=== PATIENT | female | born 1945 | race Caucasian/White ===

== ENCOUNTER → 2016-06-06 | Outpatient (CLI) | payer MEDICARE, BC ==
--- NOTE | 2016-06-07 08:03 | XR ---
EXAMINATION TYPE: XR knee complete LT DATE OF EXAM: 06/06/2016 4:59 PM CLINICAL HISTORY: Left medial knee pain after fall injury today. TECHNIQUE: Three views of the left knee are obtained. COMPARISON: None. FINDINGS: There is no acute fracture/dislocation evident in left knee. There is mild joint space los s patellofemoral and medial tibiofemoral compartments. No significant spurring is seen. The overlyin g soft tissue appears unremarkable. IMPRESSION: There is no acute fracture or dislocation in the left knee.
== END | disposition home or self-care (01) ==
LOC: RADXRYALE 16:40
PROVIDERS: ATTEND Family Medicine
DX: S89.92XA Unspecified injury of left lower leg, initial encounter (principal)

== ENCOUNTER → 2016-09-22 | Outpatient (CLI) | payer MEDICARE, BC ==
--- NOTE | 2016-09-22 12:11 | EST ---
DATE OF SERVICE: 09/22/2016 AGE: 71Y SEX: F HT: 61 WT: 155 lbs. Protocol Saurabh: X Other: Stage: I Dur. of Exercise: 3 minutes *Heart Rate Blood Pressure *Rest: 74 Rest: 148/88 * *Max. Achieved: 127 Maximum BP: 180/75 85% PMHR: 126 100% PMHR: 148 *METS: 4.0 INDICATIONS: Chest pain. MEDICATIONS: Keppra, Klonopin, Lexapro. Baseline EKG revealed a sinus mechanism without significant ST-T changes. Patient walked on standard Saurabh protocol for a total duration of 3 minutes and achieved a maximum heart rate of 127 beats per minute. Developed fatigue and shortness of breath, but did not have angina or arrhythmia. EKG did not reveal any changes to suggest ischemia. FINAL IMPRESSION: Limited exercise capacity with a negative stress test by EKG criteria.
== END | disposition home or self-care (01) ==
LOC: RADNMMAIN 10:48
PROVIDERS: ATTEND Family Medicine
DX: R07.9 Chest pain, unspecified (principal)
CPT/HCPCS: 93017

== ENCOUNTER → 2016-10-18 | Outpatient (CLI) | payer MEDICARE, BC ==
--- NOTE | 2016-10-19 13:25 | XR ---
2 view abdomen HISTORY: Cerebrovascular accident, right lower quadrant pain 2 views of the abdomen correlated to prior abdomen 10/06/2015 Surgical clips are present in the right upper quadrant. Lung bases are clear. There is no evident bow el obstruction or pneumoperitoneum. Surgical clips again noted within the left paraspinal location, p chantelle. Bone mineralization is mildly reduced. Probable phleboliths in the pelvis. IMPRESSION: Nonobstructive bowel gas pattern.
== END | disposition home or self-care (01) ==
LOC: RADXRYALE 14:43
PROVIDERS: ATTEND Physician Assistant Medical
DX: R10.31 Right lower quadrant pain (principal); R10.819 Abdominal tenderness, unspecified site; Z86.73 Personal history of transient ischemic attack (TIA), and cerebral infarction without residual deficits
CPT/HCPCS: 74020

== ENCOUNTER → 2016-10-26 | Outpatient (CLI) | payer MEDICARE, BC ==
--- NOTE | 2016-10-26 18:39 | CT ---
EXAMINATION TYPE: CT abdomen w con DATE OF EXAM: 10/26/2016 COMPARISON: 03/01/2015 HISTORY: MIDDLE ABDOMINAL AND EPIGASTRIC PAIN. CT DLP: 545 mGycm Automated exposure control for dose reduction was used. TECHNIQUE: Helical acquisition of images was performed from the lung bases through the top of iliac crest to include entire abdomen. CONTRAST: Performed with Oral Contrast and with IV Contrast, patient injected with 100 mL of Omnipaque 300. FINDINGS: Lung bases are clear of consolidation. There is a 1 cm subpleural nodule in the lateral left lower lo be. There is no pleural effusion. There is small hiatal hernia. There is no pericardial effusion. Liver spleen pancreas appear normal. Bile ducts are not dilated. Gallbladder is absent. There is no a drenal mass. Kidneys show satisfactory contrast opacification. There is no hydronephrosis. There are multiple varicose veins at the tim hepatis. There is a 3 cm area of apparent calcification and ther e is no sign of a bowel obstruction. I see no retroperitoneal adenopathy. Spiculated density in the s mall bowel mesentery seen on axial image 37. IMPRESSION: THERE ARE SIGNIFICANT VARICES DEMONSTRATED AT THE TIM HEPATIS SIMILAR TO OLD EXAM. THERE IS SOME DE SMOPLASTIC-TYPE REACTION IN THE SMALL BOWEL MESENTERY THAT IS INCREASED COMPARED TO OLD EXAM. NO JENNIFER L OBSTRUCTION. HIATAL HERNIA. CHOLECYSTECTOMY. THE DESMOPLASTIC REACTION IN THE UPPER SMALL BOWEL MESENTERY ALSO INVOLVES THE PROXIMAL TRANSVERSE CO HAILE AND PROBABLY ALSO THE THIRD PART OF THE DUODENUM. UPPER GI EXAM WOULD BE HELPFUL FOR FURTHER EVAL UATION. THERE ARE ADJACENT LOOPS OF BOWEL THAT SHOW SOME ADHESION TO THE MESENTERIC DENSITY..
== END | disposition home or self-care (01) ==
LOC: RADCTMAIN 15:47
PROVIDERS: ATTEND Family Medicine
DX: K44.9 Diaphragmatic hernia without obstruction or gangrene (principal); K63.89 Other specified diseases of intestine; R19.7 Diarrhea, unspecified; R10.13 Epigastric pain; K21.9 Gastro-esophageal reflux disease without esophagitis; Z90.49 Acquired absence of other specified parts of digestive tract
CPT/HCPCS: 82565; 84520; 74160; 36415; Q9967

== ENCOUNTER → 2017-04-17 | Outpatient (CLI) | payer MEDICARE, BC ==
--- NOTE | 2017-04-17 12:43 | CT ---
EXAMINATION TYPE: CT brain wo con DATE OF EXAM: 04/17/2017 COMPARISON: NONE HISTORY: Dizziness, Headaches CT DLP: 1036 mGy Automated exposure control for dose reduction was used. FINDINGS: Ventricular system is midline. There is no evidence of displacement. No acute hemorrhage or mass effe ct noted. Periventricular low attenuation is nonspecific. Hyperostosis of the calvarium noted. IMPRESSION: NO ACUTE HEMORRHAGE, MASS EFFECT OR MIDLINE SHIFT. NONSPECIFIC WHITE MATTER CHANGES MOST TYPICAL [place] TE MICROVASCULAR ISCHEMIA. RECOMMEND FOLLOW-UP MRI. REPORT CALLED TO THE REFERRING PHYSICIAN..
== END | disposition home or self-care (01) ==
LOC: RADCTMAIN 12:13
PROVIDERS: ATTEND Physician Assistant Medical
DX: R90.82 White matter disease, unspecified (principal)
CPT/HCPCS: 70450

== ENCOUNTER 2017-05-20 16:01 | Emergency (ER) | payer MEDICARE, BC ==
[2017-05-20 16:09] VITALS: PULSE 82
[2017-05-20] MEDS ORDERED: KETOROLAC 30 MG/ML 1 ML VIAL IVP STA (17:03)
[2017-05-20 17:21] LABS: Basophils % (A) 1 %; Eosinophils # (A) 0.1 k/uL (0-0.7); Eosinophils % (A) 2 %; HCT 38.5 % (34.0-46.0); HGB 12.5 gm/dL (11.4-16.0); Lymphocytes # (A) 1.2 k/uL (1.0-4.8); Lymphocytes % (A) 25 %; MCH 30.9 pg (25.0-35.0); MCHC 32.4 g/dL (31.0-37.0); MCV 95.5 fL (80.0-100.0); Monocytes # (A) 0.4 k/uL (0-1.0); Monocytes % (A) 8 %; Neutrophils % (A) 62 %; Platelet Count 199 k/uL (150-450); RBC 4.04 m/uL (3.80-5.40); RDW 12.7 % (11.5-15.5); WBC 4.8 k/uL (3.8-10.6)
[2017-05-20 17:31] LABS: ALT 31 U/L (9-52); AST 23 U/L (14-36); Albumin 3.3 g/dL (3.5-5.0); Alkaline Phosphatase 61 U/L (38-126); Anion Gap 8 mmol/L; Blood Urea Nitrogen 13 mg/dL (7-17); Calcium 9.1 mg/dL (8.4-10.2); Carbon Dioxide 27 mmol/L (22-30); Chloride 108 mmol/L (98-107); Glucose 97 mg/dL (74-99); Lipase 37 U/L (23-300); Potassium 3.3 mmol/L (3.5-5.1); Sodium 143 mmol/L (137-145); Total Bilirubin 0.4 mg/dL (0.2-1.3)
--- NOTE | 2017-05-20 18:15 | ED ---
Abdominal Pain HPI - General Chief Complaint: Abdominal Pain Stated Complaint: Abd Pain Time Seen by Provider: 05/20/17 16:51 Source: patient Mode of arrival: ambulatory Limitations: no limitations - History of Present Illness Initial Comments: This is a 72-year-old female who presents emergency department for abdominal pain. Patient states that the pain is been there for the last month or so. It is located in her right upper quadrant. She has had multiple CAT scans and x- rays done. She was recently admitted for this and treated for possible diverticulitis. She has completed her antibiotics. She states the pain has been consistent since then. She states that it's just been unbearable for the last few hours so she decided come in. She states that she just wants some pain medications to go home. She's been taking Tylenol for this however no other medications. She states that she was told that she has an ileus however is only been on stool softeners. She does admit to some liquid stool however no good bowel movements for a number of weeks. She denies any fevers or chills. No vomiting. No other complaints. - Related Data Home Medications Medication Instructions Recorded Confirmed clonazePAM [KlonoPIN] 0.5 mg PO BID 03/01/15 05/20/17 levETIRAcetam [Keppra] 500 mg PO Q12HR 03/01/15 05/20/17 Pantoprazole Sodium [Protonix] 40 mg PO DAILY 05/02/17 05/20/17 busPIRone HCl [Buspar] 10 mg PO BID 05/02/17 05/20/17 Dicyclomine [Bentyl] 10 mg PO QID 05/08/17 05/20/17 Previous Rx's Medication Instructions Recorded Bisacodyl [Dulcolax] 10 mg RECTAL DAILY PRN #20 supp 05/20/17 Naproxen 500 mg PO BID #30 tablet 05/20/17 Polyethylene Glycol 3350 [Miralax] 17 gm PO DAILY #527 gm 05/20/17 Allergies Allergy/AdvReac Type Severity Reaction Status Date / Time codeine AdvReac Nausea & Verified 05/20/17 17:24 Vomiting Review of Systems ROS Statement: Those systems with pertinent positive or pertinent negative responses have been documented in the HPI. ROS Other: All systems not noted in ROS Statement are negative. Past Medical History Past Medical History: Cancer, GERD/Reflux, Hyperlipidemia, Seizure Disorder Additional Past Medical History / Comment(s): colon cancer, HIATAL HERNIA, LAST SEIZURE 2012, STATES "GETS TREMORS WHEN VERY ANXIOUS", known intra-abdominal varicosities and labial varicosities, esophageal stricture History of Any Multi-Drug Resistant Organisms: None Reported Past Surgical History: Appendectomy, Bowel Resection, Cholecystectomy, Tubal Ligation Additional Past Surgical History / Comment(s): laparoscopic Cholecystectomy, esophageal dilation Past Anesthesia/Blood Transfusion Reactions: Postoperative Nausea & Vomiting ( PONV) Past Psychological History: Anxiety Smoking Status: Never smoker Past Alcohol Use History: None Reported Past Drug Use History: None Reported - Past Family History Father Family Medical History: Cancer, Prostate Disorder Additional Family Medical History / Comment(s): PROSTATE/COLON CANCER Mother Family Medical History: Cancer, Dementia Additional Family Medical History / Comment(s): COLN CANCER General Exam - General Exam Comments Initial Comments: Constitutional: Awake alert Appears comfortable Head: Normocephalic atraumatic Eyes: no conjunctival injection No scleral icterus EOMI Neck: No JVD Supple Heart: Regular rate rhythm normal S1-S2 no murmurs Lungs: Clear to auscultation bilaterally No wheezing No rales Abdomen: Soft nondistended tenderness to palpation in the right upper quadrant and epigastric region without rebound or guarding Extremities: Non edematous DP pulses intact Radial pulses intact Neuro: A&Ox3 No focal neurologic deficits Psych: Appropriate mood and affect Limitations: no limitations Course Vital Signs 05/20/17 16:04 Temperature 98.2 F Pulse Rate 82 Respiratory 18 Rate Blood Pressure 140/65 O2 Sat by Pulse 99 Oximetry Medical Decision Making - Medical Decision Making This is a 72-year-old female presented for right upper quadrant abdominal pain. Chart was reviewed and she's had multiple images that showed evidence for ileus. The patient stated that she did not want any further imaging and just wanted symptom control. She was given a dose of Toradol with near complete resolution of her symptoms. Labwork was reviewed and unremarkable. X-ray did not show any signs of bowel obstruction. I'm going to send the patient home with MiraLAX and Dulcolax suppositories to assist her with having bowel movements. Needs close follow-up with her primary doctor. Return if it worsens. - Lab Data Result diagrams: 05/20/17 17:11 05/20/17 17:11 Lab Results 05/20/17 05/20/17 Range/Units 17:11 17:11 WBC 4.8 (3.8-10.6) k/uL RBC 4.04 (3.80-5.40) m/uL Hgb 12.5 (11.4-16.0) gm/dL Hct 38.5 (34.0-46.0) % MCV 95.5 (80.0-100.0) fL MCH 30.9 (25.0-35.0) pg MCHC 32.4 (31.0-37.0) g/dL RDW 12.7 (11.5-15.5) % Plt Count 199 (150-450) k/uL Neutrophils % 62 % Lymphocytes % 25 % Monocytes % 8 % Eosinophils % 2 % Basophils % 1 % Neutrophils # 3.0 (1.3-7.7) k/uL Lymphocytes # 1.2 (1.0-4.8) k/uL Monocytes # 0.4 (0-1.0) k/uL Eosinophils # 0.1 (0-0.7) k/uL Basophils # 0.0 (0-0.2) k/uL Sodium 143 (137-145) mmol/L Potassium 3.3 L (3.5-5.1) mmol/L Chloride 108 H (98-107) mmol/L Carbon Dioxide 27 (22-30) mmol/L Anion Gap 8 mmol/L BUN 13 (7-17) mg/dL Creatinine 0.90 (0.52-1.04) mg/dL Est GFR (MDRD) Af Amer >60 (>60 ml/min/1.73 sqM) Est GFR (MDRD) Non-Af >60 (>60 ml/min/1.73 sqM) Glucose 97 (74-99) mg/dL Calcium 9.1 (8.4-10.2) mg/dL Total Bilirubin 0.4 (0.2-1.3) mg/dL AST 23 (14-36) U/L ALT 31 (9-52) U/L Alkaline Phosphatase 61 (38-126) U/L Total Protein 6.0 L (6.3-8.2) g/dL Albumin 3.3 L (3.5-5.0) g/dL Lipase 37 (23-300) U/L Disposition Clinical Impression: Abdominal pain, Ileus Disposition: HOME SELF-CARE Condition: Stable Instructions: Abdominal Pain (ED), Ileus (ED) Prescriptions: Bisacodyl [Dulcolax] 10 mg RECTAL DAILY PRN #20 supp PRN Reason: Constipation Naproxen 500 mg PO BID #30 tablet Polyethylene Glycol 3350 [Miralax] 17 gm PO DAILY #527 gm Referrals: Dao Rabago DO [Primary Care Provider] - 1-2 days
--- NOTE | 2017-05-20 18:25 | XR ---
EXAMINATION TYPE: XR abdomen acute w cxr DATE OF EXAM: 05/20/2017 COMPARISON: 10/06/2015 HISTORY: Abdominal pain TECHNIQUE: 4 views FINDINGS: Bowel gas pattern is normal. There is no sign of intestinal obstruction or pneumoperitoneum. Lungs ar e clear. Heart and mediastinum are normal. There is no pleural effusion. There are clips from cholecy stectomy. There is no evidence of a mass. There are no pathologic calcifications over the kidneys. IMPRESSION: Nonacute abdomen. Normal chest.
[2017-05-20 18:32] VITALS: BP 142/84; RESP 17; TEMP 98.6
== END 2017-05-20 18:31 | disposition home or self-care (01) ==
LOC: EC 16:01
DX: K56.7 Ileus, unspecified (principal); K21.9 Gastro-esophageal reflux disease without esophagitis; G40.909 Epilepsy, unspecified, not intractable, without status epilepticus; F41.9 Anxiety disorder, unspecified; Z85.038 Personal history of other malignant neoplasm of large intestine; Z79.899 Other long term (current) drug therapy; Z88.5 Allergy status to narcotic agent; Z90.49 Acquired absence of other specified parts of digestive tract
CPT/HCPCS: 36415; 80053; 83690; 85025; 74022; 99284; 96374; J1885

== ENCOUNTER 2017-06-11 12:49 | Emergency (ER) | payer MEDICARE, BC ==
[2017-06-11] MEDS ORDERED: LORazepam 2 MG/ML INJ IV STA (13:16)
[2017-06-11] MEDS ORDERED: SODIUM CHLORIDE 0.9% 500 ML IV STA (13:19)
--- NOTE | 2017-06-11 13:30 | ED ---
General Adult HPI - General Chief complaint: Anxiety Stated complaint: Anxiety Time Seen by Provider: 06/11/17 13:10 Source: patient, RN notes reviewed Mode of arrival: EMS Limitations: no limitations - History of Present Illness Initial comments: Patient is a pleasant 72-year-old female presenting to the emergency department with anxiety. Patient states she has not slept in 2 days. Patient states symptoms worsened yesterday. Patient states she has had these episodes over the past 4 years. Patient has seen psychiatry and neurology for this. Patient feels shaky all over. Patient feels like it's hard to move. Patient does feel somewhat short of breath. Patient states she recently saw her doctor yesterday and was changed from Klonopin to Ativan. - Related Data Home Medications Medication Instructions Recorded Confirmed clonazePAM [KlonoPIN] 0.5 mg PO BID 03/01/15 06/11/17 levETIRAcetam [Keppra] 500 mg PO Q12HR 03/01/15 06/11/17 Pantoprazole Sodium [Protonix] 40 mg PO DAILY 05/02/17 06/11/17 busPIRone HCl [Buspar] 10 mg PO BID 05/02/17 06/11/17 Polyethylene Glycol 3350 [Miralax] 17 gm PO DAILY PRN 06/11/17 06/11/17 Venlafaxine HCl [Effexor XR] 75 mg PO DAILY 06/11/17 06/11/17 Allergies Allergy/AdvReac Type Severity Reaction Status Date / Time codeine AdvReac Nausea & Verified 06/11/17 13:59 Vomiting Review of Systems ROS Statement: Those systems with pertinent positive or pertinent negative responses have been documented in the HPI. ROS Other: All systems not noted in ROS Statement are negative. Constitutional: Denies: fever Eyes: Denies: eye pain ENT: Denies: ear pain Respiratory: Reports: dyspnea Cardiovascular: Denies: chest pain Endocrine: Reports: fatigue Gastrointestinal: Denies: vomiting Genitourinary: Denies: dysuria Musculoskeletal: Denies: back pain Skin: Denies: rash Neurological: Denies: headache Psychiatric: Reports: anxiety Past Medical History Past Medical History: Cancer, GERD/Reflux, Hyperlipidemia, Seizure Disorder Additional Past Medical History / Comment(s): colon cancer, HIATAL HERNIA, LAST SEIZURE 2012, STATES "GETS TREMORS WHEN VERY ANXIOUS", known intra-abdominal varicosities and labial varicosities, esophageal stricture History of Any Multi-Drug Resistant Organisms: None Reported Past Surgical History: Appendectomy, Bowel Resection, Cholecystectomy, Tubal Ligation Additional Past Surgical History / Comment(s): laparoscopic Cholecystectomy, esophageal dilation Past Anesthesia/Blood Transfusion Reactions: Postoperative Nausea & Vomiting ( PONV) Past Psychological History: Anxiety, Depression, Panic Disorder Smoking Status: Never smoker Past Alcohol Use History: None Reported Past Drug Use History: None Reported - Past Family History Father Family Medical History: Cancer, Prostate Disorder Additional Family Medical History / Comment(s): PROSTATE/COLON CANCER Mother Family Medical History: Cancer, Dementia Additional Family Medical History / Comment(s): COLN CANCER General Exam Limitations: no limitations General appearance: alert, anxious Head exam: Present: atraumatic Eye exam: Present: normal appearance, PERRL ENT exam: Present: normal oropharynx Neck exam: Present: normal inspection Respiratory exam: Present: normal lung sounds bilaterally Cardiovascular Exam: Present: tachycardia GI/Abdominal exam: Present: soft. Absent: tenderness Extremities exam: Present: normal inspection Neurological exam: Present: alert, oriented X3, CN II-XII intact. Absent: motor sensory deficit Expanded Patient oriented to: Present: person, place, time Speech: Present: fluid speech Cranial nerves: EOM's Intact: Normal Sensory exam: Upper Extremity Light Touch: Normal, Lower Extremity Light Touch: Normal Motor strength exam: RUE: 5, LUE: 5, RLE: 5, LLE: 5 Eye Response: (4) open spontaneously Motor Response: (6) obeys commands Verbal Response: (5) oriented Psychiatric exam: Present: anxious Skin exam: Present: normal color Course Vital Signs 06/11/17 06/11/17 06/11/17 12:50 13:40 14:38 Temperature 98.0 F Pulse Rate 129 H 112 H 99 Respiratory 24 20 18 Rate Blood Pressure 177/88 163/83 156/74 O2 Sat by Pulse 98 97 97 Oximetry EKG Findings - EKG Comments: EKG Findings:: Neuro complex regular rhythm with a rate of 117. NV 140. QRS 62. qt338. QTC or 71. Normal axis. Normal QRS. No acute ST change. Medical Decision Making - Medical Decision Making Patient reevaluated and resting comfortably in bed. Patient states she just wanted to have medicine and go home. No dyspnea. Patient was able to ambulate without difficulty. - Lab Data Result diagrams: 06/11/17 13:32 06/11/17 13:32 Lab Results 06/11/17 06/11/17 Range/Units 13:32 13:32 WBC 5.0 (3.8-10.6) k/uL RBC 4.14 (3.80-5.40) m/uL Hgb 12.7 (11.4-16.0) gm/dL Hct 39.2 (34.0-46.0) % MCV 94.5 (80.0-100.0) fL MCH 30.5 (25.0-35.0) pg MCHC 32.3 (31.0-37.0) g/dL RDW 13.3 (11.5-15.5) % Plt Count 164 (150-450) k/uL Neutrophils % 59 % Lymphocytes % 29 % Monocytes % 7 % Eosinophils % 1 % Basophils % 1 % Neutrophils # 2.9 (1.3-7.7) k/uL Lymphocytes # 1.5 (1.0-4.8) k/uL Monocytes # 0.4 (0-1.0) k/uL Eosinophils # 0.1 (0-0.7) k/uL Basophils # 0.0 (0-0.2) k/uL Sodium 140 (137-145) mmol/L Potassium 3.8 (3.5-5.1) mmol/L Chloride 106 (98-107) mmol/L Carbon Dioxide 24 (22-30) mmol/L Anion Gap 10 mmol/L BUN 13 (7-17) mg/dL Creatinine 1.00 (0.52-1.04) mg/dL Est GFR (MDRD) Af Amer >60 (>60 ml/min/1.73 sqM) Est GFR (MDRD) Non-Af 54 (>60 ml/min/1.73 sqM) Glucose 117 H (74-99) mg/dL Calcium 9.4 (8.4-10.2) mg/dL Total Bilirubin 0.6 (0.2-1.3) mg/dL AST 30 (14-36) U/L ALT 25 (9-52) U/L Alkaline Phosphatase 69 (38-126) U/L Total Protein 6.4 (6.3-8.2) g/dL Albumin 3.7 (3.5-5.0) g/dL - Radiology Data Radiology results: image reviewed (Chest x-ray shows no acute process.) Disposition Clinical Impression: Acute anxiety Disposition: HOME SELF-CARE Condition: Stable Instructions: Generalized Anxiety Disorder (ED) Additional Instructions: Please follow-up to in the next day or 2 for recheck. Return for difficult to breathing, weakness, worsening or changing symptoms or other concerns. Referrals: Dao Rabago DO [Primary Care Provider] - 1-2 days Time of Disposition: 15:17
[2017-06-11 13:39] LABS: Basophils % (A) 1 %; Eosinophils # (A) 0.1 k/uL (0-0.7); Eosinophils % (A) 1 %; HCT 39.2 % (34.0-46.0); HGB 12.7 gm/dL (11.4-16.0); Lymphocytes # (A) 1.5 k/uL (1.0-4.8); Lymphocytes % (A) 29 %; MCH 30.5 pg (25.0-35.0); MCHC 32.3 g/dL (31.0-37.0); MCV 94.5 fL (80.0-100.0); Mean Platelet Volume 8.6; Monocytes # (A) 0.4 k/uL (0-1.0); Monocytes % (A) 7 %; Neutrophils # (A) 2.9 k/uL (1.3-7.7); Neutrophils % (A) 59 %; Platelet Count 164 k/uL (150-450); RBC 4.14 m/uL (3.80-5.40); RDW 13.3 % (11.5-15.5)
[2017-06-11 13:51] LABS: ALT 25 U/L (9-52); AST 30 U/L (14-36); Albumin 3.7 g/dL (3.5-5.0); Alkaline Phosphatase 69 U/L (38-126); Anion Gap 10 mmol/L; Blood Urea Nitrogen 13 mg/dL (7-17); Calcium 9.4 mg/dL (8.4-10.2); Carbon Dioxide 24 mmol/L (22-30); Chloride 106 mmol/L (98-107); Glucose 117 mg/dL (74-99); Potassium 3.8 mmol/L (3.5-5.1); Sodium 140 mmol/L (137-145); Total Bilirubin 0.6 mg/dL (0.2-1.3); Total Protein 6.4 g/dL (6.3-8.2)
--- NOTE | 2017-06-11 14:06 | XR ---
EXAMINATION TYPE: XR chest 2V DATE OF EXAM: 06/11/2017 COMPARISON: 05/08/2016 HISTORY: Shortness of breath TECHNIQUE: Frontal and lateral views of the chest are obtained. FINDINGS: Scattered senescent parenchymal changes noted. Hyperinflation compatible with COPD. No evidence for infiltrate. No evidence for atelectasis. Heart size is stable. Mediastinal structures are stable and grossly unremarkable. No evidence for hilar prominence. Degenerative changes dorsal spine. IMPRESSION: 1. No evidence for acute pulmonary disease.
[2017-06-11 14:39] VITALS: RESP 18
[2017-06-11 15:49] VITALS: BP 163/69; PULSE 103; TEMP 98.1
== END 2017-06-11 15:49 | disposition home or self-care (01) ==
LOC: EC 12:49
DX: F41.9 Anxiety disorder, unspecified (principal); F32.9 Major depressive disorder, single episode, unspecified; R40.2142 Coma scale, eyes open, spontaneous, at arrival to emergency department; R40.2252 Coma scale, best verbal response, oriented, at arrival to emergency department; R40.2362 Coma scale, best motor response, obeys commands, at arrival to emergency department; K21.9 Gastro-esophageal reflux disease without esophagitis; Z86.69 Personal history of other diseases of the nervous system and sense organs; Z85.038 Personal history of other malignant neoplasm of large intestine; Z79.899 Other long term (current) drug therapy; Z88.5 Allergy status to narcotic agent
CPT/HCPCS: 36415; 93005; 80053; 85025; 71046; 99284; 96374; 96361 ×2; J2060

== ENCOUNTER 2017-07-15 14:06 | Inpatient (IN) | payer MEDICARE, BC ==
[2017-07-15] MEDS ORDERED: SODIUM CHLORIDE 0.9% 500 ML IV STA (14:13)
[2017-07-15] MEDS ORDERED: SUCCINYLCHOLINE CHLORIDE VIAL 200 MG/10 ML VIAL IV STA (14:18)
[2017-07-15] MEDS ORDERED: LORazepam 2 MG/ML INJ IV STA (14:39)
[2017-07-15] MEDS ORDERED: PROPOFOL 1,000 MG in EMPTY BAG 1 BAG IV ONE (14:39)
--- NOTE | 2017-07-15 14:39 | ED ---
Overdose HPI - General Chief Complaint: Overdose Stated Complaint: unresponsive Time Seen by Provider: 07/15/17 14:06 Source: EMS, RN notes reviewed, old records reviewed Mode of arrival: ambulatory Limitations: altered mental status - History of Present Illness Initial Comments: This is a 72-year-old female history of multiple medical problems who apparently overdosed on multiple medications sometime this afternoon. There is a report that she possibly was last seen awake and alert around 12 noon today. She was apparently found by her unresponsive. EMS was summoned. Patient was given a total of 6 mg of Narcan with very minimal results. Patient did vomit approximately 250 mL of yellowish material and route and there is a question of aspiration. It is reported the patient is despondent due to the of a grandson who overdosed on heroin recently. He has nothad any prior history of suicidal thoughts or ideation she does have multiple medical issues. Please see the attached list from nursing for the medications that were possibly ingested this did also include Dilantin and that was not the patient' s. Apparently the medication was kept in an unlocked gun safe. MD Complaint: intentional overdose - Related Data Home Medications Medication Instructions Recorded Confirmed levETIRAcetam [Keppra] 500 mg PO Q12HR 03/01/15 07/15/17 Pantoprazole Sodium [Protonix] 40 mg PO DAILY 05/02/17 07/15/17 Previous Rx's Medication Instructions Recorded Escitalopram [Lexapro] 20 mg PO DAILY #30 tab 07/05/17 QUEtiapine [SEROquel] 25 mg PO BID #60 tab 07/05/17 busPIRone HCl [Buspar] 10 mg PO BID #60 tab 07/05/17 clonazePAM [KlonoPIN] 1 mg PO TID PRN #45 tab 07/05/17 Allergies Allergy/AdvReac Type Severity Reaction Status Date / Time codeine AdvReac Nausea & Verified 07/15/17 14:40 Vomiting Review of Systems ROS Statement: Those systems with pertinent positive or pertinent negative responses have been documented in the HPI. ROS Other: All systems not noted in ROS Statement are negative. Limitations: ROS unobtainable due to patients medical condition Past Medical History Past Medical History: Cancer, GERD/Reflux, Hyperlipidemia, Seizure Disorder Additional Past Medical History / Comment(s): Colon cancer, HIATAL HERNIA, STATES "GETS TREMORS WHEN VERY ANXIOUS", known intra-abdominal varicosities and labial varicosities, esophageal stricture History of Any Multi-Drug Resistant Organisms: None Reported Past Surgical History: Appendectomy, Bowel Resection, Cholecystectomy, Tubal Ligation Additional Past Surgical History / Comment(s): laparoscopic Cholecystectomy-2013 , esophageal dilation, Bowel resection 2007 Past Anesthesia/Blood Transfusion Reactions: Postoperative Nausea & Vomiting ( PONV) Past Psychological History: Anxiety, Depression, Panic Disorder Smoking Status: Never smoker Past Alcohol Use History: None Reported Past Drug Use History: None Reported - Past Family History Father Family Medical History: Cancer, Prostate Disorder Additional Family Medical History / Comment(s): PROSTATE/COLON CANCER-Father at the age of 7272 years old. Mother Family Medical History: Cancer, Dementia Additional Family Medical History / Comment(s): COLON CANCER-Mother at the age of 7878 years old. General Exam - General Exam Comments Initial Comments: This is a well-developed asthenic appearing female who is unresponsive. Limitations: altered mental status General appearance: obtunded Head exam: Present: atraumatic, normocephalic, normal inspection Eye exam: Present: other (Pupils are equal approximately 3 mm and sluggish.) ENT exam: Present: mucous membranes moist, other (Patient does demonstrate a very poor gag reflex) Neck exam: Present: normal inspection. Absent: tenderness, meningismus, lymphadenopathy Respiratory exam: Present: decreased breath sounds Cardiovascular Exam: Present: regular rate, normal rhythm, normal heart sounds. Absent: systolic murmur, diastolic murmur, rubs, gallop, clicks GI/Abdominal exam: Present: soft, normal bowel sounds. Absent: distended, tenderness, guarding, rebound, rigid Rectal exam: Present: deferred Extremities exam: Present: normal inspection, normal capillary refill. Absent: pedal edema Back exam: Present: normal inspection Neurological exam: Present: altered Psychiatric exam: Present: other (Unable to evaluate) Skin exam: Present: pallor, mottled Course Vital Signs 07/15/17 07/15/17 07/15/17 14:09 15:23 16:15 Temperature 96.8 F L Pulse Rate 75 71 69 Respiratory 18 18 21 Rate Blood Pressure 80/41 92/53 104/52 O2 Sat by Pulse 100 100 Oximetry - Reevaluation(s) Reevaluation #1: 07/15/17 17:08 Reevaluation patient reveals no changes in her mental status immediately after intubation her vital signs remained stable. She did later require propofol and she became agitated. Reevaluation #2: 07/15/17 17:08 I did discuss findings with the patient's . He stated that the normally unlocked gun cabinet was locked someone got into it. He's not sure why she took the medication and how much. Apparently is been no reports of suicidal thought or ideation. Reevaluation #3: 07/15/17 17:09 I did discuss the case with Dr. Alvarado patient will be admitted ICU. She'll be started on Zosyn as are his suspicion of aspiration. Procedures - Intubation Time Out Performed: No (Constant bedside attention) Paralytic: Succinylcholine Mg Given: 70 Laryngoscope: Figueroa Size: 3 ET Tube Size: 7.5 ET Tube Uncuffed: No (Cuffed) Tube Secured Depth (cm): 22 Tube Secured Location: lips Tube Placement Confirmation: visualized tube passing through cords, confirmation by capnometry Patient Tolerated Procedure: well Intubation Complications: none Medical Decision Making - Medical Decision Making I did discuss the findings with the patient's . Patient will be admitted to intensive care unit for evaluation for overdose as well as later psychiatric evaluation. - Lab Data Result diagrams: 07/15/17 14:20 07/15/17 14:20 Lab Results 07/15/17 07/15/17 07/15/17 Range/Units 14:20 14:20 14:20 WBC 6.4 (3.8-10.6) k/uL RBC 4.05 (3.80-5.40) m/uL Hgb 12.4 (11.4-16.0) gm/dL Hct 41.8 (34.0-46.0) % MCV 103.3 H D (80.0-100.0) fL MCH 30.5 (25.0-35.0) pg MCHC 29.6 L (31.0-37.0) g/dL RDW 13.1 (11.5-15.5) % Plt Count 145 L (150-450) k/uL Neutrophils % 87 % Lymphocytes % 10 % Monocytes % 2 % Eosinophils % 1 % Basophils % 0 % Neutrophils # 5.5 (1.3-7.7) k/uL Lymphocytes # 0.6 L (1.0-4.8) k/uL Monocytes # 0.1 (0-1.0) k/uL Eosinophils # 0.1 (0-0.7) k/uL Basophils # 0.0 (0-0.2) k/uL Hypochromasia Marked Macrocytosis Slight Sample Site ABG pH (7.35-7.45) ABG pCO2 (35-45) mmHg ABG pO2 (83-108) mmHg ABG HCO3 (21-25) mmol/L ABG Total CO2 (19-24) mmol/L ABG O2 Saturation (94-97) % ABG Base Excess mmol/L Shon Test FiO2 % Sodium 140 (137-145) mmol/L Potassium 4.4 (3.5-5.1) mmol/L Chloride 102 (98-107) mmol/L Carbon Dioxide 24 (22-30) mmol/L Anion Gap 14 mmol/L BUN 17 (7-17) mg/dL Creatinine 1.38 H (0.52-1.04) mg/dL Est GFR (MDRD) Af Amer 45 (>60 ml/min/1.73 sqM) Est GFR (MDRD) Non-Af 37 (>60 ml/min/1.73 sqM) Glucose 166 H (74-99) mg/dL POC Glucose (mg/dL) (75-99) mg/dL POC Glu Dampener ID Osmolality 295 (280-301) mosm/kg Calcium 8.7 (8.4-10.2) mg/dL Total Bilirubin 0.6 (0.2-1.3) mg/dL AST 636 H (14-36) U/L ALT 1165 H (9-52) U/L Alkaline Phosphatase 146 H (38-126) U/L Total Creatine Kinase 33 (30-135) U/L CK-MB (CK-2) 0.7 (0.0-2.4) ng/mL CK-MB (CK-2) Rel Index 2.1 Troponin I 0.123 H* (0.000-0.034) ng/mL Total Protein 5.8 L (6.3-8.2) g/dL Albumin 3.4 L (3.5-5.0) g/dL Amylase 47 (30-110) U/L Lipase 120 (23-300) U/L Urine Color Urine Appearance (Clear) Urine pH (5.0-8.0) Ur Specific [place] (1.001-1.035) Urine Protein (Negative) Urine Glucose (UA) (Negative) Urine Ketones (Negative) Urine Blood (Negative) Urine Nitrite (Negative) Urine Bilirubin (Negative) Urine Urobilinogen (<2.0) mg/dL Ur Leukocyte Esterase (Negative) Salicylates <1.0 mg/dL Urine Opiates Screen (NotDetected) Ur Oxycodone Screen (NotDetected) Urine Methadone Screen (NotDetected) Ur Propoxyphene Screen (NotDetected) Acetaminophen <10.0 ug/mL Ur Barbiturates Screen (NotDetected) U Tricyclic Antidepress (NotDetected) Ur Phencyclidine Scrn (NotDetected) Ur Amphetamines Screen (NotDetected) U Methamphetamines Scrn (NotDetected) U Benzodiazepines Scrn (NotDetected) Urine Cocaine Screen (NotDetected) U Marijuana (THC) Screen (NotDetected) Serum Alcohol <10 mg/dL 07/15/17 07/15/17 07/15/17 Range/Units 14:28 15:00 16:09 WBC (3.8-10.6) k/uL RBC (3.80-5.40) m/uL Hgb (11.4-16.0) gm/dL Hct (34.0-46.0) % MCV (80.0-100.0) fL MCH (25.0-35.0) pg MCHC (31.0-37.0) g/dL RDW (11.5-15.5) % Plt Count (150-450) k/uL Neutrophils % % Lymphocytes % % Monocytes % % Eosinophils % % Basophils % % Neutrophils # (1.3-7.7) k/uL Lymphocytes # (1.0-4.8) k/uL Monocytes # (0-1.0) k/uL Eosinophils # (0-0.7) k/uL Basophils # (0-0.2) k/uL Hypochromasia Macrocytosis Sample Site LRA ABG pH 7.32 L (7.35-7.45) ABG pCO2 42 (35-45) mmHg ABG pO2 >400 H (83-108) mmHg ABG HCO3 22 (21-25) mmol/L ABG Total CO2 23 (19-24) mmol/L ABG O2 Saturation 100.0 H (94-97) % ABG Base Excess -4.4 mmol/L Shon Test Yes FiO2 100 % Sodium (137-145) mmol/L Potassium (3.5-5.1) mmol/L Chloride (98-107) mmol/L Carbon Dioxide (22-30) mmol/L Anion Gap mmol/L BUN (7-17) mg/dL Creatinine (0.52-1.04) mg/dL Est GFR (MDRD) Af Amer (>60 ml/min/1.73 sqM) Est GFR (MDRD) Non-Af (>60 ml/min/1.73 sqM) Glucose (74-99) mg/dL POC Glucose (mg/dL) 133 H (75-99) mg/dL POC Glu Dampener ID Lizandro Morrow Osmolality (280-301) mosm/kg Calcium (8.4-10.2) mg/dL Total Bilirubin (0.2-1.3) mg/dL AST (14-36) U/L ALT (9-52) U/L Alkaline Phosphatase (38-126) U/L Total Creatine Kinase (30-135) U/L CK-MB (CK-2) (0.0-2.4) ng/mL CK-MB (CK-2) Rel Index Troponin I (0.000-0.034) ng/mL Total Protein (6.3-8.2) g/dL Albumin (3.5-5.0) g/dL Amylase (30-110) U/L Lipase (23-300) U/L Urine Color Yellow Urine Appearance Clear (Clear) Urine pH 6.0 (5.0-8.0) Ur Specific [place] 1.011 (1.001-1.035) Urine Protein Trace H (Negative) Urine Glucose (UA) Negative (Negative) Urine Ketones Negative (Negative) Urine Blood Negative (Negative) Urine Nitrite Negative (Negative) Urine Bilirubin Negative (Negative) Urine Urobilinogen <2.0 (<2.0) mg/dL Ur Leukocyte Esterase Negative (Negative) Salicylates mg/dL Urine Opiates Screen Detected H (NotDetected) Ur Oxycodone Screen Not Detected (NotDetected) Urine Methadone Screen Not Detected (NotDetected) Ur Propoxyphene Screen Not Detected (NotDetected) Acetaminophen ug/mL Ur Barbiturates Screen Not Detected (NotDetected) U Tricyclic Antidepress Detected H (NotDetected) Ur Phencyclidine Scrn Not Detected (NotDetected) Ur Amphetamines Screen Not Detected (NotDetected) U Methamphetamines Scrn Not Detected (NotDetected) U Benzodiazepines Scrn Detected H (NotDetected) Urine Cocaine Screen Not Detected (NotDetected) U Marijuana (THC) Screen Not Detected (NotDetected) Serum Alcohol mg/dL - EKG Data -: EKG Interpreted by Me EKG shows normal: sinus rhythm (Normal sinus rhythm a 72. Interval 160 QRS duration 70 daily QT cyst QTc of 446/[address]-T wave changes.) - Radiology Data Radiology results: report reviewed (I did review the imaging and report endotracheal tube appears be a good position above the darlene evidence of subsegmental atelectasis. Aspirations not ruled out), image reviewed Critical Care Time Critical Care Time: Yes Critical Care Time: 47 minutes of critical care time which includes initial monitoring the EMS run and discussed with paramedics history physical labs x-rays multiple re- evaluations the patient discussion with the admitting physician discussion with the apparel patternmaker discussion with other staff members regarding various findings admission orders and documentation of the above. This also included reviewing old charting that was available. Disposition Clinical Impression: Drug overdose, Suicide attempt by multiple drug overdose, Coma, Abnormal gag reflex Disposition: ADMITTED IP TO THIS [facility] Condition: Serious Referrals: None,Stated [REFERRING] - 1-2 days
[2017-07-15 14:45] LABS: Basophils % (A) 0 %; Eosinophils # (A) 0.1 k/uL (0-0.7); Eosinophils % (A) 1 %; HCT 41.8 % (34.0-46.0); HGB 12.4 gm/dL (11.4-16.0); Hypochromasia Marked; Lymphocytes # (A) 0.6 k/uL (1.0-4.8); Lymphocytes % (A) 10 %; MCH 30.5 pg (25.0-35.0); MCHC 29.6 g/dL (31.0-37.0); Macrocytosis Slight; Mean Platelet Volume 8.5; Monocytes # (A) 0.1 k/uL (0-1.0); Monocytes % (A) 2 %; Neutrophils # (A) 5.5 k/uL (1.3-7.7); Neutrophils % (A) 87 %; Platelet Count 145 k/uL (150-450); RBC 4.05 m/uL (3.80-5.40); RDW 13.1 % (11.5-15.5); WBC 6.4 k/uL (3.8-10.6)
[2017-07-15 14:48] LABS: Glucose,Whole Blood 133 mg/dL (75-99)
[2017-07-15 14:50] LABS: MCV 103.3 fL (80.0-100.0)
[2017-07-15 15:01] LABS: AST 636 U/L (14-36); Acetaminophen <10.0 ug/mL; Albumin 3.4 g/dL (3.5-5.0); Alcohol <10 mg/dL; Alkaline Phosphatase 146 U/L (38-126); Amylase 47 U/L (30-110); Anion Gap 14 mmol/L; Blood Urea Nitrogen 17 mg/dL (7-17); Calcium 8.7 mg/dL (8.4-10.2); Carbon Dioxide 24 mmol/L (22-30); Chloride 102 mmol/L (98-107); Glucose 166 mg/dL (74-99); Lipase 120 U/L (23-300); Potassium 4.4 mmol/L (3.5-5.1); Salicylate <1.0 mg/dL; Sodium 140 mmol/L (137-145); Total Bilirubin 0.6 mg/dL (0.2-1.3); Total Protein 5.8 g/dL (6.3-8.2)
[2017-07-15 15:13] LABS: ALT 1165 U/L (9-52)
[2017-07-15 15:21] LABS: Appearance,Urine Clear (Clear); Bilirubin,Urine Negative (Negative); Blood,Urine Negative (Negative); Color,Urine Yellow; Glucose,Urine (UA) Negative (Negative); Ketones,Urine Negative (Negative); Leukocyte Esterase,Urine Negative (Negative); Nitrite,Urine Negative (Negative); Protein,Urine Trace (Negative); Specific Gravity,Urine 1.011 (1.001-1.035); Urobilinogen,Urine <2.0 mg/dL (<2.0)
[2017-07-15 15:24] LABS: Creatine Kinase MB 0.7 ng/mL (0.0-2.4)
[2017-07-15 15:29] LABS: Troponin I 0.123 ng/mL (0.000-0.034)
[2017-07-15 15:36] LABS: Amphetamine Screen,Urine Not Detected (NotDetected); Barbiturate Screen,Urine Not Detected (NotDetected); Benzodiazepines Screen,Urine Detected (NotDetected); Cocaine Screen,Urine Not Detected (NotDetected); Methadone Screen, Urine Not Detected (NotDetected); Opiate Screen,Urine Detected (NotDetected); Oxycodone Screen, Urine Not Detected (NotDetected); Phencyclidine Screen,Urine Not Detected (NotDetected); Tricyclic Antidepressant,Urine Detected (NotDetected); Urn Cannabinoid Scrn Not Detected (NotDetected)
--- NOTE | 2017-07-15 15:43 | XR ---
EXAMINATION TYPE: XR chest 1V portable DATE OF EXAM: 07/15/2017 COMPARISON: NONE HISTORY: Unresponsive. Possible overdose. Tube placement. TECHNIQUE: Single frontal view of the chest is obtained. FINDINGS: Endotracheal tube is located approximately 3.7 cm from the darlene at the level of the infe rior clavicle heads and aortic arch. This is satisfactorily placed. And enteric tube courses beyond t he gastroesophageal junction and is of properly placed. Scattered areas of subsegmental atelectasis a re noted. No focal consolidation. Cardiac silhouette is within normal limits. Blunting of the costoph renic angle likely relates to copious overlying soft tissues rather than pleural effusion. Cholecyste ctomy clips are noted within the right upper quadrant. IMPRESSION: Satisfactory placement of the endotracheal tube and enteric tubes with scattered areas o f subsegmental atelectasis.
[2017-07-15 16:14] LABS: ABG Base Excess -4.4 mmol/L; ABG HCO3 22 mmol/L (21-25); ABG PCO2 42 mmHg (35-45); ABG PH 7.32 (7.35-7.45); ABG PO2 >400 mmHg (83-108); ABG TCO2 23 mmol/L (19-24)
[2017-07-15] MEDS ORDERED: PIPERACILLIN-TAZOBACTAM 3.375 GM in DEXTROSE/WATER 1 50ML.BAG IVPB STA (17:07)
[2017-07-15] MEDS ORDERED: NALOXONE 0.4 MG/ML 1 ML VIAL IV PRN ×2 (17:15→20:10)
[2017-07-15 18:12] LABS: Glucose,Whole Blood 102 mg/dL (75-99)
[2017-07-15] MEDS ORDERED: SODIUM CHLORIDE 0.9% 1,000 ML IV ONE ×2 (18:44→21:42)
[2017-07-15] MEDS: SODIUM CHLORIDE 0.9% 1,000 ML IV SCH (20:18)
[2017-07-15] MEDS ORDERED: PROPOFOL 1,000 MG in EMPTY BAG 1 BAG IV SCH (20:30)
[2017-07-15] MEDS ORDERED: diphenhydrAMINE 50 MG/ML 1 ML VIAL IVP ONE (22:01)
[2017-07-15] MEDS ORDERED: NOREPINEPHRIN 4 MG-0.9% NS PMX 4 MG/250 ML ML IV SCH (22:30)
[2017-07-15] MEDS ORDERED: ACETYLCYSTEINE IV 8,400 MG in DEXTROSE 5% IN WATER 200 ML IV ONE ×2 (23:00)
[2017-07-15 23:57] LABS: INR 1.2 (<1.2); Prothrombin Time 11.4 sec (9.0-12.0)
[2017-07-16] MEDS: SODIUM CHLORIDE 0.9% 1,000 ML IV SCH ×3 (00:16→13:13)
[2017-07-16] MEDS: HEPARIN SODIUM,PORCINE 5,000 UNIT/ML 1 ML VIAL SQ SCH ×3 (00:18→16:25)
[2017-07-16] MEDS: PIPERACILLIN-TAZOBACTAM 3.375 GM in DEXTROSE/WATER 1 50ML.BAG IVPB SCH ×3 (00:18→16:28)
[2017-07-16 03:26] LABS: Appearance,Urine Cloudy (Clear); Bilirubin,Urine Negative (Negative); Blood,Urine Negative (Negative); Color,Urine Yellow; Glucose,Urine (UA) Trace (Negative); Ketones,Urine 2+ (Negative); Leukocyte Esterase,Urine Negative (Negative); Mucus,Urine Rare /hpf; Nitrite,Urine Negative (Negative); Protein,Urine Trace (Negative); Specific Gravity,Urine 1.023 (1.001-1.035); Squamous Epithelial Cell,Urine <1 /hpf (0-4); Uric Acid Crystals,Urine Rare /hpf; Urobilinogen,Urine <2.0 mg/dL (<2.0); WBC,Urine 4 /hpf (0-5)
[2017-07-16] MEDS ORDERED: ACETYLCYSTEINE IV ONE ×4 (04:00)
[2017-07-16] MEDS ORDERED: WATER IV ONE ×4 (04:00)
[2017-07-16] MEDS ORDERED: DEXTROSE 5% IV ONE ×4 (04:00)
[2017-07-16 04:30] LABS: ALT 711 U/L (9-52); AST 226 U/L (14-36); Albumin 2.3 g/dL (3.5-5.0); Alkaline Phosphatase <20 U/L (38-126); Anion Gap 10 mmol/L; Blood Urea Nitrogen 17 mg/dL (7-17); Calcium 6.8 mg/dL (8.4-10.2); Carbon Dioxide 21 mmol/L (22-30); Chloride 109 mmol/L (98-107); Glucose 167 mg/dL (74-99); Magnesium 1.7 mg/dL (1.6-2.3); Phosphorus 2.8 mg/dL (2.5-4.5); Potassium 3.9 mmol/L (3.5-5.1); Sodium 140 mmol/L (137-145); Total Bilirubin 0.2 mg/dL (0.2-1.3); Total Protein 4.5 g/dL (6.3-8.2)
[2017-07-16 04:41] LABS: Basophils % (A) 0 %; Eosinophils % (A) 0 %; HCT 34.3 % (34.0-46.0); HGB 10.1 gm/dL (11.4-16.0); Hypochromasia Marked; Lymphocytes # (A) 0.9 k/uL (1.0-4.8); Lymphocytes % (A) 19 %; MCH 30.4 pg (25.0-35.0); MCHC 29.3 g/dL (31.0-37.0); MCV 103.6 fL (80.0-100.0); Macrocytosis Slight; Mean Platelet Volume 8.5; Monocytes # (A) 0.2 k/uL (0-1.0); Monocytes % (A) 5 %; Neutrophils # (A) 3.4 k/uL (1.3-7.7); Neutrophils % (A) 74 %; Platelet Count 126 k/uL (150-450); RBC 3.31 m/uL (3.80-5.40); RDW 13.2 % (11.5-15.5); WBC 4.6 k/uL (3.8-10.6)
--- NOTE | 2017-07-16 05:42 | HP ---
HISTORY AND PHYSICAL DATE OF SERVICE: 07/15/2017 CHIEF COMPLAINT: Change in mental status, unresponsive. HISTORY OF PRESENT ILLNESS: This 72-year-old woman with a past medical history of multiple medical problems including GERD, history of hyperlipidemia, seizure disorder, history of colon cancer, bowel resection, anxiety, depression, panic disorder, being followed by Dr. Dao Rabago in the outpatient setting previously admitted to the mental health unit. Currently the patient is admitted with suspicion of overdose and change in mental status. Patient was apparently taking multiple medications including Klonopin, Keppra, Dilaudid, and other tablets and patient was awake and alert about 12 noon, but subsequently the found her unresponsive. EMS was called and patient was given 6 mg of Narcan and subsequently patient vomited 250 mL of yellowish material and there is a question of aspiration. The patient is mechanically ventilated and intubated in the ER and was sent to ICU for further evaluation and treatment. Patient is hypotensive at this time. The patient is on Levophed drip. Poison Control was notified and AST and ALT was elevated and was also initiated. Dr. Alvarado has been consulted. Patient unable to give coherent history, but however from most of the history taken my discussion with the ER physician, review of chart and in discussion with staff, apparently the patient's grandson committed suicide with an overdose of heroin recently, which has made her stressed. PAST MEDICAL HISTORY: History of GERD, hyperlipidemia, seizure disorder, colon cancer, hiatal hernia. MEDICATIONS: Medications prior to admission: 1. Keppra 500 mg b.i.d. 2. Klonopin 1 mg t.i.d. p.r.n. 3. BuSpar 10 mg b.i.d. 4. Seroquel 25 mg b.i.d. 5. Protonix 40 mg daily. 6. Lexapro 20 mg daily. ALLERGIES: CODEINE. FAMILY HISTORY: History of cancer, prostate cancer, in the family. SOCIAL HISTORY: No history of smoking per chart. REVIEW OF SYSTEMS: Could not be taken because of the patient being mechanically intubated. PHYSICAL EXAM: Pulse 71, blood pressure 97/35, respiration 15, temp 97.6, pulse ox 100% on mechanical ventilation. Vent settings are noted. tidal volume, 60% FiO2 and 5 PEEP. HEENT: Conjunctivae normal. Pupils are rather small and constricted. Neck is no jugular venous distention. No carotid bruit. No lymph node enlargement. Oral mucosa moist. CARDIOVASCULAR: S1, S2 normal. No S3 or S4. RESPIRATORY: Breath sounds diminished at the bases. A few scattered rhonchi and crackles. ABDOMEN: Soft, nontender. No mass palpable. LEGS: No edema, no swelling. NERVOUS SYSTEM: Higher function as mentioned. Patient mechanically sedated. SKIN: No ulcer, rash or bleeding. LYMPHATICS: No lymphadenopathy of the neck, axillae or groin. JOINTS: No active deforming arthropathy. LABS: WBC 6.2, MCV 103.3. ABGs noted. Otherwise glucose 166. AST 636, ALT is 1165 and troponin 0.123. Drug screen is positive for opiates and antidepressants and benzodiazepines. Alcohol less than 10 and acetaminophen less than 10, salicylates ASSESSMENT: 1. Change in mental status, acute metabolic acidosis secondary to drug overdose multiple with acute hypoxic respiratory failure on mechanical ventilation. 2. Increased AST and ALT, possibly hepatitis or secondary to overdose. 3. Possible aspiration pneumonia. 4. Troponin 0.123, indeterminate. 5. Increased creatinine with mild acute renal failure. 6. Increased MCV. 7. History of gastroesophageal reflux disease. 8. Hyperlipidemia. 9. History of seizure disorder. 10.History of colon cancer. 11.History of hiatal hernia. 12.History of tremors. 13.History of anxiety, depression, panic disorder. 14.FULL CODE. RECOMMENDATIONS AND DISCUSSION: This 72-year-old woman who presented with multiple complex medical issues, will monitor the patient closely. Continue the current medications, continue symptomatic treatment. Continue with mechanical ventilation. Consult Dr. Dr. Alvarado, Cardiology as well as Psychiatry. Repeat labs. Recommend PT, INR. Follow closely with Poison Control. Repeat LFTs. The current chest x-ray showed some scattered areas of atelectasis. I would also recommend empiric antibiotics. IV Zosyn was initiated. The prognosis extremely guarded because of multiple complex medical issues and we will continue to monitor. Further recommendations to follow. Copy of dictation forwarded to Dr. Rabago who is the primary physician. Will hold all the medications currently. I would also recommend a neurology consultation as well with Dr. Fontenot as well. I discussed with staff. Further recommendations to follow. MMODL / IJN: [id number] / [facility]
[2017-07-16] MEDS ORDERED: Magnesium Replacement Protocol 1 EACH MISC MISCELLANE PRN (05:45)
[2017-07-16] MEDS ORDERED: Potassium Replacement Protocol 1 EACH MISC MISCELLANE PRN (05:46)
[2017-07-16] MEDS ORDERED: POTASSIUM BICARBONATE/CIT AC 20 MEQ TABLET.EFF NG-TUBE SCH (06:00)
--- NOTE | 2017-07-16 07:18 | XR ---
EXAMINATION TYPE: XR chest 1V portable DATE OF EXAM: 07/16/2017 COMPARISON: 07/15/2017 HISTORY: Ventilatory dependent respiratory failure TECHNIQUE: Single frontal view of the chest is obtained. FINDINGS: New subsegmental atelectasis is seen at the right costophrenic angle. Remainder the lungs are clear. Endotracheal tube and enteric tubes are unchanged in position. Cardia mediastinal silhouet te is again nonenlarged. No pneumothorax. Moderate acromioclavicular arthropathy is noted. IMPRESSION: New right basilar subsegmental atelectasis. Unchanged satisfactory placement of the endo tracheal and enteric tubes.
[2017-07-16 07:54] LABS: ABG Base Excess -4.9 mmol/L; ABG HCO3 21 mmol/L (21-25); ABG PCO2 40 mmHg (35-45); ABG PH 7.33 (7.35-7.45); ABG PO2 270 mmHg (83-108); ABG TCO2 22 mmol/L (19-24)
[2017-07-16] MEDS: MAGNESIUM SULFATE-D5W PMX 1 GM in DEXTROSE/WATER 1 100ML.BAG IVPB SCH ×2 (08:12→13:03)
[2017-07-16] MEDS: PANTOPRAZOLE 40 MG/10 ML VIAL IV SCH (08:12)
--- NOTE | 2017-07-16 08:43 | P.CNPUL ---
History of Present Illness Consult date: 07/16/17 Chief complaint: Respiratory failure, OD History of present illness: Consult dated 07/16/2017 This is a 72-year-old female with multiple medical problems who apparently overdosed on multiple medications sometime yesterday afternoon. She apparently had a grandson who recently committed suicide. She apparently was despondent. She was found by her to be unresponsive. EMS was called. She was given more Narcan. She did vomit. Possible aspiration. The patient apparently had a drug screen that was positive for opiates try cyclic antidepressants and benzodiazepines. The patient's currently in the intensive care unit at [facility]. No additional history can be obtained from the patient. The patient's past medical history includes gastroesophageal reflux disease hyperlipidemia seizure disorder colon cancer hiatal hernia and esophageal stricture. Surgical history includes appendectomy bowel resection cholecystectomy and tubal ligation. Review of Systems ROS unobtainable: due to endotracheal tube Past Medical History Past Medical History: Cancer, GERD/Reflux, Hyperlipidemia, Seizure Disorder Additional Past Medical History / Comment(s): Colon cancer, HIATAL HERNIA, STATES "GETS TREMORS WHEN VERY ANXIOUS", known intra-abdominal varicosities and labial varicosities, esophageal stricture History of Any Multi-Drug Resistant Organisms: None Reported Past Surgical History: Appendectomy, Bowel Resection, Cholecystectomy, Tubal Ligation Additional Past Surgical History / Comment(s): laparoscopic Cholecystectomy-2013 , esophageal dilation, Bowel resection 2007 Past Anesthesia/Blood Transfusion Reactions: Postoperative Nausea & Vomiting ( PONV) Past Psychological History: Anxiety, Depression, Panic Disorder Smoking Status: Never smoker Past Alcohol Use History: None Reported Additional Past Alcohol Use History / Comment(s): Patient denies-BAT 0 Past Drug Use History: None Reported Additional Drug Use History / Comment(s): Patient denies. UDS Positive Benzos which are prescribed. - Past Family History Father Family Medical History: Cancer, Prostate Disorder Additional Family Medical History / Comment(s): PROSTATE/COLON CANCER-Father at the age of 7272 years old. Mother Family Medical History: Cancer, Dementia Additional Family Medical History / Comment(s): COLON CANCER-Mother at the age of 7878 years old. Medications and Allergies Home Medications Medication Instructions Recorded Confirmed Type levETIRAcetam [Keppra] 500 mg PO Q12HR 03/01/15 07/15/17 History Pantoprazole Sodium [Protonix] 40 mg PO DAILY 05/02/17 07/15/17 History Escitalopram [Lexapro] 20 mg PO DAILY #30 tab 07/05/17 07/15/17 Rx QUEtiapine [SEROquel] 25 mg PO BID #60 tab 07/05/17 07/15/17 Rx busPIRone HCl [Buspar] 10 mg PO BID #60 tab 07/05/17 07/15/17 Rx clonazePAM [KlonoPIN] 1 mg PO TID PRN #45 tab 07/05/17 07/15/17 Rx Allergies Allergy/AdvReac Type Severity Reaction Status Date / Time codeine AdvReac Nausea & Verified 07/15/17 14:40 Vomiting Physical Exam Osteopathic Statement: *. No significant issues noted on an osteopathic structural exam other than those noted in the History and Physical/Consult. Vitals: Vital Signs Temp Pulse Resp BP Pulse Ox 07/16/17 06:00 76 23 113/47 100 07/16/17 05:00 64 15 118/51 100 07/16/17 04:00 97.9 F 80 12 123/55 100 07/16/17 03:00 65 12 124/50 100 07/16/17 02:00 61 13 96/50 100 07/16/17 01:00 66 12 117/45 100 07/16/17 00:00 98.5 F 65 15 115/48 100 07/15/17 23:23 68 16 99/44 100 07/15/17 23:00 74 12 95/40 100 07/15/17 22:00 64 12 81/37 100 07/15/17 21:00 71 15 97/35 100 07/15/17 20:00 97.6 F 77 12 92/42 100 07/15/17 19:00 73 13 91/38 100 07/15/17 18:08 83 07/15/17 17:49 96.8 F L 07/15/17 17:43 66 21 104/52 100 07/15/17 16:15 69 21 104/52 100 07/15/17 15:23 71 18 92/53 100 07/15/17 14:09 96.8 F L 75 18 80/41 Intake and Output 07/15/17 07/16/17 07/16/17 22:59 06:59 14:59 Intake Total 2650 2984.875 Output Total 345 343 Balance 2305 2641.875 Intake: IV 2650 2950 Acetylcysteine IV 2,800 500 mg In Dextrose 5% in Water 500 ml @ 128.5 mls/ hr IV ONCE ONE Rx#: [id number] Acetylcysteine IV 5,600 1000 mg In Dextrose 5% in Water 1,000 ml @ 64.25 mls/hr IV ONCE ONE Rx#: [id number] Acetylcysteine IV 8,400 200 mg In Dextrose 5% in Water 200 ml @ 242 mls/hr IV ONCE ONE Rx#: [id number] Piperacillin-Tazobactam 3 50 50 .375 gm In Dextrose/Water 1 50ml.bag @ 12.5 mls/hr IVPB ONCE STA Rx#: [id number] Sodium Chloride 0.9% 1, 600 1200 000 ml @ 150 mls/hr IV . Q6H40M [facility] Rx#:[id number] Sodium Chloride 0.9% 1, 2000 000 ml @ 999 mls/hr IV . Q1H1M ONE Rx#:[id number] Intake, IV Titration 34.875 Amount Norepinephrin 4 mg-0.9% 34.875 Ns Pmx 4 mg In 250 ml @ Titrate IV .Q0M [facility] Rx#: [id number] Output: Urine 345 343 Other: Voiding Method Indwelling Catheter Indwelling Catheter Weight 62.8 kg No acute distress, Patient's sedated, with oral endotracheal tube and NG tube noted. HEENT examination is grossly unremarkable. Mucous membranes are moist. No oral lesions. Neck supple. Full range of motion. No adenopathy thyromegaly or neck vein distention. Cardiovascular examination reveals regular rhythm rate. S1-S2 normal. No S3 or S4. No discernible murmur noted. Lungs reveal few scattered rhonchi. Diminished. No wheezes. No crackles. Abdomen soft bowel sounds are heard. No masses or tenderness. Extremities are intact. No cyanosis clubbing or edema. Skin is without rash or lesion. Neurologic examination could not be adequately assessed because of the patient' s sedatives. Results - Laboratory Findings CBC and BMP: 07/16/17 03:52 07/16/17 03:52 ABG ABG pH 7.33 (7.35-7.45) L 07/16/17 07:50 ABG pCO2 40 mmHg (35-45) 07/16/17 07:50 ABG pO2 270 mmHg (83-108) H 07/16/17 07:50 ABG O2 Saturation 100.0 % (94-97) H 07/16/17 07:50 PT/INR, D-dimer PT 11.4 sec (9.0-12.0) 07/15/17 23:25 INR 1.2 (<1.2) H 07/15/17 23:25 Abnormal lab findings: Abnormal Labs 07/15/17 07/15/17 07/15/17 14:20 14:20 14:20 RBC Hgb MCV 103.3 H D MCHC 29.6 L Plt Count 145 L Lymphocytes # 0.6 L INR ABG pH ABG pO2 ABG O2 Saturation Chloride Carbon Dioxide Creatinine 1.38 H Glucose 166 H POC Glucose (mg/dL) Calcium AST 636 H ALT 1165 H Alkaline Phosphatase 146 H Troponin I 0.123 H* Total Protein 5.8 L Albumin 3.4 L Urine Appearance Urine Protein Urine Glucose (UA) Urine Ketones Uric Acid Crystals Urine Mucus Urine Opiates Screen U Tricyclic Antidepress U Benzodiazepines Scrn 07/15/17 07/15/17 07/15/17 14:28 15:00 16:09 RBC Hgb MCV MCHC Plt Count Lymphocytes # INR ABG pH 7.32 L ABG pO2 >400 H ABG O2 Saturation 100.0 H Chloride Carbon Dioxide Creatinine Glucose POC Glucose (mg/dL) 133 H Calcium AST ALT Alkaline Phosphatase Troponin I Total Protein Albumin Urine Appearance Urine Protein Trace H Urine Glucose (UA) Urine Ketones Uric Acid Crystals Urine Mucus Urine Opiates Screen Detected H U Tricyclic Antidepress Detected H U Benzodiazepines Scrn Detected H 07/15/17 07/15/17 07/16/17 18:10 23:25 03:05 RBC Hgb MCV MCHC Plt Count Lymphocytes # INR 1.2 H ABG pH ABG pO2 ABG O2 Saturation Chloride Carbon Dioxide Creatinine Glucose POC Glucose (mg/dL) 102 H Calcium AST ALT Alkaline Phosphatase Troponin I Total Protein Albumin Urine Appearance Cloudy H Urine Protein Trace H Urine Glucose (UA) Trace H Urine Ketones 2+ H Uric Acid Crystals Rare H Urine Mucus Rare H Urine Opiates Screen U Tricyclic Antidepress U Benzodiazepines Scrn 02/26/18 02/26/18 02/26/18 03:52 03:52 04:00 RBC 3.31 L Hgb 10.1 L MCV 103.6 H MCHC 29.3 L Plt Count 126 L Lymphocytes # 0.9 L INR ABG pH ABG pO2 ABG O2 Saturation Chloride 109 H Carbon Dioxide 21 L Creatinine Glucose 167 H POC Glucose (mg/dL) Calcium 6.8 L AST 226 H ALT 711 H Alkaline Phosphatase <20 L Troponin I 0.099 H* Total Protein 4.5 L Albumin 2.3 L Urine Appearance Urine Protein Urine Glucose (UA) Urine Ketones Uric Acid Crystals Urine Mucus Urine Opiates Screen U Tricyclic Antidepress U Benzodiazepines Scrn 07/16/17 07:50 RBC Hgb MCV MCHC Plt Count Lymphocytes # INR ABG pH 7.33 L ABG pO2 270 H ABG O2 Saturation 100.0 H Chloride Carbon Dioxide Creatinine Glucose POC Glucose (mg/dL) Calcium AST ALT Alkaline Phosphatase Troponin I Total Protein Albumin Urine Appearance Urine Protein Urine Glucose (UA) Urine Ketones Uric Acid Crystals Urine Mucus Urine Opiates Screen U Tricyclic Antidepress U Benzodiazepines Scrn - Diagnostic Findings Chest x-ray: image reviewed (Labs x-rays a medications are all reviewed.) Assessment and Plan Assessment: Assessment Hypoxemic respiratory failure secondary to drug overdose/suicide attempt with drug screen being positive for opiates and tricyclic antidepressants and benzodiazepines History of colon cancer Gastroesophageal reflux disease Hyperlipidemia Seizure disorder History of esophageal stricture Multiple previous surgeries including appendectomy bowel resection cholecystectomy and tubal ligation. Plan: Plan dated 07/16/2017 The patient's ventilator settings were reviewed. The patient's currently on the assist control mode rate of 12 tidal volume 400 FiO2 of 60% to be dropped to 30% PEEP of 5. Arterial blood gases show a PaO2 of 270 PaCO2 of 40 and a pH of 7.33. The patient currently remains on acetylcysteine IV saline IV at 150 an hour propofol at 10 mics per kilogram per minute. We will stop the sedation , awake the patient up, place the patient on PSV and CPAP, see if we can get her extubated. Medications x-rays and labs are all reviewed. Prognosis is guarded. We'll continue to follow closely. Critical care time 36 minutes Time with Patient: Greater than 30
[2017-07-16] MEDS ORDERED: CHLORHEXIDINE GLUCONATE 15 ML CUP MUCOUS MEM SCH (09:00)
--- NOTE | 2017-07-16 12:47 | ECHOF ---
Referral Reason:LV function MEASUREMENTS -------- HEIGHT: 157.5 cm WEIGHT: 62.6 kg BP: 126/57 IVSd: 1.0 cm (0.6 - 1.1) LVIDd: 3.3 cm (3.9 - 5.3) LVPWd: 1.0 cm (0.6 - 1.1) IVSs: 1.4 cm LVIDs: 1.9 cm LVPWs: 1.5 cm LAESV Index (A-L): 18.61 ml/m Ao Diam: 2.7 cm (2.0 - 3.7) AV Cusp: 1.7 cm (1.5 - 2.6) LA Diam: 2.8 cm (2.7 - 3.8) MV EXCURSION: 13.015 mm (> 18.000) MV EF SLOPE: 97 mm/s (70 - 150) EPSS: 0.2 cm MV E Omero: 0.96 m/s MV DecT: 186 ms MV A Omero: 0.98 m/s MV E/A Ratio: 0.97 RAP: 5.00 mmHg RVSP: 23.12 mmHg FINDINGS -------- Sinus rhythm. This was a technically good study. The left ventricular size is normal. Left ventricular wall thickness is normal. Overall left vent ricular systolic function is normal with, an EF between 55 - 60 %. The right ventricle is normal in size and function. The left atrium is normal in size. The right atrium is normal in size. The aortic valve is trileaflet, and appears structurally normal. No aortic stenosis or regurgitation. The mitral valve leaflets are mildly thickened. Mild mitral regurgitation is present. Mild tricuspid regurgitation present. There is no evidence of pulmonary hypertension. The right v entricular systolic pressure, as measured by Doppler, is 23.12mmHg. There is no pulmonic regurgitation present. The aortic root size is normal. Normal inferior vena cava with normal inspiratory collapse consistent with estimated right atrial pre ssure of 5 mmHg. There is no pericardial effusion. CONCLUSIONS -------- 1. Sinus rhythm. 2. This was a technically good study. 3. The left ventricular size is normal. 4. Left ventricular wall thickness is normal. 5. Overall left ventricular systolic function is normal with, an EF between 55 - 60 %. 6. The left atrium is normal in size. 7. The aortic valve is trileaflet, and appears structurally normal. No aortic stenosis or regurgitati on. 8. The mitral valve leaflets are mildly thickened. 9. Mild mitral regurgitation is present. 10. Mild tricuspid regurgitation present. 11. There is no evidence of pulmonary hypertension. 12. There is no pulmonic regurgitation present. 13. The aortic root size is normal. 14. Normal inferior vena cava with normal inspiratory collapse consistent with estimated right atrial pressure of 5 mmHg. 15. There is no pericardial effusion. TREATMENT TECHNICIAN: Saida Castle RDCS
[2017-07-16] MEDS: levETIRAcetam IV 750 MG in SODIUM CHLORIDE 0.9% 100 ML IVPB SCH ×2 (14:07→21:18)
[2017-07-16] MEDS: clonazePAM 0.5 MG TAB PO PRN ×2 (16:25→21:09)
--- NOTE | 2017-07-16 16:30 | P.CN ---
Psychiatric Consult - . Consult date: 07/16/17 Consult:: 07/16/17 16:16 Identification: Patient is a 72-year-old female who was consult that after being brought into the hospital unresponsive. Reason for Consult: Suicide attempt History of Present Illness: Patient's chart was reviewed, her and son were present or in the evaluation and the patient was seen in her room. Patient was recently on the inpatient unit and discharged on July 05, patient states that she continued on her medications of Lexapro 20 mg a day, Seroquel 25 mg twice a day and Klonopin 1 mg 3 times a day as needed however the patient reports that she has been taking it 3 times a day. She states in her follow-up visit with Dr. Blanchard in outpatient the BuSpar was discontinued. Patient states to me that she has not been sleeping at all but did not discuss this with Dr. Blanchard. She states that she goes to bed at 7:30 and then is awakened again at 11:30 and states that she would then take another pill however it is difficult for me to discern if this was another Klonopin or what the patient was taking at 7:30 and then and again at 11:30. She states on the night prior to her admission she awakened again at 11:30 PM and since her medications had not been helping her sleep for more than 3 hours at a time she decided to take her Dilaudid and took Dilaudid 5 mg tabs 3 of them and recalls nothing until she awakened in the intensive care unit. Her states that he could not awaken her and called EMS. Patient states that she was not feeling suicidal and did not take the medication in a suicide attempt. She states she took the medicine because she was tired of not sleeping for more than 3 hours at a time. Patient endorses a history of depression that began at some point in her 60s as well as anxiety, which she describes as worries. Patient also has a history of panic disorder in the past. Patient states that she's not been sleeping and this increases her anxiety and also her shaking. Patient does not endorse a history of manic symptoms and no psychotic symptoms were elicited today. Patient states that she been treated by another psychiatrist and states that the shaking that she has in her arms and legs is secondary to medication that she was on in the past. Patient states if she doesn't get her Klonopin or something to help her sleep tonight that she doesn't know what she is going to do. Patient was tearful throughout the interview, and at other times was able to respond to questions without crying and shaking. Patient states that she had been taking her other medications as prescribed and was not feeling depressed just not sleeping, and states when she doesn't sleep she becomes tearful and has shaking all over. Patient reported no side effects from her medications at home. Patient states that she has been on Risperdal in the past but is unaware of what other antidepressants she's been on. Past Psychiatric History: Patient has been admitted 3 times in the past, she has been on Ativan, Klonopin, Valium, Risperdal, Cogentin and Prozac in the past. Patient currently was prescribed Lexapro 20 mg a day, Seroquel 25 twice a day and Klonopin 1 mg 3 times a day on an as-needed basis. She states her BuSpar 10 mg twice a day was discontinued at her last outpatient appointment. Past Medical/Surgical History: GERD, history of colon cancer status post bowel resection, hyperlipidemia and is on Keppra from a neurologist for abnormal EEG findings patient denies ever having had a seizure Family History: Patient has a family history of depression, 2 sisters being treated Social History: Patient is currently and living with her . One son was present during the interview. Patient finished high school and is currently retired. Substance Use History: Patient has no history of drug or alcohol abuse Mental status:Appearance/Attitude: Patient lying in the hospital bed, at times becoming quite tearful and adamant that she needs something to help her sleep or else she will be up all night crying and shaking. Patient made eye contact and was cooperative Behavior: Patient at times with "crying and shaking her arms and legs, no evidence of psychomotor retardation Speech/Language: Patient was spontaneous, spoken in a normal volume and rhythm and was coherent Thought Process: Patient was goal-directed, no evidence of loose associations or flight of ideas. The patient was focused and ruminating about her lack of sleep and inability to sleep for more than 3 hours at a time Thought Content: Patient denied auditory or visual hallucinations and no delusions or paranoid ideation were elicited. Patient reports that she had been sleeping for only 3 hours at a time and LEEP for longer than that and so last evening when she awakened at 11:30 in the evening she took 3 of her 's Dilaudid, 5 mg tablets and does not recall anything until she awakened in the hospital. Patient states that this was not a suicide attempt she was only trying to sleep. Patient states that she had been taking her other medications as prescribed. Patient states that since she's been home she has not slept for more than 3 hours at a time, going to bed at 7:30 in the evening and awakening again at 11:30 and 3 AM. Suicidal/Homicidal Ideation: Patient denies feeling suicidal or homicidal at this time. Sensorium/Cognition: Patient is alert and oriented to person, place, and time and recent and remote memory were grossly intact Mood/Affect: Patient's mood was tearful and anxious and her affect was appropriate to her mood. Patient states that she is shaking and needs something to stop the shakes Insight/Judgment: Patient's insight and judgment are limited Assessment: Patient presents after having been discharged from the hospital on July 15, she was seen in outpatient follow-up and her BuSpar was discontinued however she continued on her Lexapro, Seroquel and Klonopin works that her sleep has been poor. She states that she did not discuss this with the psychiatrist when she was seen as an outpatient. She states that she took her 's Dilaudid so that she could sleep. She denies that this was a suicide attempt and denies that she was feeling suicidal at home. She states that she was not sleeping and when she doesn't sleep she cries more and her shaking increases. Patient reported no side effects from the medications that she had been taking. Diagnosis: Major depressive disorder, recurrent, moderate; generalized anxiety disorder, panic disorder Plan: At this time I discussed with the hospitalist team starting Klonopin at whatever dose they felt comfortable to prevent the patient from going through withdrawal as she has been taking Klonopin 1 mg 3 times a day on a regular basis. At this time I will not restart her Lexapro or Seroquel but will discuss the case with her psychiatrist Dr. Blanchard regarding what medications he wants to restart. Patient states she is not feeling suicidal but was only voicing issues with her sleep and denied that this was a suicide attempt or that she is feeling that depressed. Patient states that she will not return to the inpatient psychiatric unit.
--- NOTE | 2017-07-16 17:10 | P.CNNES ---
History of Present Illness Consult date: 07/16/17 Reason for Consult: Patient admitted with drug overdose and seizure disorder. History of Present Illness: This patient is a 72-year-old right-handed white female who was admitted to hospital with multiple complex medical problems including history of GERD syndrome, seizure disorder, history of colon cancer, severe depression, and panic disorder. She is followed in the outpatient clinic with Dr. Rabago. Apparently over the last few days she has been having severe difficulty getting sleep at night. According to the patient she had tried various medications that were not of any benefit. She decided to take 3 of the Dilaudid pills from her to try and get sleep yesterday. She became unresponsive and when her found her was unable to arouse her and she was unresponsive. He called EMS and she was treated with Narcan and then transferred to the emergency room. She required intubation due to severity of respiratory distress. She was intubated in the ER and sent up to the intensive care unit. She did have some degree of hypotension and was initially placed on Levophed drip. She was subsequently stabilized and extubated this morning. On further questioning the patient states she was feeling very jittery and anxious. This was her reason for taking 3 Dilaudid pills from her . She denied that she was trying to commit suicide. She does have a history of severe psychiatric disorder including major depression which has been recurrent and moderate. She also suffers some general anxiety disorder and panic disorder. She was recently hospitalized to the inpatient psychiatric unit on 06/21/2017 and was discharged from there on 07/05/2017. She was seen during that admission by Dr. Blanchard. She apparently was taken off of BuSpar as it was not helping and this was discontinued. This is been the only recent medication change. She was also taking Klonopin 1 mg 3 times a day. She was restarted on the Klonopin today due to possibility of withdrawal syndrome from the Klonopin. She states she has been feeling tearful and shaky and just not able to sleep at night. Apparently she has tried various sleep medications which have not been of help. The patient was seen today by psychiatry. Their diagnosis was major depressive disorder. They did suggest to restart the patient on Klonopin as she was to be watch for withdrawal syndrome. The case is to be discussed with her regular psychiatrist Dr. Blanchard regarding restarting her other medications. She did voice to the psychiatrist Dr. Ariza that she was not attempting any suicidal ideation. She also told her she would not go back to the inpatient psychiatric unit. The patient otherwise is somewhat anxious but is not tearful today on examination in the intensive care unit. We will await further recommendations from psychiatry. She was restarted on Keppra as she does have history of seizure disorder in the past. She is currently on Keppra 750 mg every 12 hours. When she is able to take her oral pills she would be converted to oral form of Keppra. We will continue to follow her progress closely. Would recommend a computed tomography scan of the brain to be done to rule out any acute intracranial process. As noted her drug screen in the emergency room was positive for opiates, try cyclic antidepressants, and benzodiazepines. Once again the patient clearly denies any suicidal attempt with this recent drug overdose. Neurology is now been consulted for further evaluation and recommendations. Review of Systems Constitutional: Denies chills, Denies fever Eyes: denies blurred vision, denies pain Ears, nose, mouth and throat: Denies headache, Denies sore throat Cardiovascular: Denies chest pain, Denies shortness of breath Respiratory: Denies cough Gastrointestinal: Denies abdominal pain, Denies diarrhea, Denies nausea, Denies vomiting Genitourinary: Denies dysuria, Denies hematuria Musculoskeletal: Denies myalgias Integumentary: Denies pruritus, Denies rash Neurological: Reports confusion, Reports tremors, Denies numbness, Denies weakness Psychiatric: Reports anxiety attacks, Reports change in sleep habits, Reports disorientation, Reports insomnia, Reports irritability, Reports mood swings, Denies anxiety, Denies depression Endocrine: Denies fatigue, Denies weight change Past Medical History Past Medical History: Cancer, GERD/Reflux, Hyperlipidemia, Seizure Disorder Additional Past Medical History / Comment(s): Colon cancer, ileus, hiatal hernia , esophageal strictures, diverticular dx, known intra-abdominal varicosities and labial varicosities, last seizure 2013 History of Any Multi-Drug Resistant Organisms: None Reported Past Surgical History: Appendectomy, Bowel Resection, Cholecystectomy, Tubal Ligation Additional Past Surgical History / Comment(s): laparoscopic cholecystectomy-2013 , EGD with esophageal dilation, bowel resection 2007 Past Anesthesia/Blood Transfusion Reactions: Postoperative Nausea & Vomiting ( PONV) Smoking Status: Never smoker - Past Family History Sister(s) Family Medical History: Cancer Additional Family Medical History / Comment(s): Sister of pancreatic cancer. Father Family Medical History: Cancer, Prostate Disorder Additional Family Medical History / Comment(s): PROSTATE/COLON CANCER-Father at the age of 7272 years old. Mother Family Medical History: Cancer, Dementia Additional Family Medical History / Comment(s): COLON CANCER-Mother at the age of 7878 years old. Medications and Allergies Home Medications Medication Instructions Recorded Confirmed Type levETIRAcetam [Keppra] 500 mg PO Q12HR 03/01/15 07/15/17 History Pantoprazole Sodium [Protonix] 40 mg PO DAILY 05/02/17 07/15/17 History Escitalopram [Lexapro] 20 mg PO DAILY #30 tab 07/05/17 07/15/17 Rx QUEtiapine [SEROquel] 25 mg PO BID #60 tab 07/05/17 07/15/17 Rx busPIRone HCl [Buspar] 10 mg PO BID #60 tab 07/05/17 07/15/17 Rx clonazePAM [KlonoPIN] 1 mg PO TID PRN #45 tab 07/05/17 07/15/17 Rx Allergies Allergy/AdvReac Type Severity Reaction Status Date / Time codeine AdvReac Nausea & Verified 07/15/17 14:40 Vomiting Physical Examination - Vital Signs Vital Signs: Vital Signs Temp Pulse Resp BP Pulse Ox 07/16/17 15:00 85 14 148/73 96 07/16/17 14:00 81 14 130/57 99 07/16/17 13:00 79 16 132/57 96 07/16/17 12:00 98.2 F 88 24 135/59 94 L 07/16/17 11:00 77 18 131/54 90 L 07/16/17 10:00 80 13 135/59 100 07/16/17 09:00 85 13 119/56 99 07/16/17 08:00 73 12 135/55 100 07/16/17 06:00 76 23 113/47 100 07/16/17 05:00 64 15 118/51 100 07/16/17 04:00 97.9 F 80 12 123/55 100 07/16/17 03:00 65 12 124/50 100 07/16/17 02:00 61 13 96/50 100 07/16/17 01:00 66 12 117/45 100 07/16/17 00:00 98.5 F 65 15 115/48 100 07/15/17 23:23 68 16 99/44 100 07/15/17 23:00 74 12 95/40 100 07/15/17 22:00 64 12 81/37 100 07/15/17 21:00 71 15 97/35 100 07/15/17 20:00 97.6 F 77 12 92/42 100 07/15/17 19:00 73 13 91/38 100 07/15/17 18:08 83 07/15/17 17:49 96.8 F L 07/15/17 17:43 66 21 104/52 100 07/15/17 16:15 69 21 104/52 100 Intake and Output 07/16/17 07/16/17 07/16/17 06:59 14:59 22:59 Intake Total 2984.875 1777.20 214.25 Output Total 343 855 50 Balance 2641.875 922.20 164.25 Intake: IV 2950 1749.75 214.25 Acetylcysteine IV 2,800 500 mg In Dextrose 5% in Water 500 ml @ 128.5 mls/ hr IV ONCE ONE Rx#: [id number] Acetylcysteine IV 5,600 1000 449.75 64.25 mg In Dextrose 5% in Water 1,000 ml @ 64.25 mls/hr IV ONCE ONE Rx#: [id number] Acetylcysteine IV 8,400 200 mg In Dextrose 5% in Water 200 ml @ 242 mls/hr IV ONCE ONE Rx#: [id number] Magnesium Sulfate-D5w Pmx 200 1 gm In Dextrose/Water 1 100ml.bag @ 100 mls/hr IVPB Q1H [facility] Rx#: [id number] Piperacillin-Tazobactam 3 50 .375 gm In Dextrose/Water 1 50ml.bag @ 12.5 mls/hr IVPB ONCE STA Rx#: [id number] Piperacillin-Tazobactam 3 50 .375 gm In Dextrose/Water 1 50ml.bag @ 12.5 mls/hr IVPB Q8HR [facility] Rx#: [id number] Sodium Chloride 0.9% 1, 1200 1050 150 000 ml @ 150 mls/hr IV . Q6H40M [facility] Rx#:[id number] Intake, IV Titration 34.875 27.45 Amount Norepinephrin 4 mg-0.9% 34.875 Ns Pmx 4 mg In 250 ml @ Titrate IV .Q0M [facility] Rx#: [id number] Propofol 1,000 mg In 27.45 Empty Bag 1 bag @ Titrate IV .Q0M ONE Rx#: [id number] Output: Urine 343 855 50 Other: Voiding Method Indwelling Catheter Indwelling Catheter Weight 62.8 kg - Constitutional General appearance: average body habitus - EENT EENT: PERRL, mucous membranes moist - Respiratory Respiratory: lungs clear, normal breath sounds - Cardiovascular Cardiovascular: regular rate, normal S1, normal S2 Extremities: no peripheral edema bilaterally - Gastrointestinal Gastrointestinal: normoactive bowel sounds - Integumentary Integumentary: normal - Neurologic Cranial nerve examination: PERRL, EOMI, VFF, V1/V2/V3 grossly intact, face symmetric, tongue midline, intact gag reflex, intact corneal reflex, normal palatal elevation Speech examination: intact Sensorimotor examination: intact Motor examination - right side: 4/5: biceps, triceps, wrist flexion, wrist extension, 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, hip flexors, knee extensors, dorsiflexion, toe extension (EHL) , plantarflexion Motor examination - left side: 4/5: biceps, triceps, wrist flexion, wrist extension, 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, hip flexors, knee extensors, dorsiflexion, toe extension (EHL) , plantarflexion Detailed sensory examination: intact Reflex and gait examination: intact Reflexes: 1+: ankle, bicep, knee, tricep - Musculoskeletal Musculoskeletal: no pain - Psychiatric Psychiatric: depressed, cooperative Results - Laboratory Findings CBC and BMP: 07/16/17 03:52 07/16/17 03:52 Abnormal Lab Findings: Abnormal Labs 07/15/17 07/15/17 07/15/17 14:20 14:20 14:20 RBC Hgb MCV 103.3 H D MCHC 29.6 L Plt Count 145 L Lymphocytes # 0.6 L INR ABG pH ABG pO2 ABG O2 Saturation Chloride Carbon Dioxide Creatinine 1.38 H Glucose 166 H POC Glucose (mg/dL) Calcium AST 636 H ALT 1165 H Alkaline Phosphatase 146 H Troponin I 0.123 H* Total Protein 5.8 L Albumin 3.4 L Urine Appearance Urine Protein Urine Glucose (UA) Urine Ketones Uric Acid Crystals Urine Mucus Urine Opiates Screen U Tricyclic Antidepress U Benzodiazepines Scrn 07/15/17 07/15/17 07/15/17 14:28 15:00 16:09 RBC Hgb MCV MCHC Plt Count Lymphocytes # INR ABG pH 7.32 L ABG pO2 >400 H ABG O2 Saturation 100.0 H Chloride Carbon Dioxide Creatinine Glucose POC Glucose (mg/dL) 133 H Calcium AST ALT Alkaline Phosphatase Troponin I Total Protein Albumin Urine Appearance Urine Protein Trace H Urine Glucose (UA) Urine Ketones Uric Acid Crystals Urine Mucus Urine Opiates Screen Detected H U Tricyclic Antidepress Detected H U Benzodiazepines Scrn Detected H 07/15/17 07/15/17 07/16/17 18:10 23:25 03:05 RBC Hgb MCV MCHC Plt Count Lymphocytes # INR 1.2 H ABG pH ABG pO2 ABG O2 Saturation Chloride Carbon Dioxide Creatinine Glucose POC Glucose (mg/dL) 102 H Calcium AST ALT Alkaline Phosphatase Troponin I Total Protein Albumin Urine Appearance Cloudy H Urine Protein Trace H Urine Glucose (UA) Trace H Urine Ketones 2+ H Uric Acid Crystals Rare H Urine Mucus Rare H Urine Opiates Screen U Tricyclic Antidepress U Benzodiazepines Scrn 07/16/17 07/16/17 07/16/17 03:52 03:52 04:00 RBC 3.31 L Hgb 10.1 L MCV 103.6 H MCHC 29.3 L Plt Count 126 L Lymphocytes # 0.9 L INR ABG pH ABG pO2 ABG O2 Saturation Chloride 109 H Carbon Dioxide 21 L Creatinine Glucose 167 H POC Glucose (mg/dL) Calcium 6.8 L AST 226 H ALT 711 H Alkaline Phosphatase <20 L Troponin I 0.099 H* Total Protein 4.5 L Albumin 2.3 L Urine Appearance Urine Protein Urine Glucose (UA) Urine Ketones Uric Acid Crystals Urine Mucus Urine Opiates Screen U Tricyclic Antidepress U Benzodiazepines Scrn 07/16/17 07:50 RBC Hgb MCV MCHC Plt Count Lymphocytes # INR ABG pH 7.33 L ABG pO2 270 H ABG O2 Saturation 100.0 H Chloride Carbon Dioxide Creatinine Glucose POC Glucose (mg/dL) Calcium AST ALT Alkaline Phosphatase Troponin I Total Protein Albumin Urine Appearance Urine Protein Urine Glucose (UA) Urine Ketones Uric Acid Crystals Urine Mucus Urine Opiates Screen U Tricyclic Antidepress U Benzodiazepines Scrn Assessment and Plan (1) Major depressive disorder Current Visit: No Status: Acute Priority: High Code(s): F32.9 - MAJOR DEPRESSIVE DISORDER, SINGLE EPISODE, UNSPECIFIED SNOMED Code(s): 755380793 (2) Drug overdose Current Visit: Yes Status: Acute Code(s): T50.901A - POISONING BY UNSP DRUG/ MEDS/BIOL SUBST, ACCIDENTAL, INIT SNOMED Code(s): 05216175 (3) Seizure disorder, complex partial Current Visit: Yes Status: Acute Code(s): G40.209 - LOCAL-REL SYMPTC EPI W CMPLX PRT SEIZ,NOT NTRCT,W/O STAT EPI SNOMED Code(s): 560785457 (4) Generalized anxiety disorder Current Visit: No Status: Acute Priority: High Code(s): F41.1 - GENERALIZED ANXIETY DISORDER SNOMED Code(s): 57729712 (5) Panic disorder Current Visit: No Status: Acute Priority: High Code(s): F41.0 - PANIC DISORDER [EPISODIC PAROXYSMAL ANXIETY] SNOMED Code(s): 518566357 Plan: This patient is a 72-year-old female who was brought into the emergency room unresponsive and obtunded. She was intubated and transferred to the intensive care unit for close monitoring. Drug screen revealed her to have drug overdose. Apparently the patient had been severely depressed and was having difficulty with multiple symptoms of major depression, generalized anxiety disorder and panic disorder. She was just recently hospitalized in the inpatient psychiatric unit from 06/21/2017 until 07/05/2017. She was just discharged 2 weeks ago from the inpatient psychiatric unit. She was taken off of BuSpar by her psychiatrist Dr. Blanchard. Apparently the BuSpar was not helping with her underlying psychiatric conditions. She has a history of seizure disorder for which she has been taking Keppra monotherapy. We have restarted her Keppra today in the ICU. We will obtain a computed tomography scan of the brain as further evaluation. She was seen by psychiatry today and we will await their further recommendations. She has been restarted on Klonopin so as to avoid withdrawal syndrome that she is been taking Klonopin on a regular basis in the outpatient setting. The patient has no focal motor deficit on neurological exam. She appears to be less anxious this afternoon after being restarted on her Klonopin. We will continue to follow her progress closely. One she is able she'll be converted to oral form of Keppra with close monitoring. We will give further recommendations depending on her progress. Overall prognosis at this time remains very guarded. Time with Patient: Greater than 30
--- NOTE | 2017-07-16 17:31 | PN ---
PROGRESS NOTE DATE OF SERVICE: 07/16/2017 This 72-year-old woman who was admitted with apparent overdosage of multiple respiratory failure. Patient has been extubated. The patient is much more alert at this time. Patient apparently was taking Klonopin around the clock. Psychiatric is concerned about the possibility of withdrawals and even seizures at this time. Dr. Arreaga and multiple consultants are following the patient closely. A 2D echo was reported by Cardiology as showing ejection fraction about 50% to 60%. Past medical history reviewed. REVIEW OF SYSTEMS: CARDIOVASCULAR SYSTEM: No angina, palpitations. RESPIRATORY SYSTEM: As mentioned earlier. GI: As mentioned earlier. : No dysuria or retention. NERVOUS SYSTEM: As mentioned earlier. MEDICATIONS: Current medications are reviewed and include: 2. Heparin 5000 units subcutaneously q.8. 3. Keppra 750 IV b.i.d. 4. Magnesium per protocol. 5. Narcan. 6. Protonix. 7. Zosyn 3.375 IV q.6. PHYSICAL EXAMINATION: Patient is alert, oriented x3. Pulse 79, blood pressure 132/57, respiration 16, temperature 98.2, pulse ox 96% on 2 L. HEENT: Conjunctivae normal. NECK: No jugular venous distention. CARDIOVASCULAR SYSTEM: S1, S2 muffled. RESPIRATORY SYSTEM: Breath sounds diminished at the bases. A few scattered rhonchi. No crackles. ABDOMEN: Soft, nontender. No mass palpable. LEGS: No edema. No swelling. NERVOUS SYSTEM: Mild diffuse weakness. LABS: WBC 4.6, hemoglobin 10.1. Other labs: AST is 226, ALT 711 and troponin 0.09. UA noted. ASSESSMENT: 1. Change in mental status, acute metabolic encephalopathy secondary to drug overdosage with acute hypoxic respiratory failure, status post mechanical ventilation. 2. Increased AST and ALT, possibly hepatitis secondary to overdosage. 3. Possible aspiration pneumonia. 4. Troponin 0.123, indeterminate. 5. Increased creatinine with mild acute renal failure. 6. Increased mean corpuscular volume. 7. History of gastroesophageal reflux disease. 8. Hyperlipidemia. 9. History of seizure disorder. 10.History of colon cancer. 11.History of hiatal hernia. 12.History of tremors. 13.Anxiety, depression, panic disorder. 14.FULL CODE. RECOMMENDATIONS AND DISCUSSION: I recommend to continue current medication, continue symptomatic treatment. Klonopin small dose per psychiatric recommendations. Otherwise, PT/OT evaluation. Continue to monitor. Continue the rest of the medications. Prognosis guarded because of multiple complex medical issues. Further recommendations to follow. MMODL / IJN: [id number] / MTDD
[2017-07-16 20:28] LABS: ALT 554 U/L (9-52); AST 146 U/L (14-36); Albumin 2.5 g/dL (3.5-5.0); Alkaline Phosphatase 84 U/L (38-126); Anion Gap 5 mmol/L; Blood Urea Nitrogen 8 mg/dL (7-17); Calcium 7.5 mg/dL (8.4-10.2); Carbon Dioxide 21 mmol/L (22-30); Chloride 111 mmol/L (98-107); Glucose 101 mg/dL (74-99); Potassium 3.5 mmol/L (3.5-5.1); Sodium 137 mmol/L (137-145); Total Bilirubin 0.5 mg/dL (0.2-1.3); Total Protein 4.5 g/dL (6.3-8.2)
[2017-07-16 20:35] LABS: INR 1.2 (<1.2); Partial Thromboplastin Time 25.2 sec (22.0-30.0); Prothrombin Time 11.1 sec (9.0-12.0)
--- NOTE | 2017-07-16 21:12 | CT ---
EXAMINATION TYPE: CT brain wo con DATE OF EXAM: 07/16/2017 COMPARISON: 04/17/2017 HISTORY: Confusion, overdose CT DLP: 822.6 mGycm Automated exposure control for dose reduction was used. FINDINGS: There is mild cerebral cortical atrophy. There is no mass effect nor midline shift. There is no sign of intracranial hemorrhage. The calvarium is intact. There is minimal mucosal thickening in the ethmo id sinus. There is mild hypodensity in the genu of the internal capsule bilaterally. IMPRESSION: CEREBRAL ATROPHY. MILD CHRONIC SMALL VESSEL ISCHEMIA. ISCHEMIC CHANGES IN THE INTERNAL CAPSULE BILAT ERALLY APPEARS NEW COMPARED TO RECENT EXAM. THESE COULD BE SUBACUTE INFARCTS.
[2017-07-17] MEDS: PIPERACILLIN-TAZOBACTAM 3.375 GM in DEXTROSE/WATER 1 50ML.BAG IVPB SCH ×3 (00:23→15:46)
[2017-07-17] MEDS: SODIUM CHLORIDE 0.9% 1,000 ML IV SCH ×3 (00:24→09:18)
[2017-07-17] MEDS: HEPARIN SODIUM,PORCINE 5,000 UNIT/ML 1 ML VIAL SQ SCH ×3 (00:28→15:45)
[2017-07-17 04:25] LABS: Basophils % (A) 0 %; Eosinophils % (A) 1 %; HCT 29.6 % (34.0-46.0); HGB 9.3 gm/dL (11.4-16.0); Lymphocytes # (A) 0.8 k/uL (1.0-4.8); Lymphocytes % (A) 29 %; MCH 30.3 pg (25.0-35.0); MCHC 31.4 g/dL (31.0-37.0); Mean Platelet Volume 8.9; Monocytes # (A) 0.1 k/uL (0-1.0); Monocytes % (A) 5 %; Neutrophils # (A) 1.7 k/uL (1.3-7.7); Neutrophils % (A) 63 %; RBC 3.08 m/uL (3.80-5.40); RDW 13.1 % (11.5-15.5); WBC 2.7 k/uL (3.8-10.6)
[2017-07-17 04:37] LABS: MCV 96.3 fL (80.0-100.0)
[2017-07-17 04:47] LABS: ALT 462 U/L (9-52); AST 108 U/L (14-36); Albumin 2.1 g/dL (3.5-5.0); Alkaline Phosphatase 75 U/L (38-126); Anion Gap 5 mmol/L; Blood Urea Nitrogen 5 mg/dL (7-17); Calcium 7.6 mg/dL (8.4-10.2); Carbon Dioxide 24 mmol/L (22-30); Chloride 110 mmol/L (98-107); Glucose 85 mg/dL (74-99); Phosphorus 1.9 mg/dL (2.5-4.5); Potassium 3.2 mmol/L (3.5-5.1); Sodium 139 mmol/L (137-145); Total Bilirubin 0.5 mg/dL (0.2-1.3); Total Protein 4.2 g/dL (6.3-8.2)
[2017-07-17 05:09] LABS: Platelet Count 95 k/uL (150-450)
[2017-07-17] MEDS ORDERED: Potassium Replacement Protocol 1 EACH MISC MISCELLANE PRN (06:12)
[2017-07-17] MEDS: clonazePAM 0.5 MG TAB PO PRN ×2 (08:22→15:44)
[2017-07-17] MEDS: levETIRAcetam IV 750 MG in SODIUM CHLORIDE 0.9% 100 ML IVPB SCH (08:25)
[2017-07-17] MEDS: PANTOPRAZOLE 40 MG/10 ML VIAL IV SCH (08:28)
[2017-07-17] MEDS: POTASSIUM CHLORIDE ER 20 MEQ TAB.ER PO SCH ×4 (08:28→21:36)
--- NOTE | 2017-07-17 08:51 | P.PN ---
Subjective Progress Note Date: 07/17/17 Principal diagnosis: Respiratory failure, overdose Progress note dated 07/17/2017 72-year-old female Y saw yesterday in consultation. She has a history of multiple medical problems but apparently overdosed on multiple medications. She apparently had a grandson who recently committed suicide. Because of that she states she was to respond. When talking or to her today, she states she was just looking for a good night sleep. She was apparently found by her be unresponsive and EMS was called. She was given Narcan but did not respond. She did vomit and possibly aspirated. The patient's drug screen was apparently positive for opiates try cyclic antidepressants and benzodiazepines. She was extubated yesterday. Today she is doing much better. Been weaned down to nasal O2 at 2 L. Her IVs a saline IV at 1 50 mL an hour. Extubated on 07/16/2017. She has a history of GERD hyperlipidemia seizure disorder colon cancer Heidel hernia and esophageal stricture. Objective - Vital Signs Vital signs: Vital Signs Temp 98.6 F 07/17/17 04:00 Pulse 89 07/17/17 07:00 Resp 17 07/17/17 07:00 BP 133/62 07/17/17 07:00 Pulse Ox 94 L 07/17/17 07:00 Intake & Output 07/16/17 07/17/17 07/17/17 18:59 06:59 18:59 Intake Total 2634.20 1964.25 150 Output Total 1280 1510 320 Balance 1354.20 454.25 -170 Weight 62 kg Intake: IV 2606.75 1964.25 150 Acetylcysteine IV 5,600 706.75 64.25 mg In Dextrose 5% in Water 1,000 ml @ 64.25 mls/hr IV ONCE ONE Rx#: [id number] Magnesium Sulfate-D5w Pmx 200 1 gm In Dextrose/Water 1 100ml.bag @ 100 mls/hr IVPB Q1H [facility] Rx#: [id number] Piperacillin-Tazobactam 3 50 100 .375 gm In Dextrose/Water 1 50ml.bag @ 12.5 mls/hr IVPB Q8HR [facility] Rx#: [id number] Sodium Chloride 0.9% 1, 1650 1800 150 000 ml @ 150 mls/hr IV . Q6H40M [facility] Rx#:[id number] Intake, IV Titration 27.45 Amount Propofol 1,000 mg In 27.45 Empty Bag 1 bag @ Titrate IV .Q0M ONE Rx#: [id number] Output: Urine 1280 1510 320 Other: Voiding Method Indwelling Catheter Indwelling Catheter - Exam No acute distress, oriented 3. Nasal O2 in place. HEENT examination is grossly unremarkable. Mucous membranes are moist. No oral lesions. Neck supple. Full range of motion. No adenopathy thyromegaly or neck vein distention. Cardiovascular examination reveals regular rhythm rate. S1-S2 normal. No S3 or S4. No discernible murmur noted. Lungs reveal clear breath sounds. Her sounds are equal bilaterally. No adventitious lung sounds including wheezes rhonchi or crackles. Abdomen soft bowel sounds are heard. No masses or tenderness. Extremities are intact. No cyanosis clubbing or edema. Skin is without rash or lesion. Neurologic examination is brief but nonfocal. - Labs CBC & Chem 7: 07/17/17 04:05 07/17/17 04:05 Labs: Abnormal Lab Results - Last 24 Hours (Table) 07/16/17 07/16/17 07/17/17 Range/Units 19:40 19:40 04:05 WBC 2.7 L (3.8-10.6) k/uL RBC 3.08 L (3.80-5.40) m/uL Hgb 9.3 L (11.4-16.0) gm/dL Hct 29.6 L (34.0-46.0) % Plt Count 95 L (150-450) k/uL Lymphocytes # 0.8 L (1.0-4.8) k/uL INR 1.2 H (<1.2) Potassium (3.5-5.1) mmol/L Chloride 111 H (98-107) mmol/L Carbon Dioxide 21 L (22-30) mmol/L BUN (7-17) mg/dL Glucose 101 H (74-99) mg/dL Calcium 7.5 L (8.4-10.2) mg/dL Phosphorus (2.5-4.5) mg/dL AST 146 H (14-36) U/L ALT 554 H (9-52) U/L Total Protein 4.5 L (6.3-8.2) g/dL Albumin 2.5 L (3.5-5.0) g/dL 07/17/17 Range/Units 04:05 WBC (3.8-10.6) k/uL RBC (3.80-5.40) m/uL Hgb (11.4-16.0) gm/dL Hct (34.0-46.0) % Plt Count (150-450) k/uL Lymphocytes # (1.0-4.8) k/uL INR (<1.2) Potassium 3.2 L (3.5-5.1) mmol/L Chloride 110 H (98-107) mmol/L Carbon Dioxide (22-30) mmol/L BUN 5 L (7-17) mg/dL Glucose (74-99) mg/dL Calcium 7.6 L (8.4-10.2) mg/dL Phosphorus 1.9 L (2.5-4.5) mg/dL AST 108 H (14-36) U/L ALT 462 H (9-52) U/L Total Protein 4.2 L (6.3-8.2) g/dL Albumin 2.1 L (3.5-5.0) g/dL Microbiology - Last 24 Hours (Table) 07/16/17 03:05 Urine Culture - Preliminary Urine,Catheterized Assessment and Plan Assessment: Assessment Hypoxemic respiratory failure secondary to drug overdose/suicide attempt with drug screen being positive for opiates and tricyclic antidepressants and benzodiazepines, recovered, with extubation on 07/16/2017 History of colon cancer Gastroesophageal reflux disease Hyperlipidemia Seizure disorder History of esophageal stricture Multiple previous surgeries including appendectomy bowel resection cholecystectomy and tubal ligation. Plan: Plan dated 07/16/2017 The patient's ventilator settings were reviewed. The patient's currently on the assist control mode rate of 12 tidal volume 400 FiO2 of 60% to be dropped to 30% PEEP of 5. Arterial blood gases show a PaO2 of 270 PaCO2 of 40 and a pH of 7.33. The patient currently remains on acetylcysteine IV saline IV at 150 an hour propofol at 10 mics per kilogram per minute. We will stop the sedation , awake the patient up, place the patient on PSV and CPAP, see if we can get her extubated. Medications x-rays and labs are all reviewed. Prognosis is guarded. We'll continue to follow closely. Critical care time 36 minutes Plan dated 07/17/2017 The patient was evaluated today. Meds labs and x-rays were all reviewed. I explained to her that her medication use was excessive. She states that she was not trying to kill himself a brother just getting a good night sleep. I told her that was inappropriate. Anyway she's been seen by psychiatry. She could be transferred out of the ICU today to the general medical floor. I'll review of the rest of her medications. She's been weaned down to O2 at 2 L by nasal cannula and a saline IV at 50 an hour. Again labs x-rays a medications are all reviewed. Prognosis is guarded. Critical care time 31 minutes Time with Patient: Greater than 30
[2017-07-17 09:19] LABS: Cholesterol 91 mg/dL (<200); HDL Cholesterol 37 mg/dL (40-60); LDL Cholesterol,Calculated 37 mg/dL (0-99); Triglycerides 85 mg/dL (<150)
--- NOTE | 2017-07-17 10:31 | US ---
EXAMINATION TYPE: US carotid duplex BILAT DATE OF EXAM: 07/17/2017 COMPARISON: CT 2017, US 2014 CLINICAL HISTORY: CT results, possible Infarct. Possible infarct seen on recent CT, exam done portabl e in ICU. EXAM MEASUREMENTS: RIGHT: Peak Systolic Velocity (PSV) cm/sec ----- Right CCA: 78.7 ----- Right ICA: 95.9 ----- Right ECA: 100.3 ICA/CCA ratio: 1.2 RIGHT: End Diastole cm/sec ----- Right CCA: 17.1 ----- Right ICA: 26.1 ----- Right ECA: 11.3 LEFT: Peak Systolic Velocity (PSV) cm/sec ----- Left CCA: 74.8 ----- Left ICA: 97.0 ----- Left ECA: 94.7 ICA/CCA ratio: 1.3 LEFT: End Diastole cm/sec ----- Left CCA: 20.4 ----- Left ICA: 30.4 ----- Left ECA: 5.5 VERTEBRALS (direction of flow): Right Vertebral: Antegrade Left Vertebral: Antegrade Rhythm: Normal Bilateral intimal thickening, minimal plaque bilateral bulb, no elevated velocities, no significant s tenosis. IMPRESSION: Small degree of grayscale atheromatous plaquing within the carotid bulbs. No sonographic evidence of hemodynamically significant stenosis within either carotid arterial system.
[2017-07-17 10:58] VITALS: BMI 25.0
--- NOTE | 2017-07-17 15:11 | P.PN ---
Progress Note - Text Progress Note Date: 07/17/17 Interval History: Patient is a 72-year-old female who is being seen in follow- up to a consultation performed yesterday. Patient and I discussed her use of her 's Dilaudid to help her sleep, patient states that she had not been sleeping well and new that this had helped her sleep and so she took the medication for sleep. Patient adamantly denies that this was a suicide attempt stating that she has grandchildren, and would never do this to her family. Patient has no prior history of suicide attempts. Patient and I discussed her sleep patterns the patient was going to bed at 7:30 at night and taking her Seroquel and Klonopin at that time and awakening 3-4 hours later and being unable to return to sleep. Patient states that she was going to sleep early and hopes that she would sleep longer. Patient states that she slept well last evening in the hospital, and was up until almost midnight. Patient reports that she is not currently suicidal, is not currently depressed but is upset because her stated that she took the pills deliberately. She states that she did not take them for any reason other than for sleep. She continues to complain about feeling anxious but is not as tearful as she was yesterday when I spoke with her. She states that she gets very shaky and anxious but cannot tell me what precipitates this. Patient states she does walk her dogs when she is at home but spends most of her time watching television. Patient reported that she was not feeling hopeless and was not feeling depressed. Mental Status: Appearance/Attitude: Patient was lying in her hospital bed, she was much calmer today than she was yesterday, she made good eye contact and was cooperative. Behavior: Patient did not display any psychomotor agitation or retardation. Speech/Language: Patient's speech was spontaneous and of normal volume and rhythm and she was coherent. Thought Process: Patient was goal-directed there is no evidence of tangential or circumstantial thought and she was not exhibiting any loose associations or flight of ideas. Thought Content: Patient denied any auditory or visual hallucinations and no paranoid or delusional ideation was elicited. Patient again stated to me that she had not been sleeping well at home would fall asleep at 7:30 for 3 hours 1 is unable to fall asleep through the night so she took her 's medication because she had seen that this made her sleep. Patient states that she had no suicidal thought at that time and denies any current suicidal thoughts. Patient states that she was taking her medication as prescribed at home. Patient states she slept well here last evening. Suicidal/Homicidal Ideation: Patient denies any current suicidal or homicidal ideation. Sensorium/Cognition: Patient is alert and oriented to person, place, and time and her recent and remote memory are grossly intact. Mood/Affect: Patient's mood was slightly anxious, she was not tearful or shaking during today's interview and her affect was appropriate to her mood Insight/Judgment: Patient's insight and judgment are fair. Assessment: Patient reports that she slept well last evening she did not fall asleep until midnight, she was much less tearful and there was no episodes of shaking as there was yesterday. She reports she is still feeling slightly anxious and was looking at the clock for when her next dose of Klonopin would be. Patient reported again to me that this was not a suicide attempt that she had had no suicidal thoughts and has made no prior suicide attempts. She states that she was only trying to improve her sleep but she had noticed that this medicine had helped her sleep. Patient reports that she is not currently feeling depressed or hopeless and states that she would never commit suicide due to her family and especially her grandchildren. Plan: We will restart the patient's Lexapro 20 mg in the morning and Seroquel 25 mg twice a day, patient was started on Klonopin 0.25 mg 3 times a day and I will not increase this dose. Patient and I had a long discussion regarding good sleep habits, need for exercise and reviewed again deep breathing techniques. I will discuss with Dr. Blanchard tomorrow the case as the patient is not currently expressing any suicidal ideation, denies this this was a suicide attempt and I see no reason for inpatient psychiatric care at this time. Patient is followed by Dr. Blanchard on an outpatient basis.
--- NOTE | 2017-07-17 16:09 | P.PN ---
Subjective Progress Note Date: 07/17/17 This patient is a 72-year-old female who was admitted to the intensive care unit with possible drug overdose. Patient has a history of multiple medical problems and apparently has been desponded and after a grandson recently committed suicide. She had been seen by inpatient psychiatry and Dr. Blanchard about 2 weeks ago and was treated in the inpatient psychiatric unit. She was reevaluated by psychiatry yesterday in the intensive care unit. They have recommended to restart the patient on Klonopin. Patient also has a history of underlying seizure disorder for which she has been restarted on Keppra monotherapy for seizure prophylaxis. She will be switched to oral dosage of Keppra 750 mg twice a day. Patient was sent for computed tomography scan of the brain yesterday which was completed. CAT scan report indicates cerebral atrophy with mild chronic small vessel ischemic changes. There was evidence of possible ischemia involving the internal capsule bilaterally suggesting subacute infarcts. Patient was recommended to undergo further evaluation for stroke including MRI of the brain and carotid Doppler study. Carotid Doppler was completed today and reveals no significant evidence of carotid artery stenosis. Patient was sent for MRI of the brain the results of which are still pending. The patient seems to be less agitated today after being restarted on Klonopin. She is being closely monitored for signs of drug withdrawal. Psychiatry is treating her for major depression as well as anxiety disorder and panic attacks. We are awaiting further recommendations from psychiatry regarding her psychiatric medications. According to the ICU nurse the patient is being considered for possible petition for inpatient psychiatric treatment. Neurologically she remains stable. We will continue close neurological follow- up of this patient in the intensive care unit. Objective - Vital Signs Vital signs: Vital Signs Temp 97.4 F L 07/17/17 12:00 Pulse 74 07/17/17 09:00 Resp 27 H 07/17/17 12:00 BP 142/63 07/17/17 14:00 Pulse Ox 99 07/17/17 12:00 Intake & Output 07/16/17 07/17/17 07/17/17 18:59 06:59 18:59 Intake Total 2634.20 1964.25 450 Output Total 1280 1510 1845 Balance 1354.20 454.25 -1395 Weight 62 kg 62 kg Intake: IV 2606.75 1964.25 350 Acetylcysteine IV 5,600 706.75 64.25 mg In Dextrose 5% in Water 1,000 ml @ 64.25 mls/hr IV ONCE ONE Rx#: [id number] Magnesium Sulfate-D5w Pmx 200 1 gm In Dextrose/Water 1 100ml.bag @ 100 mls/hr IVPB Q1H [facility] Rx#: [id number] Piperacillin-Tazobactam 3 50 100 50 .375 gm In Dextrose/Water 1 50ml.bag @ 12.5 mls/hr IVPB Q8HR [facility] Rx#: [id number] Sodium Chloride 0.9% 1, 1650 1800 300 000 ml @ 150 mls/hr IV . Q6H40M [facility] Rx#:[id number] Intake, IV Titration 27.45 100 Amount Propofol 1,000 mg In 27.45 Empty Bag 1 bag @ Titrate IV .Q0M ONE Rx#: [id number] levETIRAcetam IV 750 mg 100 In Sodium Chloride 0.9% 100 ml @ 400 mls/hr IVPB Q12HR [facility] Rx#:[id number] Output: Urine 1280 1510 1845 Other: Voiding Method Indwelling Catheter Indwelling Catheter Indwelling Catheter # Bowel Movements 1 - Exam Physical examination: PHYSICAL EXAMINATION: Patient is resting comfortably in bed. VITAL SIGNS: Blood pressure is [142/63]. Heart rate is [74]. Respiration is [27] . Temperature is [97.4]. HEENT: Head is atraumatic, neck is supple, there were no carotid bruits. CHEST: Lungs are clear to auscultation and percussion. CARDIAC: S1, S2 normal rate and rhythm. There is no murmur. ABDOMEN: Soft and nontender. Bowel sounds are present. EXTREMITIES: There is no pedal edema. Peripheral pulses are present. Neurological examination: Patient has a nonfocal neurological examination today in the intensive care unit. - Labs CBC & Chem 7: 07/17/17 04:05 07/17/17 04:05 Labs: Abnormal Lab Results - Last 24 Hours (Table) 07/16/17 07/16/17 07/17/17 Range/Units 19:40 19:40 04:05 WBC 2.7 L (3.8-10.6) k/uL RBC 3.08 L (3.80-5.40) m/uL Hgb 9.3 L (11.4-16.0) gm/dL Hct 29.6 L (34.0-46.0) % Plt Count 95 L (150-450) k/uL Lymphocytes # 0.8 L (1.0-4.8) k/uL INR 1.2 H (<1.2) Potassium (3.5-5.1) mmol/L Chloride 111 H (98-107) mmol/L Carbon Dioxide 21 L (22-30) mmol/L BUN (7-17) mg/dL Glucose 101 H (74-99) mg/dL Calcium 7.5 L (8.4-10.2) mg/dL Phosphorus (2.5-4.5) mg/dL AST 146 H (14-36) U/L ALT 554 H (9-52) U/L Total Protein 4.5 L (6.3-8.2) g/dL Albumin 2.5 L (3.5-5.0) g/dL HDL Cholesterol (40-60) mg/dL 07/17/17 07/17/17 Range/Units 04:05 04:05 WBC (3.8-10.6) k/uL RBC (3.80-5.40) m/uL Hgb (11.4-16.0) gm/dL Hct (34.0-46.0) % Plt Count (150-450) k/uL Lymphocytes # (1.0-4.8) k/uL INR (<1.2) Potassium 3.2 L (3.5-5.1) mmol/L Chloride 110 H (98-107) mmol/L Carbon Dioxide (22-30) mmol/L BUN 5 L (7-17) mg/dL Glucose (74-99) mg/dL Calcium 7.6 L (8.4-10.2) mg/dL Phosphorus 1.9 L (2.5-4.5) mg/dL AST 108 H (14-36) U/L ALT 462 H (9-52) U/L Total Protein 4.2 L (6.3-8.2) g/dL Albumin 2.1 L (3.5-5.0) g/dL HDL Cholesterol 37 L (40-60) mg/dL Microbiology - Last 24 Hours (Table) 07/16/17 03:05 Urine Culture - Final Urine,Catheterized Assessment and Plan (1) Major depressive disorder Current Visit: No Status: Acute Priority: High Code(s): F32.9 - MAJOR DEPRESSIVE DISORDER, SINGLE EPISODE, UNSPECIFIED SNOMED Code(s): 607499792 (2) Drug overdose Current Visit: Yes Status: Acute Code(s): T50.901A - POISONING BY UNSP DRUG/ MEDS/BIOL SUBST, ACCIDENTAL, INIT SNOMED Code(s): 15268672 (3) Seizure disorder, complex partial Current Visit: Yes Status: Acute Code(s): G40.209 - LOCAL-REL SYMPTC EPI W CMPLX PRT SEIZ,NOT NTRCT,W/O STAT EPI SNOMED Code(s): 719695740 (4) Generalized anxiety disorder Current Visit: No Status: Acute Priority: High Code(s): F41.1 - GENERALIZED ANXIETY DISORDER SNOMED Code(s): 32868477 (5) Panic disorder Current Visit: No Status: Acute Priority: High Code(s): F41.0 - PANIC DISORDER [EPISODIC PAROXYSMAL ANXIETY] SNOMED Code(s): 057773838 Plan: This patient is a 72-year-old female who was evaluated today in the intensive care unit. She was admitted with symptoms of unresponsiveness following drug overdose. She was extubated and now seems to be showing slow improvement. She underwent computed tomography scan of the brain yesterday which reveals questionable bilateral subacute infarct in the basal ganglia. She was sent for MRI of the brain for further evaluation today. Results are pending at this time. Patient will be placed on one baby aspirin daily for secondary stroke prevention. She underwent carotid Doppler study which is negative for any evidence of carotid artery stenosis. She is to follow up with Dr. Blanchard from psychiatry and we will await his further recommendations. Neurologically the patient remains intact today in the intensive care unit. We will continue to follow her progress closely during this admission. Would recommend tight control of her blood pressure given the finding of possible subacute stroke. She will continue on Keppra monotherapy for secondary seizure prophylaxis. Overall prognosis at this time remains guarded. We will continue close neurological follow-up with this patient in the intensive care unit. Her overall prognosis at this time remains guarded.
--- NOTE | 2017-07-17 16:17 | CONS ---
CONSULTATION This is really a brief consult. Mrs Reny Malnoey is a lady who has been admitted to the ICU. She has a history of seizure disorder, anxiety, depression and takes Keppra, Seroquel and Lexapro and Klonopin. SHE IS ALLERGIC TO CODEINE. Apparently, this lady has been admitted with what seems to be a drug overdose. She has history of multiple medical problems. There is a history of colon cancer with bowel resection. Details unavailable. She sees Dr. Dao Rabago in the outpatient setting. She apparently was found unresponsive by her . EMS was called, given Narcan. Patient vomited, had 250 mL of yellowish material. Subsequently, she was hypoxic, mechanically ventilated, intubated, brought to the ICU. There was a period of hypoxemia. However, patient has been extubated today. There is a question of suicide precautions are also in place. There was an elevation of troponin and therefore I was asked to see her. On reviewing the troponin profile, there is no evidence to suggest any myocardial injury and this elevation of troponin is quite consistent with the hypoxia, patient may have encountered. She is slightly hypokalemic and this is already being addressed. Echocardiogram revealed preserved systolic function. The patient is comfortable, resting, denies any symptoms at the time of my evaluation. On examination, blood pressure is 130/70, pulse rate is about 70 per minute and regular. HEENT: Unremarkable. Fundus was not examined by me. Neck is supple. No JVD. I do not hear a carotid bruit. Heart exam reveals S1, S2 heard normally. There is a short systolic murmur at sternal border. Lungs revealed decent air entry. Abdomen is soft. Lower extremities reveal diminished pulses. Central nervous system is normal. EKG revealed sinus mechanism, nonspecific ST changes of very minor changes. No acute findings. IMPRESSION: 1. Troponin elevation does not suggest myocardial injury and is consistent with hypoxemia patient may have had. 2. Hypertension. 3. History of anxiety and depression. 4. Suicidal ideation and these precautions are already in place. RECOMMENDATIONS: No other recommendations are advised from a cardiac standpoint. I will see the patient as needed during the hospitalization. Thank you very much for the consult. MMODL / IJN: [id number] /
[2017-07-17] MEDS ORDERED: LOPERAMIDE 2 MG CAP PO PRN (17:27)
--- NOTE | 2017-07-17 19:19 | MR ---
EXAMINATION TYPE: MR brain wo con DATE OF EXAM: 07/17/2017 COMPARISON: CT 07/16/2017 HISTORY: 72-year-old female Blacked out, R/O stroke TECHNIQUE: Multiplanar, multisequence images of the brain and brainstem were acquired without IV con trast. Diffusion weighted imaging is performed. FINDINGS: DWI sequence shows symmetrical bright signal in the bilateral globus pallidus. There is corresponding low signal in ADC map and bright signal on T2/FLAIR weighted sequence. T2/FLAIR weighted sequences show additional moderate scattered foci of bright signal change in the chamberlain bcortical, deep white matter, and periventricular regions of both cerebral hemispheres. No evidence for hemorrhage, mass, mass effect, midline shift, herniation, effacement of basal cistern s, or extra-axial fluid collection. The ventricles and sulci are age-appropriate. Major intracranial flow voids are intact. Midline structures demonstrate normal morphology. The craniocervical junction is normal. The visualized sinuses are clear and the globes are intact. Partial opacification of the mastoid air cells. IMPRESSION: 1. Symmetrical restricted diffusion compatible with bilateral acute globus pallidus infarcts greater than 6 hours in duration. Consider toxic anoxic injury such as in the setting of cyanide or carbon mo noxide poisoning. 2. Background moderate burden of T2 bright white matter change likely on the basis of chronic small v essel ischemic disease. 3. Some trapped fluid in the mastoid air cells. Correlate for any mastoid pain to exclude mastoiditis .
--- NOTE | 2017-07-17 20:05 | PN ---
PROGRESS NOTE DATE OF SERVICE: 07/17/2017 This 72-year-old woman who was admitted with overdosage and multiple medical problems had acute respiratory failure. Patient was mechanically ventilated. The patient had aspiration pneumonia. Patient is on broad-spectrum IV antibiotics. Multiple consultants are following the patient closely. Past medical history reviewed. REVIEW OF SYSTEMS: CARDIOVASCULAR SYSTEM: No angina, palpitations. RESPIRATORY SYSTEM: As mentioned earlier. GI: As mentioned earlier. : No dysuria or retention. NERVOUS SYSTEM: No numbness, weakness. CURRENT MEDICATIONS: Current medications are reviewed and include: 1. Klonopin 0.25 mg t.i.d. 2. Lexapro 20 mg daily. 3. Heparin 5000 units subcutaneously q.8. 4. Keppra. 5. Narcan. 6. Protonix. 7. Zosyn 3.375 IV q.8. PHYSICAL EXAMINATION: Patient is alert, oriented x3. Pulse 81, blood pressure 129/59, respiration 18, temperature 97.8, pulse ox 100% on 2 L. HEENT: Conjunctivae normal. Oral mucosa moist. NECK: No jugular venous distention. No carotid bruit. No lymph node enlargement. CARDIOVASCULAR SYSTEM: S1, S2 muffled. No S3. No S4. RESPIRATORY SYSTEM: Breath sounds diminished at the bases. A few rhonchi. No crackles. ABDOMEN: Soft, nontender. No mass palpable. LEGS: No edema. No swelling. NERVOUS SYSTEM: Higher functions as mentioned earlier. Moves all 4 limbs. No focal motor or sensory deficit. LYMPHATICS: No lymph node palpable in neck, axillae or groin. SKIN: No ulcer, rash, bleeding. LABS: WBC 2.7, hemoglobin 9.3. Sodium 139, potassium 3.2. AST is 108. ALT is 462. It is showing minimally diminishing transaminases. ASSESSMENT: 1. Change in mental status, acute metabolic encephalopathy secondary to drug overdosage with acute hypoxic respiratory failure, status post mechanical ventilation. 2. Increased AST, ALT, possibly hepatitis secondary to overdosage. 3. Possible aspiration pneumonia. 4. Troponin 0.123, indeterminate. 5. Increased creatinine with mild acute renal failure. 6. Increased mean corpuscular volume. 7. History of gastroesophageal reflux disease. 8. Hyperlipidemia. 9. History of seizure disorder. 10.History of colon cancer. 11.History of hiatal hernia. 12.History of tremors. 13.Anxiety, depression, panic disorder. 14.Leukopenia, mild. 15.FULL CODE. RECOMMENDATIONS AND DISCUSSION: I recommend to continue current medication, continue with the monitoring, symptomatic treatment. Otherwise at this time I would recommend repeat labs. I would also recommend followup and psychiatric evaluation. The patient will require inpatient psych evaluation for depression and the planned suicidal attempt with overdose of medications. Further recommendations to follow. Discussed with staff. Will do the cert. JOHANNA / ASHLEE: [id number] /
[2017-07-17] MEDS: QUEtiapine 25 MG TAB PO SCH (21:00)
[2017-07-17 23:35] VITALS: PULSE 82; RESP 16
[2017-07-18] MEDS: HEPARIN SODIUM,PORCINE 5,000 UNIT/ML 1 ML VIAL SQ SCH ×3 (00:24→15:53)
[2017-07-18] MEDS: PIPERACILLIN-TAZOBACTAM 3.375 GM in DEXTROSE/WATER 1 50ML.BAG IVPB SCH ×3 (00:24→16:54)
[2017-07-18 04:42] LABS: Basophils % (A) 1 %; Eosinophils # (A) 0.1 k/uL (0-0.7); Eosinophils % (A) 2 %; HCT 31.5 % (34.0-46.0); HGB 10.2 gm/dL (11.4-16.0); Lymphocytes # (A) 1.1 k/uL (1.0-4.8); Lymphocytes % (A) 33 %; MCH 30.2 pg (25.0-35.0); MCHC 32.2 g/dL (31.0-37.0); MCV 93.9 fL (80.0-100.0); Mean Platelet Volume 8.4; Monocytes # (A) 0.2 k/uL (0-1.0); Monocytes % (A) 7 %; Neutrophils # (A) 1.9 k/uL (1.3-7.7); Neutrophils % (A) 56 %; Platelet Count 126 k/uL (150-450); RBC 3.36 m/uL (3.80-5.40); WBC 3.5 k/uL (3.8-10.6)
[2017-07-18 05:05] LABS: ALT 374 U/L (9-52); AST 72 U/L (14-36); Albumin 2.5 g/dL (3.5-5.0); Alkaline Phosphatase 77 U/L (38-126); Anion Gap 4 mmol/L; Blood Urea Nitrogen 4 mg/dL (7-17); Calcium 8.1 mg/dL (8.4-10.2); Carbon Dioxide 27 mmol/L (22-30); Chloride 109 mmol/L (98-107); Glucose 97 mg/dL (74-99); Magnesium 1.8 mg/dL (1.6-2.3); Potassium 3.4 mmol/L (3.5-5.1); Sodium 140 mmol/L (137-145); Total Bilirubin 0.5 mg/dL (0.2-1.3); Total Protein 4.7 g/dL (6.3-8.2)
[2017-07-18] MEDS ORDERED: Potassium Replacement Protocol 1 EACH MISC MISCELLANE PRN (05:11)
[2017-07-18] MEDS: POTASSIUM CHLORIDE ER 20 MEQ TAB.ER PO SCH ×2 (07:37→08:53)
[2017-07-18] MEDS: QUEtiapine 25 MG TAB PO SCH (08:54)
[2017-07-18] MEDS ORDERED: ASPIRIN 81 MG PO SCH (09:00)
[2017-07-18] MEDS ORDERED: ESCITALOPRAM 20 MG TAB PO SCH (09:00)
[2017-07-18] MEDS: PANTOPRAZOLE 40 MG/10 ML VIAL IV SCH (09:07)
--- NOTE | 2017-07-18 11:45 | P.PN ---
Progress Note - Text Interval history: The patient is found sleeping in bed she is verbally arousable. She has a sitter at bedside. I did speak with who has cover the patient for the last 2 days as a psychiatric consult. The patient states she did overdose with 3 of her husbands lauded tablets her Klonopin and Seroquel. She states she was aware that this was a dangerous maneuver but did it out of desperation to assist with her insomnia and anxiety. She knew that this could cause harm but proceeded anyhow. She continues to endorse feelings of anxiety. She has been seen by internal medicine and neurology. MRI reveals bilateral globus pallidus infarcts undetermined age. Mental status exam: The patient is alert but tired appearing. She makes eye contact. She endorses an anxious mood she does have some mild tremor. She continues to express concern regarding ongoing anxiety symptoms. She is reporting no acute suicidal ideation now but does admit to overdosing prior to this admission despite the risk to her well-being. She is oriented to person place she names the current day is Sunday. She is reporting no auditory or visual hallucinations or specific delusions. Impressions 1. Major depressive disorder, panic disorder, generalized anxiety disorder 2. MRI findings indicating bilateral infarcts of globus pallidus Plan: The patient will continue on her current psychotropic medications they have been reviewed. She will continue having a safety coordinator. Once she is medically cleared she will be transferred to the mental health unit for further evaluation. Given the fact that she knew she was endangering her health with the overdose and that it was impulsive I do not feel comfortable discharging her from the hospital without further evaluation on the mental health unit.
--- NOTE | 2017-07-18 11:57 | P.PN ---
Subjective Progress Note Date: 07/18/17 Principal diagnosis: Respiratory failure, overdose Progress note dated 07/17/2017 72-year-old female Y saw yesterday in consultation. She has a history of multiple medical problems but apparently overdosed on multiple medications. She apparently had a grandson who recently committed suicide. Because of that she states she was to respond. When talking or to her today, she states she was just looking for a good night sleep. She was apparently found by her be unresponsive and EMS was called. She was given Narcan but did not respond. She did vomit and possibly aspirated. The patient's drug screen was apparently positive for opiates try cyclic antidepressants and benzodiazepines. She was extubated yesterday. Today she is doing much better. Been weaned down to nasal O2 at 2 L. Her IVs a saline IV at 1 50 mL an hour. Extubated on 07/16/2017. She has a history of GERD hyperlipidemia seizure disorder colon cancer Heidel hernia and esophageal stricture. Progress note dated 07/18/2017 72-year-old female seen initially in consultation 2 days ago. She came in with an overdose of multiple medications including benzodiazepines and opiates and tricyclic antidepressants. The patient spent about a day on the ventilator and was extubated. Doing very well now. She was transferred out of the ICU yesterday. The patient is feeling much better. She tells me that she was just taking his medications to get a good night sleep. Is not clear to me that she was actually doing that or actually trying to commit suicide. In addition, she has a history of gastroesophageal reflux disease hyperlipidemia seizure disorder colon cancer Heidel hernia and esophageal stricture. She's been weaned off of oxygen. She's not requiring any IV fluids at this time. Objective - Vital Signs Vital signs: Vital Signs Temp 98.0 F 07/18/17 08:07 Pulse 82 07/18/17 09:48 Resp 16 07/18/17 09:48 BP 160/72 07/18/17 08:07 Pulse Ox 99 07/18/17 08:07 Intake & Output 07/17/17 07/18/17 07/18/17 18:59 06:59 18:59 Intake Total 500 Output Total 2870 Balance -2370 Weight 62 kg Intake: IV 400 Piperacillin-Tazobactam 3 100 .375 gm In Dextrose/Water 1 50ml.bag @ 12.5 mls/hr IVPB Q8HR [facility] Rx#: [id number] Sodium Chloride 0.9% 1, 300 000 ml @ 150 mls/hr IV . Q6H40M [facility] Rx#:[id number] Intake, IV Titration 100 Amount levETIRAcetam IV 750 mg 100 In Sodium Chloride 0.9% 100 ml @ 400 mls/hr IVPB Q12HR [facility] Rx#:[id number] Output: Urine 2870 Other: Voiding Method Indwelling Catheter Indwelling Catheter Indwelling Catheter # Voids 1 1 # Bowel Movements 1 - Exam No acute distress, oriented 3. The patient is on room air now. HEENT examination is grossly unremarkable. Mucous membranes are moist. No oral lesions. Neck supple. Full range of motion. No adenopathy thyromegaly or neck vein distention. Cardiovascular examination reveals regular rhythm rate. S1-S2 normal. No S3 or S4. No discernible murmur noted. Lungs reveal clear breath sounds. Her sounds are equal bilaterally. No adventitious lung sounds including wheezes rhonchi or crackles. Abdomen soft bowel sounds are heard. No masses or tenderness. Extremities are intact. No cyanosis clubbing or edema. Skin is without rash or lesion. Neurologic examination is brief but nonfocal. - Labs CBC & Chem 7: 07/18/17 04:24 07/18/17 04:24 Labs: Abnormal Lab Results - Last 24 Hours (Table) 07/18/17 07/18/17 Range/Units 04:24 04:24 WBC 3.5 L (3.8-10.6) k/uL RBC 3.36 L (3.80-5.40) m/uL Hgb 10.2 L (11.4-16.0) gm/dL Hct 31.5 L (34.0-46.0) % Plt Count 126 L (150-450) k/uL Potassium 3.4 L (3.5-5.1) mmol/L Chloride 109 H (98-107) mmol/L BUN 4 L (7-17) mg/dL Calcium 8.1 L (8.4-10.2) mg/dL Phosphorus 2.0 L (2.5-4.5) mg/dL AST 72 H (14-36) U/L ALT 374 H (9-52) U/L Total Protein 4.7 L (6.3-8.2) g/dL Albumin 2.5 L (3.5-5.0) g/dL Microbiology - Last 24 Hours (Table) 07/16/17 03:05 Urine Culture - Final Urine,Catheterized Assessment and Plan Assessment: Assessment Hypoxemic respiratory failure secondary to drug overdose/suicide attempt with drug screen being positive for opiates and tricyclic antidepressants and benzodiazepines, recovered, with extubation on 07/16/2017 History of colon cancer Gastroesophageal reflux disease Hyperlipidemia Seizure disorder History of esophageal stricture Multiple previous surgeries including appendectomy bowel resection cholecystectomy and tubal ligation. Plan: Plan dated 07/16/2017 The patient's ventilator settings were reviewed. The patient's currently on the assist control mode rate of 12 tidal volume 400 FiO2 of 60% to be dropped to 30% PEEP of 5. Arterial blood gases show a PaO2 of 270 PaCO2 of 40 and a pH of 7.33. The patient currently remains on acetylcysteine IV saline IV at 150 an hour propofol at 10 mics per kilogram per minute. We will stop the sedation , awake the patient up, place the patient on PSV and CPAP, see if we can get her extubated. Medications x-rays and labs are all reviewed. Prognosis is guarded. We'll continue to follow closely. Critical care time 36 minutes Plan dated 07/17/2017 The patient was evaluated today. Meds labs and x-rays were all reviewed. I explained to her that her medication use was excessive. She states that she was not trying to kill himself a brother just getting a good night sleep. I told her that was inappropriate. Anyway she's been seen by psychiatry. She could be transferred out of the ICU today to the general medical floor. I'll review of the rest of her medications. She's been weaned down to O2 at 2 L by nasal cannula and a saline IV at 50 an hour. Again labs x-rays a medications are all reviewed. Prognosis is guarded. Critical care time 31 minutes Plan dated 07/18/2017 The patient's doing well. The patient has been seen by the primary service and by psychiatry. Her respiratory status is stable. She's been weaned down to room air. Her IV fluids have been discontinued. Her labs look good. Her exam was normal. She's feeling well. We'll see this patient only as needed. Time with Patient: Less than 30
[2017-07-18] MEDS ORDERED: POTASSIUM CHLORIDE ER 20 MEQ TAB.ER PO STA (12:13)
[2017-07-18] MEDS: clonazePAM 0.5 MG TAB PO PRN (12:58)
[2017-07-18] MEDS ORDERED: POTAS-SOD-PHOS 278-164-250 MG 1 EACH PACKET PO SCH (13:00)
[2017-07-18 14:59] VITALS: BP 117/70; TEMP 98.5
--- NOTE | 2017-07-18 17:28 | P.PN ---
Subjective Progress Note Date: 07/18/17 This patient is a 72-year-old female who was admitted to the intensive care unit with possible drug overdose. Patient has a history of multiple medical problems and apparently has been despondent and after a grandson recently committed suicide. She had been seen by inpatient psychiatry and Dr. Blanchard about 2 weeks ago and was treated in the inpatient psychiatric unit. She was reevaluated by psychiatry in the intensive care unit. They have recommended to restart the patient on Klonopin. Patient also has a history of underlying seizure disorder for which she has been restarted on Keppra monotherapy for seizure prophylaxis. She will be switched to oral dosage of Keppra 750 mg twice a day. Patient was sent for computed tomography scan of the brain yesterday which was completed. CAT scan report indicates cerebral atrophy with mild chronic small vessel ischemic changes. There was evidence of possible ischemia involving the internal capsule bilaterally suggesting subacute infarcts. Patient was recommended to undergo further evaluation for stroke including MRI of the brain and carotid Doppler study. Carotid Doppler was completed today and reveals no significant evidence of carotid artery stenosis. 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 This was unexpected finding. We did order a stat carbon monoxide level which came back normal. The patient is to continue on aspirin therapy for secondary stroke prevention. The patient seems to be less agitated today after being restarted on Klonopin. She is being closely monitored for signs of drug withdrawal. Patient does have a sitter at bedside which is to continue. Psychiatry is treating her for major depression as well as anxiety disorder and panic attacks. We are awaiting further recommendations from psychiatry regarding her psychiatric medications. The patient was seen today by her regular psychiatrist Dr. Blanchard. He is recommending the patient be transferred to the inpatient psychiatric unit today for further management and treatment. Patient was upset that she is being transferred into the inpatient psychiatric unit today. Her was at bedside and all of her results were discussed with him in detail. We will await further assessment once the patient is seen in the inpatient psychiatric unit. Neurologically she remains stable. We will continue to follow her progress closely during this admission. Objective - Vital Signs Vital signs: Vital Signs Temp 98.5 F 07/18/17 14:58 Pulse 82 07/18/17 14:58 Resp 16 07/18/17 14:58 BP 117/70 02/28/18 14:58 Pulse Ox 96 07/18/17 14:58 Intake & Output 07/17/17 07/18/17 07/18/17 18:59 06:59 18:59 Intake Total 500 990 Output Total 2870 Balance -2370 990 Weight 62 kg Intake: IV 400 Piperacillin-Tazobactam 3 100 .375 gm In Dextrose/Water 1 50ml.bag @ 12.5 mls/hr IVPB Q8HR [facility] Rx#: [id number] Sodium Chloride 0.9% 1, 300 000 ml @ 150 mls/hr IV . Q6H40M [facility] Rx#:[id number] Intake, IV Titration 100 Amount levETIRAcetam IV 750 mg 100 In Sodium Chloride 0.9% 100 ml @ 400 mls/hr IVPB Q12HR [facility] Rx#:[id number] Oral 990 Output: Urine 2870 Other: Voiding Method Indwelling Catheter Indwelling Catheter Toilet # Voids 1 1 5 # Bowel Movements 1 - Exam Physical examination: PHYSICAL EXAMINATION: Patient is resting comfortably in bed. VITAL SIGNS: Blood pressure is [142/63]. Heart rate is [74]. Respiration is [27] . Temperature is [97.4]. HEENT: Head is atraumatic, neck is supple, there were no carotid bruits. CHEST: Lungs are clear to auscultation and percussion. CARDIAC: S1, S2 normal rate and rhythm. There is no murmur. ABDOMEN: Soft and nontender. Bowel sounds are present. EXTREMITIES: There is no pedal edema. Peripheral pulses are present. Neurological examination: Patient has a nonfocal neurological examination today in the intensive care unit. - Labs CBC & Chem 7: 07/18/17 04:24 07/18/17 04:24 Labs: Abnormal Lab Results - Last 24 Hours (Table) 07/18/17 07/18/17 Range/Units 04:24 04:24 WBC 3.5 L (3.8-10.6) k/uL RBC 3.36 L (3.80-5.40) m/uL Hgb 10.2 L (11.4-16.0) gm/dL Hct 31.5 L (34.0-46.0) % Plt Count 126 L (150-450) k/uL Potassium 3.4 L (3.5-5.1) mmol/L Chloride 109 H (98-107) mmol/L BUN 4 L (7-17) mg/dL Calcium 8.1 L (8.4-10.2) mg/dL Phosphorus 2.0 L (2.5-4.5) mg/dL AST 72 H (14-36) U/L ALT 374 H (9-52) U/L Total Protein 4.7 L (6.3-8.2) g/dL Albumin 2.5 L (3.5-5.0) g/dL Microbiology - Last 24 Hours (Table) 07/16/17 03:05 Urine Culture - Final Urine,Catheterized Assessment and Plan (1) Major depressive disorder Current Visit: No Status: Acute Priority: High Code(s): F32.9 - MAJOR DEPRESSIVE DISORDER, SINGLE EPISODE, UNSPECIFIED SNOMED Code(s): 331753622 (2) Drug overdose Current Visit: Yes Status: Acute Code(s): T50.901A - POISONING BY UNSP DRUG/ MEDS/BIOL SUBST, ACCIDENTAL, INIT SNOMED Code(s): 63344741 (3) Seizure disorder, complex partial Current Visit: Yes Status: Acute Code(s): G40.209 - LOCAL-REL SYMPTC EPI W CMPLX PRT SEIZ,NOT NTRCT,W/O STAT EPI SNOMED Code(s): 341796497 (4) Generalized anxiety disorder Current Visit: No Status: Acute Priority: High Code(s): F41.1 - GENERALIZED ANXIETY DISORDER SNOMED Code(s): 26493959 (5) Panic disorder Current Visit: No Status: Acute Priority: High Code(s): F41.0 - PANIC DISORDER [EPISODIC PAROXYSMAL ANXIETY] SNOMED Code(s): 670571044 Plan: This patient is a 72-year-old female being followed for recent drug overdose and altered mental status. Patient was extubated then subsequently transferred out of the intensive care unit yesterday. She has a history of underlying psychiatric conditions including major depression, panic disorder, and generalized anxiety disorder. She was seen today by her psychiatrist Dr. Blanchard. He is recommending that she be transferred into the inpatient psychiatric unit for further management. Patient underwent MRI of the brain yesterday which revealed evidence of acute versus subacute bilateral infarcts in the globus pallidus. She underwent carotid Doppler study which came back negative for any carotid artery stenosis. She was checked for possibility of carbon monoxide poisoning however her carbon monoxide level came back normal. She is to continue on aspirin daily for secondary stroke prevention. She is currently on Keppra monotherapy for seizure prophylaxis. Her Keppra blood level is pending today from the laboratory. We will continue to follow her progress closely. She is being considered for transfer to the inpatient psychiatric unit in the next 24 hours. We will continue to follow the patient as needed. Her overall prognosis at this time remains guarded.
--- NOTE | 2017-07-18 22:17 | DS ---
DISCHARGE SUMMARY DATE OF SERVICE: 07/18/2017. FINAL DIAGNOSES: 1. Change in mental status, acute metabolic encephalopathy secondary to drug overdose with acute hypoxic respiratory failure status post mechanical ventilation. 2. Depression with possible suicidal ideations. 3. Bilateral globus pallidus infarcts. 4. Increased AST/ALT with possible hepatitis secondary to overdose. 5. Possible aspiration pneumonia. 6. Troponin 0.123 indeterminate. 7. Increased creatinine with mild acute renal failure. 8. Increased MCV. 9. History of gastroesophageal reflux disease. 10.Hyperlipidemia. 11.History of seizure disorder. 12.History of colon cancer. 13.History of hiatal hernia. 14.History of tremors. 15.Anxiety and depression. 16.Panic disorder. 17.Leukopenia, mild. 18.FULL CODE. DISCHARGE DISPOSITION: The patient is being transferred to inpatient psych. Total time taken 35 minutes. HISTORY OF PRESENT ILLNESS: This 72-year-old woman with a past medical history of multiple medical problems was admitted with multiple overdose and as well as acute hypoxic respiratory failure. The patient mechanically intubated. The patient extubated. Subsequently psychiatry saw the patient and the patient will be transferred to inpatient psych for further evaluation and treatment. Otherwise the following medications will be recommended from the psych floor. Diet is cardiac diet. Activity limited until followup. Follow up with the primary physician as advice. MEDICATIONS: 1. Ecotrin 81 mg. 2. Klonopin 8.25 mg daily. 3. Lexapro 20 mg daily. 4. Keppra 750 p.o. b.i.d. 5. Imodium 2 mg q.i.d. 6. Protonix 40 mg daily. 7. K-Dur 40 mEq p.o. daily. 8. Seroquel 25 mg p.o. b.i.d. 9. Lipitor 20 mg q.h.s. Followup labs with the primary physician. Further recommendations to follow. 2D echo has been noted and carotid Doppler also has been done which showed no evidence of any hemodynamically significant stenosis recommend followup CBC and BMP in the outpatient setting. MMODL / IJN: [id number] /
== END 2017-07-18 18:00 | DRG 917 ==
LOC: EC 14:06 → 6ICU 17:15 → 5MS5E 07-18 05:58
PROVIDERS: ADMIT Hospitalist; ATTEND Hospitalist
PROC: 5A1935Z Respiratory Ventilation, Less than 24 Consecutive Hours (ICD-10-PCS; principal; 2017-07-15)
PROC: 0BH17EZ Insertion of Endotracheal Airway into Trachea, Via Natural or Artificial Opening (ICD-10-PCS; 2017-07-15)
DX: T43.012A Poisoning by tricyclic antidepressants, intentional self-harm, initial encounter (principal); G92 Toxic encephalopathy; J69.0 Pneumonitis due to inhalation of food and vomit; I63.8 Other cerebral infarction; J96.01 Acute respiratory failure with hypoxia; R40.20 Unspecified coma; N17.9 Acute kidney failure, unspecified; E87.2 Acidosis; F33.2 Major depressive disorder, recurrent severe without psychotic features; G40.209 Localization-related (focal) (partial) symptomatic epilepsy and epileptic syndromes with complex partial seizures, not intractable, without status epilepticus; D72.819 Decreased white blood cell count, unspecified; T43.592A Poisoning by other antipsychotics and neuroleptics, intentional self-harm, initial encounter; E78.5 Hyperlipidemia, unspecified; E87.6 Hypokalemia; F41.0 Panic disorder [episodic paroxysmal anxiety]; G47.00 Insomnia, unspecified; I10 Essential (primary) hypertension; K21.9 Gastro-esophageal reflux disease without esophagitis; K44.9 Diaphragmatic hernia without obstruction or gangrene; R01.1 Cardiac murmur, unspecified; K75.89 Other specified inflammatory liver diseases; K57.90 Diverticulosis of intestine, part unspecified, without perforation or abscess without bleeding; R74.8 Abnormal levels of other serum enzymes; Z79.899 Other long term (current) drug therapy; Z90.49 Acquired absence of other specified parts of digestive tract; Z88.5 Allergy status to narcotic agent; Z85.038 Personal history of other malignant neoplasm of large intestine
CPT/HCPCS: 31500; 36415; 36600; 43753; 51702; 70450; 70551; 71045; 80053; 80061; 80177; 80306; 80320; 81001; 81003; 82150; 82375; 82550; 82553; 82805; 83520; 83690; 83735; 83930; 84100; 84132; 84484; 85025; 85610; 85730; 87086; 87324; 93005; 93306; 93880; 94002; 94003; 96361; 96374; 99291

== ENCOUNTER 2017-07-18 16:28 | Inpatient (IN) | payer MEDICARE, BC ==
[2017-07-18] MEDS ORDERED: LOPERAMIDE 2 MG CAP PO PRN (18:37)
[2017-07-18] MEDS ORDERED: MAGNESIUM HYDROXIDE 2,400 MG/10 ML CUP PO PRN (18:38)
[2017-07-18] MEDS ORDERED: MAG HYDROX/AL HYDROX/SIMETH 30 ML CUP PO PRN (18:38)
[2017-07-18] MEDS ORDERED: ACETAMINOPHEN TAB 325 MG TAB PO PRN (18:38)
[2017-07-18] MEDS: clonazePAM 0.5 MG TAB PO PRN (19:12)
[2017-07-18] MEDS: QUEtiapine 25 MG TAB PO SCH (20:04)
[2017-07-18] MEDS: POTAS-SOD-PHOS 278-164-250 MG 1 EACH PACKET PO SCH (20:04)
[2017-07-19] MEDS: clonazePAM 0.5 MG TAB PO PRN ×3 (06:50→18:31)
[2017-07-19 08:15] LABS: Basophils % (A) 1 %; Eosinophils # (A) 0.2 k/uL (0-0.7); Eosinophils % (A) 6 %; HCT 33.2 % (34.0-46.0); HGB 10.8 gm/dL (11.4-16.0); Lymphocytes # (A) 0.9 k/uL (1.0-4.8); Lymphocytes % (A) 28 %; MCH 30.3 pg (25.0-35.0); MCHC 32.6 g/dL (31.0-37.0); Monocytes # (A) 0.2 k/uL (0-1.0); Monocytes % (A) 7 %; Neutrophils # (A) 1.9 k/uL (1.3-7.7); Neutrophils % (A) 57 %; Platelet Count 136 k/uL (150-450); RBC 3.56 m/uL (3.80-5.40); RDW 13.1 % (11.5-15.5); WBC 3.2 k/uL (3.8-10.6)
[2017-07-19] MEDS: QUEtiapine 25 MG TAB PO SCH ×2 (08:18→20:14)
[2017-07-19] MEDS: ESCITALOPRAM 20 MG TAB PO SCH (08:18)
[2017-07-19] MEDS: ASPIRIN 81 MG PO SCH (08:18)
[2017-07-19] MEDS: POTAS-SOD-PHOS 278-164-250 MG 1 EACH PACKET PO SCH ×3 (08:18→20:14)
[2017-07-19 08:37] LABS: ALT 305 U/L (9-52); AST 53 U/L (14-36); Albumin 2.9 g/dL (3.5-5.0); Alkaline Phosphatase 76 U/L (38-126); Anion Gap 6 mmol/L; Blood Urea Nitrogen 7 mg/dL (7-17); Calcium 8.9 mg/dL (8.4-10.2); Carbon Dioxide 30 mmol/L (22-30); Chloride 107 mmol/L (98-107); Glucose 85 mg/dL (74-99); Potassium 4.4 mmol/L (3.5-5.1); Sodium 143 mmol/L (137-145); Total Bilirubin 0.6 mg/dL (0.2-1.3); Total Protein 5.4 g/dL (6.3-8.2)
--- NOTE | 2017-07-19 11:07 | P.HP ---
Psychiatric H&P - . H&P Date: 07/19/17 History & Physical: Allergies Allergy/AdvReac Type Severity Reaction Status Date / Time codeine AdvReac Nausea & Verified 07/18/17 18:47 Vomiting Vital Signs Temp 98.8 F 07/19/17 06:51 Pulse 74 07/19/17 06:51 Resp 16 07/19/17 06:51 BP 130/68 07/19/17 06:51 Pulse Ox Intake & Output 07/18/17 07/19/17 07/19/17 18:59 06:59 18:59 Weight 55.565 kg Laboratory Last Values WBC 3.2 k/uL (3.8-10.6) L 07/19/17 07:47 RBC 3.56 m/uL (3.80-5.40) L 07/19/17 07:47 Hgb 10.8 gm/dL (11.4-16.0) L 07/19/17 07:47 Hct 33.2 % (34.0-46.0) L 07/19/17 07:47 MCV 93.0 fL (80.0-100.0) 07/19/17 07:47 MCH 30.3 pg (25.0-35.0) 07/19/17 07:47 MCHC 32.6 g/dL (31.0-37.0) 07/19/17 07:47 RDW 13.1 % (11.5-15.5) 07/19/17 07:47 Plt Count 136 k/uL (150-450) L 07/19/17 07:47 Neutrophils % 57 % 07/19/17 07:47 Lymphocytes % 28 % 07/19/17 07:47 Monocytes % 7 % 07/19/17 07:47 Eosinophils % 6 % 07/19/17 07:47 Basophils % 1 % 07/19/17 07:47 Neutrophils # 1.9 k/uL (1.3-7.7) 07/19/17 07:47 Lymphocytes # 0.9 k/uL (1.0-4.8) L 07/19/17 07:47 Monocytes # 0.2 k/uL (0-1.0) 07/19/17 07:47 Eosinophils # 0.2 k/uL (0-0.7) 07/19/17 07:47 Basophils # 0.0 k/uL (0-0.2) 07/19/17 07:47 Sodium 143 mmol/L (137-145) 07/19/17 07:47 Potassium 4.4 mmol/L (3.5-5.1) 07/19/17 07:47 Chloride 107 mmol/L (98-107) 07/19/17 07:47 Carbon Dioxide 30 mmol/L (22-30) 07/19/17 07:47 Anion Gap 6 mmol/L 07/19/17 07:47 BUN 7 mg/dL (7-17) 07/19/17 07:47 Creatinine 0.77 mg/dL (0.52-1.04) 07/19/17 07:47 Est GFR (MDRD) Af Amer >60 (>60 ml/min/1.73 sqM) 07/19/17 07:47 Est GFR (MDRD) Non-Af >60 (>60 ml/min/1.73 sqM) 07/19/17 07:47 Glucose 85 mg/dL (74-99) 07/19/17 07:47 Calcium 8.9 mg/dL (8.4-10.2) 07/19/17 07:47 Total Bilirubin 0.6 mg/dL (0.2-1.3) 07/19/17 07:47 AST 53 U/L (14-36) H 07/19/17 07:47 ALT 305 U/L (9-52) H 07/19/17 07:47 Alkaline Phosphatase 76 U/L (38-126) 07/19/17 07:47 Total Protein 5.4 g/dL (6.3-8.2) L 07/19/17 07:47 Albumin 2.9 g/dL (3.5-5.0) L 07/19/17 07:47 07/19/17 10:57 IDENTIFYING DATA: This patient is a 72-year-old female who was admitted to the mental health unit from the fifth floor after overdosing with dilaudid and Klonopin. HPI: The patient presented to the hospital in respiratory distress after overdosing with her 's opiate analgesic in combination with her Klonopin. She required intubation and mechanical ventilation in the intensive care unit. She was extubated and then transferred to the fifth floor for further medical clearance. The patient was seen in consultation by our service and specifically I met with her yesterday. She reported to me that she was aware that it was dangerous to take 3 of her husbands Dilaudid pills with her Klonopin she states she did it anyway out of despair. She reports that she slept approximately 11 hours but wanted to sleep longer. She was recently on this mental health unit for acute symptoms of anxiety and depression. She continues to report a depressed mood she feels anxious and shaky. She reports full compliance with her psychiatric medications. While on the medical floor she was seen by her outpatient neurologist. MRI findings included bilateral infarcts of the globus pallidus which were not thought to be recent. The patient has no history of hypomanic or manic episodes. PAST PSYCHIATRIC HISTORY: This would be the patient's fourth inpatient psychiatric admission. She was just recently on this mental health unit within the last month. Prior to that she was here in 2012. She had also been admitted at another facility in [place] prior to 2013. She is treated for depression and panic disorder and generalized anxiety disorder. Most recently she has been on Lexapro 20 mg daily Seroquel 25 mg twice daily Klonopin 1 mg 3 times daily. The Klonopin has been reduced to 0.25 mg up to 3 times daily. She has previously been treated with Effexor Pristiq Risperdal Prozac Zoloft. She has no other history of suicide attempts. PMH: History of colon cancer treated several years ago in remission she is on Keppra due to history of abnormal EEG findings ALLERGIES: Codeine MEDICATIONS: As above CHEMICAL DEPENDENCY HISTORY: She reports no use of alcohol marijuana or any other illicit drug. She has never been placed in residential treatment for chemical dependency reasons. FAMILY PSYCHIATRIC HISTORY: She has a strong family history of depression with 2 sisters being treated for depression, no suicides in the family FAMILY CHEMICAL DEPENDENCY HISTORY: Father was known to have alcohol use disorder SOCIAL HISTORY: The patient is 72 years old she is she resides with her . She had 2 sons one is . She has 3 sisters and one brother. 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 She has a high school education. No abuse history, no legal history. MENTAL STATUS EXAM: The patient is an alert female appearing her stated age. She has a disheveled appearance she is dressed in her own clothing and is wearing her eyeglasses. She reports her mood is anxious and sad and frustrated. Affect is bland. She reports feeling shaky. She continues to have the same movement of her hips and lower extremities. She reports having some hopeless thoughts she feels safe in the hospital in terms of suicidal ideation. She endorses no homicidal ideation. She is reporting no visual or auditory hallucinations. No report of any specific delusions and there is no observed evidence of psychosis. She is oriented to person place and date. She is able spell world backwards. She demonstrates no tangential thinking loose associations or flight of ideas. STRENGTHS/WEAKNESSES: Strengths: Housing, financial security support from family weaknesses: Ongoing mood and anxiety symptoms causing psychosocial dysfunction INTELLECTUAL FUNCTIONING: Average IMPRESSIONS: [] 1. Major depressive disorder recurrent severe without psychosis, generalized anxiety disorder, panic disorder 2. History of colon cancer in remission, history of abnormal EEG, recent elevation of liver enzymes PLAN: The patient has been admitted to the mental health unit she is here voluntarily. We reviewed her presenting symptoms and medication options. Her symptoms have been somewhat refractory with this most recent episode of decompensation. We will continue the Lexapro 20 mg daily the Klonopin 0.25 mg up to 3 times a day as needed. We will illuminate daytime dosing of Seroquel but keep the 25 mg at bedtime as she finds it effective for sleep. We will initiate Lamictal 25 mg twice daily as a mood stabilizer and possible augmentation strategy for her depression. She will be seen by internal medicine for routine history and physical exam we will monitor her for safety social work will meet with the patient to complete a psychosocial assessment. We will involve family in treatment and discharge planning as she will allow.
--- NOTE | 2017-07-19 19:49 | CONS ---
CONSULTATION REASON FOR CONSULTATION: Advice regarding hyperlipidemia and multiple other medical issues, requested by Psychiatry. HISTORY OF PRESENT ILLNESS: This 72-year-old woman with a past medical history of GERD, hyperlipidemia, seizure disorder, history of colon cancer, anxiety, depression, history of panic disorder, being followed by no primary physician in the outpatient setting, was admitted with overdose to medical floor. The patient was mechanically intubated and subsequently the patient was extubated and transferred to inpatient Psychiatry per Dr. Blanchard's suggestion. The patient is complaining of tiredness and weakness. The patient is spending most of her time in bed, currently on the psych floor. No chest pain. No palpitations. No fever. No headache, loss of consciousness or seizures. LFTs are elevated. Her recent MRI showed bilateral globus pallidus infarcts. Lipitor is on hold. PAST MEDICAL HISTORY: 1. History of GERD. 2. Hyperlipidemia. 3. Seizure disorder. 4. Hiatal hernia. 5. Esophageal strictures. 7. Anxiety. 8. Depression. MEDICATIONS PRIOR TO ADMISSION: 1. Keppra 750 p.o. b.i.d. 2. Klonopin 0.25 mg t.i.d. p.r.n. 3. Seroquel 25 mg p.o. b.i.d. 4. Neutra-Phos 1 p.o. t.i.d. 5. Imodium 2 mg p.o. q.i.d. p.r.n. 6. Lexapro 20 mg p.o. daily. 7. Aspirin 81 mg p.o. daily. ALLERGIES: CODEINE. FAMILY HISTORY: History of prostate disorder in the family. SOCIAL HISTORY: No history of smoking. No history of alcohol. REVIEW OF SYSTEMS: ENT: Diminished hearing. Diminished vision. CARDIOVASCULAR SYSTEM: No angina, palpitations. RESPIRATORY SYSTEM: As mentioned earlier. GI: No nausea, vomiting. : No dysuria or retention. NERVOUS SYSTEM: As mentioned earlier. ALLERGY/IMMUNOLOGY: No asthma, hayfever. MUSCULOSKELETAL: As mentioned earlier. HEMATOLOGY/ONCOLOGY: No history of anemia. ENDOCRINE: No history of diabetes, hypothyroidism. CONSTITUTIONAL: As mentioned earlier. DERMATOLOGY: Negative. RHEUMATOLOGY: Negative. PSYCHIATRY: As mentioned earlier. PHYSICAL EXAMINATION: Patient is alert, oriented x3. The pulse is 89, blood pressure 140/70, respiration 20, temperature 97.7, pulse ox 97% on room air. HEENT: Conjunctivae normal. NECK: No jugular venous distention. CARDIOVASCULAR SYSTEM: S1, S2 muffled. RESPIRATORY SYSTEM: Breath sounds diminished at the bases. A few rhonchi. No crackles. ABDOMEN: Soft, non-tender. No mass palpable. LEGS: No edema. No swelling. NERVOUS SYSTEM: Higher functions as mentioned earlier. Moves all 4 limbs. No focal motor or sensory deficit. LYMPHATICS: No lymph node palpable in neck, axillae or groin. SKIN: No ulcer, rash, bleeding. LABS: WBC 3.5, hemoglobin 10.8. AST is 53, ALT 305. ASSESSMENT: 1. History of recent overdose and suicidal attempts. 2. History of recent respiratory failure with metabolic encephalopathy secondary to overdose. 3. History of depression with suicidal ideations. 4. Bilateral globus pallidus infarcts. 5. Increased AST, ALT; possibly hepatitis. 6. History of recent aspiration pneumonia. 7. Gastroesophageal reflux disease. 8. Hyperlipidemia. 9. Seizure disorder. 10.History of colon cancer. 11.History of hiatal hernia. 12.History of tremors. 13.Anxiety, depression. 14.Panic disorder. 15.Mild leukopenia. RECOMMENDATIONS AND DISCUSSION: In this 72-year-old woman who presented with multiple complex medical issues, we will monitor the patient closely, continue the current medications, continue with symptomatic management. I would recommend repeat labs, resume the rest of the medications. Hold Lipitor. Closely follow up with a primary physician after discharge. We will the patient closely with you. Thank you, Dr. Blanchard, for letting us participate in the care of this patient. MMODL / IJN: [id number] / [facility]ITALShraddha
[2017-07-19 20:00] LABS: ALT 320 U/L (9-52); AST 57 U/L (14-36); Albumin 3.5 g/dL (3.5-5.0); Alkaline Phosphatase 83 U/L (38-126); Anion Gap 10 mmol/L; Blood Urea Nitrogen 11 mg/dL (7-17); Calcium 9.2 mg/dL (8.4-10.2); Carbon Dioxide 28 mmol/L (22-30); Chloride 104 mmol/L (98-107); Glucose 99 mg/dL (74-99); Potassium 3.5 mmol/L (3.5-5.1); Sodium 142 mmol/L (137-145); Total Bilirubin 0.5 mg/dL (0.2-1.3); Total Protein 6.2 g/dL (6.3-8.2)
[2017-07-19] MEDS: lamoTRIgine 25 MG TAB PO SCH (20:14)
[2017-07-20] MEDS: lamoTRIgine 25 MG TAB PO SCH ×2 (07:55→20:00)
[2017-07-20] MEDS: ESCITALOPRAM 20 MG TAB PO SCH (07:55)
[2017-07-20] MEDS: POTAS-SOD-PHOS 278-164-250 MG 1 EACH PACKET PO SCH ×3 (07:57→20:01)
[2017-07-20] MEDS: ASPIRIN 81 MG PO SCH (08:00)
[2017-07-20] MEDS: clonazePAM 0.5 MG TAB PO PRN ×2 (09:23→15:22)
[2017-07-20 09:37] LABS: Basophils % (A) 1 %; Eosinophils # (A) 0.2 k/uL (0-0.7); Eosinophils % (A) 5 %; HCT 33.9 % (34.0-46.0); HGB 11.2 gm/dL (11.4-16.0); Lymphocytes # (A) 0.8 k/uL (1.0-4.8); Lymphocytes % (A) 21 %; MCH 30.9 pg (25.0-35.0); MCHC 32.9 g/dL (31.0-37.0); MCV 93.9 fL (80.0-100.0); Mean Platelet Volume 8.3; Monocytes # (A) 0.2 k/uL (0-1.0); Monocytes % (A) 6 %; Neutrophils # (A) 2.4 k/uL (1.3-7.7); Neutrophils % (A) 65 %; Platelet Count 188 k/uL (150-450); RBC 3.61 m/uL (3.80-5.40); RDW 13.1 % (11.5-15.5); WBC 3.7 k/uL (3.8-10.6)
[2017-07-20 09:58] LABS: ALT 256 U/L (9-52); AST 45 U/L (14-36); Albumin 3.3 g/dL (3.5-5.0); Alkaline Phosphatase 72 U/L (38-126); Anion Gap 10 mmol/L; Blood Urea Nitrogen 14 mg/dL (7-17); Calcium 9.3 mg/dL (8.4-10.2); Carbon Dioxide 25 mmol/L (22-30); Chloride 106 mmol/L (98-107); Glucose 111 mg/dL (74-99); Potassium 4.2 mmol/L (3.5-5.1); Sodium 141 mmol/L (137-145); Total Bilirubin 0.4 mg/dL (0.2-1.3); Total Protein 5.8 g/dL (6.3-8.2)
--- NOTE | 2017-07-20 10:13 | P.PN ---
Progress Note - Text Interval history: The patient is found in her room. She states she slept all night staff recorded she slept 6 hours. However she reports feeling miserable as she continues to have "this shaking". She states it makes her very uncomfortable. Again this shaking behavior has occurred numerous times prior to starting Seroquel. We discussed the initiation of Lamictal her questions were answered. She continues to have hopeless thoughts because of her mood and anxiety symptoms. She did not eat breakfast this morning. Labs were reviewed her liver enzymes are elevated Dr. Jiang is following. Mental status exam: The patient is alert, more so than yesterday. She is dressed in her own clothing she has a disheveled appearance. Eye contact is appropriate. She maintains a distraught affect and demonstrates shaking of her upper extremities. She continues to demonstrate the ongoing motion of her hips. She is reporting no acute suicidal ideation but feels overwhelmed. She is endorsing no auditory or visual hallucinations or specific delusions. Insight and judgment remains limited. She is oriented to person place and date. Plan: We have just initiated the Lamictal. She will continue on her other psychotropic medications. She is encouraged to participate in the milieu and to be sure that she is hydrating and eating appropriately. We will monitor her for safety. She continues to demonstrate dysfunction and she is not appropriate for discharge home at this time. Vital signs reviewed.
[2017-07-20] MEDS ORDERED: diphenhydrAMINE 25 MG CAP PO STA (11:52)
--- NOTE | 2017-07-20 12:26 | XR ---
EXAMINATION TYPE: XR chest 1V portable DATE OF EXAM: 07/20/2017 COMPARISON: 07/16/2017 INDICATION: Throat constricting difficulty breathing TECHNIQUE: Single frontal view of the chest is obtained. FINDINGS: The heart size is normal. The pulmonary vasculature is normal. The lungs are clear. Trachea appears normal. Subglottic airway appears normal. Previous endotracheal tube and nasogastric tube is been removed. IMPRESSION: 1. No acute pulmonary process.
[2017-07-20] MEDS: QUEtiapine 25 MG TAB PO SCH (20:00)
[2017-07-20] MEDS ORDERED: INSULIN ASPART 100 UNIT/ML 1 ML 10 ML VIAL SQ SCH (21:00)
--- NOTE | 2017-07-20 21:34 | PN ---
PROGRESS NOTE DATE OF SERVICE: 07/20/2017 This 72-year-old woman who was admitted after overdose and suicidal attempt had acute respiratory failure. Patient was mechanically ventilated and intubated in ICU and has been subsequently transferred to the inpatient psych floor at this time. Currently the patient is complaining of throat closing and having some respiratory difficulties. The lungs are clear. A chest x-ray was ordered and did not show any acute abnormality. Pulse ox is also normal. LFTs are elevated. Hepatitis serology was negative previously. Possibly the elevated LFTs could be due to the effect of overdose of medications. Recommend avoiding Tylenol and close monitoring of LFTs while the patient is hospitalized to ensure stability in the outpatient setting as well. On exam, vitals are stable. Pulse 77, blood pressure 150/69, respiration 16, temperature 98.4, pulse ox 98% on room air. CARDIOVASCULAR SYSTEM: S1, S2 normal. RESPIRATIONS: Clear to auscultation. ABDOMEN: Soft. NERVOUS SYSTEM: No focal deficit. LABS: WBC 3.7, hemoglobin 11.2. AST is 45 and ALT is 256. ASSESSMENT: 1. History of recent overdose and suicidal attempt. 2. History of recent respiratory failure with metabolic encephalopathy secondary to overdose. 3. Complaints of shortness of breath, possibly panic episodes. 4. History of depression with suicidal ideations. 5. History of bilateral globus pallidus infarcts. 6. Increased AST, ALT; possibly hepatitis, possibly medication-induced. 7. History of recent aspiration pneumonia. 8. Gastroesophageal reflux disease. 9. Hyperlipidemia. 10.Seizure disorder. 11.History of colon cancer. 12.History of hiatal hernia. 13.History of tremors. 14.Anxiety, depression. 15.Panic disorder. 16.Mild leukopenia. RECOMMENDATIONS AND DISCUSSION: I recommend to continue current medication, continue with symptomatic treatment. I would recommend a course of Medrol Dosepak as well as Benadryl because of the history of recent intubation. Otherwise, monitor blood sugars closely. Evaluation of the hepatitis panel as mentioned earlier. We will follow the patient closely with you. Thank you, Dr. Blanchard. JOHANNA / ASHLEE: [id number] /
[2017-07-20] MEDS: PANTOPRAZOLE 40 MG TABLET PO SCH (21:43)
[2017-07-20] MEDS: IBUPROFEN 200 MG TAB PO SCH (21:44)
[2017-07-21] MEDS: clonazePAM 0.5 MG TAB PO PRN ×3 (05:01→20:05)
[2017-07-21] MEDS: lamoTRIgine 25 MG TAB PO SCH ×2 (08:12→20:06)
[2017-07-21] MEDS: IBUPROFEN 200 MG TAB PO SCH ×3 (08:12→22:28)
[2017-07-21] MEDS: ASPIRIN 81 MG PO SCH (08:12)
[2017-07-21] MEDS: ESCITALOPRAM 20 MG TAB PO SCH (08:12)
[2017-07-21] MEDS: PANTOPRAZOLE 40 MG TABLET PO SCH (08:12)
[2017-07-21] MEDS: POTAS-SOD-PHOS 278-164-250 MG 1 EACH PACKET PO SCH ×3 (08:13→22:28)
[2017-07-21 08:24] LABS: Albumin 3.3 g/dL (3.5-5.0); Bilirubin, Delta 0.3 mg/dL (0.0-0.2); Bilirubin,Unconjugated 0.1 mg/dL (0.0-1.1); Total Bilirubin 0.4 mg/dL (0.2-1.3); Total Protein 5.9 g/dL (6.3-8.2)
[2017-07-21] MEDS ORDERED: methylPREDNISolone 4 MG TAB TAPER PO SCH (09:00)
--- NOTE | 2017-07-21 13:01 | P.PN ---
Progress Note - Text Progress Note Date: 07/21/17 Interval History: Patient is a 72-year-old female who was transferred to the psychiatric unit after she took an overdose of pain medication and required intubation and stay in the ICU. Patient reports today that she slept for 6 hours last night and states that she feels anxious sometimes and still needs to pace. Patient reports that she is not having any side effects from the Lamictal which was just recently added to her medications. Patient denied any suicidal ideation and states that she attempts to attend some groups and activities but at times is unable to sit through them. Patient requested that I stopped the steroids which were begun today for her complaints yesterday of some tightness in her throat, she states that it made her feel too jittery and she would like to stop them as well as she thinks she was feeling that way yesterday secondary to anxiety Mental Status: Appearance/Attitude: Patient is appropriately dressed, appears anxious, makes good eye contact and is cooperative Behavior: Patient does not display any psychomotor retardation but is seen frequently pacing in the halls at times appearing tearful Speech/Language: Patient's speech is spontaneous and of normal volume and rhythm and she is coherent Thought Process: Patient is goal-directed, no evidence of loose associations or flight of ideas. Thought Content: Patient denies auditory or visual hallucinations and no delusions or paranoid ideation were elicited. Patient states that she slept well last night for 6 hours. Patient states that she continues to feel anxious at times and needs to pace. Patient reports that she continues to feel depressed. Patient states that she has been eating 2 meals a day. Suicidal/Homicidal Ideation: Patient denied any current suicidal or homicidal ideation. Sensorium/Cognition: Patient is alert and oriented to person, place, time and her recent and remote memory are grossly intact. Mood/Affect: Patient's mood is anxious and depressed and her affect is appropriate to her mood Insight/Judgment: Patient's insight and judgment are fair. Assessment: Patient continues to express symptoms of depression but denies any current suicidal ideation, she reports that she slept well last evening and states that she continues to feel anxious and shaky at times and feels the need to pace. She reported no side effects from the Lamictal being started. Patient did report wishing that the steroids were discontinued as they made her feel a little more agitated this morning. Patient attempts to attend groups and activities but states at times she is not able to sit through them. Patient 's chest x-ray revealed no acute process. Plan: Patient will continue on Lexapro 20 mg a day, Lamictal 25 mg a day will be continued as well as her Seroquel 25 mg at bedtime patient continues on Klonopin 0.25 mg 3 times a day. Her Medrol dose pack was discontinued as the patient is not reporting any difficulty with her breathing and states that she felt that was secondary to her anxiety yesterday and feels that is making her more agitated, which I agree that it may do. Patient continues to require hospitalization for further stabilization of her mood and anxiety.
[2017-07-21] MEDS: QUEtiapine 25 MG TAB PO SCH (20:06)
[2017-07-22] MEDS: IBUPROFEN 200 MG TAB PO SCH ×3 (07:40→21:30)
[2017-07-22] MEDS: ESCITALOPRAM 20 MG TAB PO SCH (07:44)
[2017-07-22] MEDS: PANTOPRAZOLE 40 MG TABLET PO SCH (07:44)
[2017-07-22] MEDS: clonazePAM 0.5 MG TAB PO PRN ×2 (07:45→15:28)
[2017-07-22] MEDS: lamoTRIgine 25 MG TAB PO SCH ×2 (07:45→20:07)
[2017-07-22] MEDS: POTAS-SOD-PHOS 278-164-250 MG 1 EACH PACKET PO SCH ×3 (07:46→21:29)
[2017-07-22] MEDS: ASPIRIN 81 MG PO SCH (08:57)
[2017-07-22 09:17] LABS: Albumin 3.6 g/dL (3.5-5.0); Bilirubin, Delta 0.2 mg/dL (0.0-0.2); Bilirubin,Unconjugated 0.1 mg/dL (0.0-1.1); Total Bilirubin 0.3 mg/dL (0.2-1.3); Total Protein 6.2 g/dL (6.3-8.2)
[2017-07-22] MEDS: diphenhydrAMINE 25 MG CAP PO PRN ×2 (12:26→21:29)
--- NOTE | 2017-07-22 12:29 | P.PN ---
Progress Note - Text Progress Note Date: 07/22/17 Interval History: Patient is a 72-year-old female is being seen in [facility], patient states that she slept 12 hours last night. She reports that she is feeling better today than yesterday and stated she was feeling less anxious. She reports she's been attending groups. She states her appetite is still not what it was and she is eating about 50% of her lunch and dinner she states that she's not been eating well for some time and states her weight is down to 113 pounds from her usual 130 pounds. Patient was able to verbalize to me that she began feeling anxious in April about the time that her granddaughter was arrested and charged with theft and then spent been 3 months in longterm and is now currently living in a fpc house. She states that her one son despises his niece, her granddaughter lost her father, the patient's son, when she was 3 years of age. Patient states that she thinks about her granddaughter often, stating that she stole from them as well. Mental Status: Appearance/Attitude: Patient is appropriately dressed, made good eye contact and was cooperative Behavior: Patient does not display any psychomotor agitation or retardation, when seated that is noted that there is rhythmic movement of her hips Speech/Language: Patient's speech is spontaneous and of normal volume and rhythm and she is coherent Thought Process: Patient is goal-directed there is no evidence of loose associations or flight of ideas Thought Content: Patient denies any auditory or visual hallucinations no delusions or paranoid ideation were elicited. Patient does state that she worries about her granddaughter for the reasons stated above, she states that she slept well last night for 12 hours. She reports that she is feeling better today than she was yesterday and is less anxious. She has been trying to attend groups and activities. She reports that her appetite has not been good lately, her weight is down to 113 pounds and she states that she is eating about 50% of her lunch and dinner. Suicidal/Homicidal Ideation: Patient denies any current suicidal or homicidal ideation. Sensorium/Cognition: Patient is alert and oriented to person, place, and time and her recent and remote memory are grossly intact. Mood/Affect: Patient?s mood remains anxious and her affect is appropriate Insight/Judgment: Patient's insight and judgment are intact Assessment: Patient was seen today and reports that she slept well last evening , 12 hours at as well as feeling better than she did yesterday. Patient states that her appetite is still not good and she eats about 50% of lunch and dinner. Patient states that she has been worried about her granddaughter who was charged with theft and spent 3 months in longterm and is currently in a fpc house secondary to her drug use. Patient reports that she has been trying to attend groups and activities. Plan: Patient will continue on Lexapro 20 mg daily, Lamictal 25 mg daily and Seroquel 25 mg at bedtime. Patient is also on Klonopin 0.25 mg 3 times a day as needed. Patient continues to require hospitalization to further stabilize her mood and control her anxiety.
[2017-07-22] MEDS: QUEtiapine 25 MG TAB PO SCH (20:07)
[2017-07-23] MEDS: IBUPROFEN 200 MG TAB PO SCH ×3 (08:17→20:22)
[2017-07-23] MEDS: ASPIRIN 81 MG PO SCH (08:17)
[2017-07-23] MEDS: ESCITALOPRAM 20 MG TAB PO SCH (08:17)
[2017-07-23] MEDS: PANTOPRAZOLE 40 MG TABLET PO SCH (08:17)
[2017-07-23] MEDS: lamoTRIgine 25 MG TAB PO SCH ×2 (08:17→20:01)
[2017-07-23] MEDS: POTAS-SOD-PHOS 278-164-250 MG 1 EACH PACKET PO SCH ×3 (08:17→20:22)
[2017-07-23] MEDS: clonazePAM 0.5 MG TAB PO PRN ×2 (08:20→14:23)
--- NOTE | 2017-07-23 09:09 | P.PN ---
Progress Note - Text Interval history: The patient is found in the hallway walking she follows me to an interview room. She reports that her mood is a little better but she is still concerned about the shaking. She indicates she did not sleep well last night however staff reported 7 hours. She states she typically does not eat breakfast but has been eating lunch and dinner. She reports her visited over the weekend. We again reviewed her psychotropic medications. No medication changes were made over the weekend. Vital signs reviewed. Mental status exam: The patient is alert she is pleasant and cooperative. She continues to demonstrate an anxious affect she demonstrates some shaking of her upper extremities and she continues to have the same rhythmic motion of her pelvis while seated. She reports no suicidal or homicidal ideation. She remains uncertain as to whether or not she is going to feel stable again. She demonstrates no verbal or physical aggressiveness. She has a distraught- appearing affect at times. She remains oriented to person place and date. Plan: The patient's will continue on her current psychotropic medication we will consider titrating the Lamictal further. We will monitor her for safety. Vital signs reviewed. She is encouraged to continue participating in the milieu. She is encouraged to consider going to bed later in the evening such as 9 or 10 PM versus 8 PM
[2017-07-23] MEDS: QUEtiapine 25 MG TAB PO SCH (20:01)
[2017-07-24] MEDS: ESCITALOPRAM 20 MG TAB PO SCH (07:54)
[2017-07-24] MEDS: ASPIRIN 81 MG PO SCH (07:54)
[2017-07-24] MEDS: IBUPROFEN 200 MG TAB PO SCH ×3 (07:55→22:21)
[2017-07-24] MEDS: POTAS-SOD-PHOS 278-164-250 MG 1 EACH PACKET PO SCH ×3 (07:56→22:23)
[2017-07-24] MEDS: PANTOPRAZOLE 40 MG TABLET PO SCH (07:56)
[2017-07-24] MEDS: lamoTRIgine 25 MG TAB PO SCH ×2 (07:56→20:06)
[2017-07-24] MEDS: clonazePAM 0.5 MG TAB PO PRN ×2 (08:08→16:00)
[2017-07-24] MEDS: PROPRANOLOL 10 MG TAB PO SCH ×2 (09:54→12:51)
--- NOTE | 2017-07-24 11:10 | P.PN ---
Progress Note - Text Interval history: The patient is found in the library she follows me to an interview room. She reports still feeling anxious. She did wait until 9 PM to go to bed she septal 7:30 but continues to feel she did not sleep well. She feels the Seroquel is helpful for falling asleep. She continues to feel distraught that she continues to shake due to her anxiety. She is looking forward to a visit from her today. We reviewed her psychotropic medications her questions were answered. Mental status exam: The patient is alert she has a disheveled appearance hygiene is adequate. She is dressed in her own clothing. She describes an anxious mood she feels distraught because of those symptoms. She demonstrates shaking of her upper extremities. She continues to demonstrate the same rhythmic motion of her pelvis while seated. She is reporting no suicidal ideation but does have some hopelessness thinking. No homicidal ideation. No specific delusions but she will have nihilistic thinking at times. She demonstrates no verbal or physical aggressiveness. She is fully oriented to person place and date. Plan: The patient will continue on her current psychotropic medications. We will add propranolol 10 mg twice daily to see if we can help block some of the physiologic response of her anxiety symptoms. Vital signs reviewed. We discussed the risks of sedation dizziness hypotension. She will alert staff if he has any of those symptoms. We will hold the medication accordingly. She requires continued psychiatric hospitalization as she continues to demonstrate dysfunction.
[2017-07-24] MEDS: QUEtiapine 25 MG TAB PO SCH (20:06)
[2017-07-25] MEDS: PANTOPRAZOLE 40 MG TABLET PO SCH (08:00)
[2017-07-25] MEDS: lamoTRIgine 25 MG TAB PO SCH ×2 (08:01→19:59)
[2017-07-25] MEDS: PROPRANOLOL 10 MG TAB PO SCH ×2 (08:01→12:55)
[2017-07-25] MEDS: ASPIRIN 81 MG PO SCH (08:01)
[2017-07-25] MEDS: ESCITALOPRAM 20 MG TAB PO SCH (08:01)
[2017-07-25] MEDS: IBUPROFEN 200 MG TAB PO SCH ×3 (08:02→21:01)
[2017-07-25] MEDS: POTAS-SOD-PHOS 278-164-250 MG 1 EACH PACKET PO SCH ×3 (08:03→21:01)
--- NOTE | 2017-07-25 08:45 | P.PN ---
Progress Note - Text Interval history: The patient is found in her room she follows me to an interview room. She reports feeling better than yesterday. She feels the propranolol has reduced her shaking in her overall anxiety response by about 30% . She indicates she slept well last night staff reported 6 hours. She states she ate lunch and dinner better. She reported in the afternoon having a mild feeling of dizziness but states it is not severe and is tolerable. Vital signs reviewed. She reports having a pleasant visit with her yesterday. We reviewed all of her psychotropic medication again and her questions were answered. Mental status exam: The patient is alert she has a disheveled appearance she is dressed in her own clothing. Eye contact is appropriate. Affect is brighter. She indicates her mood is better and she is feeling less anxious. She demonstrates no tremor with outstretched arms. She denies having any acute suicidal or homicidal ideation intent or plan. She is trying to nurture optimistic thinking. She is endorsing no auditory or visual hallucinations or specific delusions. She remains oriented to person place and date. She demonstrates no verbal or physical aggressiveness. She continues to have the same rhythmic motion of her pelvis while seated in the chair. Plan: The patient will continue on her current psychotropic medications we will continue to monitor her vitals for any hypotension. He is expressing improvement of her anxiety symptoms and subsequently her mood. We will need her to demonstrate this for 2-3 more days before considering discharge due to the level dysfunction the symptoms have caused previously. We will continue to monitor for safety and encourage participation in the milieu.
[2017-07-25] MEDS: clonazePAM 0.5 MG TAB PO PRN ×2 (10:09→16:26)
[2017-07-25] MEDS: QUEtiapine 25 MG TAB PO SCH (19:59)
[2017-07-26] MEDS: clonazePAM 0.5 MG TAB PO PRN ×2 (07:12→12:20)
[2017-07-26] MEDS: lamoTRIgine 25 MG TAB PO SCH ×2 (08:13→20:09)
[2017-07-26] MEDS: PANTOPRAZOLE 40 MG TABLET PO SCH (08:13)
[2017-07-26] MEDS: IBUPROFEN 200 MG TAB PO SCH ×3 (08:13→20:32)
[2017-07-26] MEDS: ASPIRIN 81 MG PO SCH (08:13)
[2017-07-26] MEDS: POTAS-SOD-PHOS 278-164-250 MG 1 EACH PACKET PO SCH ×3 (08:13→20:33)
[2017-07-26] MEDS: ESCITALOPRAM 20 MG TAB PO SCH (08:13)
[2017-07-26] MEDS: PROPRANOLOL 10 MG TAB PO SCH ×3 (08:13→21:49)
--- NOTE | 2017-07-26 09:10 | P.PN ---
Progress Note - Text Interval history: The patient reports yesterday she had a rough day due to acute symptoms of anxiety. She reportedly started in the morning and persisted throughout the day. She does feel that the propranolol may reduce some of the severity of those symptoms. She continues to feel overwhelmed she continues to feel that this will never get better. She feels supported by her who visits frequently. She apparently slept approximate 5 hours last evening. Appetite decrease. Mental status exam: The patient is alert she has a disheveled appearance. Eye contact is appropriate speech is fluent she mainly response to questions asked. She indicates an anxious mood. She feels conflicted as she really wants to go home but recognizes how dysfunctional she can be with her symptoms exacerbated. She is reporting no acute suicidal or homicidal ideation. She expresses concern about her anxiety symptoms not getting better. Insight and judgment limited. She demonstrates no verbal or physical aggressiveness. She continues to demonstrate the same rhythmic motion of her pelvis while seated however it is not as significant today compared to other days. With outstretched arms she demonstrates no shaking of her hands. She remains oriented to person place and date. Plan: We will continue her psychotropic medications as written I will increase the propranolol to 10 mg 3 times a day we will reduce her Klonopin to 0.25 mg up to twice a day illuminating the evening dose. We again discussed watching for hypotension dizziness and feelings of sedation. We will monitor her for safety and encourage her participation in the milieu. She requires continued psychiatric hospitalization.
[2017-07-26] MEDS: QUEtiapine 25 MG TAB PO SCH ×2 (20:08→20:09)
[2017-07-27] MEDS: PANTOPRAZOLE 40 MG TABLET PO SCH (07:46)
[2017-07-27] MEDS: POTAS-SOD-PHOS 278-164-250 MG 1 EACH PACKET PO SCH ×3 (08:00→22:05)
[2017-07-27] MEDS: ASPIRIN 81 MG PO SCH (08:00)
[2017-07-27] MEDS: ESCITALOPRAM 20 MG TAB PO SCH (08:00)
[2017-07-27] MEDS: lamoTRIgine 25 MG TAB PO SCH ×2 (08:00→20:06)
[2017-07-27] MEDS: PROPRANOLOL 10 MG TAB PO SCH ×3 (08:01→20:45)
[2017-07-27] MEDS: clonazePAM 0.5 MG TAB PO PRN ×2 (08:01→12:48)
[2017-07-27] MEDS: IBUPROFEN 200 MG TAB PO SCH ×3 (08:02→20:06)
--- NOTE | 2017-07-27 10:56 | P.PN ---
Progress Note - Text Interval history: The patient is found in the hallway she follows me to an interview room. Staff report the patient continues to demonstrate fluctuating anxiety and shaking throughout the day. They report no significant clinical improvement lately. The patient states she would like to go home but does continue to feel the same anxiety she will have shaking throughout the day. She is tolerating the propranolol vital signs are stable. Her continues to visit and she finds that supportive. Mental status exam: The patient is alert she has a disheveled appearance she is dressed in her own clothing. She is briefly tearful. She endorses an anxious mood. She demonstrates no shaking behavior today although she continues to have the ongoing movement of her hips. She is reporting no suicidal or homicidal ideation. She is endorsing no auditory or visual hallucinations. She is oriented to person place and date. She demonstrates no verbal or physical aggressiveness. She has little spontaneous speech. Plan: The patient will continue on her current psychotropic medications. We will consider titrating the propranolol further. She continues to have anxiety and mood symptoms that are causing dysfunction. She is not appropriate for discharge today as I would anticipate she would decompensate at home. She requires continued psychiatric hospitalization. We will monitor her for safety and encourage continued participation in the milieu.
[2017-07-28] MEDS: diphenhydrAMINE 25 MG CAP PO PRN ×2 (03:25→17:02)
[2017-07-28] MEDS: IBUPROFEN 200 MG TAB PO SCH ×3 (08:00→20:07)
[2017-07-28] MEDS: ESCITALOPRAM 20 MG TAB PO SCH (08:01)
[2017-07-28] MEDS: lamoTRIgine 25 MG TAB PO SCH ×2 (08:01→20:08)
[2017-07-28] MEDS: PANTOPRAZOLE 40 MG TABLET PO SCH (08:01)
[2017-07-28] MEDS: PROPRANOLOL 10 MG TAB PO SCH (08:01)
[2017-07-28] MEDS: ASPIRIN 81 MG PO SCH (08:01)
[2017-07-28] MEDS: clonazePAM 0.5 MG TAB PO PRN ×2 (08:02→20:10)
[2017-07-28] MEDS: POTAS-SOD-PHOS 278-164-250 MG 1 EACH PACKET PO SCH ×3 (08:08→20:07)
--- NOTE | 2017-07-28 15:27 | P.PN ---
Progress Note - Text Interval history: The patient is found in the hallway she follows me to an interview room. She continues to have acute exacerbations of anxiety throughout the day. She reports having decreased appetite. She becomes upset stating she wants to go home. She does respond to redirection. She is quite focused on her medication. We reviewed her psychotropic medications and her questions were answered. Mental status exam: The patient is alert she has a disheveled appearance she has a distraught affect. She describes ongoing depressed symptoms as well as anxiety. She demonstrates no shaking behavior but states it occurs several times during the day. She continues to demonstrate the same motion of her pelvis while seated. Insight and judgment limited. She is reporting no suicidal or homicidal ideation. She is endorsing no auditory or visual hallucinations or specific delusions. He demonstrates no verbal or physical aggressiveness. She is briefly tearful during the session and then reconstitutes. Plan: The patient will continue on her current psychotropic medications however we will increase the propranolol to 20 mg twice daily. We will continue to monitor her for safety and encourage participation in the milieu. Vital signs reviewed.
[2017-07-28] MEDS: PROPRANOLOL 20 MG TAB PO SCH (17:46)
[2017-07-28] MEDS: QUEtiapine 25 MG TAB PO SCH (20:08)
[2017-07-29] MEDS: PANTOPRAZOLE 40 MG TABLET PO SCH (08:03)
[2017-07-29] MEDS: IBUPROFEN 200 MG TAB PO SCH ×3 (08:04→20:07)
[2017-07-29] MEDS: ASPIRIN 81 MG PO SCH (08:04)
[2017-07-29] MEDS: ESCITALOPRAM 20 MG TAB PO SCH (08:04)
[2017-07-29] MEDS: PROPRANOLOL 20 MG TAB PO SCH ×2 (08:04→17:22)
[2017-07-29] MEDS: lamoTRIgine 25 MG TAB PO SCH ×2 (08:05→20:07)
[2017-07-29] MEDS: POTAS-SOD-PHOS 278-164-250 MG 1 EACH PACKET PO SCH ×3 (08:05→20:06)
[2017-07-29] MEDS: clonazePAM 0.5 MG TAB PO PRN ×2 (08:06→20:08)
--- NOTE | 2017-07-29 10:31 | P.PN ---
Progress Note - Text Interval history: The patient is found in the hallway she follows me to an interview room. She reports noticing a significant improvement with the titration of propranolol. She states that she is experiencing no shaking. She had a very difficult day yesterday up until we increase the dose of the propranolol. She indicates he slept well at night appetite has improved. She believes that she is starting to slowly regain some weight. She has no questions or concerns other than when she may go home if she is clinically stable. Mental status exam: The patient is alert she is pleasant and cooperative hygiene grooming are improved. She reports her mood is better affect is brighter. She is reporting no suicidal or homicidal ideation intent or plan. She is endorsing no auditory or visual hallucinations or any specific delusions. There is no observed evidence of psychosis. She demonstrates no tangential thinking loose associations or flight of ideas. She demonstrates no verbal or physical aggressiveness. There is no shaking behavior of her upper extremities. She does still have motion of her pelvis while seated but it is at a lower amplitude than usual. Plan: The patient will continue on her current psychotropic medications. Vital signs reviewed. Lab results not yet available. She is encouraged to continue participating in groups we will monitor her for safety. She was informed that if she demonstrates sufficient period of clinical stability we will consider discharging her back home. She anticipates her will visit this evening.
[2017-07-29 10:44] LABS: Albumin 3.7 g/dL (3.5-5.0); Calcium 9.4 mg/dL (8.4-10.2); Potassium 4.6 mmol/L (3.5-5.1); Total Bilirubin 0.5 mg/dL (0.2-1.3); Total Protein 6.4 g/dL (6.3-8.2)
[2017-07-29] MEDS: QUEtiapine 25 MG TAB PO SCH (20:07)
[2017-07-29] MEDS: diphenhydrAMINE 25 MG CAP PO PRN (20:09)
[2017-07-30] MEDS: IBUPROFEN 200 MG TAB PO SCH ×4 (01:13→21:09)
[2017-07-30] MEDS: ESCITALOPRAM 20 MG TAB PO SCH (08:06)
[2017-07-30] MEDS: lamoTRIgine 25 MG TAB PO SCH ×2 (08:06→20:05)
[2017-07-30] MEDS: PROPRANOLOL 20 MG TAB PO SCH ×2 (08:06→17:29)
[2017-07-30] MEDS: POTAS-SOD-PHOS 278-164-250 MG 1 EACH PACKET PO SCH ×3 (08:06→21:09)
[2017-07-30] MEDS: ASPIRIN 81 MG PO SCH (08:06)
[2017-07-30] MEDS: clonazePAM 0.5 MG TAB PO PRN ×2 (08:17→20:06)
[2017-07-30] MEDS: PANTOPRAZOLE 40 MG TABLET PO SCH (08:17)
--- NOTE | 2017-07-30 11:06 | P.PN ---
Progress Note - Text Interval history: The patient is found in her room she follows me to an interview room. She reports that her mood has been better during the day. Staff report that she did experience some anxiety in the evening. She has been attending groups. She feels that she's been trying to eat. Lab work reviewed BUN/creatinine were mildly elevated sodium was mildly low at 135. She continues to be motivated for discharge. Mental status exam: The patient is alert she presents with adequate hygiene grooming. Eye contact is appropriate. She is able to demonstrate some appropriate smiling and laughter during the session with use of humor. She is reporting no suicidal or homicidal ideation intent or plan. She is reporting no auditory or visual hallucinations or any specific delusions. She demonstrates no tangential thinking associations or flight of ideas. She reports still having some intermittent anxiety but feels it's more controlled. She demonstrates no shaking behavior. There is a lower amplitude of movement while seated in the chair. She is fully oriented she demonstrates no verbal or physical aggressiveness. Plan: The patient will continue on her current medications. It does seem the increase in propranolol has helped reduce some of her anxiety reaction. We will monitor her for safety and encourage participation in the milieu. We will consider discharge if she is able to demonstrate stability over the next 24 hours. We will look for input from her . We will continue to monitor for safety.
[2017-07-30 11:56] VITALS: BMI 22.4
[2017-07-30] MEDS: QUEtiapine 25 MG TAB PO SCH (20:05)
[2017-07-31 06:54] VITALS: TEMP 98.5
[2017-07-31] MEDS: PANTOPRAZOLE 40 MG TABLET PO SCH (08:25)
[2017-07-31] MEDS: ESCITALOPRAM 20 MG TAB PO SCH (08:25)
[2017-07-31] MEDS: ASPIRIN 81 MG PO SCH (08:25)
[2017-07-31] MEDS: lamoTRIgine 25 MG TAB PO SCH (08:25)
[2017-07-31] MEDS: POTAS-SOD-PHOS 278-164-250 MG 1 EACH PACKET PO SCH (08:25)
[2017-07-31] MEDS: PROPRANOLOL 20 MG TAB PO SCH (08:25)
[2017-07-31] MEDS: IBUPROFEN 200 MG TAB PO SCH (08:28)
--- NOTE | 2017-07-31 09:10 | P.DS ---
Providers Date of admission: 07/18/17 17:58 Expected date of discharge: 07/31/17 Attending physician: Robert Blanchard Consults: 07/18/17 18:38 Consult Physician Routine Consulting Provider: Uvaldo Jiang Consult Reason/Comments: H and P Do you want consulting provider notified?: Already Contacted Primary care physician: Stated None - Discharge Diagnosis(es) (1) Major depressive disorder, recurrent severe without psychotic features Current Visit: Yes Status: Acute Priority: High (2) Panic disorder Current Visit: Yes Status: Acute Priority: High (3) Generalized anxiety disorder Current Visit: Yes Status: Acute Priority: High Hospital Course: Brief summary of admission note: This patient is a 72-year-old female who is familiar to my outpatient practice. She was admitted again to the mental health unit after an overdose with Klonopin and her Mena. She had reported that she was acutely anxious and could not sleep and took the pills so that she could sleep. Because of the overdose the patient experienced acute respiratory distress she required intubation with mechanical ventilation in the intensive care unit. She was aware that it was dangerous for her to take this combination of medications but did so out of despair. For full details please refer to my psychiatric evaluation dated 07/19. Summary of hospital course: The patient was readmitted to the mental health unit she did sign in voluntarily. We reviewed her presenting symptoms again and medication options. We decided to continue the Seroquel Lexapro and Klonopin however the Klonopin dose was reduced significantly. Lamictal was added in the hopes of stabilizing her mood further and propranolol was added and titrated in the hopes of blocking some of the physiologic response of her anxiety symptoms. She continued to describe feelings of shakiness and other manifestations of anxiety throughout the stay. It seems that the titration off propranolol did help reduce those symptoms and subsequently she felt more comfortable. Her sleep has improved. She has been struggling with a diminished appetite but that has slowly improved. Her has been supportive and has visited numerous times during this admission. She was seen by internal medicine for routine history and physical exam. Social work has met with the patient for treatment and discharge planning purposes. Over this past week she feels that her symptoms have improved. She is having more times or she feels more comfortable. She feels that she is able to manage her activities of daily living at home. She is reporting no thoughts of self-harm. Her was contacted via phone yesterday he expressed no concerns with the patient returning home as she seemed to be doing better in his opinion. Mental status exam: The patient is alert she presents with adequate hygiene grooming eye contact is appropriate. Speech is fluent spontaneous nonpressured. She reports her mood is better affect is brighter she demonstrates appropriate smiling and laughter. She is reporting no suicidal or homicidal ideation intent or plan. She is reporting no auditory or visual hallucinations or any specific delusions. She demonstrates no observed evidence of psychosis. She demonstrates no tangential thinking loose associations or flight of ideas. She does not appear hypomanic or manic. She remains oriented to person place and date. She demonstrates no verbal or physical aggressiveness she demonstrates no abnormal involuntary movements other than the rhythmic motion of her pelvis while seated. The amplitude of that movement has been decreasing over this past week. Impressions 1. Major depressive disorder recurrent severe without psychosis, panic disorder , generalized anxiety disorder 2. History of colon cancer in remission, history of abnormal EEG, overdose with medication prior to this admission. Plan: The patient will be discharged mental health unit today. She will follow with me for outpatient psychiatric medication management and it is recommended that she continue working with an individual therapist. She will continue on Lexapro 20 mg daily Lamictal 25 mg twice daily Klonopin 0.25 mg up to twice daily propranolol 40 mg in the morning and in the afternoon Seroquel 25 mg at bedtime. There is no imminent safety risks she is appropriate for transition to outpatient care. She is instructed to return to the hospital with any acute safety concerns. Patient Condition at Discharge: Stable Plan - Discharge Summary Discharge Rx Participant: No New Discharge Prescriptions: New clonazePAM [KlonoPIN] 0.25 mg PO BID PRN #30 tab PRN Reason: Anxiety lamoTRIgine [LaMICtal] 25 mg PO BID #60 tab QUEtiapine [SEROquel] 25 mg PO HS #30 tab Continue Aspirin 81 mg PO DAILY chew levETIRAcetam [Keppra] 750 mg PO Q12HR tab Escitalopram [Lexapro] 20 mg PO DAILY #30 tab Rhqjo-Mqt-Mkyg 278-164-250 mg [Neutra-Phos Packet] 1 each PO TID #45 packet Discontinued QUEtiapine [SEROquel] 25 mg PO BID #60 tab clonazePAM [KlonoPIN] 0.25 mg PO TID PRN tab PRN Reason: Mild Spasms Loperamide [Imodium] 2 mg PO QID PRN cap PRN Reason: Diarrhea Discharge Medication List Aspirin 81 mg PO DAILY chew 07/18/17 [Rx] levETIRAcetam [Keppra] 750 mg PO Q12HR tab 07/18/17 [Rx] Escitalopram [Lexapro] 20 mg PO DAILY #30 tab 07/31/17 [Rx] Rjkgq-Rif-Lwpl [id number] mg [Neutra-Phos Packet] 1 each PO TID #45 packet [Rx] QUEtiapine [SEROquel] 25 mg PO HS #30 tab 07/31/17 [Rx] clonazePAM [KlonoPIN] 0.25 mg PO BID PRN #30 tab 07/31/17 [Rx] lamoTRIgine [LaMICtal] 25 mg PO BID #60 tab 07/31/17 [Rx] Follow up Appointment(s)/Referral(s): Robert Blanchard DO [Medical Doctor] - 08/02/17 4:00 pm (Dr [facility] )
[2017-07-31 09:55] LABS: Albumin 3.9 g/dL (3.5-5.0); Calcium 9.6 mg/dL (8.4-10.2); Potassium 4.7 mmol/L (3.5-5.1); Total Bilirubin 0.5 mg/dL (0.2-1.3); Total Protein 6.7 g/dL (6.3-8.2)
[2017-07-31 11:15] VITALS: BP 127/58; PULSE 88; RESP 20
[2017-07-31] MEDS: clonazePAM 0.5 MG TAB PO PRN (11:41)
== END 2017-07-31 14:23 | disposition home or self-care (01) | DRG 885 ==
LOC: 3MHU 17:58
PROVIDERS: ADMIT Psychiatry & Neurology Psychiatry; ATTEND Psychiatry & Neurology Psychiatry
DX: F33.2 Major depressive disorder, recurrent severe without psychotic features (principal); G40.909 Epilepsy, unspecified, not intractable, without status epilepticus; D72.819 Decreased white blood cell count, unspecified; E78.5 Hyperlipidemia, unspecified; F41.0 Panic disorder [episodic paroxysmal anxiety]; F41.1 Generalized anxiety disorder; K21.9 Gastro-esophageal reflux disease without esophagitis; Z91.5 Personal history of self-harm; Z79.82 Long term (current) use of aspirin; Z79.899 Other long term (current) drug therapy; Z81.8 Family history of other mental and behavioral disorders; Z85.038 Personal history of other malignant neoplasm of large intestine
CPT/HCPCS: 71045; 80053; 80076; 82140; 83036; 85025

== ENCOUNTER → 2017-11-26 | Outpatient (CLI) | payer MEDICARE, BC ==
--- NOTE | 2017-11-27 10:33 | MM ---
Reason for exam: screening (asymptomatic). Last mammogram was performed 1 year and 8 months ago. History: Patient is postmenopausal and has history of colon cancer at age 60. Physical Findings: A clinical breast exam by your physician is recommended on an annual basis and results should be correlated with mammographic findings. MG 3D Screening Mammo W/Cad Bilateral CC and MLO view(s) were taken. Prior study comparison: April 06, 2016, bilateral MG 3d screening mammo w/cad. March 30, 2015, bilateral MG 3d screening mammo w/cad. There are scattered fibroglandular densities. There is no discrete abnormality. No significant changes when compared with prior studies. ASSESSMENT: Negative, BI-RAD 1 RECOMMENDATION: Routine screening mammogram of both breasts in 1 year.
== END | disposition home or self-care (01) ==
LOC: RADMAMWWP 11:37
PROVIDERS: ATTEND Family Medicine
DX: Z12.31 Encounter for screening mammogram for malignant neoplasm of breast (principal)
CPT/HCPCS: 77063; 77067

== ENCOUNTER 2018-03-22 08:00 | Emergency (ER) | payer MEDICARE, BC ==
[2018-03-22 08:13] VITALS: RESP 18
[2018-03-22] MEDS ORDERED: SODIUM CHLORIDE 0.9% 1,000 ML IV STA (08:20)
--- NOTE | 2018-03-22 08:37 | ED ---
Abdominal Pain HPI - General Chief Complaint: Abdominal Pain Stated Complaint: Abd Pain Time Seen by Provider: 03/22/18 08:19 Source: patient, RN notes reviewed Mode of arrival: ambulatory Limitations: no limitations - History of Present Illness Initial Comments: This is a 73-year-old female presents emergency Department chief complaint of lower abdominal discomfort. Patient states she's had dysuria for the last week or so. Patient went saw her primary care physician yesterday and was diagnosed with a urinary tract infection. Patient was started on antibiotics and Pyridium. Patient states that symptoms seemed to worsen yesterday and became concerned today. She states most pain is in her superpubic region. She does have mild flank pain which is not localized. Patient denies chest pain, shortness breath, nausea vomiting diarrhea constipation. - Related Data Home Medications Medication Instructions Recorded Confirmed Dicyclomine [Bentyl] 10 mg PO AC-TID 03/22/18 03/22/18 Pantoprazole [Protonix] 40 mg PO DAILY 03/22/18 03/22/18 Propranolol [Inderal] 40 mg PO BID@0800,1800 03/22/18 03/22/18 Valbenazine Tosylate [Ingrezza] 40 mg PO DAILY 03/22/18 03/22/18 Previous Rx's Medication Instructions Recorded Escitalopram [Lexapro] 20 mg PO DAILY #30 tab 07/31/17 QUEtiapine [SEROquel] 25 mg PO HS #30 tab 07/31/17 clonazePAM [KlonoPIN] 0.25 mg PO BID PRN #30 tab 07/31/17 lamoTRIgine [LaMICtal] 25 mg PO BID #60 tab 07/31/17 Allergies Allergy/AdvReac Type Severity Reaction Status Date / Time codeine AdvReac Nausea & Verified 03/22/18 08:54 Vomiting Review of Systems ROS Statement: Those systems with pertinent positive or pertinent negative responses have been documented in the HPI. ROS Other: All systems not noted in ROS Statement are negative. Past Medical History Past Medical History: Cancer, GERD/Reflux, Hyperlipidemia, Seizure Disorder Additional Past Medical History / Comment(s): Colon cancer, ileus, hiatal hernia , esophageal strictures, diverticular dx, known intra-abdominal varicosities and labial varicosities, last seizure 2012 History of Any Multi-Drug Resistant Organisms: None Reported Past Surgical History: Appendectomy, Bowel Resection, Cholecystectomy, Tubal Ligation Additional Past Surgical History / Comment(s): laparoscopic cholecystectomy-2013 , EGD with esophageal dilation, bowel resection 2007 Past Anesthesia/Blood Transfusion Reactions: Postoperative Nausea & Vomiting ( PONV) Past Psychological History: Anxiety, Depression, Panic Disorder Smoking Status: Never smoker Past Alcohol Use History: None Reported Past Drug Use History: None Reported - Past Family History Sister(s) Family Medical History: Cancer Additional Family Medical History / Comment(s): Sister of pancreatic cancer. Father Family Medical History: Cancer, Prostate Disorder Additional Family Medical History / Comment(s): PROSTATE/COLON CANCER-Father at the age of 7272 years old. Mother Family Medical History: Cancer, Dementia Additional Family Medical History / Comment(s): COLON CANCER-Mother at the age of 7878 years old. General Exam Limitations: no limitations General appearance: alert, in no apparent distress Head exam: Present: atraumatic, normocephalic, normal inspection Respiratory exam: Present: normal lung sounds bilaterally. Absent: respiratory distress, wheezes, rales, rhonchi, stridor Cardiovascular Exam: Present: regular rate, normal rhythm, normal heart sounds. Absent: systolic murmur, diastolic murmur, rubs, gallop, clicks GI/Abdominal exam: Present: soft, normal bowel sounds. Absent: distended, tenderness, guarding, rebound, rigid Back exam: Absent: CVA tenderness (R), CVA tenderness (L) Neurological exam: Present: alert, oriented X3, CN II-XII intact Skin exam: Present: warm, dry, intact, normal color. Absent: rash Course Vital Signs 03/22/18 03/22/18 08:09 08:52 Temperature 97.8 F Pulse Rate 75 67 Respiratory 18 18 Rate Blood Pressure 137/77 158/74 O2 Sat by Pulse 95 96 Oximetry Medical Decision Making - Medical Decision Making 73-year-old female presented emergency from for abdominal discomfort. She was diagnosed a urinary tract infection outpatient. Patient was started on antibiotics and given Pyridium. Patient had increased discomfort today CT was obtained does not show any evidence of abscess or free air. Patient does have ongoing dysuria will be given a dose of Rocephin here she may have some underlying cystitis. She did have some abnormal findings on her bowel and which she'll follow-up for she does have a history of colon resection. Return parameters were discussed. - Lab Data Result diagrams: 03/22/18 08:26 03/22/18 08:26 Lab Results 03/22/18 03/22/18 03/22/18 Range/Units 08:26 08:26 08:26 WBC 5.6 (3.8-10.6) k/uL RBC 4.69 (3.80-5.40) m/uL Hgb 14.5 (11.4-16.0) gm/dL Hct 45.3 (34.0-46.0) % MCV 96.4 (80.0-100.0) fL MCH 30.9 (25.0-35.0) pg MCHC 32.0 (31.0-37.0) g/dL RDW 12.3 (11.5-15.5) % Plt Count 211 (150-450) k/uL Neutrophils % 65 % Lymphocytes % 22 % Monocytes % 9 % Eosinophils % 2 % Basophils % 1 % Neutrophils # 3.6 (1.3-7.7) k/uL Lymphocytes # 1.2 (1.0-4.8) k/uL Monocytes # 0.5 (0-1.0) k/uL Eosinophils # 0.1 (0-0.7) k/uL Basophils # 0.1 (0-0.2) k/uL Sodium 139 (137-145) mmol/L Potassium 4.3 (3.5-5.1) mmol/L Chloride 103 (98-107) mmol/L Carbon Dioxide 25 (22-30) mmol/L Anion Gap 11 mmol/L BUN 18 H (7-17) mg/dL Creatinine 1.59 H (0.52-1.04) mg/dL Est GFR (CKD-EPI)AfAm 37 (>60 ml/min/1.73 sqM) Est GFR (CKD-EPI)NonAf 32 (>60 ml/min/1.73 sqM) Glucose 116 H (74-99) mg/dL Plasma Lactic Acid Kingsley 1.4 (0.7-2.0) mmol/L Calcium 10.1 (8.4-10.2) mg/dL Total Bilirubin 1.0 (0.2-1.3) mg/dL AST 28 (14-36) U/L ALT 14 (9-52) U/L Alkaline Phosphatase 67 (38-126) U/L Total Protein 7.4 (6.3-8.2) g/dL Albumin 4.3 (3.5-5.0) g/dL Amylase 48 (30-110) U/L Lipase 77 (23-300) U/L Urine Color Urine Appearance (Clear) Urine WBC (0-5) /hpf Ur Squamous Epith Cells (0-4) /hpf Urine Bacteria (None) /hpf Urine Mucus (None) /hpf 03/22/18 Range/Units 08:26 WBC (3.8-10.6) k/uL RBC (3.80-5.40) m/uL Hgb (11.4-16.0) gm/dL Hct (34.0-46.0) % MCV (80.0-100.0) fL MCH (25.0-35.0) pg MCHC (31.0-37.0) g/dL RDW (11.5-15.5) % Plt Count (150-450) k/uL Neutrophils % % Lymphocytes % % Monocytes % % Eosinophils % % Basophils % % Neutrophils # (1.3-7.7) k/uL Lymphocytes # (1.0-4.8) k/uL Monocytes # (0-1.0) k/uL Eosinophils # (0-0.7) k/uL Basophils # (0-0.2) k/uL Sodium (137-145) mmol/L Potassium (3.5-5.1) mmol/L Chloride (98-107) mmol/L Carbon Dioxide (22-30) mmol/L Anion Gap mmol/L BUN (7-17) mg/dL Creatinine (0.52-1.04) mg/dL Est GFR (CKD-EPI)AfAm (>60 ml/min/1.73 sqM) Est GFR (CKD-EPI)NonAf (>60 ml/min/1.73 sqM) Glucose (74-99) mg/dL Plasma Lactic Acid Kingsley (0.7-2.0) mmol/L Calcium (8.4-10.2) mg/dL Total Bilirubin (0.2-1.3) mg/dL AST (14-36) U/L ALT (9-52) U/L Alkaline Phosphatase (38-126) U/L Total Protein (6.3-8.2) g/dL Albumin (3.5-5.0) g/dL Amylase (30-110) U/L Lipase (23-300) U/L Urine Color Dark [place] Urine Appearance Clear (Clear) Urine WBC 1 (0-5) /hpf Ur Squamous Epith Cells <1 (0-4) /hpf Urine Bacteria Rare H (None) /hpf Urine Mucus Rare H (None) /hpf Disposition Clinical Impression: Cystitis, Dysuria Disposition: HOME SELF-CARE Condition: Stable Instructions: Interstitial Cystitis (ED) Additional Instructions: Please return to the Emergency Department if symptoms worsen or any other concerns. Is patient prescribed a controlled substance at d/c from ED?: No Referrals: Dao Rabago DO [Primary Care Provider] - 1-2 days Time of Disposition: 10:12
[2018-03-22] MEDS ORDERED: ONDANSETRON 4 MG/2 ML VIAL IVP STA (08:38)
[2018-03-22] MEDS ORDERED: MORPHINE SULFATE 2 MG/ML SYRINGE IVP ONE (08:38)
[2018-03-22 09:11] LABS: Basophils # (A) 0.1 k/uL (0-0.2); Basophils % (A) 1 %; Eosinophils # (A) 0.1 k/uL (0-0.7); Eosinophils % (A) 2 %; HCT 45.3 % (34.0-46.0); HGB 14.5 gm/dL (11.4-16.0); Lymphocytes # (A) 1.2 k/uL (1.0-4.8); Lymphocytes % (A) 22 %; MCH 30.9 pg (25.0-35.0); MCV 96.4 fL (80.0-100.0); Mean Platelet Volume 7.9; Monocytes # (A) 0.5 k/uL (0-1.0); Monocytes % (A) 9 %; Neutrophils # (A) 3.6 k/uL (1.3-7.7); Neutrophils % (A) 65 %; Platelet Count 211 k/uL (150-450); RBC 4.69 m/uL (3.80-5.40); RDW 12.3 % (11.5-15.5); WBC 5.6 k/uL (3.8-10.6)
[2018-03-22 09:20] LABS: Albumin 4.3 g/dL (3.5-5.0); Calcium 10.1 mg/dL (8.4-10.2); Potassium 4.3 mmol/L (3.5-5.1); Total Protein 7.4 g/dL (6.3-8.2)
--- NOTE | 2018-03-22 09:29 | CT ---
EXAMINATION TYPE: CT abdomen pelvis wo con DATE OF EXAM: 03/22/2018 COMPARISON: 05/02/2017 HISTORY: Burning pelvic pain. Recurrent urinary tract infection.. History of cholecystectomy, bowel r esection, tubal ligation and appendectomy. CT DLP: 272.5 mGycm Automated exposure control for dose reduction was used. TECHNIQUE: Helical acquisition of images was performed from the lung bases through the pelvis. FINDINGS: Lack of intravenous and oral contrast limit evaluation of both the solid and hollow viscera . LUNG BASES: Stable triangular-shaped intrafissural lymph node on lung algorithm image 2 is favored to represent a. Fissural lymph node. LIVER/GB: There are scattered punctate to small to accurately characterize hepatic lesions. Overall t hese appear similar to the prior. These are also suboptimally evaluated without contrast. Gallbladder is surgically absent. PANCREAS: Pancreatic head region is ill-defined and suboptimally evaluated without contrast appearing similar to exam of 2017. SPLEEN: No significant abnormality is seen. ADRENALS: No significant abnormality is seen. KIDNEYS: No hydronephrosis, nephrolithiasis or significant perinephric fat stranding. FREE AIR: No free air is visualized URINARY BLADDER: No focal wall thickening is seen although urinary bladder is incompletely distended and does not contains contrast. No focal air or extensive surrounding inflammatory changes seen in t his patient with recurrent cystitis. PELVIC ADENOPATHY: Evaluation is limited without contrast. Scattered sub-1 cm mesenteric lymph nodes are noted throughout. OSSEOUS STRUCTURES: Mild multilevel degenerative change. BOWEL: There is a small hiatal hernia present. In the central abdomen at the site of bowel resection there is a desmoplastic reaction with central calcifications. Although this could be postsurgical as mentioned on the prior exam, possibility of carcinoid tumor remains given the tethering and central calcifications as well as appearance on the prior exam on image 35. Numerous colonic diverticula with out pericolonic fat stranding are seen. Small bowel remains fluid-filled throughout and prominent wit hout focal dilatation suggesting mild ileus. Partial colectomy has been performed. Surgical clip lies low within the pelvis centrally and within the left hemipelvis. IMPRESSION: 1. NO URINARY BLADDER AIR, FINDINGS CONCERNING FOR SURROUNDING ABSCESS OR EXTENSIVE INFLAMMATORY LEE GE SURROUNDING THE KIDNEYS OR BLADDER IN THIS PATIENT WITH URINARY TRACT INFECTION. 2. SIGMOID AND COLONIC DIVERTICULA WITHOUT EVIDENCE OF DIVERTICULITIS. FLUID-FILLED LOOPS OF SMALL MARTHA WEL SUGGEST MILD ILEUS WITH POSTOPERATIVE CHANGE. 3. DESMOPLASTIC REACTION AND TETHERING OF THE BOWEL WITH CENTRAL CALCIFIED MASS WITH MINIMAL SOFT TIS REBECCA DENSITY. AGAIN FINDINGS COULD BE POSTSURGICAL GIVEN THE ADJACENT POSTSURGICAL CHANGE, HOWEVER CAR CINOID TUMOR SHOULD BE EXCLUDED WITH SERUM LABORATORY VALUES AND NUCLEAR MEDICINE UPTAKE SCAN IF THER E IS FURTHER CONCERN.
[2018-03-22 09:38] LABS: Bacteria,Urine Rare /hpf; Mucus,Urine Rare /hpf; Squamous Epithelial Cell,Urine <1 /hpf (0-4); WBC,Urine 1 /hpf (0-5)
[2018-03-22 09:39] LABS: Appearance,Urine Clear (Clear)
[2018-03-22 09:40] LABS: Color,Urine Dark Orange
[2018-03-22] MEDS ORDERED: traMADol 50 MG STARTER PACK 3 TAB BTL PO STA (10:09)
[2018-03-22 11:34] VITALS: BP 156/78; PULSE 57; TEMP 98.2
== END 2018-03-22 11:29 | disposition home or self-care (01) ==
LOC: EC 08:00
DX: N30.90 Cystitis, unspecified without hematuria (principal); Z85.038 Personal history of other malignant neoplasm of large intestine; K21.9 Gastro-esophageal reflux disease without esophagitis; Z87.19 Personal history of other diseases of the digestive system; Z90.49 Acquired absence of other specified parts of digestive tract; Z98.51 Tubal ligation status; Z98.890 Other specified postprocedural states; Z80.0 Family history of malignant neoplasm of digestive organs; Z79.899 Other long term (current) drug therapy; Z88.5 Allergy status to narcotic agent
CPT/HCPCS: 36415; 80053; 82150; 83605; 83690; 85025; 81001; 87040; 87086; 74176; 99284; 96365; 96375 ×2; 96361; J2405; J0696; J2270

== ENCOUNTER 2018-07-30 13:39 | Emergency (ER) | payer MEDICARE, BC ==
[2018-07-30 13:43] VITALS: TEMP 98.1
[2018-07-30] MEDS ORDERED: SODIUM CHLORIDE 0.9% 500 ML 500 ML IV STA (15:12)
[2018-07-30] MEDS ORDERED: MAG HYDROX/AL HYDROX/SIMETH 30 ML, HYOSCYAMINE ELIXIR 10 ML, CIMETIDINE HCL 300 MG, LID... PO STA ×4 (15:13)
[2018-07-30] MEDS ORDERED: LORazepam 2 MG/ML INJ IV STA (15:13)
[2018-07-30] MEDS ORDERED: FAMOTIDINE 20 MG/2 ML VIAL IV STA (15:13)
--- NOTE | 2018-07-30 15:13 | ED ---
General Adult HPI - General Chief complaint: Abdominal Pain Stated complaint: Abd pain Time Seen by Provider: 07/30/18 14:30 Source: patient, RN notes reviewed Mode of arrival: ambulatory Limitations: no limitations - History of Present Illness Initial comments: 73-year-old female with a past medical history of GERD, tremors, hyperlipidemia, hiatal hernia, colon cancer with colon resection 8 years ago presents to the emergency department for a chief complete of upper abdominal pain. Patient states she has had similar pain for 10 years. She states that for the past several weeks however it has worsened. She states it is radiating across her upper abdomen. Patient has had an appendectomy and cholecystectomy. Patient denies nausea or vomiting. Patient states she thinks her tremors are making this worse. She states she has had multiple evaluation for her tremors and is told her is nothing else that can be done.Patient has no other complaints at this time including shortness of breath, chest pain, nausea or vomiting, headache, or visual changes. - Related Data Home Medications Medication Instructions Recorded Confirmed Propranolol [Inderal] 40 mg PO BID@0800,1800 03/22/18 07/30/18 Omeprazole 20 mg PO BID 07/30/18 07/30/18 Previous Rx's Medication Instructions Recorded Escitalopram [Lexapro] 20 mg PO DAILY #30 tab 07/31/17 clonazePAM [KlonoPIN] 0.25 mg PO BID PRN #30 tab 07/31/17 lamoTRIgine [LaMICtal] 25 mg PO BID #60 tab 07/31/17 Allergies Allergy/AdvReac Type Severity Reaction Status Date / Time codeine AdvReac Nausea & Verified 07/30/18 15:30 Vomiting Review of Systems ROS Statement: Those systems with pertinent positive or pertinent negative responses have been documented in the HPI. ROS Other: All systems not noted in ROS Statement are negative. Past Medical History Past Medical History: Cancer, GERD/Reflux, Hyperlipidemia, Seizure Disorder Additional Past Medical History / Comment(s): Colon cancer, ileus, hiatal hernia, esophageal strictures, diverticular dx, known intra-abdominal varicosities and labial varicosities, last seizure 2012 History of Any Multi-Drug Resistant Organisms: None Reported Past Surgical History: Appendectomy, Bowel Resection, Cholecystectomy, Tubal Ligation Additional Past Surgical History / Comment(s): laparoscopic cholecystectomy- 2013, EGD with esophageal dilation, bowel resection 2007 Past Anesthesia/Blood Transfusion Reactions: Postoperative Nausea & Vomiting (PONV) Past Psychological History: Anxiety, Depression, Panic Disorder Smoking Status: Never smoker Past Alcohol Use History: None Reported Past Drug Use History: None Reported - Past Family History Sister(s) Family Medical History: Cancer Additional Family Medical History / Comment(s): Sister of pancreatic cancer. Father Family Medical History: Cancer, Prostate Disorder Additional Family Medical History / Comment(s): PROSTATE/COLON CANCER-Father at the age of 7272 years old. Mother Family Medical History: Cancer, Dementia Additional Family Medical History / Comment(s): COLON CANCER-Mother at the age of 7878 years old. General Exam Limitations: no limitations General appearance: alert, in no apparent distress, other (Tremors noted) Head exam: Present: atraumatic, normocephalic, normal inspection Eye exam: Present: normal appearance, PERRL, EOMI. Absent: scleral icterus, conjunctival injection, periorbital swelling ENT exam: Present: normal exam, mucous membranes moist Neck exam: Present: normal inspection, full ROM. Absent: tenderness, meningismus, lymphadenopathy Respiratory exam: Present: normal lung sounds bilaterally. Absent: respiratory distress, wheezes, rales, rhonchi, stridor Cardiovascular Exam: Present: regular rate, normal rhythm, normal heart sounds. Absent: systolic murmur, diastolic murmur, rubs, gallop, clicks GI/Abdominal exam: Present: soft, tenderness (Tenderness noted to the epigastric and right upper quadrant area, no tenderness noted in the lower abdomen), norm al bowel sounds. Absent: distended, guarding, rebound, rigid Neurological exam: Present: alert, oriented X3, CN II-XII intact Psychiatric exam: Present: normal affect, normal mood Course Vital Signs 07/30/18 07/30/18 07/30/18 13:40 15:04 15:10 Temperature 98.1 F Pulse Rate 64 75 Respiratory 18 25 H Rate Blood Pressure 145/78 O2 Sat by Pulse 98 99 97 Oximetry 07/30/18 07/30/18 07/30/18 15:20 15:30 15:40 Temperature Pulse Rate 75 71 66 Respiratory 54 H 15 106 H Rate Blood Pressure 142/77 142/77 150/83 O2 Sat by Pulse 98 98 Oximetry 07/30/18 07/30/18 07/30/18 15:50 16:00 16:10 Temperature Pulse Rate 62 63 Respiratory 8 L 12 Rate Blood Pressure 154/80 154/80 157/74 O2 Sat by Pulse 97 94 L Oximetry 07/30/18 07/30/18 07/30/18 16:20 16:30 16:40 Temperature Pulse Rate 58 L 58 L Respiratory 10 L 14 Rate Blood Pressure 157/74 157/74 148/70 O2 Sat by Pulse 94 L 93 L Oximetry 07/30/18 07/30/18 07/30/18 16:50 17:00 17:10 Temperature Pulse Rate 58 L 61 61 Respiratory 13 10 L 9 L Rate Blood Pressure 146/68 146/68 153/72 O2 Sat by Pulse 95 94 L 95 Oximetry 07/30/18 07/30/18 07/30/18 17:20 17:30 17:40 Temperature Pulse Rate 60 60 61 Respiratory 8 L 10 L 10 L Rate Blood Pressure 135/66 135/66 154/81 O2 Sat by Pulse 96 96 96 Oximetry 07/30/18 07/30/18 17:50 18:00 Temperature Pulse Rate 68 Respiratory 16 Rate Blood Pressure 157/81 157/81 O2 Sat by Pulse 96 Oximetry Medical Decision Making - Medical Decision Making 73-year-old female with a past medical history of GERD, hiatal hernia, colon cancer with colon resection 8 years ago presents to the emergency department for a chief complaint of upper abdominal pain. She states pain is similar pain for 10 years but has worsened in the past several weeks. States it is across her upper abdomen. On exam patient has mild tenderness without guarding on the upper abdomen. Vitals are within acceptable limits. Patient also has tremors which she states is chronic. She states a lot of the time this is due to anxiety. Patient was given 1 mg of Ativan which actually resolved her tremors. CBC and CMP are unremarkable. Urine is negative. CT abdomen and pelvis with contrast shows right midabdominal cicatrizing desmoplastic change with bowel tethering which is more impressive than the previous study. Dr. Lopez spoke with radiologist Dr Longoria about this finding. Patient is feeling much better, tremors have resolved, pain is improved. At this time it is felt guille fernandez can follow up outpatient with her primary care doctor about CT findings. Patient is in agreement with this.. Patient has an appointment this week. Discussed possibility of needing general surgery referral as her surgeon has retired. Patient states she will also follow up with her GI doctor tomorrow about this. - Lab Data Result diagrams: 07/30/18 14:27 07/30/18 14:27 Lab Results 07/30/18 07/30/18 07/30/18 Range/Units 14:27 14:27 14:27 WBC 3.9 (3.8-10.6) k/uL RBC 4.30 (3.80-5.40) m/uL Hgb 13.3 (11.4-16.0) gm/dL Hct 41.0 (34.0-46.0) % MCV 95.3 (80.0-100.0) fL MCH 31.0 (25.0-35.0) pg MCHC 32.5 (31.0-37.0) g/dL RDW 12.2 (11.5-15.5) % Plt Count 169 (150-450) k/uL Neutrophils % 58 % Lymphocytes % 30 % Monocytes % 8 % Eosinophils % 3 % Basophils % 1 % Neutrophils # 2.3 (1.3-7.7) k/uL Lymphocytes # 1.2 (1.0-4.8) k/uL Monocytes # 0.3 (0-1.0) k/uL Eosinophils # 0.1 (0-0.7) k/uL Basophils # 0.0 (0-0.2) k/uL Sodium 139 (137-145) mmol/L Potassium 4.2 (3.5-5.1) mmol/L Chloride 106 (98-107) mmol/L Carbon Dioxide 27 (22-30) mmol/L Anion Gap 6 mmol/L BUN 18 H (7-17) mg/dL Creatinine 0.98 (0.52-1.04) mg/dL Est GFR (CKD-EPI)AfAm 66 (>60 ml/min/1.73 sqM) Est GFR (CKD-EPI)NonAf 57 (>60 ml/min/1.73 sqM) Glucose 83 (74-99) mg/dL Calcium 9.1 (8.4-10.2) mg/dL Total Bilirubin 1.1 (0.2-1.3) mg/dL AST 26 (14-36) U/L ALT 32 (9-52) U/L Alkaline Phosphatase 66 (38-126) U/L Total Protein 6.5 (6.3-8.2) g/dL Albumin 3.8 (3.5-5.0) g/dL Amylase 41 (30-110) U/L Lipase 51 (23-300) U/L Urine Color Yellow Urine Appearance Clear (Clear) Urine pH 5.5 (5.0-8.0) Ur Specific [place] 1.019 (1.001-1.035) Urine Protein Negative (Negative) Urine Glucose (UA) Negative (Negative) Urine Ketones Negative (Negative) Urine Blood Negative (Negative) Urine Nitrite Negative (Negative) Urine Bilirubin Negative (Negative) Urine Urobilinogen <2.0 (<2.0) mg/dL Ur Leukocyte Esterase Negative (Negative) Disposition Clinical Impression: Abdominal pain Disposition: HOME SELF-CARE Condition: Good Instructions (If sedation given, give patient instructions): Abdominal Pain (ED) Additional Instructions: Please follow up with primary care in 1-2 days regarding results of CT. Please return here to the emergency department if you have any worsening symptoms. Is patient prescribed a controlled substance at d/c from ED?: No Referrals: Dao Rabago DO [Primary Care Provider] - 1-2 days Time of Disposition: 17:38
[2018-07-30 15:47] LABS: Basophils % (A) 1 %; Eosinophils # (A) 0.1 k/uL (0-0.7); Eosinophils % (A) 3 %; HGB 13.3 gm/dL (11.4-16.0); Lymphocytes # (A) 1.2 k/uL (1.0-4.8); Lymphocytes % (A) 30 %; MCHC 32.5 g/dL (31.0-37.0); MCV 95.3 fL (80.0-100.0); Mean Platelet Volume 7.3; Monocytes # (A) 0.3 k/uL (0-1.0); Monocytes % (A) 8 %; Neutrophils # (A) 2.3 k/uL (1.3-7.7); Neutrophils % (A) 58 %; Platelet Count 169 k/uL (150-450); RDW 12.2 % (11.5-15.5); WBC 3.9 k/uL (3.8-10.6)
[2018-07-30 15:54] LABS: Appearance,Urine Clear (Clear); Bilirubin,Urine Negative (Negative); Blood,Urine Negative (Negative); Color,Urine Yellow; Glucose,Urine (UA) Negative (Negative); Ketones,Urine Negative (Negative); Leukocyte Esterase,Urine Negative (Negative); Nitrite,Urine Negative (Negative); PH, Urine 5.5 (5.0-8.0); Protein,Urine Negative (Negative); Specific Gravity,Urine 1.019 (1.001-1.035); Urobilinogen,Urine <2.0 mg/dL (<2.0)
[2018-07-30 15:55] LABS: Albumin 3.8 g/dL (3.5-5.0); Calcium 9.1 mg/dL (8.4-10.2); Potassium 4.2 mmol/L (3.5-5.1); Total Bilirubin 1.1 mg/dL (0.2-1.3); Total Protein 6.5 g/dL (6.3-8.2)
--- NOTE | 2018-07-30 16:45 | CT ---
EXAMINATION TYPE: CT abdomen pelvis w con DATE OF EXAM: 07/30/2018 HISTORY: Generalized abdominal pain with diarrhea. TECHNIQUE: Helical acquisition of images was performed from the lung bases through the pelvis. CT DL P: 499.9 mGycm. Automated exposure control for dose reduction was used. CONTRAST: Performed without Oral Contrast and with IV Contrast, patient injected with 80 mL of Isovue 300. COMPARISON: Noncontrast CT 03/22/2018 FINDINGS: VISUALIZED SUPRADIAPHRAGMATIC STRUCTURES: No acute findings. 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 No focal liver lesions. Surgical absence of t he gallbladder noted. Biliary tree is otherwise unremarkable. PANCREAS: No significant abnormality is seen. SPLEEN: No significant abnormality is seen. ADRENALS: No significant abnormality is seen. KIDNEYS: No significant abnormality is seen. PERITONEAL CAVITY: No pneumoperitoneum. No peritoneal fluid. RETROPERITONEAL ADENOPATHY: None visualized REPRODUCTIVE ORGANS: No significant abnormality is seen URINARY BLADDER: No significant abnormality is seen. PELVIC ADENOPATHY: None visualized. OSSEOUS STRUCTURES: No significant abnormality is seen. BOWEL: Previously seen right mid abdomen cicatrizing desmoplastic change with tethering of the bowel is redemonstrated, resembling carcinoid, but the associated bowel changes are more impressive than t he prior study - with the associated bowel loops currently being borderline enlarged in caliber. Esparza lucas, there is no bowel wall thickening or pneumatosis. No mesenteric edematous change. Innumerable colonic diverticula redemonstrated without diverticulitis. OTHER: No acute vascular findings. IMPRESSION: 1. RIGHT MID-ABDOMINAL CICATRIZING DESMOPLASTIC CHANGE WITH BOWEL TETHERING, MORE IMPRESSIVE THAN TH E PRIOR STUDY. 2. CAVERNOUS TRANSFORMATION OF THE PORTAL VEIN REDEMONSTRATED, MUCH MORE CONSPICUOUS WITH IV CONTRAS T CT TECHNIQUE.
[2018-07-30 18:03] VITALS: BP 157/81; PULSE 68; RESP 16
== END 2018-07-30 18:06 | disposition home or self-care (01) ==
LOC: EC 13:39
DX: R10.13 Epigastric pain (principal); R10.11 Right upper quadrant pain; R25.1 Tremor, unspecified; K21.9 Gastro-esophageal reflux disease without esophagitis; Z85.038 Personal history of other malignant neoplasm of large intestine; Z79.899 Other long term (current) drug therapy; Z88.5 Allergy status to narcotic agent; Z90.49 Acquired absence of other specified parts of digestive tract; Z98.51 Tubal ligation status
CPT/HCPCS: 36415; 80053; 82150; 83690; 85025; 81003; 74177; 99284; 96374; 96375; 96361; J2060; Q9967

== ENCOUNTER → 2019-03-14 | Outpatient (CLI) | payer MEDICARE, BC ==
--- NOTE | 2019-03-17 08:17 | MM ---
Reason for exam: screening (asymptomatic). Last mammogram was performed 1 year and 4 months ago. History: Patient is postmenopausal and has history of colon cancer at age 60. Physical Findings: A clinical breast exam by your physician is recommended on an annual basis and results should be correlated with mammographic findings. MG 3D Screening Mammo W/Cad Bilateral CC and MLO view(s) were taken. Prior study comparison: November 26, 2017, bilateral MG 3d screening mammo w/cad. April 06, 2016, bilateral MG 3d screening mammo w/cad. The breast tissue is heterogeneously dense. This may lower the sensitivity of mammography. Benign appearing calcifications in the right breast. No significant changes when compared with prior studies. ASSESSMENT: Benign, BI-RAD 2 RECOMMENDATION: Routine screening mammogram of both breasts in 1 year.
== END | disposition home or self-care (01) ==
LOC: RADMAMWWP 08:46
PROVIDERS: ATTEND Family Medicine
DX: Z12.31 Encounter for screening mammogram for malignant neoplasm of breast (principal)
CPT/HCPCS: 77063; 77067

== ENCOUNTER → 2019-04-10 | Outpatient (CLI) | payer MEDICARE, BC ==
--- NOTE | 2019-04-10 15:54 | CT ---
EXAMINATION TYPE: CT soft tissue neck w con DATE OF EXAM: 04/10/2019 COMPARISON: None HISTORY: 74-year-old female Left sided lump on neck. BB placed on region of interest. TECHNIQUE: Contiguous axial scanning of the soft tissues of the neck performed with IV Contrast, porfirio ent injected with 80ml mL of Isovue 300. Coronal/sagittal reconstructions performed. CT DLP: 298 mGycm Automated exposure control for dose reduction was used. FINDINGS: Visualized intracranial structures, orbits and globes, paranasal sinuses, and mastoid air cells appea r clear. There is some groundglass osseous thickening involving the morales of the right sphenoid sinus mostly s een with fibrous dysplasia. The nasopharynx is clear. There is asymmetric of the tongue with soft tissue prominence towards the right lateral aspect and so me medial septal deviation towards the left and some slight asymmetric thickening of the right floor of the mouth musculature, refer to coronal image 15 and axial images 33 through 38. Palpable marker overlies the left mandibular region. The submandibular gland directly underlies this area it appears symmetric to the contralateral side. The bilateral parotid glands are atrophic. Thyro id gland shows no discrete abnormality. Epiglottis and prevertebral soft tissues within normal limits. Glottic and subglottic structures as well as the tracheal column appear clear. Bovine configuration to the aortic arch. No cervical lymphadenopathy is identified Mild degenerative disc disease throughout. IMPRESSION: 1. ASYMMETRY TO THE SOFT TISSUES OF THE TONGUE. THERE IS PROMINENCE OF THE RIGHT HALF OF THE TONGUE A ND SUGGESTION OF SOME MEDIAL SEPTAL DEVIATION TOWARDS THE LEFT AND CORRESPONDING SLIGHT ASYMMETRIC TH ICKENING ALONG THE RIGHT FLOOR OF THE MOUTH MUSCULATURE. (AXIAL IMAGES 33 THROUGH 38). CAREFUL CLINIC AL CORRELATION RECOMMENDED TO EXCLUDE UNDERLYING NEOPLASM. 2. PALPABLE MARKER OVERLIES THE LEFT SUBMANDIBULAR GLAND WHICH APPEARS NORMAL AND SYMMETRIC TO THE OT HER SIDE. 3. NO CERVICAL LYMPHADENOPATHY OR OTHER DISCRETE ABNORMALITY SEEN.
== END ==
LOC: RADCTMAIN 14:11
PROVIDERS: ATTEND Family Medicine
DX: R93.89 Abnormal findings on diagnostic imaging of other specified body structures (principal)
CPT/HCPCS: 82565; 84520; 70491; 36415; Q9967

== ENCOUNTER → 2019-05-09 | Outpatient (CLI) | payer MEDICARE, BC ==
--- NOTE | 2019-05-10 12:37 | XR ---
Abdomen HISTORY: Pain and nausea, vomiting Single frontal view the abdomen correlated to prior exam 05/02/2017 Surgical clips present right upper quadrant, there is a clip in the pelvis and left paraspinous locat ion similar to prior exam. Lung bases are clear. No evident bowel obstruction or pneumoperitoneum. Pavel ne mineralization is stable. Degenerative disc changes are noted in the visualized spine. Probable va scular calcifications within the pelvis. There is a possibility of bowel gas. IMPRESSION: Nonspecific bowel gas pattern.
== END | disposition home or self-care (01) ==
LOC: RADXRYALE 16:49
PROVIDERS: ATTEND Family Medicine
DX: R10.811 Right upper quadrant abdominal tenderness (principal); R10.812 Left upper quadrant abdominal tenderness
CPT/HCPCS: 74018

== ENCOUNTER → 2019-05-28 | Outpatient (CLI) | payer MEDICARE, BC ==
--- NOTE | 2019-05-28 11:57 | US ---
EXAMINATION TYPE: US abdomen complete DATE OF EXAM: 05/28/2019 COMPARISON: NONE CLINICAL HISTORY: Rt Upper Quad [id number], R11.10 vomiting,K21.9 gastro. Pain cholecystectomy EXAM MEASUREMENTS: Liver Length: 14 cm Gallbladder Wall: Surgically absent cm CBD: .3 cm Spleen: 10.6 cm Right Kidney: 8.2 x 3.0 x 3.3 cm Left Kidney: 9.4 x 4.1 x 3.6 cm Pancreas: Obscured by bowel gas Liver: cavernous transformation seen on ct scan. Gallbladder: Surgically absent Evidence for sonographic Faria's sign: No CBD: wnl Spleen: wnl Right Kidney: wnl Left Kidney: wnl Upper IVC: wnl Abd Aorta: wnl IMPRESSION: 1. Prominence of the portal venous system previously identified. 2. Normal post cholecystectomy abdomen ultrasound.
== END | disposition home or self-care (01) ==
LOC: RADUSWWP 10:19
PROVIDERS: ATTEND Family Medicine
DX: K21.9 Gastro-esophageal reflux disease without esophagitis (principal); R10.811 Right upper quadrant abdominal tenderness; R11.10 Vomiting, unspecified; K58.0 Irritable bowel syndrome with diarrhea; Z90.49 Acquired absence of other specified parts of digestive tract
CPT/HCPCS: 76700

== ENCOUNTER → 2020-02-19 | Outpatient (CLI) | payer MEDICARE, BC ==
--- NOTE | 2020-02-20 07:12 | XR ---
EXAMINATION TYPE: XR abdomen 2V DATE OF EXAM: 02/19/2020 HISTORY: Pain. Technique: 2 views of the abdomen are submitted. Comparison: None. Findings: There is no convincing evidence of pneumoperitoneum. The Bowel gas pattern is nonspecific and nonobstructive. No sizable air-fluid levels are seen. No mass effects are noted. No renal calcifications are identified. IMPRESSION: 1. Nonspecific nonobstructive bowel gas pattern
== END | disposition home or self-care (01) ==
LOC: RADXRYALE 16:28
PROVIDERS: ATTEND Physician Assistant Medical
DX: K21.9 Gastro-esophageal reflux disease without esophagitis (principal); R10.10 Upper abdominal pain, unspecified; F41.1 Generalized anxiety disorder; Z85.038 Personal history of other malignant neoplasm of large intestine
CPT/HCPCS: 74019

== ENCOUNTER 2020-05-20 12:42 | Inpatient (IN) | payer MEDICARE, BC ==
[2020-05-20] MEDS ORDERED: LORazepam 2 MG/ML INJ IV STA ×2 (13:04→17:38)
--- NOTE | 2020-05-20 13:16 | ED ---
General Adult HPI - General Chief complaint: Psychiatric Symptoms Stated complaint: Mental Health Time Seen by Provider: 05/20/20 12:53 Source: patient, RN notes reviewed, old records reviewed Mode of arrival: EMS Limitations: no limitations - History of Present Illness Initial comments: 75-year-old female history of anxiety depression presenting with worsening depression, anxiety over the past 3 days. She denies suicidal ideation. EMS to be called by the patient's states that her symptoms had worsened. She also was noted to be tremulous. Denies focal numbness or weakness. Denies pain complaints, no headache, no chest pain, no abdominal pain. She states she has been compliant with her medication. - Related Data Home Medications Medication Instructions Recorded Confirmed Propranolol [Inderal] 40 mg PO BID@0800,1800 03/22/18 07/30/18 Omeprazole 20 mg PO BID 07/30/18 07/30/18 Previous Rx's Medication Instructions Recorded Escitalopram [Lexapro] 20 mg PO DAILY #30 tab 07/31/17 clonazePAM [KlonoPIN] 0.25 mg PO BID PRN #30 tab 07/31/17 lamoTRIgine [LaMICtal] 25 mg PO BID #60 tab 07/31/17 Allergies Allergy/AdvReac Type Severity Reaction Status Date / Time codeine AdvReac Nausea & Verified 07/30/18 15:30 Vomiting Review of Systems ROS Statement: Those systems with pertinent positive or pertinent negative responses have been documented in the HPI. ROS Other: All systems not noted in ROS Statement are negative. Past Medical History Past Medical History: Cancer, GERD/Reflux, Hyperlipidemia, Seizure Disorder Additional Past Medical History / Comment(s): Colon cancer, ileus, hiatal hernia, esophageal strictures, diverticular dx, known intra-abdominal varicosities and labial varicosities, last seizure 2012 History of Any Multi-Drug Resistant Organisms: None Reported Past Surgical History: Appendectomy, Bowel Resection, Cholecystectomy, Tubal Ligation Additional Past Surgical History / Comment(s): laparoscopic cholecystectomy- 2013, EGD with esophageal dilation, bowel resection 2007 Past Anesthesia/Blood Transfusion Reactions: Postoperative Nausea & Vomiting (PONV) Past Psychological History: Anxiety, Depression, Panic Disorder Smoking Status: Never smoker Past Alcohol Use History: None Reported Past Drug Use History: None Reported - Past Family History Sister(s) Family Medical History: Cancer Additional Family Medical History / Comment(s): Sister of pancreatic cancer. Father Family Medical History: Cancer, Prostate Disorder Additional Family Medical History / Comment(s): PROSTATE/COLON CANCER-Father at the age of 7272 years old. Mother Family Medical History: Cancer, Dementia Additional Family Medical History / Comment(s): COLON CANCER-Mother at the age of 7878 years old. General Exam Limitations: no limitations General appearance: alert, in distress Head exam: Present: atraumatic, normocephalic Eye exam: Present: normal appearance, PERRL ENT exam: Present: normal exam Neck exam: Present: normal inspection. Absent: tenderness, meningismus Respiratory exam: Present: normal lung sounds bilaterally. Absent: respiratory distress, wheezes Cardiovascular Exam: Present: normal rhythm, tachycardia GI/Abdominal exam: Present: soft. Absent: distended, tenderness, guarding, rebound Extremities exam: Present: normal inspection. Absent: pedal edema Neurological exam: Present: alert. Absent: motor sensory deficit Psychiatric exam: Present: depressed, anxious Skin exam: Present: intact, diaphoretic Course Vital Signs 05/20/20 05/20/20 05/20/20 12:46 13:38 14:33 Temperature 97.3 F L Pulse Rate 109 H 98 97 Respiratory 28 H 20 18 Rate Blood Pressure 103/91 107/62 128/57 O2 Sat by Pulse 98 98 99 Oximetry EKG Findings - EKG Comments: EKG Findings:: EKG: Sinus tachycardia, rate of 1:15, SD interval 148, QRS duration 64, QTC 511 which is prolonged, there is tremor artifact, no ST segment elevation. Medical Decision Making - Medical Decision Making 75 female presenting for evaluation of increased depression, anxiety, generalized tremor. Patient is tremulous, stable vitals with the exception of tachycardia, and he is diaphoretic upon arrival. Workup is initiated. She has an EKG showing sinus rhythm with no ST segment elevation. Normal CBC, she has an elevated d-dimer as well as a mildly elevated serum creatinine. She has a lactic acid of 4.4 which is suspect is from dehydration. Urinalysis is pending. She's given IV hydration, and Ativan. She has significant improvement in her anxiety. Given the elevated d-dimer in the setting of renal insufficiency VQ scan is ordered. These results are pending. She will be admitted awaiting V/Q results for IV hydration, treatment of anxiety with psychiatry placed on consult. Case is discussed with Dr. Jiang who will admit. - Lab Data Result diagrams: 05/20/20 13:08 05/20/20 13:08 Lab Results 05/20/20 05/20/20 05/20/20 Range/Units 13:08 13:08 13:08 WBC 6.3 (3.8-10.6) k/uL RBC 4.13 (3.80-5.40) m/uL Hgb 13.2 (11.4-16.0) gm/dL Hct 38.9 (34.0-46.0) % MCV 94.2 (80.0-100.0) fL MCH 32.0 (25.0-35.0) pg MCHC 34.0 (31.0-37.0) g/dL RDW 12.0 (11.5-15.5) % Plt Count 251 (150-450) k/uL MPV 8.7 Neutrophils % 59 % Lymphocytes % 29 % Monocytes % 7 % Eosinophils % 2 % Basophils % 1 % Neutrophils # 3.7 (1.3-7.7) k/uL Lymphocytes # 1.8 (1.0-4.8) k/uL Monocytes # 0.4 (0-1.0) k/uL Eosinophils # 0.1 (0-0.7) k/uL Basophils # 0.1 (0-0.2) k/uL PT 10.1 (9.0-12.0) sec INR 1.0 (<1.2) APTT 23.3 (22.0-30.0) sec D-Dimer 0.94 H (<0.60) mg/L FEU Sodium 142 (137-145) mmol/L Potassium 3.3 L (3.5-5.1) mmol/L Chloride 108 H (98-107) mmol/L Carbon Dioxide 25 (22-30) mmol/L Anion Gap 9 mmol/L BUN 30 H (7-17) mg/dL Creatinine 1.29 H (0.52-1.04) mg/dL Est GFR (CKD-EPI)AfAm 47 (>60 ml/min/1.73 sqM) Est GFR (CKD-EPI)NonAf 40 (>60 ml/min/1.73 sqM) Glucose 100 H (74-99) mg/dL Plasma Lactic Acid [place] (0.7-2.0) mmol/L Calcium 8.9 (8.4-10.2) mg/dL Magnesium 1.9 (1.6-2.3) mg/dL Total Bilirubin 0.8 (0.2-1.3) mg/dL AST 27 (14-36) U/L ALT 15 (4-34) U/L Alkaline Phosphatase 75 (38-126) U/L Troponin I (0.000-0.034) ng/mL Total Protein 5.8 L (6.3-8.2) g/dL Albumin 3.3 L (3.5-5.0) g/dL Coronavirus (PCR) (Not Detectd) 05/20/20 05/20/20 05/20/20 Range/Units 13:08 13:19 13:37 WBC (3.8-10.6) k/uL RBC (3.80-5.40) m/uL Hgb (11.4-16.0) gm/dL Hct (34.0-46.0) % MCV (80.0-100.0) fL MCH (25.0-35.0) pg MCHC (31.0-37.0) g/dL RDW (11.5-15.5) % Plt Count (150-450) k/uL MPV Neutrophils % % Lymphocytes % % Monocytes % % Eosinophils % % Basophils % % Neutrophils # (1.3-7.7) k/uL Lymphocytes # (1.0-4.8) k/uL Monocytes # (0-1.0) k/uL Eosinophils # (0-0.7) k/uL Basophils # (0-0.2) k/uL PT (9.0-12.0) sec INR (<1.2) APTT (22.0-30.0) sec D-Dimer (<0.60) mg/L FEU Sodium (137-145) mmol/L Potassium (3.5-5.1) mmol/L Chloride (98-107) mmol/L Carbon Dioxide (22-30) mmol/L Anion Gap mmol/L BUN (7-17) mg/dL Creatinine (0.52-1.04) mg/dL Est GFR (CKD-EPI)AfAm (>60 ml/min/1.73 sqM) Est GFR (CKD-EPI)NonAf (>60 ml/min/1.73 sqM) Glucose (74-99) mg/dL Plasma Lactic Acid [place] 4.4 H* (0.7-2.0) mmol/L Calcium (8.4-10.2) mg/dL Magnesium (1.6-2.3) mg/dL Total Bilirubin (0.2-1.3) mg/dL AST (14-36) U/L ALT (4-34) U/L Alkaline Phosphatase (38-126) U/L Troponin I <0.012 (0.000-0.034) ng/mL Total Protein (6.3-8.2) g/dL Albumin (3.5-5.0) g/dL Coronavirus (PCR) Not Detected (Not Detectd) Disposition Clinical Impression: Panic disorder, Generalized anxiety disorder, Dehydration, Lactic acid acidosis, D-dimer, elevated Disposition: ADMITTED IP TO THIS [facility] Condition: Stable Is patient prescribed a controlled substance at d/c from ED?: No Referrals: None,Stated [Primary Care Provider] - 1-2 days Decision to Admit Reason: Admit from EC Decision Date: 05/20/20 Decision Time: 15:22
[2020-05-20 13:32] LABS: Basophils # (A) 0.1 k/uL (0-0.2); Basophils % (A) 1 %; Eosinophils # (A) 0.1 k/uL (0-0.7); Eosinophils % (A) 2 %; HCT 38.9 % (34.0-46.0); HGB 13.2 gm/dL (11.4-16.0); Lymphocytes # (A) 1.8 k/uL (1.0-4.8); Lymphocytes % (A) 29 %; MCV 94.2 fL (80.0-100.0); Mean Platelet Volume 8.7; Monocytes # (A) 0.4 k/uL (0-1.0); Monocytes % (A) 7 %; Neutrophils # (A) 3.7 k/uL (1.3-7.7); Neutrophils % (A) 59 %; Platelet Count 251 k/uL (150-450); RBC 4.13 m/uL (3.80-5.40); WBC 6.3 k/uL (3.8-10.6)
[2020-05-20 13:41] LABS: Albumin 3.3 g/dL (3.5-5.0); Calcium 8.9 mg/dL (8.4-10.2); Magnesium 1.9 mg/dL (1.6-2.3); Potassium 3.3 mmol/L (3.5-5.1); Total Bilirubin 0.8 mg/dL (0.2-1.3); Total Protein 5.8 g/dL (6.3-8.2)
[2020-05-20 13:45] LABS: Partial Thromboplastin Time 23.3 sec (22.0-30.0); Prothrombin Time 10.1 sec (9.0-12.0)
[2020-05-20 13:58] LABS: D-Dimer 0.94 mg/L FEU (<0.60)
--- NOTE | 2020-05-20 14:12 | XR ---
EXAMINATION TYPE: XR chest 2V DATE OF EXAM: 05/20/2020 COMPARISON: 07/20/2017 INDICATION: Weakness TECHNIQUE: Frontal and lateral views of the chest are obtained. FINDINGS: The heart size is normal. The pulmonary vasculature is normal. The lungs are clear. IMPRESSION: 1. No acute pulmonary process.
[2020-05-20] MEDS ORDERED: SODIUM CHLORIDE 0.9% 1,000 ML IV ONE (14:17)
[2020-05-20] MEDS ORDERED: NALOXONE 0.4 MG/ML 1 ML VIAL IV PRN (15:01)
[2020-05-20] MEDS ORDERED: POTASSIUM CHLORIDE ER 20 MEQ TAB.ER PO STA (15:04)
[2020-05-20] MEDS: LORazepam 2 MG/ML INJ IV PRN (16:56)
--- NOTE | 2020-05-20 16:57 | NM ---
EXAMINATION TYPE: NM pul vent and perfuse DATE OF EXAM: 05/20/2020 COMPARISON: 05/20/2020 chest x-ray HISTORY: Elevated d-dimer abnormal labs TECHNIQUE: Utilizing inhalation of 36 mCi Tc 99m DTPA aerosol and intravenous injection of 5.1 mCi o f Tc 99m MAA, ventilation and perfusion images are acquired post injection in multiple projections. FINDINGS: No moderate or large mismatched defects are evident. No triple matched defects are evident. IMPRESSION: Low probability for pulmonary embolism
[2020-05-20] MEDS ORDERED: SODIUM CHLORIDE 0.9% 500 ML 500 ML IV ONE (17:39)
[2020-05-20] MEDS: SODIUM CHLORIDE 0.9% 1,000 ML IV SCH (17:52)
[2020-05-20] MEDS ORDERED: QUEtiapine 25 MG TAB PO SCH (22:45)
[2020-05-20] MEDS: lamoTRIgine 100 MG TAB PO SCH (22:51)
[2020-05-20] MEDS: BENZTROPINE MESYLATE 0.5 MG TAB PO SCH (23:10)
[2020-05-21] MEDS: SODIUM CHLORIDE 0.9% 1,000 ML IV SCH (05:20)
[2020-05-21 07:25] LABS: Basophils % (A) 1 %; Eosinophils # (A) 0.1 k/uL (0-0.7); Eosinophils % (A) 1 %; HCT 30.3 % (34.0-46.0); HGB 10.4 gm/dL (11.4-16.0); Lymphocytes # (A) 1.1 k/uL (1.0-4.8); Lymphocytes % (A) 28 %; MCH 33.1 pg (25.0-35.0); MCHC 34.2 g/dL (31.0-37.0); MCV 96.8 fL (80.0-100.0); Mean Platelet Volume 8.3; Monocytes # (A) 0.2 k/uL (0-1.0); Monocytes % (A) 6 %; Neutrophils # (A) 2.5 k/uL (1.3-7.7); Neutrophils % (A) 61 %; Platelet Count 157 k/uL (150-450); RBC 3.13 m/uL (3.80-5.40); RDW 12.4 % (11.5-15.5)
[2020-05-21] MEDS ORDERED: VENLAFAXINE HCL ER 37.5 MG CAP PO SCH (09:00)
[2020-05-21] MEDS: lamoTRIgine 100 MG TAB PO SCH ×2 (09:21→21:18)
[2020-05-21] MEDS: BENZTROPINE MESYLATE 0.5 MG TAB PO SCH (09:21)
[2020-05-21 09:48] LABS: African American GFR (CKD) 50.8 (60.0-200.0); Albumin 3.1 g/dL (3.80-4.90); Albumin/Globulin Ratio 2.21 (1.60-3.17); BUN/Creat Ratio 21.67 Ratio (12.00-20.00); Calcium 7.9 mg/dL (8.7-10.3); Globulin 1.4 g/dL (1.6-3.3); Magnesium 1.9 mg/dL (1.5-2.4); Non-African American GFR(CKD) 43.9 (60.0-200.0); Potassium 2.8 mmol/L (3.5-5.5); Total Bilirubin 0.5 mg/dL (0.3-1.2); Total Protein 4.5 g/dL (6.2-8.2)
[2020-05-21] MEDS ORDERED: DEXTROSE 5% IN WATER 1,000 ML IV ONE (12:09)
[2020-05-21] MEDS ORDERED: Potassium Replacement Protocol 1 EACH MISC MISCELLANE PRN (12:10)
[2020-05-21] MEDS: POTASSIUM CHLORIDE ER 20 MEQ TAB.ER PO SCH ×3 (12:35→15:29)
--- NOTE | 2020-05-21 13:21 | P.CN ---
Psychiatric Consult - . Consult date: 05/21/20 Consult:: 05/21/20 13:05 IDENTIFYING DATA: This patient is a , 72-year-old female was admitted to the hospital for worsening depression and anxiety. HISTORY OF PRESENT ILLNESS: The patient presented to the hospital on 05/20/2020, brought in by EMS after the patient's reported increasing depression and anxiety over the past 3 days. Upon presentation to the emergency department, the patient was noted to be tremulous and tachycardic. She was also noted to be diaphoretic. She had a lactic acid of 4.4 causing suspicion for dehydration. She had a elevated d-dimer as well as renal insufficiency. She was admitt ed to medical floor for further evaluation and treatment. Psychiatry has been consulted for the patient's increasing depression and anxiety. Currently, the patient is unable to provide any significant history. She remains quiet and minimally responsive in her bed. She responds to a few questioning. She is currently reporting no suicidal or homicidal ideation, intention, and/or plan. She is not reporting auditory or visual hallucinations. She is unable to provide any significant history aside from answering yes-no questions. Collateral information was provided by the patient's Nito Maloney. The patient's reports that the patient has been experiencing increasing depression. He suspects that this is secondary to the patient receiving news that her granddaughter was sent to longterm 3 weeks ago for using drugs. The patient has been mainly isolative to herself in her room refusing to eat, drink, or get out of bed. notes that the patient has had intermittent episodes of panic attacks and anxiety as well. He denies that the patient has ever attempted suicide or expressed any desire to harm herself. He reports no history of auditory or visual hallucinations. The patient is currently open with outpatient psychiatry and is on a regimen that includes Effexor 37.5 mg daily, Lamictal 100 mg by mouth twice a day, and Cogentin 0.5 mg twice a day. As per discussion with the patient's , the patient is highly functional at home when she is not experiencing any significant depression. She is able to attend to her ADLs. PAST PSYCHIATRIC HISTORY: Patient has a a history of major depression. She is currently on a regimen of Lamictal and Effexor. She has had 5 inpatient psychiatric admissions in the past. She was last admitted to this psych unit in 2018. Previous trials of medications include Lexapro, Seroquel, and Klonopin. There is no reported history of past suicide attempts. PAST MEDICAL HISTORY: She has a history of colon cancer, GERD, hyperlipidemia, and seizure disorder. ALLERGIES: Codeine CHEMICAL DEPENDENCY HISTORY: No reported tobacco, alcohol, marijuana, or illicit drug use. FAMILY PSYCHIATRIC/SUBSTANCE USE HISTORY: Strong family history of depression, with 2 sisters being treated for depression. No suicides in the family. Granddaughter with a substance use problem. SOCIAL HISTORY: Patient lives with her . She had 2 sons, and one was killed by a drunk ice cream truck driver back in 1997. She has 3 sisters and one brother. 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 She has a high school education. Reported no history of abuse or legal problems. MENTAL STATUS EXAM: General Appearance: Patient appears to be stated age is difficult to direct and intermittently cooperative. Patient appears to have fair hygiene and grooming wearing hospital gown with no eye contact. Behavior: Patient is calmly lying in bed without any agitated behavior. No eye contact. Speech: Patient's speech is low in volume, nonspontaneous, monotone. Mood/Affect: Patient reports their mood is "okay", affect is blunted in range. Suicidality/Homicidality: Patient denies having any suicidal or homicidal ideation intent or plan. Perceptions: Patient denies any visual hallucinations and denies any auditory hallucinations Though content/process: Unable to assess. Memory and concentration: Patient was alert and oriented to person and place but not to time. Judgment and insight: poor IMPRESSIONS: Major depressive disorder, recurrent, severe Generalized anxiety disorder PLAN: -At this time patient DOES meet criteria for inpatient psychiatric admission. Due to ongoing mental illness (depression), the patient displays an inability to care for self as made evident by her dehydration and lack of appetite. Recommend geriatric psychiatry. -Delirium precautions recommended with patient including - avoiding use of narcotics and C D STRIPPER sedatives, limit anticholinergic medications when possible, frequent re-orientation, minimize use of restraints, open window shades during the day and close them at night -Would recommend the following medication changes/additions: We will discontinue Effexor at this time. We will start Remeron for appetite stimulation and depression. May continue Seroquel 12.5 mg by mouth at bedtime. Note that the patient's EKG displayed a QTC of 511 ms. The patient does have so mewhat short abnormalities, and once corrected, we will obtain another EKG to check her QTC. Discontinue Cogentin as the patient is not taking any significant amount of antipsychotic medication for EPS symptoms. -May discontinue 1:1 supervision. Patient is not endorsing any suicidal ideation, intention, and/or plan. Patient's also confirms this. -Cannot leave AMA at this time. Patient will need a petition and certification if attempting to leave AMA. This provider discussed with the patient's that he would likely have to petition the patient for mental health treatment if she wishes to be discharged and not have any treatment. -Will continue to follow along. -When medically stable, patient is eligible for transfer to a GERIATRIC psych bed when available.
[2020-05-21] MEDS: LORazepam 2 MG/ML INJ IV PRN ×3 (15:21→22:42)
[2020-05-21 16:04] LABS: Glucose,Whole Blood 92 mg/dL (75-99)
[2020-05-21] MEDS ORDERED: HALOPERIDOL LACTATE 5 MG/ML 1 ML VIAL IM STA (16:15)
[2020-05-21] MEDS ORDERED: LORazepam 2 MG/ML INJ IV STA (16:56)
[2020-05-21] MEDS ORDERED: ACETAMINOPHEN IV (For NPO) 1,000 MG in EMPTY BAG 1 BAG IVPB ONE (17:15)
[2020-05-21 18:01] LABS: Glucose,Whole Blood 84 mg/dL (75-99)
--- NOTE | 2020-05-21 18:01 | P.PN ---
Progress Note - Text Progress Note Date: 05/21/20 A-team Indication: Decreased responsiveness, tremors, diaphoresis Patient seen and examined at bedside. She only answers yes to call her name. She refuses to answer our questions. She keeps her eyes closed and appears withdrawn. Vital signs reviewed General: Ill-appearing, moderate distress appears at stated age Derm: warm, + diaphoretic Head: Facial flushing, atraumatic, normocephalic, symmetric Mouth: no lip lesion, mucous membranes dry Cardiovascular: S1S2 tachycardia, no murmur, positive posterior tibial pulse bilateral, Lungs: Decreased breath sounds bilateral, no rhonchi, no rales , no accessory muscle use Abdominal: soft, nontender to palpation, no guarding, no appreciable organomegaly Ext: no gross muscle atrophy, no edema, no contractures Neuro: Equal round reactive to light, horizontal nystagmus noted, muscle fasciculations greater in the lower extremities and upper extremities, rigidity of bilateral lower and upper extremities Psych: Alert to self, withdrawn, keeps eyes closed Assessment/Plan: 1. Hypertnermia, muscle ridigity, diaphoreisis, tachycardi, tachypnea, altered mentation, facial flushing- Concern of neuroleptic malignant syndrome - Patient started on 0.9 normal saline 1 L bolus, given 1 dose of IV acetaminoph en, and Ativan 0.5 mg secondary to muscle rigidity -Dr. Arreaga contacted for perfect serving patient transferred to the ICU with concerns for neuroleptic malignant syndrome -Check BMP, magnesium, creatine kinase, lactic acid, LDH -Continue with psych consultation -[facility] nurse practitioner Darren was contacted and made aware of the patient's transfer to ICU -Avoid any additional psychotic agents -Rule out potential infectious sources. Patient had a negative chest x-ray on 05/20/2020. Check stat blood cultures and urine. -Urine drug screen -if ridigity worsens consider dantrolene as patients LFTS are normal and repeat is pending. 2. Prolonged QTC of 511 now down to 438 -Patient received Haldol prior to rapid response -Continue telemetry, and QT monitoring 3. Profound hypokalemia -Repeat labs with patient received potassium supplementation A total of 35 minutes of critical care time was spent with this complex patient.
[2020-05-21 18:02] LABS: Appearance,Urine Clear (Clear); Bilirubin,Urine Negative (Negative); Blood,Urine Negative (Negative); Color,Urine Yellow; Glucose,Urine (UA) Negative (Negative); Ketones,Urine Trace (Negative); Leukocyte Esterase,Urine Negative (Negative); Nitrite,Urine Negative (Negative); PH, Urine 5.5 (5.0-8.0); Protein,Urine Trace (Negative); Specific Gravity,Urine 1.023 (1.001-1.035); Urobilinogen,Urine <2.0 mg/dL (<2.0)
[2020-05-21] MEDS: DEXTROSE 5%-0.45% NACL 1,000 ML IV SCH (18:26)
[2020-05-21 18:30] LABS: Albumin 2.3 g/dL (3.5-5.0); Calcium 7.5 mg/dL (8.4-10.2); Magnesium 1.6 mg/dL (1.6-2.3); Total Bilirubin 0.6 mg/dL (0.2-1.3); Total Protein 4.5 g/dL (6.3-8.2)
[2020-05-21 18:42] LABS: Potassium 2.7 mmol/L (3.5-5.1)
[2020-05-21] MEDS: POTASSIUM CHLORIDE 10 MEQ in WATER FOR INJECTION 1 100ML.BAG IVPB SCH ×4 (19:57→23:28)
[2020-05-21] MEDS ORDERED: POTASSIUM CHLORIDE 20 MEQ in WATER FOR INJECTION 1 100ML.BAG IVPB SCH (20:00)
[2020-05-21] MEDS: MIRTAZAPINE 15 MG TAB PO SCH (21:18)
[2020-05-21 22:36] LABS: Appearance,Urine Clear (Clear); Bilirubin,Urine Negative (Negative); Blood,Urine Negative (Negative); Color,Urine Yellow; Glucose,Urine (UA) Negative (Negative); Ketones,Urine Negative (Negative); Leukocyte Esterase,Urine Negative (Negative); Nitrite,Urine Negative (Negative); PH, Urine 5.5 (5.0-8.0); Protein,Urine Trace (Negative); Specific Gravity,Urine 1.024 (1.001-1.035); Urobilinogen,Urine <2.0 mg/dL (<2.0)
[2020-05-21 22:38] LABS: Amphetamine Screen,Urine Not Detected (NotDetected); Barbiturate Screen,Urine Not Detected (NotDetected); Benzodiazepines Screen,Urine Detected (NotDetected); Cocaine Screen,Urine Not Detected (NotDetected); Methadone Screen, Urine Not Detected (NotDetected); Opiate Screen,Urine Not Detected (NotDetected); Oxycodone Screen, Urine Not Detected (NotDetected); Phencyclidine Screen,Urine Not Detected (NotDetected); Tricyclic Antidepressant,Urine Not Detected (NotDetected); Urn Cannabinoid Scrn Not Detected (NotDetected)
--- NOTE | 2020-05-21 22:44 | P.HPIM ---
History of Present Illness H&P Date: 05/21/20 Chief Complaint: Severe anxiety and depression Patient is a 75-year-old female with a known history of seizure disorder, GERD, hyperlipidemia, history of colon cancer, esophageal strictures and history of esophageal palpitation, anxiety depression and panic disorder and history of major depression and admission to mental health unit presents to ER with complaints of worsening anxiety and depression for the past 3 days. EMS was called by her stating that her symptoms had worsened. Denies any overdose or suicidal ideation as per the ER note. No complaints of chest pain or shortness of. No nausea vomiting or abdominal pain or diarrhea. Laboratory data showed WBC 6.3, hemoglobin 13.2 and platelets 251 D-dimer 0.94 Sodium 142, potassium 3.3, chloride 108, BUN 30 and creatinine 1.29 Lactic acid was 4.4 on admission Troponin x1 - COVID-19 PCR is negative Today morning patient was found to be hyponatremic with sodium level 150, potassium 2.8 and chloride 116. IV fluids were changed to D5 water. UA is negative for infection EKG showed sinus tachycardia Chest x-ray showed no acute pulmonary process VQ scan showed low probability for PE Review of Systems Complete review of systems could not be obtained from the patient at this time. Past Medical History Past Medical History: Cancer, GERD/Reflux, Hyperlipidemia, Seizure Disorder Additional Past Medical History / Comment(s): Colon cancer, ileus, hiatal hernia, esophageal strictures, diverticular dx, known intra-abdominal varicosities and labial varicosities, last seizure 2013 History of Any Multi-Drug Resistant Organisms: None Reported Past Surgical History: Appendectomy, Bowel Resection, Cholecystectomy, Tubal Ligation Additional Past Surgical History / Comment(s): laparoscopic cholecystectomy- 2013, EGD with esophageal dilation, bowel resection 2007 Past Anesthesia/Blood Transfusion Reactions: Postoperative Nausea & Vomiting (PONV) Past Psychological History: Anxiety, Depression, Panic Disorder Additional Psychological History / Comment(s): Pt resides with her spouse. She is independent. She has anxiety, depression and panic disorder. Pt recently admitted to [facility] for major depression, generalized anxiety and panic disorder. Spouse states that they are very close to their 2 granddaughters and assisted in raising them. One of the grand daughters-Jackie- has had problems with drugs and has been in long term for this. She just recently went back to long term again. Spouse believes that pt's mental health is affected by this. He states he was shocked to find that pt had OD. He states she has never spoken of suicide/suicidal thoughts and he states she has never attempted suicide previously. Pt sees Dr. Amor and has been to a councelor at his office. Smoking Status: Never smoker Past Alcohol Use History: None Reported Additional Past Alcohol Use History / Comment(s): Patient denies-BAT 0 Past Drug Use History: None Reported Additional Drug Use History / Comment(s): Patient denies. UDS Positive Benzos which are prescribed. - Past Family History Sister(s) Family Medical History: Cancer Additional Family Medical History / Comment(s): Sister of pancreatic cancer. Father Family Medical History: Cancer, Prostate Disorder Additional Family Medical History / Comment(s): PROSTATE/COLON CANCER-Father at the age of 7272 years old. Mother Family Medical History: Cancer, Dementia Additional Family Medical History / Comment(s): COLON CANCER-Mother at the age of 7878 years old. Medications and Allergies Home Medications Medication Instructions Recorded Confirmed Type Benztropine Mesylate [Cogentin] 0.5 mg PO BID 05/20/20 05/20/20 History Venlafaxine HCl [Effexor XR] 37.5 mg PO DAILY 05/20/20 05/20/20 History lamoTRIgine [LaMICtal] 100 mg PO BID 05/20/20 05/20/20 History Allergies Allergy/AdvReac Type Severity Reaction Status Date / Time codeine AdvReac Nausea & Verified 05/20/20 16:03 Vomiting Physical Exam Vitals: Vital Signs Temp Pulse Pulse Resp BP BP Pulse Ox 05/21/20 09:48 97.4 F L 87 16 128/52 05/21/20 01:15 98.2 F 99 22 120/55 98 05/20/20 20:23 93 16 148/59 96 05/20/20 19:03 93 16 141/70 99 05/20/20 17:44 101 H 20 149/74 96 05/20/20 16:35 112 H 24 117/75 97 05/20/20 14:33 97 18 128/57 99 05/20/20 13:38 98 20 107/62 98 05/20/20 12:46 97.3 F L 109 H 28 H 103/91 98 Intake and Output 05/20/20 05/21/20 05/21/20 22:59 06:59 14:59 Other: Weight 57.606 kg PHYSICAL EXAMINATION: Patient is lying in the bed comfortably, able to open her eyes seems anxious and not responding verbally. HEENT: Normocephalic. Neck is supple. Pupils reactive. Nostrils clear. Oral cavity is moist. Ears reveal no drainage. Neck reveals no JVD, carotid bruits, or thyromegaly. CHEST EXAMINATION: Trachea is central. Symmetrical expansion. Lung morley clear to auscultation and percussion. CARDIAC: Normal S1, S2 with no gallops. No murmurs ABDOMEN: Soft. non distended. Bowel sounds normal. No organomegaly. No abdominal bruits. Extremities: reveal no edema. No clubbing or cyanosis Neurologically awake, alerts.Oriented x2-3. No focal deficits noted Skin: No rash or skin lesions. Psychiatric: Noncooperative. Musculoskeletal: No joint swelling or deformity. Results CBC & Chem 7: 05/21/20 06:43 05/21/20 18:02 Labs: Abnormal Lab Results - Last 24 Hours (Table) 05/20/20 05/20/20 05/20/20 Range/Units 13:08 13:08 13:19 RBC (3.80-5.40) m/uL Hgb (11.4-16.0) gm/dL Hct (34.0-46.0) % D-Dimer 0.94 H (<0.60) mg/L FEU Sodium (135-145) mmol/L Potassium 3.3 L (3.5-5.1) mmol/L Chloride 108 H (98-107) mmol/L BUN 30 H (7-17) mg/dL Creatinine 1.29 H (0.52-1.04) mg/dL Est GFR (CKD-EPI)AfAm (60.0-200.0) Est GFR (CKD-EPI)NonAf (60.0-200.0) BUN/Creatinine Ratio (12.00-20.00) Ratio Glucose 100 H (74-99) mg/dL Plasma Lactic Acid Kingsley 4.4 H* (0.7-2.0) mmol/L Calcium (8.7-10.3) mg/dL Total Protein 5.8 L (6.3-8.2) g/dL Albumin 3.3 L (3.5-5.0) g/dL Globulin (1.6-3.3) g/dL 05/21/20 05/21/20 Range/Units 06:43 06:43 RBC 3.13 L (3.80-5.40) m/uL Hgb 10.4 L (11.4-16.0) gm/dL Hct 30.3 L (34.0-46.0) % D-Dimer (<0.60) mg/L FEU Sodium 150 H (135-145) mmol/L Potassium 2.8 L (3.5-5.1) mmol/L Chloride 116 H (98-107) mmol/L BUN (7-17) mg/dL Creatinine (0.52-1.04) mg/dL Est GFR (CKD-EPI)AfAm 50.8 L (60.0-200.0) Est GFR (CKD-EPI)NonAf 43.9 L (60.0-200.0) BUN/Creatinine Ratio 21.67 H (12.00-20.00) Ratio Glucose (74-99) mg/dL Plasma Lactic Acid Kingsley (0.7-2.0) mmol/L Calcium 7.9 L (8.7-10.3) mg/dL Total Protein 4.5 L (6.3-8.2) g/dL Albumin 3.10 L (3.5-5.0) g/dL Globulin 1.4 L (1.6-3.3) g/dL Thrombosis Risk Factor Assmnt - DVT/VTE Prophylaxis DVT/VTE Prophylaxis: Pharmacologic Prophylaxis ordered - Choose All That Apply Any of the Below Risk Factors Present?: Yes Each Factor Represents 1 point: Varicose veins Other Risk Factors: Yes Each Risk Factor Represents 3 Points: Age 75 years or older Other congenital or acquired thrombophilia - If yes, enter type in comment: Yes Thrombosis Risk Factor Assessment Total Risk Factor Score: 4 Thrombosis Risk Factor Assessment Level: Moderate Risk Assessment and Plan Assessment: Acute episode of major depressive disorder Generalized anxiety and panic disorder Hypernatremia and severe hypokalemia Hyperlipidemia History of seizure disorder GERD History of esophageal stricture status post EGD and dilation Anxiety/depression panic disorder history DVT prophylaxis with heparin subcu Plan: Patient will be continued IV hydration with D5 water and replace potassium aggressively. Patient will be continued on constant observation and suicide and elopement precautions. Ativan as needed for agitation and follow-up closely. Replace electrolytes and further recommendations based on the clinical course. Psychiatry is on board. Time with Patient: Greater than 30
[2020-05-21] MEDS ORDERED: ACETAMINOPHEN IV (For NPO) 1,000 MG in EMPTY BAG 1 BAG IVPB PRN (23:00)
[2020-05-21] MEDS: MAGNESIUM SULFATE-D5W PMX 1 GM in DEXTROSE/WATER 1 100ML.BAG IVPB SCH (23:32)
[2020-05-22] MEDS: POTASSIUM CHLORIDE 10 MEQ in WATER FOR INJECTION 1 100ML.BAG IVPB SCH ×8 (00:36→22:04)
[2020-05-22] MEDS: MAGNESIUM SULFATE-D5W PMX 1 GM in DEXTROSE/WATER 1 100ML.BAG IVPB SCH (00:38)
[2020-05-22] MEDS: LORazepam 2 MG/ML INJ IV PRN ×6 (01:18→22:34)
[2020-05-22] MEDS: DEXTROSE 5%-0.45% NACL 1,000 ML IV SCH ×4 (02:13→19:06)
[2020-05-22 05:30] LABS: Basophils % (A) 1 %; Eosinophils # (A) 0.1 k/uL (0-0.7); Eosinophils % (A) 2 %; HCT 28.9 % (34.0-46.0); HGB 9.7 gm/dL (11.4-16.0); Lymphocytes % (A) 23 %; MCH 32.7 pg (25.0-35.0); MCHC 33.7 g/dL (31.0-37.0); MCV 97.2 fL (80.0-100.0); Mean Platelet Volume 8.4; Monocytes # (A) 0.3 k/uL (0-1.0); Monocytes % (A) 6 %; Neutrophils # (A) 2.9 k/uL (1.3-7.7); Neutrophils % (A) 66 %; Platelet Count 134 k/uL (150-450); RBC 2.97 m/uL (3.80-5.40); RDW 12.3 % (11.5-15.5); WBC 4.4 k/uL (3.8-10.6)
[2020-05-22 05:44] LABS: Calcium 7.8 mg/dL (8.4-10.2); Magnesium 2.3 mg/dL (1.6-2.3)
[2020-05-22] MEDS ORDERED: Potassium Replacement Protocol 1 EACH MISC MISCELLANE PRN (06:28)
[2020-05-22] MEDS ORDERED: Phosphorus Replacement Protoco 1 EACH MISC MISCELLANE PRN (06:29)
[2020-05-22] MEDS: POTASSIUM PHOSPHATE 10 MMOL in SODIUM CHLORIDE 0.9% 250 ML IV SCH ×3 (07:16→12:30)
[2020-05-22] MEDS: HEPARIN SODIUM,PORCINE 5,000 UNIT/ML 1 ML VIAL SQ SCH ×2 (08:18→20:44)
[2020-05-22] MEDS: lamoTRIgine 100 MG TAB PO SCH ×2 (08:19→20:15)
[2020-05-22] MEDS ORDERED: VENLAFAXINE HCL ER 75 MG CAP PO SCH (09:00)
--- NOTE | 2020-05-22 17:42 | CONS ---
CONSULTATION PULMONARY/CRITICAL CARE CONSULTATION NOTE: DATE OF CONSULTATION: May 22, 2020. HISTORY OF PRESENT ILLNESS: A 75-year-old female who was admitted on to the hospital on May 20. She came in via EMS with psychiatric symptoms. She apparently has a history of anxiety and depression. She presented with worsening depression and anxiety over the last 3 days prior to admission. She apparently was not having any suicidal thoughts. According to her , the patient's symptoms had progressed. She was also noted to have a tremor. There was no focal numbness or weakness. No complaints of headache. No chest pain, chest discomfort, abdominal pain, nausea, vomiting, diarrhea, or genitourinary complaints. The patient was evaluated in the emergency room and was admitted by Dr. Pryor with a diagnosis of panic disorder, generalized anxiety disorder, dehydration, lactic acidosis, and elevated D-dimer. The patient had a chest x-ray which showed no acute pulmonary process and the patient also had a ventilation-perfusion lung scan which showed it to be low probably for pulmonary embolism. I was called yesterday evening by Dr. Schilling. Dr. Schilling is one of the hospitalists. She apparently responded to an A-Team. The patient apparently got a dose of Haldol which was her 1st dose, and she apparently was having a number of issues including confusion, worsened disorientation, muscle stiffness, fever, shortness of breath, and was thought to possibly have the neuroleptic malignant syndrome. We transferred the patient to the ICU for further monitoring. Currently, the patient is still lethargic and sleepy. She is not particularly responsive. She is moving all 4 extremities. She still has some muscle rigidity. I am not sure this represents the neuroleptic malignant syndrome versus serotonin syndrome. The patient was not previously on a neuroleptics. She only received 1 dose of Haldol. That would be unusual. She has been on Effexor. Currently, the patient is on O2 at 3 L by nasal cannula, D5 0.45 at 150 mL an hour. She got 1 dose of Haldol intramuscularly. MEDICAL HISTORY: Reviewed. She has a history of colon cancer, GERD, hyperlipidemia, seizure disorder, ileus, esophageal stricture, diverticular disease, intraabdominal and labial varicosities, among other medical issues. SURGICAL HISTORY: Includes appendectomy, colon resection, cholecystectomy, tubal ligation, EGD with esophageal dilatation, among other minor procedures. SOCIAL HISTORY: Negative for tobacco use. She denies any alcohol use or illicit drug use. ALLERGIES: SHE HAS ALLERGIES ARE CURRENTLY THOUGHT TO BE ONLY CODEINE. HOME MEDICATIONS: Include Inderal, omeprazole Lexapro, Klonopin, and Lamictal. She apparently is also on Effexor I believe. FAMILY HISTORY: Positive for sister who from pancreatic cancer. Father with a history of prostate and colon cancer and mother with a history of colon cancer and dementia. REVIEW OF SYSTEMS: Cannot be obtained from this patient. The patient is essentially nonverbal at this time. PHYSICAL EXAMINATION: VITAL SIGNS: Current vital signs are reviewed. Temperature is 97.9, T-max was a 102.2. Heart rate 89, respiratory rate 22, blood pressure 109/60, mean blood pressure 76. 3 L saturation 97%. GENERAL: She appears in no acute distress. She is not particularly responsive. She does move all 4 extremities. She does have some muscle stiffness and rigidity. HEENT: Examination is grossly unremarkable. NECK: Supple. Full range of motion. No adenopathy. Neck veins are flat. CARDIOVASCULAR: Examination reveals regular rhythm and rate. Heart rate 89. S1, S2 normal. LUNGS: Reveal mostly clear breath sounds. A few scattered rhonchi. No wheezes. ABDOMEN: Soft. EXTREMITIES are extremities are reviewed. No cyanosis or clubbing. No edema. She does move all 4 extremities. She does have some increased muscle rigidity and tone particularly in the lower extremities. SKIN: Without rash. NEUROLOGIC: Examination is difficult to assess. She is nonverbal. The patient does move all 4 extremities. LAB DATA: Reviewed. White count 4.4, hemoglobin 9.7, hematocrit 28.9, platelet count 134,000. PT/INR and PTT normal. D-dimer 0.94. Sodium 140, potassium 3, chloride 118, CO2 21. Anion gap is 1. BUN and creatinine were 13 and 0.95. Calcium 7.8, phosphorus is 1. Magnesium is 2.3. CK jumped from 835-3177. Urine showed trace protein, otherwise was negative, drug screen was positive for benzodiazepines. COVID testing was negative. Microbiology is currently negative. A chest x-ray was done. It showed no acute pulmonary process. A ventilation-perfusion lung scan was done. It was low probability for pulmonary embolism. Current medications reviewed. The patient is on Tylenol IV, D5 0.45 at 150 an hour, subcu heparin, Lamictal, Ativan, Remeron, Narcan, phosphorus, and potassium replacement. ASSESSMENT: 1. Acute onset yesterday of fever, muscle rigidity, confusion, which could be consistent with neuroleptics malignant syndrome versus serotonin syndrome. 2. History of hyperlipidemia. 3. History of seizure disorder. 4. History of gastroesophageal reflux disease. 5. History of colon cancer, status post bowel resection. 6. History of hiatal hernia. 7. Esophageal strictures. 8. Known history of diverticular disease. PLAN: Treatment for either condition basically is supportive care. The patient does not require in my opinion, dantrolene at this time. Would hydrate her. Discontinue the potentially offending drugs which have been done. You can use benzodiazepines in the short term. Additional recommendations and suggestions are forthcoming. Prognosis is guarded. Haldol was discontinued. Might be beneficial to discontinue or wean the Effexor. MMODL / IJN: [id number] /
[2020-05-22] MEDS: MIRTAZAPINE 15 MG TAB PO SCH (20:15)
--- NOTE | 2020-05-22 22:59 | P.PN ---
Subjective Progress Note Date: 05/22/20 Principal diagnosis: Severe depression. Neuroleptic malignant syndrome. Patient is a 75-year-old female with a known history of seizure disorder, GERD, hyperlipidemia, history of colon cancer, esophageal strictures and history of esophageal palpitation, anxiety depression and panic disorder and history of major depression and admission to mental health unit presents to ER with complaints of worsening anxiety and depression for the past 3 days. EMS was called by her stating that her symptoms had worsened. Denies any overdose or suicidal ideation as per the ER note. No complaints of chest pain or shortness of. No nausea vomiting or abdominal pain or diarrhea. Laboratory data showed WBC 6.3, hemoglobin 13.2 and platelets 251 D-dimer 0.94 Sodium 142, potassium 3.3, chloride 108, BUN 30 and creatinine 1.29 Lactic acid was 4.4 on admission Troponin x1 - COVID-19 PCR is negative Today morning patient was found to be hyponatremic with sodium level 150, potassium 2.8 and chloride 116. IV fluids were changed to D5 water. UA is negative for infection EKG showed sinus tachycardia Chest x-ray showed no acute pulmonary process VQ scan showed low probability for PE 05/22/2020 Patient is currently in the MICU. Yesterday evening patient developed muscular rigidity and diaphoretic and tachycardic and febrile. Patient received dose of Haldol prior to this episode and suspected neuroleptic malignant syndrome. Patient was given fluid boluses and started on Ativan for muscle rigidity. Patient was transferred to MICU and was seen by rapid response team. Haldol has been discontinued and monitor QT interval. Potassium was replaced and went up to 3.0 today. Possibly is also low and is being replaced with potassium phosphate. Laboratory data showed WBC is 4.4, hemoglobin 9.7 and platelets 134 BUN 39 creatinine 0.95 and phosphorus level is 1.0 and CPK level went up to 3024 and 3177 patient is being continued on D5 water at 150 cc/h. Critical care team is on board. Current medications reviewed. Objective - Vital Signs Vital signs: Vital Signs Temp 97.9 F 05/22/20 08:00 Pulse 94 05/22/20 09:00 Resp 23 05/22/20 09:00 BP 116/61 05/22/20 09:00 Pulse Ox 97 05/22/20 09:00 Intake & Output 0105/22/20 05/22/20 18:59 06:59 18:59 Intake Total 125 2400 290 Output Total 150 435 74 Balance -1964 Weight 57.606 kg 56.6 kg Intake: IV 125 2400 290 Dextrose 5%-0.45% NaCl 1, 125 1500 000 ml @ 125 mls/hr IV . Q8H CORAL Rx#:[id number] Dextrose 5%-0.45% NaCl 1, 290 000 ml @ 150 mls/hr IV . Q6H40M [facility]AL Rx#:[id number] Magnesium Sulfate-D5w Pmx 300 1 gm In Dextrose/Water 1 100ml.bag @ 100 mls/hr IVPB Q1H [facility]AL Rx#: [id number] Potassium Chloride 10 meq 600 In Water For Injection 1 100ml.bag @ 100 mls/hr IVPB Q1HR CORAL Rx#: [id number] Output: Urine 150 435 74 Other: Voiding Method Indwelling Catheter Indwelling Catheter Indwelling Catheter - Exam PHYSICAL EXAMINATION: Patient is lying in the bed comfortably, does not open her eyes and not responding verbally. HEENT: Normocephalic. Neck is supple. Pupils reactive. Nostrils clear. Oral cavity is moist. Ears reveal no drainage. Neck reveals no JVD, carotid bruits, or thyromegaly. CHEST EXAMINATION: Trachea is central. Symmetrical expansion. Lung morley clear to auscultation and percussion. CARDIAC: Normal S1, S2 with no gallops. No murmurs ABDOMEN: Soft. non distended. Bowel sounds normal. No organomegaly. No abdominal bruits. Extremities: reveal no edema. No clubbing or cyanosis Neurologically awake, alerts.Oriented x0. withdrawn, No focal deficits noted Skin: No rash or skin lesions. Psychiatric: Noncooperative. Musculoskeletal: No joint swelling or deformity. - Labs CBC & Chem 7: 05/22/20 05:14 05/22/20 18:56 Labs: Abnormal Lab Results - Last 24 Hours (Table) 05/21/20 05/21/20 05/21/20 Range/Units 17:38 17:38 18:02 RBC (3.80-5.40) m/uL Hgb (11.4-16.0) gm/dL Hct (34.0-46.0) % Plt Count (150-450) k/uL Potassium 2.7 L* (3.5-5.1) mmol/L Chloride 118 H (98-107) mmol/L Carbon Dioxide (22-30) mmol/L BUN 18 H (7-17) mg/dL Creatinine 1.07 H (0.52-1.04) mg/dL Glucose (74-99) mg/dL Calcium 7.5 L (8.4-10.2) mg/dL Phosphorus (2.5-4.5) mg/dL AST 45 H (14-36) U/L Creatine Kinase 835 H (30-135) U/L Total Protein 4.5 L (6.3-8.2) g/dL Albumin 2.3 L (3.5-5.0) g/dL Urine Protein Trace H Trace H (Negative) Urine Ketones Trace H (Negative) U Benzodiazepines Scrn Detected H (NotDetected) 05/22/20 05/22/20 Range/Units 05:14 05:14 RBC 2.97 L (3.80-5.40) m/uL Hgb 9.7 L (11.4-16.0) gm/dL Hct 28.9 L (34.0-46.0) % Plt Count 134 L (150-450) k/uL Potassium 3.0 L (3.5-5.1) mmol/L Chloride 118 H (98-107) mmol/L Carbon Dioxide 21 L (22-30) mmol/L BUN (7-17) mg/dL Creatinine (0.52-1.04) mg/dL Glucose 118 H (74-99) mg/dL Calcium 7.8 L (8.4-10.2) mg/dL Phosphorus 1.0 L* (2.5-4.5) mg/dL AST (14-36) U/L Creatine Kinase 3024 H* (30-135) U/L Total Protein (6.3-8.2) g/dL Albumin (3.5-5.0) g/dL Urine Protein (Negative) Urine Ketones (Negative) U Benzodiazepines Scrn (NotDetected) Assessment and Plan Assessment: Possible neuroleptic malignant syndrome. Improving rigidity and fever. Severe rhabdomyolysis Acute episode of major depressive disorder Generalized anxiety and panic disorder Hypernatremia and severe hypokalemia Hyperlipidemia History of seizure disorder GERD History of esophageal stricture status post EGD and dilation Anxiety/depression panic disorder history DVT prophylaxis with heparin subcu Plan: Patient will be continued IV hydration with D5 water and replace potassium aggressively. Being monitored in the MICU. Patient will be continued on constant observation and suicide and elopement precautions. Ativan as needed for agitation and follow-up closely. Replace electrolytes and further recommendations based on the clinical course. Time with Patient: Greater than 30
[2020-05-23] MEDS: DEXTROSE 5%-0.45% NACL 1,000 ML IV SCH ×2 (02:19→08:37)
[2020-05-23 05:34] LABS: Basophils % (A) 0 %; Eosinophils # (A) 0.2 k/uL (0-0.7); Eosinophils % (A) 4 %; HCT 30.1 % (34.0-46.0); HGB 10.2 gm/dL (11.4-16.0); Lymphocytes # (A) 0.8 k/uL (1.0-4.8); Lymphocytes % (A) 18 %; MCHC 33.8 g/dL (31.0-37.0); MCV 97.4 fL (80.0-100.0); Mean Platelet Volume 8.8; Monocytes # (A) 0.2 k/uL (0-1.0); Monocytes % (A) 5 %; Neutrophils # (A) 3.1 k/uL (1.3-7.7); Neutrophils % (A) 71 %; Platelet Count 117 k/uL (150-450); RBC 3.09 m/uL (3.80-5.40); RDW 12.2 % (11.5-15.5); WBC 4.4 k/uL (3.8-10.6)
[2020-05-23] MEDS: LORazepam 2 MG/ML INJ IV PRN ×4 (05:40→23:08)
[2020-05-23 05:57] LABS: Calcium 7.6 mg/dL (8.4-10.2); Magnesium 1.8 mg/dL (1.6-2.3); Phosphorus 2.9 mg/dL (2.5-4.5)
[2020-05-23] MEDS: MAGNESIUM SULFATE-D5W PMX 1 GM in DEXTROSE/WATER 1 100ML.BAG IVPB SCH ×2 (06:18→07:19)
[2020-05-23] MEDS: lamoTRIgine 100 MG TAB PO SCH ×2 (08:37→20:12)
[2020-05-23] MEDS: HEPARIN SODIUM,PORCINE 5,000 UNIT/ML 1 ML VIAL SQ SCH ×2 (08:37→20:12)
[2020-05-23] MEDS: DEXTROSE 5%-0.9% NACL 1,000 ML IV SCH ×3 (09:53→23:08)
--- NOTE | 2020-05-23 12:08 | PN ---
PROGRESS NOTE PULMONARY/CRITICAL CARE PROGRESS NOTE: DATE OF SERVICE: 05/23/2020 75-year-old female that apparently was thought to have possible neuroleptics malignant syndrome versus serotonin syndrome. The patient was admitted with psychiatric symptoms. She received one dose of Haldol. She developed confusion, disorientation, fever, shortness of breath and stiff muscles. The patient was on a selective serotonin reuptake inhibitor and it was unclear to me whether or not the patient had neuroleptic malignant syndrome versus serotonin syndrome. The patient is apparently a bit better according to the nurse today. She is still not very awake. We do not have Neurology services here to evaluate her. The patient is much less stiff than she was when she first came in. She has been having some mild intermittent temperature elevations. Unable to really give any verbal responses. We are not sure what her baseline. She has a history of panic disorder, generalized anxiety disorder, and lactic acidosis as well as elevated D-dimer. She was seen in the emergency room by Dr. Pryor. She is currently in room 261 in the ICU. The patient is getting 2 L nasal cannula. She is getting D5 of 0.9 at 150 mL an hour. She has been getting intermittent doses of benzodiazepines. PHYSICAL EXAMINATION: VITAL SIGNS: Current vital signs are reviewed. Temperature 99.1, heart rate 76, respiratory rate 23, blood pressure 127/66, mean 86, 3 L saturation 99%. Appears in no acute distress. HEENT: Examination is grossly unremarkable. NECK: Supple. Full range of motion. No adenopathy. Neck veins are flat. CARDIOVASCULAR: Examination reveals regular rhythm and rate. Heart rate 76. S1, S2 normal. Heart sounds are distant. LUNGS: Reveal a few scattered rhonchi. No wheezes or crackles. ABDOMEN: Soft. EXTREMITIES: Stiff but improved compared to yesterday. No cyanosis or clubbing. SKIN: Without rash. NEUROLOGIC: Examination is difficult to assess. She does move all four extremities, more so the upper than the lower extremities. She does not really respond appropriately to verbal stimuli. She does respond to painful stimuli. LAB DATA: Reviewed. White count 4.4, hemoglobin 10.2, hematocrit 30.1, platelet count 117,000. Sodium 135, potassium 4, chloride 115, CO2 20, anion gap is 0. BUN and creatinine were 4 and 0.84. Glucose 120, calcium 7.6, phosphorus is 2.9. Magnesium 1.8. CK was elevated at 2632 but lower than yesterday's value which was 3177. Current microbiology including blood cultures are negative. A lung scan done on May 20 shows it to be low probability for pulmonary embolism. A chest x-ray done on the showed no acute pulmonary disease. CURRENT MEDICATIONS: Reviewed. She is on D5 0.9 at 150 an hour, subcu heparin for DVT prophylaxis, Lamictal, Ativan p.r.n., Remeron, Narcan phosphorus and potassium replacement. ASSESSMENT: 1. Acute onset of fever, muscle rigidity, confusion, shortness of breath, of unclear etiology. Diagnostic possibilities include neuroleptic malignant syndrome versus serotonin syndrome. 2. History of hyperlipidemia. 3. History of seizure disorder. 4. History of gastroesophageal reflux disease. 5. History of colon cancer, status post bowel resection. 6. History of hiatal hernia. 7. Esophageal strictures. 8. Known history of diverticular disease. PLAN: The patient appears to be better according to the nurse. Mental status is still poor. Her muscles are less rigid. She has been getting intermittent Ativan. She is getting fluid hydration with dextrose and saline. No additional recommendations are made. Neurology has been consulted but obviously are not in the house. We will continue to follow. We have also asked Psychiatry to follow up on her. Her selective serotonin reuptake inhibitor has been discontinued. Haldol was discontinued. MMODL / IJN: [id number] /
[2020-05-23] MEDS: MIRTAZAPINE 15 MG TAB PO SCH (20:12)
--- NOTE | 2020-05-24 00:35 | P.PN ---
Subjective Progress Note Date: 05/23/20 Principal diagnosis: Severe depression. Neuroleptic malignant syndrome. Patient is a 75-year-old female with a known history of seizure disorder, GERD, hyperlipidemia, history of colon cancer, esophageal strictures and history of esophageal palpitation, anxiety depression and panic disorder and history of major depression and admission to mental health unit presents to ER with complaints of worsening anxiety and depression for the past 3 days. EMS was called by her stating that her symptoms had worsened. Denies any overdose or suicidal ideation as per the ER note. No complaints of chest pain or shortness of. No nausea vomiting or abdominal pain or diarrhea. Laboratory data showed WBC 6.3, hemoglobin 13.2 and platelets 251 D-dimer 0.94 Sodium 142, potassium 3.3, chloride 108, BUN 30 and creatinine 1.29 Lactic acid was 4.4 on admission Troponin x1 - COVID-19 PCR is negative Today morning patient was found to be hyponatremic with sodium level 150, potassium 2.8 and chloride 116. IV fluids were changed to D5 water. UA is negative for infection EKG showed sinus tachycardia Chest x-ray showed no acute pulmonary process VQ scan showed low probability for PE 05/22/2020 Patient is currently in the MICU. Yesterday evening patient developed muscular rigidity and diaphoretic and tachycardic and febrile. Patient received dose of Haldol prior to this episode and suspected neuroleptic malignant syndrome. Patient was given fluid boluses and started on Ativan for muscle rigidity. Patient was transferred to MICU and was seen by rapid response team. Haldol has been discontinued and monitor QT interval. Potassium was replaced and went up to 3.0 today. Possibly is also low and is being replaced with potassium phosphate. Laboratory data showed WBC is 4.4, hemoglobin 9.7 and platelets 134 BUN 39 creatinine 0.95 and phosphorus level is 1.0 and CPK level went up to 3024 and 3177 patient is being continued on D5 water at 150 cc/h. Critical care team is on board. 05/23/2019 Patient is currently lying in the bed. Able to open her eyes slowly. Does not communicate or follow simple commands. bilateral lower extremities are less rigid today. Laboratory data showed improved potassium level to 4.0 and CPK level improved to 2632 today. Continue IV hydration with D5 normal saline. T- max 99.7 Culture showed no growth Patient is being continued on Ativan as needed for agitation and is being monitored in the ICU. Current medications reviewed. Objective - Vital Signs Vital signs: Vital Signs Temp 98.6 F 05/23/20 16:00 Pulse 94 05/23/20 19:00 Resp 13 05/23/20 19:00 BP 131/57 05/23/20 19:00 Pulse Ox 94 L 05/23/20 19:00 Intake & Output 05/23/20 05/23/20 05/24/20 06:59 18:59 06:59 Intake Total 1850 1800 150 Output Total 1250 1485 35 Balance 600 315 115 Weight 59.8 kg Intake: IV 1850 1800 150 Dextrose 5%-0.45% NaCl 1, 1650 1800 150 000 ml @ 150 mls/hr IV . Q6H40M [facility] Rx#:[id number] Potassium Chloride 10 meq 100 In Water For Injection 1 100ml.bag @ 100 mls/hr IVPB Q1HR CORAL Rx#: [id number] Potassium Chloride 10 meq 100 In Water For Injection 1 100ml.bag @ 100 mls/hr IVPB Q1HR CORAL Rx#: [id number] Output: Urine 1250 1485 35 Other: Voiding Method Indwelling Catheter Indwelling Catheter - Exam PHYSICAL EXAMINATION: Patient is lying in the bed comfortably, does not open her eyes and not responding verbally. HEENT: Normocephalic. Neck is supple. Pupils reactive. Nostrils clear. Oral cavity is moist. Ears reveal no drainage. Neck reveals no JVD, carotid bruits, or thyromegaly. CHEST EXAMINATION: Trachea is central. Symmetrical expansion. Lung morley clear to auscultation and percussion. CARDIAC: Normal S1, S2 with no gallops. No murmurs ABDOMEN: Soft. non distended. Bowel sounds normal. No organomegaly. No abdominal bruits. Extremities: reveal no edema. No clubbing or cyanosis Neurologically awake, alerts.Oriented x0. withdrawn, No focal deficits noted Skin: No rash or skin lesions. Psychiatric: Noncooperative. Musculoskeletal: No joint swelling or deformity. - Labs CBC & Chem 7: 05/23/20 05:05 05/23/20 05:05 Labs: Abnormal Lab Results - Last 24 Hours (Table) 05/23/20 05/23/20 Range/Units 05:05 05:05 RBC 3.09 L (3.80-5.40) m/uL Hgb 10.2 L (11.4-16.0) gm/dL Hct 30.1 L (34.0-46.0) % Plt Count 117 L (150-450) k/uL Lymphocytes # 0.8 L (1.0-4.8) k/uL Sodium 135 L (137-145) mmol/L Chloride 115 H (98-107) mmol/L Carbon Dioxide 20 L (22-30) mmol/L BUN 4 L (7-17) mg/dL Glucose 120 H (74-99) mg/dL Calcium 7.6 L (8.4-10.2) mg/dL Creatine Kinase 2632 H* (30-135) U/L Microbiology - Last 24 Hours (Table) 05/21/20 18:02 Blood Culture - Preliminary Blood No Growth after 24 hours Assessment and Plan Assessment: Possible neuroleptic malignant syndrome. Improving rigidity and fever. Severe rhabdomyolysis Acute episode of major depressive disorder Generalized anxiety and panic disorder Hypernatremia and severe hypokalemia Hyperlipidemia History of seizure disorder GERD History of esophageal stricture status post EGD and dilation Anxiety/depression panic disorder history DVT prophylaxis with heparin subcu Plan: Patient will be continued IV hydration with D5 water and replace potassium aggressively. Being monitored in the MICU. Patient will be continued on constant observation and suicide and elopement precautions. Ativan as needed for agitation and follow-up closely. Replace electrolytes and further recommendations based on the clinical course. Time with Patient: Greater than 30
[2020-05-24] MEDS: LORazepam 2 MG/ML INJ IV PRN ×5 (01:59→17:57)
[2020-05-24 04:05] LABS: Basophils # (A) 0.1 k/uL (0-0.2); Basophils % (A) 1 %; Eosinophils # (A) 0.1 k/uL (0-0.7); Eosinophils % (A) 3 %; HCT 29.7 % (34.0-46.0); HGB 10.4 gm/dL (11.4-16.0); Lymphocytes # (A) 0.7 k/uL (1.0-4.8); Lymphocytes % (A) 14 %; MCH 33.7 pg (25.0-35.0); MCHC 34.9 g/dL (31.0-37.0); MCV 96.7 fL (80.0-100.0); Mean Platelet Volume 8.8; Monocytes # (A) 0.3 k/uL (0-1.0); Monocytes % (A) 7 %; Neutrophils # (A) 3.7 k/uL (1.3-7.7); Neutrophils % (A) 75 %; Platelet Count 122 k/uL (150-450); RBC 3.07 m/uL (3.80-5.40); RDW 12.3 % (11.5-15.5); WBC 4.9 k/uL (3.8-10.6)
[2020-05-24 04:19] LABS: African American GFR (CKD) 82 (>60 ml/min/1.73 sqM); Anion Gap 2 mmol/L; Blood Urea Nitrogen <2 mg/dL (7-17); Calcium 7.6 mg/dL (8.4-10.2); Carbon Dioxide 24 mmol/L (22-30); Chloride 111 mmol/L (98-107); Glucose 128 mg/dL (74-99); Magnesium 1.9 mg/dL (1.6-2.3); Non-African American GFR(CKD) 71 (>60 ml/min/1.73 sqM); Phosphorus 2.5 mg/dL (2.5-4.5); Potassium 3.6 mmol/L (3.5-5.1); Sodium 137 mmol/L (137-145)
[2020-05-24 04:42] LABS: Creatine Kinase 2401 U/L (30-135)
[2020-05-24] MEDS: DEXTROSE 5%-0.9% NACL 1,000 ML IV SCH ×3 (05:20→16:51)
[2020-05-24] MEDS: POTASSIUM CHLORIDE 10 MEQ in WATER FOR INJECTION 1 100ML.BAG IVPB SCH ×4 (05:31→17:51)
[2020-05-24] MEDS: MAGNESIUM SULFATE-D5W PMX 1 GM in DEXTROSE/WATER 1 100ML.BAG IVPB SCH ×2 (05:32→06:43)
[2020-05-24] MEDS: lamoTRIgine 100 MG TAB PO SCH ×2 (08:51→20:35)
[2020-05-24] MEDS: HEPARIN SODIUM,PORCINE 5,000 UNIT/ML 1 ML VIAL SQ SCH ×2 (09:22→20:50)
--- NOTE | 2020-05-24 12:25 | P.PN ---
Subjective Patient was admitted for psychiatric issues. Patient as per the chart does have seizure disorder patient is presently having tonic-clonic activity. Patient was believed to have neuroleptic malignant syndrome because of her [employer] disability diaphoresis and tachycardia and patient was febrile. No source of infection was found at that time. Overweight was negative, chest x-ray did not show any pneumonia UA was within normal limits. Although patient doesn't appear to be on medications that can cause significant neuroleptic malignant syndrome upon review of her chart it looks like patient is on very low-dose of Seroquel although benztropine was discontinued. Patient is still having fevers but those are low-grade. I'm not completely convinced this is neuroleptic malignant syndrome because of that reason I'm consulting neurology patient will need EEG which was ordered. Will request psychiatry to reevaluate the patient. As a source of infection is not clear and consulting infectious disease patient may and up needing a lumbar puncture. Review of systems: Unable to obtain due to her clinical condition All inpatient medications were reviewed and appropriate changes in these medications as dictated in the interval history and assessment and plan. Objective - Vital Signs Vital signs: Vital Signs Temp 98.4 F 05/24/20 08:00 Pulse 97 05/24/20 11:00 Resp 29 H 05/24/20 11:00 BP 125/65 05/24/20 11:00 Pulse Ox 95 05/24/20 11:00 Intake & Output 05/23/20 05/24/20 05/24/20 18:59 06:59 18:59 Intake Total 1800 1800 750 Output Total 1485 1335 875 Balance 315 465 -125 Weight 61.2 kg Intake: IV 1800 1800 750 Dextrose 5%-0.45% NaCl 1, 1800 750 000 ml @ 150 mls/hr IV . Q6H40M CORAL Rx#:[id number] Dextrose 5%-0.9% NaCl 1, 1050 750 000 ml @ 150 mls/hr IV . Q6H40M CORAL Rx#:[id number] Output: Urine 1485 1335 875 Other: Voiding Method Indwelling Catheter Indwelling Catheter Indwelling Catheter - Exam PHYSICAL EXAMINATION: GENERAL: Patient is arousable drowsy is having myoclonic activity barely able to open eyes. HEENT: Pupils are round and equally reacting to light. EOMI. No scleral icterus. No conjunctival pallor. Normocephalic, atraumatic. No pharyngeal erythema. No thyromegaly. CARDIOVASCULAR: S1 and S2 present. No murmurs, rubs, or gallops. PULMONARY: Chest is clear to auscultation, no wheezing or crackles. ABDOMEN: Soft, nontender, nondistended, normoactive bowel sounds. No palpable organomegaly. MUSCULOSKELETAL: No joint swelling or deformity. EXTREMITIES: No cyanosis, clubbing, or pedal edema. NEUROLOGICAL: Myoclonic activity as mentioned above SKIN: No rashes. - Labs CBC & Chem 7: 05/24/20 03:38 05/24/20 03:38 Labs: Abnormal Lab Results - Last 24 Hours (Table) 05/24/20 05/24/20 Range/Units 03:38 03:38 RBC 3.07 L (3.80-5.40) m/uL Hgb 10.4 L (11.4-16.0) gm/dL Hct 29.7 L (34.0-46.0) % Plt Count 122 L (150-450) k/uL Lymphocytes # 0.7 L (1.0-4.8) k/uL Chloride 111 H (98-107) mmol/L BUN <2 L (7-17) mg/dL Glucose 128 H (74-99) mg/dL Calcium 7.6 L (8.4-10.2) mg/dL Creatine Kinase 2401 H* (30-135) U/L Microbiology - Last 24 Hours (Table) 05/21/20 18:02 Blood Culture - Preliminary Blood No Growth after 48 hours Assessment and Plan Plan: -Myoclonus: Probably secondary to severe encephalopathy patient may end up needing the lumbar puncture patient still has low-grade fevers. Consulting infectious disease and neurology. Possibility of neuroleptic malignant syndrome is low. Psychiatry will evaluate the patient. -Fever: Etiology of fever is not clear. He may need to rule out encephalitis. -Elevated CK secondary to myoclonic activity: Can you with IV fluids but I do not believe patient has rhabdomyolysis. -Major depression and anxiety disorder -Hypovolemic hyponatremia improved with the D5 W -Hyperlipidemia -Seizure disorder with the present micrometers patient EEG is being ordered -History of esophageal stricture -DVT prophylaxis with subcutaneous heparin
--- NOTE | 2020-05-24 13:21 | CT ---
EXAMINATION TYPE: CT brain wo con DATE OF EXAM: 05/24/2020 COMPARISON: change in neuro status HISTORY: change in neuro status CT DLP: 1098.4 mGycm Automated exposure control for dose reduction was used. FINDINGS: Low attenuation in the right parietal white matter is nonspecific but most typical remote white matte r ischemia and stable from prior exam. Areas of low attenuation involving the basal ganglia are stabl e bilaterally. Most typical remote lacunar infarcts. No mass effect or midline shift. Calvarium intact. Hyperostosis noted. IMPRESSION: REMOTE ISCHEMIC CHANGE DISCUSSED ABOVE WITH NO EVIDENCE OF ACUTE HEMORRHAGE OR MASS EFFECT. IF THE RE IS CONCERN FOR ACUTE ISCHEMIA CORRELATE WITH MRI CLINICALLY WARRANTED.
--- NOTE | 2020-05-24 13:50 | P.PN ---
Progress Note - Text Progress Note Date: 05/24/20 Interval History: Patient was seen resting in bed and was unarousable and unable to participate in the psychiatric interview. Over the weekend, the patient received Haldol due to agitation. Patient then developed muscular rigidity, became diaphoretic, tachycardic, and had an increase in temperature. The patient was then transferred to the MICU for evaluation and treatment of NMS. Patient was given fluid boluses and was started on Ativan for muscle rigidity. Neurology and infectious disease have been consulted as well for evaluation of the fever of unknown origin as well as encephalopathy. Currently the patient is nothing by mouth. This provider discussed with the patient's family and the patient needs to be medically worked up due to her current encephalopathic presentation. Mental Status Exam: General Appearance: Patient appears to be her stated age, is difficult to direct, uncooperative,and lying in bed. Behavior: Patient appears to be encephalopathic. Minimally responsive. Speech: Patient is not responding to this provider. Mood/Affect: Unable to assess Suicidality/Homicidality: Unable to assess Perceptions: Unable to assess Though content/process: Unable to assess Memory and concentration: Poor Judgment and insight: poor Assessment Acute encephalopathy Possible NMS - Myoclonus, Fever, Elevated CK secondary to myoclonic activity Major Depression, Generalized Anxiety Disorder Plan: -Delirium precautions recommended with patient including - avoiding use of narcotics and [employer] sedatives, limit anticholinergic medications when possible, frequent re-orientation, minimize use of restraints, open window shades during the day and close them at night. -Will hold psychotropic medications at this time. Patient is also NPO. -Psychiatry will continue to follow.
--- NOTE | 2020-05-24 13:53 | P.PN ---
Subjective Progress Note Date: 05/24/20 Principal diagnosis: Acute serotonin syndrome. Patient was reevaluated today on 05/24/2020, patient was seen by Dr. Kumari on consultation yesterday, and she was mostly admitted with questionable neuroleptic malignant syndrome or possibly serotonin syndrome. Based on the clinical history I believe the patient most likely had serotonin syndrome. Patient remains in the ICU, she is doing fairly well, in no form of distress, on 2 L nasal cannula, O2 saturations 98%. Remains on IV fluid at 150 mL/h, CPK seems to be coming down nicely. Patient is sleepy, but arousable, and follows simple instructions once a arousable but slowly. In no form of respiratory distress. CBC today is basically normal. Electrolytes are normal. Renal profile is normal. CPK is coming down it is 06/24/2000 today compared to over [address] of the brain showed no acute process. Patient is yet to be seen by neurology on consultation, mostly to be evaluated for her myoclonic activity. May or may not recommend lumbar puncture specially with her low-grade fever on presentation. Objective - Vital Signs Vital signs: Vital Signs Temp 37.2 F L 05/24/20 12:00 Pulse 86 05/24/20 13:00 Resp 12 05/24/20 13:00 BP 130/69 05/24/20 13:00 Pulse Ox 96 05/24/20 13:00 Intake & Output 05/23/20 05/24/20 05/24/20 18:59 06:59 18:59 Intake Total 1800 1800 1050 Output Total 1485 1335 1100 Balance 315 465 -50 Weight 61.2 kg Intake: IV 1800 1800 1050 Dextrose 5%-0.45% NaCl 1, 1800 750 000 ml @ 150 mls/hr IV . Q6H40M [facility] Rx#:[id number] Dextrose 5%-0.9% NaCl 1, 1050 1050 000 ml @ 150 mls/hr IV . Q6H40M [facility] Rx#:[id number] Output: Urine 1485 1335 1100 Other: Voiding Method Indwelling Catheter Indwelling Catheter Indwelling Catheter - Exam Patient is lying in the bed comfortably, opens eyes to verbal stimuli. Quite slow to follow other instructions. HEENT: Normocephalic. Neck is supple. Pupils reactive. Nostrils clear. Oral cavity is moist. Ears reveal no drainage. Neck reveals no JVD, carotid bruits, or thyromegaly. CHEST EXAMINATION: Trachea is central. Symmetrical expansion. Lung morley clear to auscultation and percussion. CARDIAC: Normal S1, S2 with no gallops. No murmurs ABDOMEN: Soft. non distended. Bowel sounds normal. No organomegaly. No abdominal bruits. Extremities: reveal no edema. No clubbing or cyanosis Neurologically awake, alerts.Oriented x0. withdrawn, No focal deficits noted Skin: No rash or skin lesions. Psychiatric: Very slow in following simple instructions. Musculoskeletal: No joint swelling or deformity. - Labs CBC & Chem 7: 05/24/20 03:38 05/24/20 03:38 Labs: Abnormal Lab Results - Last 24 Hours (Table) 05/24/20 05/24/20 Range/Units 03:38 03:38 RBC 3.07 L (3.80-5.40) m/uL Hgb 10.4 L (11.4-16.0) gm/dL Hct 29.7 L (34.0-46.0) % Plt Count 122 L (150-450) k/uL Lymphocytes # 0.7 L (1.0-4.8) k/uL Chloride 111 H (98-107) mmol/L BUN <2 L (7-17) mg/dL Glucose 128 H (74-99) mg/dL Calcium 7.6 L (8.4-10.2) mg/dL Creatine Kinase 2401 H* (30-135) U/L Microbiology - Last 24 Hours (Table) 05/21/20 18:02 Blood Culture - Preliminary Blood No Growth after 48 hours Assessment and Plan Assessment: Impression: Suspect acute serotonin syndrome. Doubt neuroleptic malignant syndrome. History of seizure disorder. History of colon cancer. History of esophageal strictures. Dyslipidemia. History of depression. History of diverticular disease. Elevated CPK with acute rhabdomyolysis most likely secondary to acute serotonin syndrome or myoclonic activity/possible seizures. Recommendation: Continue IV fluids. Continue to monitor in the ICU. Continue to hold Haldol and any serotonin medications. No evidence of muscle rigidity is noted on examination today Neurology to see on consultation Continue Ativan when necessary. Continue to monitor renal profile electrolytes and CPK. Neurology may recommend lumbar puncture on this patient. We'll continue to follow. Time with Patient: Less than 30
[2020-05-24 14:28] LABS: Appearance,Urine Clear (Clear); Bacteria,Urine Rare /hpf; Bilirubin,Urine Negative (Negative); Blood,Urine Trace (Negative); Color,Urine Colorless; Glucose,Urine (UA) Negative (Negative); Ketones,Urine Negative (Negative); Leukocyte Esterase,Urine Small (Negative); Mucus,Urine Rare /hpf; Nitrite,Urine Negative (Negative); PH, Urine 6.5 (5.0-8.0); Protein,Urine Negative (Negative); RBC,Urine 3 /hpf (0-5); Specific Gravity,Urine 1.007 (1.001-1.035); Urobilinogen,Urine <2.0 mg/dL (<2.0); WBC,Urine 3 /hpf (0-5)
[2020-05-24 16:34] LABS: Partial Thromboplastin Time 22.3 sec (22.0-30.0); Prothrombin Time 10.3 sec (9.0-12.0)
--- NOTE | 2020-05-24 17:12 | P.CNNES ---
History of Present Illness Consult date: 05/24/20 Requesting physician: Damián Hardwick Reason for Consult: altered mental status History of Present Illness: This is a 75-year-old woman with history of anxiety and depression that presented to the emergency department on 05/20/2020 for state of depression and anxiety for last 3 days. History was obtained from medical records since the patient is unable to provide any information. It is documented that the EMS was contacted by the patient's and he stated that the patient's symptoms has worsened in regard to her depression and anxiety and he also noted that she is more tremulous. And that there is no suicidal ideation. On Presentation patient denied any headache, focal weakness or numbness. As she was on Effexor and psychiatry recommended that to be discontinued and instead to be on Remeron. As well as recommended to discontinue Cogentin . Patient is also on Lamictal 100 mg by mouth 1 tablet twice a day for her mood disorder. Over the weekend during hospital stay, he received Haldol due to agitation. She developed muscle rigidity and became diaphoretic, tachycardic and had increase in temperature. As a result she was transferred to the MICU and the thought process was that she has neuroleptic malignant syndrome. Patient the received of fluid boluses and was started on Ativan for muscle rigidity. According to the patient nurse patient has a fluctuation wear at she has episodes where she is rigid in all extremities. But denies any focal seizure- like activity or any gaze deviation. She did the ICU nurses witness an episode of 4-5 minutes where she was rigid and then she was the at tachycardic up to the 150s and her temperature becomes elevated but and it's maximum record is 100.5 Fahrenheit axillary. Also during hospital stay as she gets tachypneic in the 20s to 30s respiratory rate. As a result of these episodes the patient gets Ativan and per the ICU nurse again this episode lasted 45 minutes and she received a total 3 mg of Ativan and the patient the episode resolved. Workup in the hospital consisted of: Initial vital signs is a blood pressure of 103/91, heart rate of 109, respiratory of 28, temperature of 97.3 Fahrenheit oral and pulse ox of 98% at room air. CT of the head is reported as remote ischemic changes as discussed above with no evidence of acute hemorrhagic or mass effect. There is concern for acute ischemia correlate with MRI as clinically warranted. In the body mentions that the patient has low attenuation in the right parietal white matter is nonspecific but most typical remote white matter ischemia and stable from prior exam. I spoke with the reading radiologist (Dr. Ji) and he felt this was more chronic small vessel disease but this is old remote and no acute ischemia is seen. EKG is reported as sinus tachycardia. Nonspecific ST abnormality. Abnormal EKG. Her blood cell has been in the normal range. Potassium initial presentation was 3.3 on repeated 2.8. His potassium is 3.7. Local assessment in the range of 110s to 120s. Phosphorus stay is 1.0 and the latest is 2.5 which is normal. She had a blood culture on 05/21/2020 and the it is reported as no growth after 48 hours as a preliminary read. Creatinine kinase on 05/21/2020 is 835 and then a got high as 3024 and then that went up to 3177. Latest CKs today and it's 2401. Review of Systems Review of system is limited in the prone positive and negative as per HPI. Past Medical History Past Medical History: Cancer, GERD/Reflux, Hyperlipidemia, Seizure Disorder Additional Past Medical History / Comment(s): Colon cancer, ileus, hiatal hernia, esophageal strictures, diverticular dx, known intra-abdominal varicosities and labial varicosities, last seizure 2013 History of Any Multi-Drug Resistant Organisms: None Reported Past Surgical History: Appendectomy, Bowel Resection, Cholecystectomy, Tubal Ligation Additional Past Surgical History / Comment(s): laparoscopic cholecystectomy-2013 , EGD with esophageal dilation, bowel resection 2007 Past Anesthesia/Blood Transfusion Reactions: Postoperative Nausea & Vomiting (PONV) Past Psychological History: Anxiety, Depression, Panic Disorder Additional Psychological History / Comment(s): Pt resides with her spouse. She is independent. She has anxiety, depression and panic disorder. Pt recently admitted to [facility] for major depression, generalized anxiety and panic disorder. Spouse states that they are very close to their 2 granddaughters and assisted in raising them. One of the grand daughters-Jackie- has had problems with drugs and has been in [facility] for this. She just recently went back to [facility] again. Spouse believes that pt's mental health is affected by this. He states he was shocked to find that pt had OD. He states she has never spoken of suici de/suicidal thoughts and he states she has never attempted suicide previously. Pt sees Dr. Amor and has been to a councelor at his office. Smoking Status: Never smoker Past Alcohol Use History: None Reported Additional Past Alcohol Use History / Comment(s): Patient denies-BAT 0 Past Drug Use History: None Reported Additional Drug Use History / Comment(s): Patient denies. UDS Positive Benzos which are prescribed. - Past Family History Sister(s) Family Medical History: Cancer Additional Family Medical History / Comment(s): Sister of pancreatic cancer. Father Family Medical History: Cancer, Prostate Disorder Additional Family Medical History / Comment(s): PROSTATE/COLON CANCER-Father at the age of 7272 years old. Mother Family Medical History: Cancer, Dementia Additional Family Medical History / Comment(s): COLON CANCER-Mother at the age of 7878 years old. Medications and Allergies Home Medications Medication Instructions Recorded Confirmed Type Benztropine Mesylate [Cogentin] 0.5 mg PO BID 05/20/20 05/20/20 History Venlafaxine HCl [Effexor XR] 37.5 mg PO DAILY 05/20/20 05/20/20 History lamoTRIgine [LaMICtal] 100 mg PO BID 05/20/20 05/20/20 History Allergies Allergy/AdvReac Type Severity Reaction Status Date / Time codeine AdvReac Nausea & Verified 05/20/20 16:03 Vomiting Physical Examination - Vital Signs Vital Signs: Vital Signs Temp Pulse Resp BP Pulse Ox 05/24/20 16:00 98.8 F 81 20 155/79 98 05/24/20 15:00 84 18 141/80 96 05/24/20 14:00 81 21 145/79 97 05/24/20 13:00 86 12 130/69 96 05/24/20 12:00 37.2 F L 87 15 125/65 97 05/24/20 11:00 97 29 H 125/65 95 05/24/20 10:00 104 H 24 142/70 96 05/24/20 09:00 89 20 118/68 96 05/24/20 08:00 98.4 F 82 26 H 118/89 98 05/24/20 07:00 89 15 115/94 97 05/24/20 06:00 114 H 35 H 174/101 95 01/04/21 05:00 100 25 H 140/77 97 05/24/20 04:00 99.5 F 86 24 143/68 98 05/24/20 03:00 89 24 156/89 98 05/24/20 02:00 108 H 16 151/102 94 L 05/24/20 01:00 117 H 41 H 147/76 94 L 05/24/20 00:14 86 11 L 147/76 99 05/24/20 00:00 87 18 144/112 99 05/23/20 23:00 100.5 F H 96 22 146/81 98 05/23/20 22:00 92 24 101/77 98 05/23/20 21:00 98 42 H 138/74 95 05/23/20 20:00 99.8 F H 92 19 131/57 97 05/23/20 19:00 94 13 131/57 94 L 05/23/20 18:00 113 H 22 139/97 92 L 05/23/20 17:00 79 24 133/87 99 Intake and Output 05/24/20 05/24/20 05/24/20 06:59 14:59 22:59 Intake Total 1200 1200 300 Output Total 950 1350 420 Balance 250 -150 -120 Intake: IV 1200 1200 300 Dextrose 5%-0.45% NaCl 1, 150 000 ml @ 150 mls/hr IV . Q6H40M [facility] Rx#:[id number] Dextrose 5%-0.9% NaCl 1, 1050 1200 300 000 ml @ 150 mls/hr IV . Q6H40M [facility] Rx#:[id number] Output: Urine 950 1350 420 Other: Voiding Method Indwelling Catheter Indwelling Catheter Indwelling Catheter Weight 61.2 kg GENERAL: The patient is lying in bed and does not seem in distress. CHEST: The heart rate is regular rate rhythm. No murmurs to auscultation. LUNG: Clear to auscultation bilaterally no wheezing noted throughout. Not labored breathing. ABDOMEN/GI: Bowel sounds present in all 4 quadrants. No tenderness to palpation throughout. NEUROLOGICAL: Limited because of condition. Higher mental function: The patient is comatose and unresponsive. GCS 7: (E1,V1,M5) Patient is mute and not verbalizing the following commands. Cranial nerves: Patient was resistant to opening the eyes even though painful stimuli at. I had to manually open eyes and the primary gaze was midline the. The pupils are round 3 mm bilaterally and reactive to light. No facial weakness is noted that. Otherwise I could not assess the rest of the cranial nerves because of patient condition. Motor: He is deferred because of patient condition. Patient was withdrawing to painful stimuli throughout. Patient does have increased tone throughout all extremities. There is no spontaneous movement noted. No seizure-like activity noted that. Cerebellum: Could not assess because of her condition. Sensation: Could not assess like sensation about to painful stimuli the patient was withdrawing as well as was grimacing on her face. Reflexes (right/left): 3+ throughout. Plantars are downgoing bilaterally. Results Creatinine on presentation is 1.29 latest is 0.81. Latest liver function test: AST of 45 and ALT of 15. Urinalysis on 05/21/2020 is negative for urinary tract infection. Drug screen old things detected as benzodiazepine. Jacobson virus PCR is nondetected. - Laboratory Findings CBC and BMP: 05/24/20 03:38 05/24/20 15:49 Abnormal Lab Findings: Abnormal Labs 05/20/20 05/20/20 05/20/20 13:08 13:08 13:19 RBC Hgb Hct Plt Count Lymphocytes # D-Dimer 0.94 H Sodium Potassium 3.3 L Chloride 108 H Carbon Dioxide BUN 30 H Creatinine 1.29 H Est GFR (CKD-EPI)AfAm Est GFR (CKD-EPI)NonAf BUN/Creatinine Ratio Glucose 100 H Plasma Lactic Acid Kingsley 4.4 H* Calcium Phosphorus AST Creatine Kinase Total Protein 5.8 L Albumin 3.3 L Globulin Urine Protein Urine Ketones Urine Blood Ur Leukocyte Esterase Urine Bacteria Urine Mucus U Benzodiazepines Scrn 05/21/20 05/21/20 05/21/20 06:43 06:43 17:38 RBC 3.13 L Hgb 10.4 L Hct 30.3 L Plt Count Lymphocytes # D-Dimer Sodium 150 H Potassium 2.8 L Chloride 116 H Carbon Dioxide BUN Creatinine Est GFR (CKD-EPI)AfAm 50.8 L Est GFR (CKD-EPI)NonAf 43.9 L BUN/Creatinine Ratio 21.67 H Glucose Plasma Lactic Acid Kingsley Calcium 7.9 L Phosphorus AST Creatine Kinase Total Protein 4.5 L Albumin 3.10 L Globulin 1.4 L Urine Protein Trace H Urine Ketones Trace H Urine Blood Ur Leukocyte Esterase Urine Bacteria Urine Mucus U Benzodiazepines Scrn 05/21/20 05/21/20 05/22/20 17:38 18:02 05:14 RBC 2.97 L Hgb 9.7 L Hct 28.9 L Plt Count 134 L Lymphocytes # D-Dimer Sodium Potassium 2.7 L* Chloride 118 H Carbon Dioxide BUN 18 H Creatinine 1.07 H Est GFR (CKD-EPI)AfAm Est GFR (CKD-EPI)NonAf BUN/Creatinine Ratio Glucose Plasma Lactic Acid Kingsley Calcium 7.5 L Phosphorus AST 45 H Creatine Kinase 835 H Total Protein 4.5 L Albumin 2.3 L Globulin Urine Protein Trace H Urine Ketones Urine Blood Ur Leukocyte Esterase Urine Bacteria Urine Mucus U Benzodiazepines Scrn Detected H 05/22/20 05/22/20 05/23/20 05:14 10:55 05:05 RBC 3.09 L Hgb 10.2 L Hct 30.1 L Plt Count 117 L Lymphocytes # 0.8 L D-Dimer Sodium Potassium 3.0 L Chloride 118 H Carbon Dioxide 21 L BUN Creatinine Est GFR (CKD-EPI)AfAm Est GFR (CKD-EPI)NonAf BUN/Creatinine Ratio Glucose 118 H Plasma Lactic Acid Kingsley Calcium 7.8 L Phosphorus 1.0 L* AST Creatine Kinase 3024 H* 3177 H* Total Protein Albumin Globulin Urine Protein Urine Ketones Urine Blood Ur Leukocyte Esterase Urine Bacteria Urine Mucus U Benzodiazepines Scrn 05/23/20 05/24/20 05/24/20 05:05 03:38 03:38 RBC 3.07 L Hgb 10.4 L Hct 29.7 L Plt Count 122 L Lymphocytes # 0.7 L D-Dimer Sodium 135 L Potassium Chloride 115 H 111 H Carbon Dioxide 20 L BUN 4 L <2 L Creatinine Est GFR (CKD-EPI)AfAm Est GFR (CKD-EPI)NonAf BUN/Creatinine Ratio Glucose 120 H 128 H Plasma Lactic Acid Kingsley Calcium 7.6 L 7.6 L Phosphorus AST Creatine Kinase 2632 H* 2401 H* Total Protein Albumin Globulin Urine Protein Urine Ketones Urine Blood Ur Leukocyte Esterase Urine Bacteria Urine Mucus U Benzodiazepines Scrn 05/24/20 13:45 RBC Hgb Hct Plt Count Lymphocytes # D-Dimer Sodium Potassium Chloride Carbon Dioxide BUN Creatinine Est GFR (CKD-EPI)AfAm Est GFR (CKD-EPI)NonAf BUN/Creatinine Ratio Glucose Plasma Lactic Acid Kingsley Calcium Phosphorus AST Creatine Kinase Total Protein Albumin Globulin Urine Protein Urine Ketones Urine Blood Trace H Ur Leukocyte Esterase Small H Urine Bacteria Rare H Urine Mucus Rare H U Benzodiazepines Scrn Assessment and Plan Assessment: Encephalopathy likely due to Acute Serotonin syndrome Elevated CK, increased tone throughout, low grade fever,tachycardia, tachypneic and hyperreflexia and encephalopathy seems likely to serotonin syndrome > neuroleptic syndrome (reason is since it is abrupt onset, hyperreflexia) Elevated CK---tending down Electrolye imbalance (hypokalemia, hypophosphatemia)--resolved PORFIRIO--resolved Plan: EEG is ordered stat. I will not start the patient on antiepileptic drugs unless there is applicable discharges or seizure on EEG. Patient is on Ativan 2 mg every 3 hours when necessary for agitation. Command supportive care with normalization of the vital signs. Consider Cyprohepatidine which can help with Serotonin syndrome. Psychiatry is on board. Infection disease is on board and they consulted ID for a stat lumbar puncture. The plan was discussed with the patient nurse. Thank you for the consultation. Evan Areraga M.D. Neuro-hospitalist Time with Patient: Greater than 30
--- NOTE | 2020-05-24 19:38 | EEG ---
ELECTROENCEPHALOGRAM REPORT DATE OF SERVICE: 05/24/2020 CLINICAL HISTORY: This is a 75-year-old woman who presented to the emergency department for worsening of depression and currently has altered mental status. The video EEG is obtained to evaluate for seizure and epileptiform activity. RELEVANT MEDICATION: Ativan p.r.n. Today, she received 3 mg Ativan. EEG TYPE: A routine 21 channel EEG was performed with video using the 10/20 electrode placement system. DESCRIPTION: Wakefulness, drowsiness and stage 2 sleep are obtained. During wakefulness, there is a posterior dominant rhythm of low to moderate voltage, reactive, well modulated, of 5.5- 6.5 hertz activity. During drowsiness, there is slowing and attenuation in the background activity. During stage 2 sleep, there are sleep spindles and K complexes. There is diffuse myogenic artifacts seen during the study. INTERICTAL AND ICTAL: None. ACTIVATION PROCEDURE: Photic stimulation did not evoke a posterior driving response. Hyperventilation was not performed. CLINICAL INTERPRETATION: This is an abnormal routine EEG. The background slowing is suggestive of mild to moderate encephalopathy. There are no focal slowing, epileptiform discharges or seizure during the study. Clinical correlation is recommended. MMODL / IJN: [id number] / [id number]
[2020-05-24] MEDS ORDERED: LORazepam 2 MG/ML INJ IV STA (20:09)
[2020-05-24] MEDS: MIRTAZAPINE 15 MG TAB PO SCH (20:36)
[2020-05-24 20:43] LABS: Albumin 2.6 g/dL (3.5-5.0); Calcium 7.9 mg/dL (8.4-10.2); Potassium 4.1 mmol/L (3.5-5.1); Total Bilirubin 1.1 mg/dL (0.2-1.3); Total Protein 5.3 g/dL (6.3-8.2)
[2020-05-24] MEDS ORDERED: CYPROHEPTADINE 4 MG TABLET PO SCH (23:00)
[2020-05-25] MEDS: LORazepam 2 MG/ML INJ IV PRN ×2 (00:10→05:19)
--- NOTE | 2020-05-25 00:19 | CONS ---
CONSULTATION DATE OF SERVICE: 05/24/2020. REASON FOR CONSULTATION: Fever of unknown origin. HISTORY OF PRESENT ILLNESS: The patient is a 75-year-old female up to the hospital on May 20, 2020 after the called the EMS with concern for the patient seemed to be having worsening anxiety and depression and she was noted to be tremulous. There was no history of any suicidal or homicidal ideation. Apparently, the patient denied any headache, numbness. The patient was on Effexor for treatment of underlying depression. Psychiatric saw the patient and discontinued and the patient started on Remeron and Cogentin was discontinued in this patient also on Lamictal for mood disorder. Patient on presentation to hospital was afebrile. The next day in the evening, the patient did spike a fever 102.2 degrees Fahrenheit and the patient has been running a low-grade fever on a daily basis since admission to the hospital. The patient each episode has been associated with the patient becoming more rigid, tremulousness and becoming tachypneic, tachycardic and spiked a fever. This has been reported by the nursing staff. The patient is currently not responding to any verbal stimuli. Hence, most of the information has been obtained from review of the chart. The patient did have a normal white count and no evidence of any left shift. Lymphopenia has been noticed for the last 2 days. The patient did have D-dimer 0.94 on admission. She did have elevated creatinine. This seemed to have improved. The potassium is low at 2.8. lactic acid on admission that has subsequently resolved. Liver enzymes are normal. Urine is negative. Urine drug screen was positive for benzos and acuña PCR was negative. Patient did have a chest x-ray on admission that was reported negative for any acute infiltrate. CT of the brain done this morning did not show any acute bleed. Infectious Disease was consulted with concern for possible source of her fever. Most of the information has been obtained from review of the chart and talking to the nursing staff. REVIEW OF SYSTEMS: Positive points have been mentioned in HPI. Rest of the systems are negative. PAST MEDICAL HISTORY: Seizure disorder, hyperlipidemia, gastroesophageal reflux disease, history of colon cancer, esophageal stricture, diverticular disease. PAST SURGICAL HISTORY: Appendectomy, bowel resection, cholecystectomy tubal ligation. PAST PSYCHOLOGICAL HISTORY: Anxiety, depression, panic disorder. SOCIAL HISTORY: No history of smoking, drinking or drug use. FAMILY HISTORY: Sister with history of pancreatic cancer. Father history of prostate cancer. ALLERGIES: CODEINE. MEDICATIONS: Include the patient is currently on heparin, Lamictal, Ativan, Remeron, Narcan. PHYSICAL EXAMINATION: On examination, blood pressure 157/121 with a pulse of 113. Temperature 101.3. She is 93% on 2 L nasal cannula. General description: The patient is an elderly female lying in bed in no distress. No tachypnea or accessory muscles of respiration use. HEENT: Examination shows pallor. No scleral icterus. Oral mucosa membranes dry. Neck: Trachea central with no megaly. Lungs unlabored breathing, decreased breath sounds at the base. No wheeze or crackles. Heart S1, S2. Regular rate and rhythm. ABDOMEN: Soft, no tenderness. No guarding. No rigidity. Extremities are no edema of the feet. Skin examination: No rash or mass palpable. Neurologically, the patient remains to be unresponsive. was noted though. LABS: Hemoglobin is 10.4, white count 4.9, BUN of 26, creatinine 1.2. Potassium is 2.8. Liver enzymes are normal. Urine is negative. Chest x-ray on admission was negative. DIAGNOSTIC IMPRESSION AND PLAN: Patient with fever in this patient admitted to the hospital with mental status changes, and this consultation for possible neuroleptic malignant syndrome. Initial workup for septic etiology has been negative in this patient with negative chest x-ray and UA. No evidence of any cellulitis and abdominal soft on clinical examination. However, we will need further workup to rule out infectious etiology before this regarding any infection further developing a malignant syndrome. PLAN: 1. Anesthesia was consulted stat for LP which could not be done as it took a longer time to get the consent from and as he was gone by that time per the nursing staff. 2. We will repeat a chest x-ray. Blood and urine all has been repeated. 3. We will check CRP, procalcitonin. 4. We will empirically add Zosyn while awaiting further workup to finalize and cultures to finalize. 5. We will follow on clinical condition and further adjust medication if needed. Thank you for this consultation. Will follow this patient along with you. MMODL / IJN: [id number] /
[2020-05-25] MEDS: PIPERACILLIN-TAZOBACTAM 3.375 GM in SODIUM CHLORIDE 0.9% 100 ML IVPB SCH ×3 (01:49→15:57)
[2020-05-25] MEDS: DEXTROSE 5%-0.9% NACL 1,000 ML IV SCH ×3 (01:51→14:51)
[2020-05-25 04:26] LABS: Basophils % (A) 0 %; Eosinophils # (A) 0.1 k/uL (0-0.7); Eosinophils % (A) 2 %; HGB 9.9 gm/dL (11.4-16.0); Lymphocytes # (A) 0.8 k/uL (1.0-4.8); Lymphocytes % (A) 17 %; MCH 30.9 pg (25.0-35.0); MCHC 31.9 g/dL (31.0-37.0); MCV 96.8 fL (80.0-100.0); Mean Platelet Volume 8.9; Monocytes # (A) 0.4 k/uL (0-1.0); Monocytes % (A) 9 %; Neutrophils # (A) 3.1 k/uL (1.3-7.7); Neutrophils % (A) 68 %; Platelet Count 141 k/uL (150-450); RDW 12.7 % (11.5-15.5); WBC 4.6 k/uL (3.8-10.6)
[2020-05-25 04:34] LABS: C Reactive Protein 62.1 mg/L (<10.0); Calcium 7.5 mg/dL (8.4-10.2); Magnesium 1.9 mg/dL (1.6-2.3); Potassium 3.6 mmol/L (3.5-5.1)
[2020-05-25] MEDS: POTASSIUM CHLORIDE 10 MEQ in WATER FOR INJECTION 1 100ML.BAG IVPB SCH ×2 (06:20→07:38)
[2020-05-25] MEDS ORDERED: CYPROHEPTADINE 4 MG TABLET PO ONE (08:30)
[2020-05-25] MEDS: HEPARIN SODIUM,PORCINE 5,000 UNIT/ML 1 ML VIAL SQ SCH ×2 (08:47→20:34)
[2020-05-25] MEDS: lamoTRIgine 100 MG TAB PO SCH ×2 (09:09→20:34)
--- NOTE | 2020-05-25 10:17 | XR ---
EXAMINATION TYPE: XR chest 1V portable DATE OF EXAM: 05/25/2020 COMPARISON: [id number] INDICATION: Nasogastric tube placement TECHNIQUE: Single frontal view of the chest is obtained. FINDINGS: The heart size is normal. The pulmonary vasculature is normal. Some minimal subsegmental atelectasis may be at the left base. Nasogastric tube is been placed the tip in left upper quadrant of the abdomen. IMPRESSION: 1. No acute pulmonary process.
--- NOTE | 2020-05-25 10:31 | XR ---
EXAMINATION TYPE: XR chest 1V portable DATE OF EXAM: 05/25/2020 COMPARISON: 05/20/2020 INDICATION: Pneumonia TECHNIQUE: Single frontal view of the chest is obtained. FINDINGS: The heart size is normal. The pulmonary vasculature is normal. Minimal linear opacity extends to the left diaphragm. Small amount subsegmental atelectasis may be pr esent. IMPRESSION: 1. Minimal subsegmental atelectasis left base
[2020-05-25] MEDS: PANTOPRAZOLE 40 MG/10 ML VIAL IVP SCH (11:35)
--- NOTE | 2020-05-25 12:45 | P.PN ---
Subjective Patient was admitted for psychiatric issues. Patient as per the chart does have seizure disorder patient is presently having tonic-clonic activity. Patient was believed to have neuroleptic malignant syndrome because of her [employer] disability diaphoresis and tachycardia and patient was febrile. No source of infection was found at that time. Overweight was negative, chest x-ray did not show any pneumonia UA was within normal limits. Although patient doesn't appear to be on medications that can cause significant neuroleptic malignant syndrome upon review of her chart it looks like patient is on very low-dose of Seroquel although benztropine was discontinued. Patient is still having fevers but those are low-grade. I'm not completely convinced this is neuroleptic malignant syndrome because of that reason I'm consulting neurology patient will need EEG which was ordered. Will request psychiatry to reevaluate the patient. As a source of infection is not clear and consulting infectious disease patient may and up needing a lumbar puncture. 05/25/2020 Patient will undergo lumbar puncture today. Patient was started on empiric antibiotics by infectious disease. The patient remains on D5 normal saline at 1 50 mL per hour. Patient is being followed by multiple consultants serotonin syndrome is a consideration because of which patient is receiving cyproheptadine. Possibly of this is low and patient the did not receive any SSRIs since admission but patient was on AcipHex sore at home unsure when she has taken this medication. Patient myoclonus can be related to cogentin as well which is being held since admission. Patient barely responds to commands. Patient had an EEG showed encephalopathy but no seizure focus. Review of systems: Unable to obtain due to her clinical condition All inpatient medications were reviewed and appropriate changes in these medications as dictated in the interval history and assessment and plan. Objective - Vital Signs Vital signs: Vital Signs Temp 98.6 F 05/25/20 12:00 Pulse 80 05/25/20 12:00 Resp 19 05/25/20 12:00 BP 129/82 05/25/20 12:00 Pulse Ox 98 05/25/20 12:00 Intake & Output 05/24/20 05/25/20 05/25/20 18:59 06:59 18:59 Intake Total 1999 1275 1220 Output Total 214 1200 885 Balance -145 75 335 Weight 59.3 kg 59.3 kg Intake: IV 1800 1275 1100 Dextrose 5%-0.9% NaCl 1, 1800 1175 900 000 ml @ 150 mls/hr IV . Q6H40M [facility] Rx#:[id number] Piperacillin-Tazobactam 3 100 100 .375 gm In Sodium Chloride 0.9% 100 ml @ 25 mls/hr IVPB Q8HR [facility] Rx# :[id number] Potassium Chloride 10 meq 100 In Water For Injection 1 100ml.bag @ 100 mls/hr IVPB Q1H [facility] Rx#: [id number] Intake, IV Titration 200 100 Amount Potassium Chloride 10 meq 200 In Water For Injection 1 100ml.bag @ 100 mls/hr IVPB Q1H [facility] Rx#: [id number] Potassium Chloride 10 meq 100 In Water For Injection 1 100ml.bag @ 100 mls/hr IVPB Q1H [facility] Rx#: [id number] Tube Feeding 20 Output: Urine 2145 1200 885 Other: Voiding Method Indwelling Catheter Indwelling Catheter Indwelling Catheter - Exam PHYSICAL EXAMINATION: GENERAL: Patient is arousable drowsy is having myoclonic activity barely able to open eyes. HEENT: Pupils are round and equally reacting to light. EOMI. No scleral icterus. No conjunctival pallor. Normocephalic, atraumatic. No pharyngeal erythema. No thyromegaly. CARDIOVASCULAR: S1 and S2 present. No murmurs, rubs, or gallops. PULMONARY: Chest is clear to auscultation, no wheezing or crackles. ABDOMEN: Soft, nontender, nondistended, normoactive bowel sounds. No palpable organomegaly. MUSCULOSKELETAL: No joint swelling or deformity. EXTREMITIES: No cyanosis, clubbing, or pedal edema. NEUROLOGICAL: No tremor or significant myoclonic activity today SKIN: No rashes. - Labs CBC & Chem 7: 05/25/20 03:49 05/25/20 03:49 Labs: Abnormal Lab Results - Last 24 Hours (Table) 05/24/20 05/24/20 05/25/20 Range/Units 13:45 20:17 03:49 RBC 3.20 L (3.80-5.40) m/uL Hgb 9.9 L (11.4-16.0) gm/dL Hct 31.0 L (34.0-46.0) % Plt Count 141 L (150-450) k/uL Lymphocytes # 0.8 L (1.0-4.8) k/uL D-Dimer (<0.60) mg/L FEU Sodium 135 L (137-145) mmol/L Chloride 111 H (98-107) mmol/L BUN 3 L (7-17) mg/dL Glucose 112 H (74-99) mg/dL Calcium 7.9 L (8.4-10.2) mg/dL AST 109 H (14-36) U/L Lactate Dehydrogenase (313-618) U/L Creatine Kinase (30-135) U/L C-Reactive Protein (<10.0) mg/L Total Protein 5.3 L (6.3-8.2) g/dL Albumin 2.6 L (3.5-5.0) g/dL Procalcitonin (0.02-0.09) ng/mL Urine Blood Trace H (Negative) Ur Leukocyte Esterase Small H (Negative) Urine Bacteria Rare H (None) /hpf Urine Mucus Rare H (None) /hpf 05/25/20 05/25/20 05/25/20 Range/Units 03:49 03:49 03:49 RBC (3.80-5.40) m/uL Hgb (11.4-16.0) gm/dL Hct (34.0-46.0) % Plt Count (150-450) k/uL Lymphocytes # (1.0-4.8) k/uL D-Dimer 0.86 H (<0.60) mg/L FEU Sodium 135 L (137-145) mmol/L Chloride 108 H (98-107) mmol/L BUN 2 L (7-17) mg/dL Glucose 107 H (74-99) mg/dL Calcium 7.5 L (8.4-10.2) mg/dL AST (14-36) U/L Lactate Dehydrogenase 885 H (313-618) U/L Creatine Kinase (30-135) U/L C-Reactive Protein 62.1 H (<10.0) mg/L Total Protein (6.3-8.2) g/dL Albumin (3.5-5.0) g/dL Procalcitonin 0.11 H (0.02-0.09) ng/mL Urine Blood (Negative) Ur Leukocyte Esterase (Negative) Urine Bacteria (None) /hpf Urine Mucus (None) /hpf 05/25/20 Range/Units 03:49 RBC (3.80-5.40) m/uL Hgb (11.4-16.0) gm/dL Hct (34.0-46.0) % Plt Count (150-450) k/uL Lymphocytes # (1.0-4.8) k/uL D-Dimer (<0.60) mg/L FEU Sodium (137-145) mmol/L Chloride (98-107) mmol/L BUN (7-17) mg/dL Glucose (74-99) mg/dL Calcium (8.4-10.2) mg/dL AST (14-36) U/L Lactate Dehydrogenase (313-618) U/L Creatine Kinase 1447 H* (30-135) U/L C-Reactive Protein (<10.0) mg/L Total Protein (6.3-8.2) g/dL Albumin (3.5-5.0) g/dL Procalcitonin (0.02-0.09) ng/mL Urine Blood (Negative) Ur Leukocyte Esterase (Negative) Urine Bacteria (None) /hpf Urine Mucus (None) /hpf Microbiology - Last 24 Hours (Table) 05/21/20 18:02 Blood Culture - Preliminary Blood No Growth after 72 hours 05/24/20 13:45 Urine Culture - Preliminary Urine,Catheterized Assessment and Plan Plan: -Myoclonus: Probably secondary to severe encephalopathy patient may end up needing the lumbar puncture patient still has low-grade fevers. Neurology and infectious disease evaluated the patient and patient will undergo lumbar puncture today patient was started on empiric Zosyn as mentioned above. Possibility of neuroleptic malignant syndrome is low. Serotonin syndrome is being considered but I believe this possibility is low. Psychiatry evaluated the patient is -Fever: Etiology of fever is not clear. He may need to rule out encephalitis. -Elevated CK secondary to myoclonic activity: Can you with IV fluids but I do not believe patient has rhabdomyolysis. -Major depression and anxiety disorder -Hypovolemic hypernatremia which improved and patient was switched to D5 normal saline now. -Hyperlipidemia -Seizure disorder with the present micrometers patient EEG is being ordered -History of esophageal stricture -DVT prophylaxis with subcutaneous heparin
[2020-05-25 13:33] LABS: Glucose,CSF 63 mg/dL (40-70); Total Protein,CSF 47 mg/dL (12-60)
--- NOTE | 2020-05-25 13:48 | P.PN ---
Progress Note - Text Progress Note Date: 05/25/20 Interval History: Patient was seen resting in bed and was unarousable and unable to participate in the psychiatric interview. Review of the patient's chart reports possible acute serotonin syndrome as per neurology. EEG revealed encephalopathy but no seizure focus. The patient has been on low-dose psychotropic medication which has since been discontinued. It is uncertain at this time whether this would lead to her presentation of serotonin syndrome versus NMS. This is confounded by the patient's age. Furthermore, the patient did initially present as withdrawn and minimally responsive upon initial presentation to the hospital. Mental Status Exam: General Appearance: Patient appears to be her stated age, is lying in bed in no apparent distress. NG tube in place. Behavior: Patient appears to be encephalopathic. Minimally responsive. Speech: Patient is not responding to this provider. Mood/Affect: Unable to assess Suicidality/Homicidality: Unable to assess Perceptions: Unable to assess Though content/process: Unable to assess Memory and concentration: Unable to assess Judgment and insight: poor Assessment Acute encephalopathy Possible Serotoin syndrome vs NMS Major Depression, Generalized Anxiety Disorder Plan: -We will discontinue Remeron due to concern for serotonin syndrome as per neurology. -As per review of the patient's chart, she did not take any Remeron and her Effexor was a low-dose and was discontinued when I first evaluated the patient on 05/21/2020. -Infectious disease consulted. Neurology also following. -May consider an Ativan challenge test for possible catatonia should other possible causes for the patient's presentation be ruled out.
--- NOTE | 2020-05-25 14:21 | P.PN ---
Subjective Progress Note Date: 05/25/20 Principal diagnosis: Acute serotonin syndrome. Patient was reevaluated today on 05/24/2020, patient was seen by Dr. Kumari on consultation yesterday, and she was mostly admitted with questionable neuroleptic malignant syndrome or possibly serotonin syndrome. Based on the clinical history I believe the patient most likely had serotonin syndrome. Patient remains in the ICU, she is doing fairly well, in no form of distress, on 2 L nasal cannula, O2 saturations 98%. Remains on IV fluid at 150 mL/h, CPK seems to be coming down nicely. Patient is sleepy, but arousable, and follows simple instructions once a arousable but slowly. In no form of respiratory distress. CBC today is basically normal. Electrolytes are normal. Renal profile is normal. CPK is coming down it is 06/24/2000 today compared to over [address] of the brain showed no acute process. Patient is yet to be seen by neurology on consultation, mostly to be evaluated for her myoclonic activity. May or may not recommend lumbar puncture specially with her low-grade fever on presentation. Patient was reevaluated today on 05/25/2020, patient is basically about the same. He underwent lumbar puncture today, results are pending. Patient remains on Zosyn empirically. Cultures including blood and urine are negative so far. Patient is on O2 at 2 L nasal cannula with O2 saturation 97%. IV fluid is Down to 100 mL/h D5 0.9. She has significant urine output. Mentation seems to be waxing and waning. Last night she had another episode of stiffness, tremors, myoclonus, and low-grade fever. EEG showed encephalopathy but no active seizure activity. Objective - Vital Signs Vital signs: Vital Signs Temp 98.6 F 05/25/20 12:00 Pulse 81 05/25/20 14:00 Resp 20 05/25/20 14:00 BP 119/51 05/25/20 14:00 Pulse Ox 97 05/25/20 14:00 Intake & Output 05/24/20 05/25/20 05/25/20 18:59 06:59 18:59 Intake Total 1999 1275 1540 Output Total 2145 1200 1175 Balance -145 75 365 Weight 59.3 kg 59.3 kg Intake: IV 1800 1275 1400 Dextrose 5%-0.9% NaCl 1800 1175 1200 000 ml @ 150 mls/hr IV . Q6H40M [facility] Rx#:[id number] Piperacillin-Tazobactam 3 100 100 .375 gm In Sodium Chloride 0.9% 100 ml @ 25 mls/hr IVPB Q8HR [facility] Rx# :[id number] Potassium Chloride 10 meq 100 In Water For Injection 1 100ml.bag @ 100 mls/hr IVPB Q1H [facility] Rx#: [id number] Intake, IV Titration 200 100 Amount Potassium Chloride 10 meq 200 In Water For Injection 1 100ml.bag @ 100 mls/hr IVPB Q1H [facility] Rx#: [id number] Potassium Chloride 10 meq 100 In Water For Injection 1 100ml.bag @ 100 mls/hr IVPB Q1H [facility] Rx#: [id number] Tube Feeding 40 Output: Urine 2145 1200 1175 Other: Voiding Method Indwelling Catheter Indwelling Catheter Indwelling Catheter - Exam Patient is lying in the bed comfortably, opens eyes to verbal stimuli. Quite slow to follow other instructions. HEENT: Normocephalic. Neck is supple. Pupils reactive. Nostrils clear. Oral cavity is moist. Ears reveal no drainage. Neck reveals no JVD, carotid bruits, or thyromegaly. CHEST EXAMINATION: Trachea is central. Symmetrical expansion. Lung morley clear to auscultation and percussion. CARDIAC: Normal S1, S2 with no gallops. No murmurs ABDOMEN: Soft. non distended. Bowel sounds normal. No organomegaly. No abdominal bruits. Extremities: reveal no edema. No clubbing or cyanosis Neurologically awake, alerts.Oriented x0. Does not follow any instructions today Skin: No rash or skin lesions. Psychiatric: Unable to assess, patient has a blunted mood affect and poor mental status. Musculoskeletal: No joint swelling or deformity. - Labs CBC & Chem 7: 05/25/20 03:49 05/25/20 03:49 Labs: Abnormal Lab Results - Last 24 Hours (Table) 05/24/20 05/24/20 05/25/20 Range/Units 13:45 20:17 03:49 RBC 3.20 L (3.80-5.40) m/uL Hgb 9.9 L (11.4-16.0) gm/dL Hct 31.0 L (34.0-46.0) % Plt Count 141 L (150-450) k/uL Lymphocytes # 0.8 L (1.0-4.8) k/uL D-Dimer (<0.60) mg/L FEU Sodium 135 L (137-145) mmol/L Chloride 111 H (98-107) mmol/L BUN 3 L (7-17) mg/dL Glucose 112 H (74-99) mg/dL Calcium 7.9 L (8.4-10.2) mg/dL AST 109 H (14-36) U/L Lactate Dehydrogenase (313-618) U/L Creatine Kinase (30-135) U/L C-Reactive Protein (<10.0) mg/L Total Protein 5.3 L (6.3-8.2) g/dL Albumin 2.6 L (3.5-5.0) g/dL Procalcitonin (0.02-0.09) ng/mL Urine Blood Trace H (Negative) Ur Leukocyte Esterase Small H (Negative) Urine Bacteria Rare H (None) /hpf Urine Mucus Rare H (None) /hpf 05/25/20 05/25/20 05/25/20 Range/Units 03:49 03:49 03:49 RBC (3.80-5.40) m/uL Hgb (11.4-16.0) gm/dL Hct (34.0-46.0) % Plt Count (150-450) k/uL Lymphocytes # (1.0-4.8) k/uL D-Dimer 0.86 H (<0.60) mg/L FEU Sodium 135 L (137-145) mmol/L Chloride 108 H (98-107) mmol/L BUN 2 L (7-17) mg/dL Glucose 107 H (74-99) mg/dL Calcium 7.5 L (8.4-10.2) mg/dL AST (14-36) U/L Lactate Dehydrogenase 885 H (313-618) U/L Creatine Kinase (30-135) U/L C-Reactive Protein 62.1 H (<10.0) mg/L Total Protein (6.3-8.2) g/dL Albumin (3.5-5.0) g/dL Procalcitonin 0.11 H (0.02-0.09) ng/mL Urine Blood (Negative) Ur Leukocyte Esterase (Negative) Urine Bacteria (None) /hpf Urine Mucus (None) /hpf 05/25/20 Range/Units 03:49 RBC (3.80-5.40) m/uL Hgb (11.4-16.0) gm/dL Hct (34.0-46.0) % Plt Count (150-450) k/uL Lymphocytes # (1.0-4.8) k/uL D-Dimer (<0.60) mg/L FEU Sodium (137-145) mmol/L Chloride (98-107) mmol/L BUN (7-17) mg/dL Glucose (74-99) mg/dL Calcium (8.4-10.2) mg/dL AST (14-36) U/L Lactate Dehydrogenase (313-618) U/L Creatine Kinase 1447 H* (30-135) U/L C-Reactive Protein (<10.0) mg/L Total Protein (6.3-8.2) g/dL Albumin (3.5-5.0) g/dL Procalcitonin (0.02-0.09) ng/mL Urine Blood (Negative) Ur Leukocyte Esterase (Negative) Urine Bacteria (None) /hpf Urine Mucus (None) /hpf Microbiology - Last 24 Hours (Table) 05/24/20 11:15 Blood Culture - Preliminary Blood No Growth after 24 hours 05/24/20 11:21 Blood Culture - Preliminary Blood No Growth after 24 hours 05/21/20 18:02 Blood Culture - Preliminary Blood No Growth after 72 hours 05/24/20 13:45 Urine Culture - Preliminary Urine,Catheterized Assessment and Plan Assessment: Impression: Suspect acute serotonin syndrome. Doubt neuroleptic malignant syndrome. History of seizure disorder. History of colon cancer. History of esophageal strictures. Dyslipidemia. History of depression. History of diverticular disease. Elevated CPK with acute rhabdomyolysis most likely secondary to acute serotonin syndrome or myoclonic activity/possible seizures. Recommendation: Continue to monitor in the ICU. Status post lumbar puncture, results are pending. Continue IV fluids. Cut down her IV fluid to 100 mL per hour. Start enteral feeding via nasogastric tube which I have recommended today. Continue to hold Haldol and any serotonin medications. Neurology to see on consultation Continue Ativan when necessary. Continue to monitor renal profile electrolytes and CPK. Discussed her status with multiple consultants on the case. We'll continue to follow. Time with Patient: Less than 30
[2020-05-25 14:23] LABS: Appearance,CSF Clear; CSF Tube Number 3; CSF Tube Volume 2; Nucleated Cells, CSF 0 u/L (0-5); Red Blood Cell,CSF 0 u/L (0-10)
--- NOTE | 2020-05-25 14:44 | P.PCN ---
Date of Procedure: 05/25/20 Preoperative Diagnosis: Fever Unknown origin, and altered mental status Postoperative Diagnosis: Fever of unknown origin, and altered mental status Procedure(s) Performed: Lumbar puncture Anesthesia: local Surgeon: Berta Amaral Estimated Blood Loss (ml): 0 Pathology: other (CSF fluid) Condition: critical Disposition: ICU Indications for Procedure: Patient had a history of fever of unknown origin, and altered mental status. ICU team requested for lumbar puncture to rule out the cause Description of Procedure: Patient was seen and identified in ICU, had informed consent from family. With the help of ICU nurses patient turned to left lateral position. Patient's lumbar spine area exposed and cleaned with ChloraPrep 1. Timeout completed. Critical pause was taken, and sterile drapes applied. 3 mL of 1% lidocaine used for skin and subcutaneous tissue at L4-L5 interspinous space. After that using 20-gauge spinal needle used to enter the interspinous space with 1 attempt without any difficulty. Opening CSF pressure was 13. CSF collected, 3 mL each tube 4. Needle removed intact. And Band-Aid applied. RN requested to do 1 L of fluid over 60 minutes time if no contraindications to minimize post dural puncture headache. Complications: None Patient is hemodynamically stable throughout the procedure.
--- NOTE | 2020-05-25 18:29 | P.PN ---
Subjective Progress Note Date: 05/25/20 Yesterday Cyproheptadine was ordered but the patient did not receive it since she could not swallow. The patient nurse the patient continues to have these episodes of tachycardia tachypnea, tremor of all his extremities, increase in the tone of all extremities with these episodes and having fevers. T-max got as high as 101.3. Was notified that these episodes can last up to 2 hours. Also notified by the nurse that that the patient will be intermittently stating her name or dose. Pronation because of her . There is no jerk in of any extremity or gaze deviation or foaming around the mouth is seen. The patient receives NG tube and the cyproheptadine the was reintroduced. Objective - Vital Signs Vital signs: Vital Signs Temp 98.8 F 05/25/20 16:00 Pulse 82 05/25/20 18:00 Resp 27 H 05/25/20 18:00 BP 169/87 05/25/20 18:00 Pulse Ox 96 05/25/20 18:00 Intake & Output 05/24/20 05/25/20 05/25/20 18:59 06:59 18:59 Intake Total 1999 1275 2060 Output Total 2145 1200 1965 Balance -145 75 95 Weight 59.3 kg 59.3 kg Intake: IV 1800 1275 1850 Dextrose 5%-0.9% NaCl 1, 1800 1175 1550 000 ml @ 100 mls/hr IV . Q10H [facility] Rx#:[id number] Piperacillin-Tazobactam 3 100 200 .375 gm In Sodium Chloride 0.9% 100 ml @ 25 mls/hr IVPB Q8HR [facility] Rx# :[id number] Potassium Chloride 10 meq 100 In Water For Injection 1 100ml.bag @ 100 mls/hr IVPB Q1H [facility] Rx#: [id number] Intake, IV Titration 200 100 Amount Potassium Chloride 10 meq 200 In Water For Injection 1 100ml.bag @ 100 mls/hr IVPB Q1H [facility]AL Rx#: [id number] Potassium Chloride 10 meq 100 In Water For Injection 1 100ml.bag @ 100 mls/hr IVPB Q1H CORAL Rx#: [id number] Tube Feeding 80 Other 30 Output: Urine 2145 1200 1965 Other: Voiding Method Indwelling Catheter Indwelling Catheter Indwelling Catheter - Exam GENERAL: The patient is lying in bed and does not seem in distress. CHEST: The heart rate is regular rate rhythm. No murmurs to auscultation. LUNG: Clear to auscultation bilaterally no wheezing noted throughout. Not labored breathing. ABDOMEN/GI: Bowel sounds present in all 4 quadrants. No tenderness to palpation throughout. NEUROLOGICAL: Limited because of condition. Higher mental function: The patient is drowsy. She stated her name correctly. Otherwise she is not responsive or follow commands. Cranial nerves: Patient was resistant to opening the eyes even though painful stimuli at. I had to manually open eyes and the primary gaze was midline the. The pupils are round 3 mm bilaterally and reactive to light. No facial weakness is noted that. Otherwise I could not assess the rest of the cranial nerves because of patient condition. Motor: He is deferred because of patient condition. Patient was withdrawing to painful stimuli throughout. Patient does have increased tone throughout all extremities. There is no spontaneous movement noted. No seizure-like activity noted that. Cerebellum: Could not assess because of her condition. Sensation: Could not assess like sensation about to painful stimuli the patient was withdrawing as well as was grimacing on her face. Reflexes (right/left): 3+ throughout. Plantars are downgoing bilaterally. - Labs CBC & Chem 7: 05/25/20 03:49 05/25/20 03:49 Labs: Abnormal Lab Results - Last 24 Hours (Table) 05/24/20 05/25/20 05/25/20 Range/Units 20:17 03:49 03:49 RBC 3.20 L (3.80-5.40) m/uL Hgb 9.9 L (11.4-16.0) gm/dL Hct 31.0 L (34.0-46.0) % Plt Count 141 L (150-450) k/uL Lymphocytes # 0.8 L (1.0-4.8) k/uL D-Dimer (<0.60) mg/L FEU Sodium 135 L 135 L (137-145) mmol/L Chloride 111 H 108 H (98-107) mmol/L BUN 3 L 2 L (7-17) mg/dL Glucose 112 H 107 H (74-99) mg/dL Calcium 7.9 L 7.5 L (8.4-10.2) mg/dL AST 109 H (14-36) U/L Lactate Dehydrogenase 885 H (313-618) U/L Creatine Kinase (30-135) U/L C-Reactive Protein 62.1 H (<10.0) mg/L Total Protein 5.3 L (6.3-8.2) g/dL Albumin 2.6 L (3.5-5.0) g/dL Procalcitonin (0.02-0.09) ng/mL 05/25/20 05/25/20 05/25/20 Range/Units 03:49 03:49 03:49 RBC (3.80-5.40) m/uL Hgb (11.4-16.0) gm/dL Hct (34.0-46.0) % Plt Count (150-450) k/uL Lymphocytes # (1.0-4.8) k/uL D-Dimer 0.86 H (<0.60) mg/L FEU Sodium (137-145) mmol/L Chloride (98-107) mmol/L BUN (7-17) mg/dL Glucose (74-99) mg/dL Calcium (8.4-10.2) mg/dL AST (14-36) U/L Lactate Dehydrogenase (313-618) U/L Creatine Kinase 1447 H* (30-135) U/L C-Reactive Protein (<10.0) mg/L Total Protein (6.3-8.2) g/dL Albumin (3.5-5.0) g/dL Procalcitonin 0.11 H (0.02-0.09) ng/mL Microbiology - Last 24 Hours (Table) 05/24/20 11:15 Blood Culture - Preliminary Blood No Growth after 24 hours 05/24/20 11:21 Blood Culture - Preliminary Blood No Growth after 24 hours 05/21/20 18:02 Blood Culture - Preliminary Blood No Growth after 72 hours 05/24/20 13:45 Urine Culture - Preliminary Urine,Catheterized Assessment and Plan Assessment: * Encephalopathy likely due to Acute Serotonin syndrome * Elevated CK, increased tone throughout, low grade fever,tachycardia, tachypneic and hyperreflexia and encephalopathy seems likely to serotonin syndrome > neuroleptic syndrome (reason is since it is abrupt onset, hyperreflexia) * Elevated CK---tending down * Electrolye imbalance (hypokalemia, hypophosphatemia)--resolved * PORFIRIO--resolved * History of colonr cnacer * History of esophageal stricture * History of depression * History of diverticular disease Plan: EEG on the 05/24/2020 shows background slowing suggestive of mild to moderate encephalopathy. There are no focal slowing, upper performed discharges or seizure during the study. Patient is on Ativan 2 mg every 3 hours when necessary for agitation. She is also on Ativan 1 mg every 6 hours as well. Command supportive care with normalization of the vital signs. She recieved one time bolus Cyprohepatidine 12mg. Then 4mg q6 hours which can help with Serotonin syndrome. Per the patient's nurse after the patient received the cyproheptadine, she has been having glass episodes of tremulous, rigidity. Lumbar puncture was performed today and CSF study is clear, colorless, total nuclear cells 0, glucose is 63 and that his CSF protein is 47 which is within normal limits. Because the nucleated cells is 0, as does not seem and meningeal encephalitis Core virus PCR was not detected. Influenza A and B PCR is not detected. Urine Legionella is negative. Patient is on Zosyn per ID team. I spoke with the patient's son (Dalton) and he denied patient has history of seizure. She is on Lamictal for mood disorder. He did acknowledge that she follows-up with Dr. Patel but he denied she was given diagnosis of seizure. He was updated of the patient's condition and work-up that was done. Psychiatry is on board. Infection disease is on board. The plan was discussed with the patient nurse and ICU attending. Evan Arreaga M.D. Neuro-hospitalist Time with Patient: Greater than 30
--- NOTE | 2020-05-25 22:57 | PN ---
PROGRESS NOTE DATE OF SERVICE: 05/25/2020 REASON FOR FOLLOWUP: Fever. INTERVAL HISTORY: Patient overall fever pattern has improved. The last temperature recorded was around 1 in the morning, 101.1. The patient has no fever since then. The patient is hemodynamically stable, not on any pressor support. FiO2 currently on 2 nasal cannula. The patient has been started on Cyproheptadine. Apparently no further agitation has been noticed by nursing staff. The patient was not able to provide any history. PHYSICAL EXAMINATION: Blood pressure 122/63 with a pulse of 87, temperature 98.5. She is 97% on 2 L nasal cannula. General description is an elderly female lying in bed in no distress. Respiratory system: Unlabored breathing. Decreased breath sounds at the bases. No wheeze. HEART: S1, S2. Regular rate and rhythm. Abdomen: Soft. No tenderness. LABS: Urine negative. CS examination was normal. Jacobson PCR negative. Influenza was negative. Urine showing a Gram-negative. Chest x-ray, minimal improvement . DIAGNOSTIC IMPRESSION AND PLAN: Patient with a fever which is multifactorial in this patient with possible concern for neuroleptic malignant syndrome. Pneumonia less likely but not entirely excluded did have mildly . The patient is currently on Zosyn to continue while waiting for the culture to finalize and monitor clinical course closely. MMODL / IJN: [id number] /
[2020-05-26] MEDS ORDERED: ACETAMINOPHEN IV (For NPO) 1,000 MG in EMPTY BAG 1 BAG IVPB PRN (02:00)
[2020-05-26] MEDS: DEXTROSE 5%-0.9% NACL 1,000 ML IV SCH ×3 (02:42→21:42)
[2020-05-26 04:35] LABS: Basophils % (A) 0 %; Eosinophils # (A) 0.1 k/uL (0-0.7); Eosinophils % (A) 2 %; HCT 33.3 % (34.0-46.0); HGB 11.5 gm/dL (11.4-16.0); Lymphocytes # (A) 0.5 k/uL (1.0-4.8); Lymphocytes % (A) 9 %; MCH 33.5 pg (25.0-35.0); MCHC 34.5 g/dL (31.0-37.0); MCV 97.1 fL (80.0-100.0); Mean Platelet Volume 8.6; Monocytes # (A) 0.4 k/uL (0-1.0); Monocytes % (A) 8 %; Neutrophils # (A) 4.4 k/uL (1.3-7.7); Neutrophils % (A) 79 %; Platelet Count 163 k/uL (150-450); RBC 3.43 m/uL (3.80-5.40); RDW 12.3 % (11.5-15.5); WBC 5.6 k/uL (3.8-10.6)
[2020-05-26 04:52] LABS: Calcium 7.8 mg/dL (8.4-10.2); Potassium 3.1 mmol/L (3.5-5.1)
[2020-05-26] MEDS: POTASSIUM BICARBONATE/CIT AC 20 MEQ TABLET.EFF NG-TUBE SCH ×4 (05:00→18:16)
[2020-05-26] MEDS: CYPROHEPTADINE 4 MG TABLET PO SCH ×3 (05:23→18:14)
[2020-05-26] MEDS: PANTOPRAZOLE 40 MG/10 ML VIAL IVP SCH (09:40)
[2020-05-26] MEDS: PIPERACILLIN-TAZOBACTAM 3.375 GM in SODIUM CHLORIDE 0.9% 100 ML IVPB SCH ×4 (09:40→15:58)
[2020-05-26] MEDS: lamoTRIgine 100 MG TAB PO SCH ×2 (09:40→20:01)
[2020-05-26] MEDS: HEPARIN SODIUM,PORCINE 5,000 UNIT/ML 1 ML VIAL SQ SCH ×2 (09:40→20:01)
--- NOTE | 2020-05-26 09:53 | P.PN ---
Subjective Progress Note Date: 05/26/20 Upon seeing the patient the today, per the patient nurse there is no improvement in her mentation. She stated that she saw the patient during this admission in the beginning and that she feels that the patient is less rigid compared to her initial presentation. Patient is not responding to questions. Upon seeing the patient she was not verbally responsive. Overnight the patient had that episode where her temperature was T-max of 101.1 Fahrenheit she was tachycardic 122 rest periods of 30. Also the episode lasted about 2 hours where she was tensing up. She continues to have no leukocytosis. Her CK is trending down was as high as 2177 on 05/22/2020 and the last reported was 1447 and that was yesterday. The BUN/creatinine is normal. Objective - Vital Signs Vital signs: Vital Signs Temp 99.5 F 05/26/20 04:00 Pulse 98 05/26/20 07:00 Resp 21 05/26/20 07:00 BP 126/82 05/26/20 07:00 Pulse Ox 94 L 05/26/20 07:00 Intake & Output 05/25/20 05/26/20 05/26/20 18:59 06:59 18:59 Intake Total 2060 1670 130 Output Total 1964 1255 100 Balance 95 415 30 Weight 59.3 kg Intake: IV 1850 1300 100 Dextrose 5%-0.9% NaCl 1, 1550 1200 100 000 ml @ 100 mls/hr IV . Q10H [facility] Rx#:[id number] Piperacillin-Tazobactam 3 200 100 .375 gm In Sodium Chloride 0.9% 100 ml @ 25 mls/hr IVPB Q8HR [facility] Rx# :[id number] Potassium Chloride 10 meq 100 In Water For Injection 1 100ml.bag @ 100 mls/hr IVPB Q1H [facility] Rx#: [id number] Intake, IV Titration 100 Amount Potassium Chloride 10 meq 100 In Water For Injection 1 100ml.bag @ 100 mls/hr IVPB Q1H [facility] Rx#: [id number] Tube Feeding 80 280 30 Other 30 90 Output: Urine 1964 1255 100 Other: Voiding Method Indwelling Catheter Indwelling Catheter - Exam GENERAL: The patient is lying in bed and does not seem in distress. NEUROLOGICAL: Limited because of condition. Higher mental function: The patient is stupor and all she say is I don't know to questions. Other than that she is not responding or following commands. Cranial nerves: Patient was resistant to opening the eyes even though painful stimuli. I had to manually open eyes and the primary gaze was midline the. The pupils are round 3 mm bilaterally and reactive to light. Her primary gaze was midline but she had roving of the eyes. She do not have any fixed gaze deviation. At one point when I asked her to look to the left, she did. No facial weakness is noted that. Otherwise I could not assess the rest of the cranial nerves because of patient condition. Motor: Is deferred because of patient condition. Patient was withdrawing to painful stimuli throughout. Patient does have increased tone throughout all extremities. There is no spontaneous movement noted. No seizure-like activity noted. No clonus is noted. Cerebellum: Could not assess because of her condition. Sensation: Could not assess like sensation about to painful stimuli the patient was withdrawing as well as was grimacing on her face. Reflexes (right/left): 3+ throughout. Plantars are downgoing bilaterally. - Labs CBC & Chem 7: 05/26/20 03:47 05/26/20 14:19 Labs: Abnormal Lab Results - Last 24 Hours (Table) 05/25/20 05/25/20 05/26/20 Range/Units 03:49 03:49 03:47 RBC 3.43 L (3.80-5.40) m/uL Hct 33.3 L (34.0-46.0) % Lymphocytes # 0.5 L (1.0-4.8) k/uL Sodium (137-145) mmol/L Potassium (3.5-5.1) mmol/L BUN (7-17) mg/dL Glucose (74-99) mg/dL Calcium (8.4-10.2) mg/dL Creatine Kinase 1447 H* (30-135) U/L Procalcitonin 0.11 H (0.02-0.09) ng/mL 05/26/20 Range/Units 03:47 RBC (3.80-5.40) m/uL Hct (34.0-46.0) % Lymphocytes # (1.0-4.8) k/uL Sodium 135 L (137-145) mmol/L Potassium 3.1 L (3.5-5.1) mmol/L BUN 5 L (7-17) mg/dL Glucose 145 H (74-99) mg/dL Calcium 7.8 L (8.4-10.2) mg/dL Creatine Kinase (30-135) U/L Procalcitonin (0.02-0.09) ng/mL Microbiology - Last 24 Hours (Table) 05/25/20 12:00 CSF Gram Stain - Preliminary Cerebral Spinal Fluid CSF Culture - Preliminary 05/21/20 18:02 Blood Culture - Preliminary Blood No Growth after 96 hours 05/24/20 13:45 Urine Culture - Preliminary Urine,Catheterized Gram Neg Bacilli 05/24/20 11:15 Blood Culture - Preliminary Blood No Growth after 24 hours 05/24/20 11:21 Blood Culture - Preliminary Blood No Growth after 24 hours Assessment and Plan Assessment: * Encephalopathy likely due to Acute Serotonin syndrome * Also has compoenent toxic-metabolic encephalopathy * Elevated CK, increased tone throughout, low grade fever,tachycardia, tachypneic and hyperreflexia and encephalopathy seems likely to serotonin syndrome > neuroleptic syndrome (reason is since it is abrupt onset, hyperreflexia) * Elevated CK---tending down * Electrolye imbalance (hypokalemia, hypophosphatemia)--resolved * PORFIRIO--resolved * History of colonr cnacer * History of esophageal stricture * History of depression * History of diverticular disease Plan: EEG on the 05/24/2020 shows background slowing suggestive of mild to moderate encephalopathy. There are no focal slowing, upper performed discharges or seizure during the study. I will get repeat EEG today. Patient is on Ativan 2 mg every 3 hours when necessary for agitation. She is also on Ativan 1 mg every 6 hours as well. Command supportive care with normalization of the vital signs. On Cyprohepatidine 4mg q6 hours which can help with Serotonin syndrome. Lumbar puncture was performed on 05/25/2020 and CSF study is clear, colorless, total nuclear cells 0, glucose is 63 and that his CSF protein is 47 which is within normal limits. Because the nucleated cells is 0, as does not seem and meningeal encephalitis Core virus PCR was not detected. Influenza A and B PCR is not detected. Urine Legionella is negative. Patient is on Zosyn per ID team. I ordered TSH, AST and ALT level as well as a TSH level. Per the patient's son (Dalton) she follows-up with Dr. Patel but does not have history of seizure. He said the Lamictal is for mood disorder. Patient had an EEG on 05/12/[address] Juan Jose Patel for myoclonus and was reported as normal. Will try to obtain records from Dr. Dr. Patel's office. All try and contact the patient's son later today. Psychiatry is on board. Infection disease is on board. I spoke with the psychiatry team and they feel patient has Catatonia. They gave patient Ativan and she responded after that. So will give the patient the Ativan at a higher dose during the day. The plan was discussed with the patient nurse and ICU attending. Evan Arreaga M.D. Neuro-hospitalist Time with Patient: Greater than 30
[2020-05-26] MEDS ORDERED: LORazepam 2 MG/ML INJ IV STA ×2 (11:48→12:21)
[2020-05-26] MEDS ORDERED: LORazepam 2 MG/ML INJ IV PRN (11:48)
--- NOTE | 2020-05-26 13:05 | P.PN ---
Subjective Patient was admitted for psychiatric issues. Patient as per the chart does have seizure disorder patient is presently having tonic-clonic activity. Patient was believed to have neuroleptic malignant syndrome because of her [employer] disability diaphoresis and tachycardia and patient was febrile. No source of infection was found at that time. Overweight was negative, chest x-ray did not show any pneumonia UA was within normal limits. Although patient doesn't appear to be on medications that can cause significant neuroleptic malignant syndrome upon review of her chart it looks like patient is on very low-dose of Seroquel although benztropine was discontinued. Patient is still having fevers but those are low-grade. I'm not completely convinced this is neuroleptic malignant syndrome because of that reason I'm consulting neurology patient will need EEG which was ordered. Will request psychiatry to reevaluate the patient. As a source of infection is not clear and consulting infectious disease patient may and up needing a lumbar puncture. 05/25/2020 Patient will undergo lumbar puncture today. Patient was started on empiric antibiotics by infectious disease. The patient remains on D5 normal saline at 1 50 mL per hour. Patient is being followed by multiple consultants serotonin syndrome is a consideration because of which patient is receiving cyproheptadine. Possibly of this is low and patient the did not receive any SSRIs since admission but patient was on AcipHex sore at home unsure when she has taken this medication. Patient myoclonus can be related to cogentin as well which is being held since admission. Patient barely responds to commands. Patient had an EEG showed encephalopathy but no seizure focus. 05/26/2020 Patient had a lumbar puncture CSF is actually within normal limits etiology of her symptoms is not clear patient is being treated for serotonin syndrome and catatonia is being considered by psychiatry and the patient and will be started on a Ativan for catatonia. Patient continues to have fevers urine cultures are positive for gram negatives bacilli. Patient is on empiric Zosyn at this time. Patient is arousable but doesn't follow commands drowsy sleepy encephalopathic Review of systems: Unable to obtain due to her clinical condition All inpatient medications were reviewed and appropriate changes in these medications as dictated in the interval history and assessment and plan. Objective - Vital Signs Vital signs: Vital Signs Temp 97.7 F 05/26/20 12:00 Pulse 86 05/26/20 12:00 Resp 15 05/26/20 12:00 BP 92/44 05/26/20 12:00 Pulse Ox 96 05/26/20 12:00 Intake & Output 05/25/20 05/26/20 05/26/20 18:59 06:59 18:59 Intake Total 2060 1670 790 Output Total 1964 1255 410 Balance 95 415 380 Weight 59.3 kg 58.9 kg Intake: IV 1850 1300 600 Dextrose 5%-0.9% NaCl 1, 1550 1200 500 000 ml @ 100 mls/hr IV . Q10H [facility] Rx#:[id number] Piperacillin-Tazobactam 3 200 100 100 .375 gm In Sodium Chloride 0.9% 100 ml @ 25 mls/hr IVPB Q8HR [facility] Rx# :[id number] Potassium Chloride 10 meq 100 In Water For Injection 1 100ml.bag @ 100 mls/hr IVPB Q1H [facility] Rx#: [id number] Intake, IV Titration 100 Amount Potassium Chloride 10 meq 100 In Water For Injection 1 100ml.bag @ 100 mls/hr IVPB Q1H [facility] Rx#: [id number] Tube Feeding 80 280 160 Other 30 90 30 Output: Urine 1964 1255 410 Other: Voiding Method Indwelling Catheter Indwelling Catheter Indwelling Catheter # Bowel Movements 1 - Exam PHYSICAL EXAMINATION: GENERAL: Patient is arousable drowsy is having myoclonic activity barely able to open eyes. HEENT: Pupils are round and equally reacting to light. EOMI. No scleral icterus. No conjunctival pallor. Normocephalic, atraumatic. No pharyngeal erythema. No thyromegaly. CARDIOVASCULAR: S1 and S2 present. No murmurs, rubs, or gallops. PULMONARY: Chest is clear to auscultation, no wheezing or crackles. ABDOMEN: Soft, nontender, nondistended, normoactive bowel sounds. No palpable organomegaly. MUSCULOSKELETAL: No joint swelling or deformity. EXTREMITIES: No cyanosis, clubbing, or pedal edema. NEUROLOGICAL: No tremor or significant myoclonic activity today SKIN: No rashes. - Labs CBC & Chem 7: 05/26/20 03:47 05/26/20 03:47 Labs: Abnormal Lab Results - Last 24 Hours (Table) 05/26/20 05/26/20 05/26/20 Range/Units 03:47 03:47 03:47 RBC 3.43 L (3.80-5.40) m/uL Hct 33.3 L (34.0-46.0) % Lymphocytes # 0.5 L (1.0-4.8) k/uL Sodium 135 L (137-145) mmol/L Potassium 3.1 L (3.5-5.1) mmol/L BUN 5 L (7-17) mg/dL Glucose 145 H (74-99) mg/dL Calcium 7.8 L (8.4-10.2) mg/dL AST 78 H (14-36) U/L Creatine Kinase 1017 H* (30-135) U/L Microbiology - Last 24 Hours (Table) 05/25/20 12:00 CSF Gram Stain - Preliminary Cerebral Spinal Fluid CSF Culture - Preliminary 05/21/20 18:02 Blood Culture - Preliminary Blood No Growth after 96 hours 05/24/20 13:45 Urine Culture - Preliminary Urine,Catheterized Gram Neg Bacilli 05/24/20 11:15 Blood Culture - Preliminary Blood No Growth after 24 hours 05/24/20 11:21 Blood Culture - Preliminary Blood No Growth after 24 hours Assessment and Plan Plan: -Myoclonus and severe encephalopathy continues to have fevers being followed by neurology, psychiatry and infectious disease etiology of her presentation and symptoms is not clear patient doesn't have any myoclonic jerks at this time. Patient is presently being treated for serotonin syndrome the other consideration is catatonia. CSF service is within normal limits. Patient is on empiric Zosyn with gram-negative bacilli in the urine -Fever: Etiology of fever is not clear. -Elevated CK secondary to myoclonic activity. Patient is receiving IV fluids - -Major depression and anxiety disorder -Hypovolemic hypernatremia which improved and patient is presently on D5 normal saline now. Presently has an NG tube as well -Hyperlipidemia -Seizure disorder , patient had an EEG which showed encephalopathy without any seizures spikes -History of esophageal stricture -DVT prophylaxis with subcutaneous heparin
--- NOTE | 2020-05-26 13:45 | P.PN ---
Subjective Progress Note Date: 05/26/20 Principal diagnosis: Acute serotonin syndrome. Patient was reevaluated today on 05/24/2020, patient was seen by Dr. Kumari on consultation yesterday, and she was mostly admitted with questionable neuroleptic malignant syndrome or possibly serotonin syndrome. Based on the clinical history I believe the patient most likely had serotonin syndrome. Patient remains in the ICU, she is doing fairly well, in no form of distress, on 2 L nasal cannula, O2 saturations 98%. Remains on IV fluid at 150 mL/h, CPK seems to be coming down nicely. Patient is sleepy, but arousable, and follows simple instructions once a arousable but slowly. In no form of respiratory distress. CBC today is basically normal. Electrolytes are normal. Renal profile is normal. CPK is coming down it is 06/24/2000 today compared to over [address] of the brain showed no acute process. Patient is yet to be seen by neurology on consultation, mostly to be evaluated for her myoclonic activity. May or may not recommend lumbar puncture specially with her low-grade fever on presentation. Patient was reevaluated today on 05/25/2020, patient is basically about the same. He underwent lumbar puncture today, results are pending. Patient remains on Zosyn empirically. Cultures including blood and urine are negative so far. Patient is on O2 at 2 L nasal cannula with O2 saturation 97%. IV fluid is Down to 100 mL/h D5 0.9. She has significant urine output. Mentation seems to be waxing and waning. Last night she had another episode of stiffness, tremors, myoclonus, and low-grade fever. EEG showed encephalopathy but no active seizure activity. Reevaluated today on 05/26/2020, patient is about the same, mental status is about the same, she had a T-max last night of 101.1, no significant improvement in mentation since admission. Patient is not responding to any questions, not verb ally responsive. CBC is relatively normal basic metabolic profile is normal renal profile is normal potassium is a bit low at 3.1. CPK continues to trend down it is 1017 today Objective - Vital Signs Vital signs: Vital Signs Temp 97.7 F 05/26/20 12:00 Pulse 86 05/26/20 12:00 Resp 15 05/26/20 12:00 BP 92/44 01/06/21 12:00 Pulse Ox 96 05/26/20 12:00 Intake & Output 05/25/20 05/26/20 05/26/20 18:59 06:59 18:59 Intake Total 2059 1670 790 Output Total 1964 1255 410 Balance 95 415 380 Weight 59.3 kg 58.9 kg Intake: IV 1850 1300 600 Dextrose 5%-0.9% NaCl 1, 1550 1200 500 000 ml @ 100 mls/hr IV . Q10H CORAL Rx#:[id number] Piperacillin-Tazobactam 3 200 100 100 .375 gm In Sodium Chloride 0.9% 100 ml @ 25 mls/hr IVPB Q8HR CORAL Rx# :[id number] Potassium Chloride 10 meq 100 In Water For Injection 1 100ml.bag @ 100 mls/hr IVPB Q1H CORAL Rx#: [id number] Intake, IV Titration 100 Amount Potassium Chloride 10 meq 100 In Water For Injection 1 100ml.bag @ 100 mls/hr IVPB Q1H CORAL Rx#: [id number] Tube Feeding 80 280 160 Other 30 90 30 Output: Urine 1964 1255 410 Other: Voiding Method Indwelling Catheter Indwelling Catheter Indwelling Catheter # Bowel Movements 1 - Exam Patient is lying in the bed comfortably, does not respond to any verbal stimuli, does not even open her eyes. HEENT: Normocephalic. Neck is supple. Pupils reactive. Nostrils clear. Oral cavity is moist. Ears reveal no drainage. Neck reveals no JVD, carotid bruits, or thyromegaly. CHEST EXAMINATION: Trachea is central. Symmetrical expansion. Lung morley clear to auscultation and percussion. CARDIAC: Normal S1, S2 with no gallops. No murmurs ABDOMEN: Soft. non distended. Bowel sounds normal. No organomegaly. No abdominal bruits. Extremities: reveal no edema. No clubbing or cyanosis Neurologically awake, alerts.Oriented x0. Does not follow any instructions today Skin: No rash or skin lesions. Psychiatric: Unable to assess, patient has a blunted mood affect and poor mental status. Musculoskeletal: No joint swelling or deformity. - Labs CBC & Chem 7: 05/26/20 03:47 05/26/20 03:47 Labs: Abnormal Lab Results - Last 24 Hours (Table) 0105/26/20 05/26/20 Range/Units 03:47 03:47 03:47 RBC 3.43 L (3.80-5.40) m/uL Hct 33.3 L (34.0-46.0) % Lymphocytes # 0.5 L (1.0-4.8) k/uL Sodium 135 L (137-145) mmol/L Potassium 3.1 L (3.5-5.1) mmol/L BUN 5 L (7-17) mg/dL Glucose 145 H (74-99) mg/dL Calcium 7.8 L (8.4-10.2) mg/dL AST 78 H (14-36) U/L Creatine Kinase 1017 H* (30-135) U/L Microbiology - Last 24 Hours (Table) 05/25/20 12:00 CSF Gram Stain - Preliminary Cerebral Spinal Fluid CSF Culture - Preliminary 05/21/20 18:02 Blood Culture - Preliminary Blood No Growth after 96 hours 05/24/20 13:45 Urine Culture - Preliminary Urine,Catheterized Gram Neg Bacilli 05/24/20 11:15 Blood Culture - Preliminary Blood No Growth after 24 hours 05/24/20 11:21 Blood Culture - Preliminary Blood No Growth after 24 hours Assessment and Plan Assessment: Impression: Suspect acute serotonin syndrome. Doubt neuroleptic malignant syndrome. History of seizure disorder. History of colon cancer. History of esophageal strictures. Dyslipidemia. History of depression. History of diverticular disease. Elevated CPK with acute rhabdomyolysis most likely secondary to acute serotonin syndrome or myoclonic activity/possible seizures. Recommendation: Continue to monitor in the ICU. Status post lumbar puncture, results so far are reassuring no evidence of meningitis Continue IV fluids. Continue to hold Haldol and any serotonin medications. Continue Ativan when necessary. Continue to monitor renal profile electrolytes and CPK. Discussed her status with multiple consultants on the case. Including neurology on the case We'll continue to follow. Time with Patient: Less than 30
--- NOTE | 2020-05-26 13:57 | P.PN ---
Progress Note - Text Progress Note Date: 05/26/20 Interval History: Patient was seen resting in bed and was unarousable and unable to participate in the psychiatric interview. Review of the patient's chart shows that lumbar puncture CSF was within normal limits. The patient is being treated for serotonin syndrome. Urine cultures are positive for gram-negative bacilli and the patient is on empiric Zosyn. She can just remain encephalopathic. Ativan challenge was initiated to treat the patient for catatonia. At 12:09 PM the patient scored a 34 on the severity of the Dona-Kwame Catatonia Rating Scale. After 2 administrations of 2 mg IV of ativan, after 10 minutes, the recheck of score revealed improvement with a new score of 22. The patient had a significant decrease in her negativism, perseveration, and her ambitendency. The patient was given one more dose of ativan. She will be scheduled for 2 mg IV of ativan q6H for treatment of catatonia. Mental Status Exam: General Appearance: Patient appears to be her stated age, is lying in bed in no apparent distress. NG tube in place. Behavior: Patient appears to be encephalopathic. Minimally responsive. Speech: Patient is able to respond "no" when asked if she has pain. She also responds her name when asked. Mood/Affect: Unable to assess Suicidality/Homicidality: Unable to assess Perceptions: Unable to assess Though content/process: Unable to assess Memory and concentration: Unable to assess Judgment and insight: poor Assessment Major Depressive Disorder, with catatonia Serotonin syndrome UTI -Patient presentation may be multimodal in etiology. We will continue management to rule out and treat for possible causes for the patient's presenation. Plan: -Start ativan 2 mg IV q6H for management of catatonia. On occasional cases, catatonia can present with autonomic instability. In lieu of other diagnostic testing not revealing any clear etiology and the patient displaying a response to the lorazepam challenge we will initiate treatment for catatonia. Patient may require doses of up to 16-24 mg of ativan per day. -We will continue to hold serotonergic medications due to concern for serotonin syndrome. Patient did have myoclonus and increased temperatures. Agree to continue management with ativan and cyproheptadine. -Will continue lamictal at this time. Lamictal is being used to treat mood. Medication withdrawal can exacerbate catatonia. -Agree with empiric zosyn. -Psychiatry will continue to follow.
--- NOTE | 2020-05-26 17:05 | CDI ---
Documentation Clarification Form Date: 05/26/2020 04:29:21 PM From: Loraine Estrada RN CCDS Admit Date: 05/20/2020 05:00:00 PM Patient Name: Myriam Maloney Visit Number: [id number] Discharge Date: ATTENTION: The Clinical Documentation Specialists (CDI) and [facility] Coding Staff appreciate your assistance in clarifying documentation. Please respond to the clarification below the line at the bottom and electronically sign. The CDI & [facility] Coding staff will review the response and follow-up if needed. Please note: Queries are made part of the Legal Health Record. If you have any questions, please contact the author of this message via ITS. Dr. Evan Arreaga Encephalopathy likely due to Acute Serotonin syndrome is documented in the Neurology progress notes 05/24/20 05/26/20 History/Risk Factors: 75-year-old female presents to the hospital with worsening anxiety and depression denies suicidal ideations. Admitting diagnosis: Acute episode of major depressive disorder, Generalized anxiety and panic disorder, Hypernatremia and severe hypokalemia Clinical Indicators: Medical History: Generalized Anxiety; Depression, panic disorder, HLD, history of seizure disorder. Lab 05/25: Cerebral spinal fluid - final diagnosis Negative, A rare mononuclear cell. EEG05/24: Suggestive of mild to moderate encephalopathy. CT Brain 05/24: concern for acute ischemia Treatment: Holding Haldol or any serotonin medications; Ativan IV CORAL; D5%NS 100cc/hr Consults Psychiatry Progress Note 05/26: Major Depressive Disorder, with catatonia; Serotonin syndrome; UTI In your professional opinion, can you please clarify the specific type of Encephalopathy, if known? Metabolic Encephalopathy Toxic Encephalopathy Other, please specify Unable to determine (Last Revision: August 2017) Due to Underlying Toxic-metabolic encephalopathy. MTDD
[2020-05-26] MEDS: LORazepam 2 MG/ML INJ IV SCH (18:10)
[2020-05-26 18:15] LABS: Glucose,Whole Blood 125 mg/dL (75-99)
--- NOTE | 2020-05-26 18:28 | EEG ---
ELECTROENCEPHALOGRAM REPORT DATE OF SERVICE: 05/26/2020 CLINICAL HISTORY: This is a 75-year-old woman with a reported history of depression who has altered mental status. The video EEG is obtained to evaluate for seizure and epileptiform activity. RELEVANT MEDICATION: Patient is on Ativan. EEG TYPE: A routine 21-channel EEG is performed with video using the 10/20 electrode placement system. DESCRIPTION: Wakefulness and drowsiness are obtained. There is no posterior-dominant rhythm seen. The background consists of low to moderate voltage of 5 to 5.5 hertz theta activity and sometimes background consists of non-rhythmic delta activity. During drowsiness there is slowing and attenuation of the background activity. There is no physiological stage II sleep. There are rare bilateral frontal predominant sharps without slow wave and without evolution to seizure. There is excessive fast activity seen over bilateral hemisphere. ICTAL: None. ACTIVATION PROCEDURES: Photic stimulation and hyperventilation are not performed. CLINICAL INTERPRETATION: This is an abnormal routine EEG. The background slowing is suggestive of moderate to severe encephalopathy likely due to medication effect (Ativan). There are no focal slowing, epileptiform discharges or seizure during the study. Because of rare bilateral frontal sharps with no following slowing or evolution to seizure, recommend repeating EEG once patient is stable/outpatient and possibly consider long-term EEG as outpatient to rule out epileptiform discharges. The excessive fast activity is likely due to medication effect. This EEG is worse compared to 05/24/2020 EEG, likely due to medication effect. Clinical correlation is recommended. JOHANNA / CAESARN: [id number] / BEATRIZ
--- NOTE | 2020-05-26 22:10 | PN ---
PROGRESS NOTE DATE OF SERVICE: 05/26/2020 REASON FOR FOLLOWUP: Fever and a question of neuroleptic malignant syndrome. INTERVAL HISTORY: The patient is currently afebrile. The patient remains lethargic, unresponsive, unable to provide a history. No vomiting or any diarrhea has been reported by nursing staff. PHYSICAL EXAMINATION: Blood pressure 135/70 with a pulse of 80, temperature 97.9 on 2 L nasal cannula. General description is an elderly female lying in bed in no distress. RESPIRATORY SYSTEM: Unlabored breathing with decreased breath sounds at the base. No wheeze. HEART: S1, S2. Regular rate and rhythm. ABDOMEN: Soft. No tenderness. LABS: Hemoglobin is 11.5, white count 5.6, BUN of 5, creatinine 0.90. DIAGNOSTIC IMPRESSION AND PLAN: Patient with a fever thought to be related to neuroleptic malignant syndrome, as the patient did have a significant component of etiology and those have been negative. Urine did show Citrobacter and E coli. Local was not significantly positive. Will consider a short course of Zosyn and monitor clinical course closely. MMODL / IJN: [id number] /
[2020-05-26 23:29] LABS: Glucose,Whole Blood 116 mg/dL (75-99)
[2020-05-27] MEDS: PIPERACILLIN-TAZOBACTAM 3.375 GM in SODIUM CHLORIDE 0.9% 100 ML IVPB SCH ×4 (00:34→23:33)
[2020-05-27] MEDS: LORazepam 2 MG/ML INJ IV SCH ×5 (00:35→23:33)
[2020-05-27] MEDS: CYPROHEPTADINE 4 MG TABLET PO SCH ×5 (00:36→23:59)
[2020-05-27 04:44] LABS: Basophils % (A) 0 %; Eosinophils # (A) 0.2 k/uL (0-0.7); Eosinophils % (A) 3 %; HCT 29.1 % (34.0-46.0); HGB 10.6 gm/dL (11.4-16.0); Lymphocytes # (A) 0.7 k/uL (1.0-4.8); Lymphocytes % (A) 12 %; MCH 35.5 pg (25.0-35.0); MCHC 36.5 g/dL (31.0-37.0); MCV 97.2 fL (80.0-100.0); Mean Platelet Volume 8.4; Monocytes # (A) 0.4 k/uL (0-1.0); Monocytes % (A) 7 %; Neutrophils # (A) 4.3 k/uL (1.3-7.7); Neutrophils % (A) 76 %; Platelet Count 181 k/uL (150-450); RDW 12.9 % (11.5-15.5); WBC 5.7 k/uL (3.8-10.6)
[2020-05-27 05:03] LABS: Potassium 3.5 mmol/L (3.5-5.1)
[2020-05-27] MEDS: POTASSIUM BICARBONATE/CIT AC 20 MEQ TABLET.EFF NG-TUBE SCH ×2 (06:07→07:00)
[2020-05-27] MEDS: DEXTROSE 5%-0.9% NACL 1,000 ML IV SCH ×2 (08:00→16:43)
[2020-05-27] MEDS: PANTOPRAZOLE 40 MG/10 ML VIAL IVP SCH (08:21)
[2020-05-27] MEDS: HEPARIN SODIUM,PORCINE 5,000 UNIT/ML 1 ML VIAL SQ SCH ×2 (08:28→20:50)
[2020-05-27] MEDS: lamoTRIgine 100 MG TAB PO SCH ×2 (08:30→20:50)
[2020-05-27 11:45] LABS: Glucose,Whole Blood 119 mg/dL (75-99)
--- NOTE | 2020-05-27 12:02 | P.PN ---
Subjective Patient was admitted for psychiatric issues. Patient as per the chart does have seizure disorder patient is presently having tonic-clonic activity. Patient was believed to have neuroleptic malignant syndrome because of her [employer] disability diaphoresis and tachycardia and patient was febrile. No source of infection was found at that time. Overweight was negative, chest x-ray did not show any pneumonia UA was within normal limits. Although patient doesn't appear to be on medications that can cause significant neuroleptic malignant syndrome upon review of her chart it looks like patient is on very low-dose of Seroquel although benztropine was discontinued. Patient is still having fevers but those are low-grade. I'm not completely convinced this is neuroleptic malignant syndrome because of that reason I'm consulting neurology patient will need EEG which was ordered. Will request psychiatry to reevaluate the patient. As a source of infection is not clear and consulting infectious disease patient may and up needing a lumbar puncture. 05/25/2020 Patient will undergo lumbar puncture today. Patient was started on empiric antibiotics by infectious disease. The patient remains on D5 normal saline at 1 50 mL per hour. Patient is being followed by multiple consultants serotonin syndrome is a consideration because of which patient is receiving cyproheptadine. Possibly of this is low and patient the did not receive any SSRIs since admission but patient was on AcipHex sore at home unsure when she has taken this medication. Patient myoclonus can be related to cogentin as well which is being held since admission. Patient barely responds to commands. Patient had an EEG showed encephalopathy but no seizure focus. 05/26/2020 Patient had a lumbar puncture CSF is actually within normal limits etiology of her symptoms is not clear patient is being treated for serotonin syndrome and catatonia is being considered by psychiatry and the patient and will be started on a Ativan for catatonia. Patient continues to have fevers urine cultures are positive for gram negatives bacilli. Patient is on empiric Zosyn at this time. Patient is arousable but doesn't follow commands drowsy sleepy encephalopathic 05/27/2020 Patient's fevers are better patient had low-grade fevers yesterday. urine cultures are positive for E. coli and Citrobacter. Patient is being continued on Zosyn. Patient is barely responsive excessively drowsy EEG showed severe encephalopathy Review of systems: Unable to obtain due to her clinical condition All inpatient medications were reviewed and appropriate changes in these medications as dictated in the interval history and assessment and plan. Objective - Vital Signs Vital signs: Vital Signs Temp 98.8 F 05/27/20 08:00 Pulse 82 05/27/20 11:00 Resp 19 05/27/20 11:00 BP 118/60 05/27/20 11:00 Pulse Ox 98 05/27/20 11:00 Intake & Output 05/26/20 05/27/20 05/27/20 18:59 06:59 18:59 Intake Total 2470 1800 590 Output Total 536 595 195 Balance 1934 1205 395 Weight 58.9 kg 60.9 kg Intake: IV 1900 1200 400 0.9 Normal Saline 500 Dextrose 5%-0.9% NaCl 1, 1200 1200 400 000 ml @ 100 mls/hr IV . Q10H CORAL Rx#:[id number] Piperacillin-Tazobactam 3 200 .375 gm In Sodium Chloride 0.9% 100 ml @ 25 mls/hr IVPB Q8HR CORAL Rx# :[id number] Tube Feeding 480 480 160 Other 90 120 30 Output: Urine 536 595 195 Other: Voiding Method Indwelling Catheter Indwelling Catheter Indwelling Catheter # Bowel Movements 1 1 1 - Exam PHYSICAL EXAMINATION: GENERAL: Patient is arousable drowsy is having myoclonic activity barely able to open eyes. HEENT: Pupils are round and equally reacting to light. EOMI. No scleral icterus. No conjunctival pallor. Normocephalic, atraumatic. No pharyngeal erythema. No thyromegaly. CARDIOVASCULAR: S1 and S2 present. No murmurs, rubs, or gallops. PULMONARY: Chest is clear to auscultation, no wheezing or crackles. ABDOMEN: Soft, nontender, nondistended, normoactive bowel sounds. No palpable organomegaly. MUSCULOSKELETAL: No joint swelling or deformity. EXTREMITIES: No cyanosis, clubbing, or pedal edema. NEUROLOGICAL: No tremor or significant myoclonic activity today SKIN: No rashes. - Labs CBC & Chem 7: 05/27/20 04:20 05/27/20 09:35 Labs: Abnormal Lab Results - Last 24 Hours (Table) 05/26/20 05/26/20 05/26/20 Range/Units 14:19 18:14 23:27 RBC (3.80-5.40) m/uL Hgb (11.4-16.0) gm/dL Hct (34.0-46.0) % MCH (25.0-35.0) pg Lymphocytes # (1.0-4.8) k/uL Potassium 3.2 L (3.5-5.1) mmol/L Chloride (98-107) mmol/L Glucose (74-99) mg/dL POC Glucose (mg/dL) 125 H 116 H (75-99) mg/dL Calcium (8.4-10.2) mg/dL Creatine Kinase (30-135) U/L 05/27/20 05/27/20 05/27/20 Range/Units 04:20 04:20 11:44 RBC 3.00 L (3.80-5.40) m/uL Hgb 10.6 L (11.4-16.0) gm/dL Hct 29.1 L (34.0-46.0) % MCH 35.5 H (25.0-35.0) pg Lymphocytes # 0.7 L (1.0-4.8) k/uL Potassium (3.5-5.1) mmol/L Chloride 114 H (98-107) mmol/L Glucose 127 H (74-99) mg/dL POC Glucose (mg/dL) 119 H (75-99) mg/dL Calcium 8.0 L (8.4-10.2) mg/dL Creatine Kinase 992 H (30-135) U/L Microbiology - Last 24 Hours (Table) 05/21/20 18:02 Blood Culture - Preliminary Blood No Growth after 120 hours 05/25/20 12:00 CSF Gram Stain - Preliminary Cerebral Spinal Fluid CSF Culture - Preliminary 05/24/20 13:45 Urine Culture - Final Urine,Catheterized Escherichia coli Citrobacter amalonaticus 05/24/20 11:15 Blood Culture - Preliminary Blood No Growth after 48 hours 05/24/20 11:21 Blood Culture - Preliminary Blood No Growth after 48 hours Assessment and Plan Plan: -Myoclonus and severe encephalopathy continues to have fevers being followed by neurology, psychiatry and infectious disease etiology of her presentation and symptoms is not clear patient doesn't have any myoclonic jerks at this time. Patient is presently being treated for serotonin syndrome the other consideration is catatonia. CSF service is within normal limits. Patient is on empiric Zosyn and urine culture showing above-mentioned bacteria. Patient received Ativan yesterday for catatonia -Fever: Etiology of fever is not clear. Serotonin syndrome, sepsis, catatonia are being considered -Elevated CK secondary to myoclonic activity. Patient is receiving IV fluids -Possibility of urinary tract infection -Major depression and anxiety disorder -Hypovolemic hypernatremia which improved and patient is presently on D5 normal saline now. Presently has an NG tube as well -Hyperlipidemia -Seizure disorder , patient had an EEG which showed encephalopathy without any seizures spikes -History of esophageal stricture -DVT prophylaxis with subcutaneous heparin
[2020-05-27 12:26] LABS: Glucose,Whole Blood 120 mg/dL (75-99)
--- NOTE | 2020-05-27 13:38 | P.PN ---
Progress Note - Text Progress Note Date: 05/27/20 Interval History: 05/26/2020: Patient was seen resting in bed and was unarousable and unable to participate in the psychiatric interview. Review of the patient's chart shows that lumbar puncture CSF was within normal limits. The patient is being treated for serotonin syndrome. Urine cultures are positive for gram-negative bacilli and the patient is on empiric Zosyn. She can just remain encephalopathic. Ativan challenge was initiated to treat the patient for catatonia. At 12:09 PM the patient scored a 34 on the severity of the Dona-Kwame Catatonia Rating Scale. After 2 administrations of 2 mg IV of ativan, after 10 minutes, the recheck of score revealed improvement with a new score of 22. The patient had a significant decrease in her negativism, perseveration, and her ambitendency. 05/27/2020: Patient continues to be unarousable and unable to participate in the psychiatric interview. The patient continues to display significant negativism. She has been noted by nursing staff to occasionally respond to questioning albeit with 1 word answers. She is also been noted to be moving her mouth more. Upon a evaluation, the patient did withdraw and cringe when pinched. This was not present yesterday. She has been tolerating Ativan well. EEG did not display epileptiform activity. Mental Status Exam: General Appearance: Patient appears to be her stated age, is lying in bed in no apparent distress. NG tube in place. Behavior: Patient appears to be encephalopathic. Minimally responsive. Speech: Patient is able to respond "no" when asked if she has pain. She also responds her name when asked. Mood/Affect: Unable to assess Suicidality/Homicidality: Unable to assess Perceptions: Unable to assess Though content/process: Unable to assess Memory and concentration: Unable to assess Judgment and insight: poor Assessment Major Depressive Disorder, with catatonia Serotonin syndrome UTI -Patient presentation may be multimodal in etiology. We will continue management to rule out and treat for possible causes for the patient's presenation. Plan: -We will continue treatment with Ativan for catatonia. We will increase the patient's Ativan to 2.5 mg every 6 hours and will gradually titrate in response to the medication. -We will continue to hold serotonergic medications due to concern for serotonin syndrome. Patient did have myoclonus and increased temperatures. Agree to continue management with ativan and cyproheptadine. -Will continue lamictal at this time. Lamictal is being used to treat mood. Medication withdrawal can exacerbate catatonia. -Psychiatry will continue to follow.
--- NOTE | 2020-05-27 13:44 | P.PN ---
Subjective Progress Note Date: 05/27/20 Principal diagnosis: Acute serotonin syndrome. Patient was reevaluated today on 05/24/2020, patient was seen by Dr. Kumari on consultation yesterday, and she was mostly admitted with questionable neuroleptic malignant syndrome or possibly serotonin syndrome. Based on the clinical history I believe the patient most likely had serotonin syndrome. Patient remains in the ICU, she is doing fairly well, in no form of distress, on 2 L nasal cannula, O2 saturations 98%. Remains on IV fluid at 150 mL/h, CPK seems to be coming down nicely. Patient is sleepy, but arousable, and follows simple instructions once a arousable but slowly. In no form of respiratory distress. CBC today is basically normal. Electrolytes are normal. Renal profile is normal. CPK is coming down it is 06/24/2000 today compared to over [address] of the brain showed no acute process. Patient is yet to be seen by neurology on consultation, mostly to be evaluated for her myoclonic activity. May or may not recommend lumbar puncture specially with her low-grade fever on presentation. Patient was reevaluated today on 05/25/2020, patient is basically about the same. He underwent lumbar puncture today, results are pending. Patient remains on Zosyn empirically. Cultures including blood and urine are negative so far. Patient is on O2 at 2 L nasal cannula with O2 saturation 97%. IV fluid is Down to 100 mL/h D5 0.9. She has significant urine output. Mentation seems to be waxing and waning. Last night she had another episode of stiffness, tremors, myoclonus, and low-grade fever. EEG showed encephalopathy but no active seizure activity. Reevaluated today on 05/26/2020, patient is about the same, mental status is about the same, she had a T-max last night of 101.1, no significant improvement in mentation since admission. Patient is not responding to any questions, not verb ally responsive. CBC is relatively normal basic metabolic profile is normal renal profile is normal potassium is a bit low at 3.1. CPK continues to trend down it is 1017 today Reevaluated today on 05/27/2020, patient remains in the ICU, she is basically about the same. I have not seen any change in the last few days. Mental status is about the same, patient refuses to open her eyes, does not follow any instructions, at times seems to be quite rigid in her upper extremities. Urine cultures came back positive for E. coli and Citrobacter, remains on antibiotics in the form of Zosyn. No seizure activity is documented. CPKs seems to be trending down. CPK today was 992. Renal profile remains normal. Electrolytes are normal. Objective - Vital Signs Vital signs: Vital Signs Temp 98.1 F 05/27/20 12:00 Pulse 83 05/27/20 13:00 Resp 17 05/27/20 13:00 BP 122/64 05/27/20 13:00 Pulse Ox 98 05/27/20 13:00 Intake & Output 05/26/20 05/27/20 05/27/20 18:59 06:59 18:59 Intake Total 2470 1800 1040 Output Total 536 595 335 Balance 1934 1205 705 Weight 58.9 kg 60.9 kg Intake: IV 1900 1200 700 0.9 Normal Saline 500 Dextrose 5%-0.9% NaCl 1, 1200 1200 700 000 ml @ 100 mls/hr IV . Q10H CORAL Rx#:[id number] Piperacillin-Tazobactam 3 200 .375 gm In Sodium Chloride 0.9% 100 ml @ 25 mls/hr IVPB Q8HR CORAL Rx# :[id number] Tube Feeding 480 480 280 Other 90 120 60 Output: Urine 536 595 335 Other: Voiding Method Indwelling Catheter Indwelling Catheter Indwelling Catheter # Bowel Movements 1 1 1 - Exam Patient is lying in the bed comfortably, does not respond to any verbal stimuli, does not even open her eyes. HEENT: Normocephalic. Neck is supple. Pupils reactive. Nostrils clear. Oral cavity is moist. Ears reveal no drainage. Neck reveals no JVD, carotid bruits, or thyromegaly. CHEST EXAMINATION: Trachea is central. Symmetrical expansion. Lung morley clear to auscultation and percussion. CARDIAC: Normal S1, S2 with no gallops. No murmurs ABDOMEN: Soft. non distended. Bowel sounds normal. No organomegaly. No abdominal bruits. Extremities: reveal no edema. No clubbing or cyanosis Neurologically awake, alerts.Oriented x0. Does not follow any instructions today Skin: No rash or skin lesions. Psychiatric: Unable to assess, patient has a blunted mood affect and poor mental status. Musculoskeletal: No joint swelling or deformity. Patient seems to be rigid, and she has severe flexion of upper extremities. - Labs CBC & Chem 7: 05/27/20 04:20 05/27/20 09:35 Labs: Abnormal Lab Results - Last 24 Hours (Table) 05/26/20 05/26/20 05/26/20 Range/Units 14:19 18:14 23:27 RBC (3.80-5.40) m/uL Hgb (11.4-16.0) gm/dL Hct (34.0-46.0) % MCH (25.0-35.0) pg Lymphocytes # (1.0-4.8) k/uL Potassium 3.2 L (3.5-5.1) mmol/L Chloride (98-107) mmol/L Glucose (74-99) mg/dL POC Glucose (mg/dL) 125 H 116 H (75-99) mg/dL Calcium (8.4-10.2) mg/dL Creatine Kinase (30-135) U/L 05/27/20 05/27/20 05/27/20 Range/Units 04:20 04:20 11:44 RBC 3.00 L (3.80-5.40) m/uL Hgb 10.6 L (11.4-16.0) gm/dL Hct 29.1 L (34.0-46.0) % MCH 35.5 H (25.0-35.0) pg Lymphocytes # 0.7 L (1.0-4.8) k/uL Potassium (3.5-5.1) mmol/L Chloride 114 H (98-107) mmol/L Glucose 127 H (74-99) mg/dL POC Glucose (mg/dL) 119 H (75-99) mg/dL Calcium 8.0 L (8.4-10.2) mg/dL Creatine Kinase 992 H (30-135) U/L 05/27/20 Range/Units 12:22 RBC (3.80-5.40) m/uL Hgb (11.4-16.0) gm/dL Hct (34.0-46.0) % MCH (25.0-35.0) pg Lymphocytes # (1.0-4.8) k/uL Potassium (3.5-5.1) mmol/L Chloride (98-107) mmol/L Glucose (74-99) mg/dL POC Glucose (mg/dL) 120 H (75-99) mg/dL Calcium (8.4-10.2) mg/dL Creatine Kinase (30-135) U/L Microbiology - Last 24 Hours (Table) 05/21/20 18:02 Blood Culture - Preliminary Blood No Growth after 120 hours 05/25/20 12:00 CSF Gram Stain - Preliminary Cerebral Spinal Fluid CSF Culture - Preliminary 05/24/20 13:45 Urine Culture - Final Urine,Catheterized Escherichia coli Citrobacter amalonaticus 05/24/20 11:15 Blood Culture - Preliminary Blood No Growth after 48 hours 05/24/20 11:21 Blood Culture - Preliminary Blood No Growth after 48 hours Assessment and Plan Assessment: Impression: Suspect acute serotonin syndrome. History of seizure disorder. This is even questionable according to the neurologist History of colon cancer. History of esophageal strictures. Dyslipidemia. History of depression. History of diverticular disease. Elevated CPK with acute rhabdomyolysis most likely secondary to acute serotonin syndrome or myoclonic activity/possible seizures. Acute urinary tract infection, remains on Zosyn. Recommendation: Continue to monitor in the ICU. Continue IV fluids. Continue to hold Haldol and any serotonin medications. Continue Ativan when necessary. Continue to monitor renal profile electrolytes and CPK. We'll continue to follow. Time with Patient: Less than 30
--- NOTE | 2020-05-27 15:03 | P.PN ---
Subjective Progress Note Date: 05/27/20 Patient was seen at bedside and the per the patient nurse she'll have episodes where patient would be responsive or would try to open her eyes to commands but does not seem to have a drastic improvement. Upon seeing the patient she was not responsive to me Patient has a temperature has been well controlled and the last time and it peaked was on 05/27 at around 4:00 and was 100.4 but much better compared to a prior. As well as her blood pressure has been more stable. Her creatinine kinase has been trending down and the last read today is 992. There is no leukocytosis. The patient is getting Ativan 2 mg scheduled every 6 hours. I requested records from her neurologist and I received reports from [facility] and that encounter was on 04/28/2020 and was seen by Arabella Khalil ([facility]). It is reported that the patient presented complaining with leg and arm shakiness and she noticed this for 1 week since after the Ativan was discontinued a week ago. She is reporting shakiness in both upper arms and legs. According to reports she was taking intermittently and she was on it for 3 weeks but the psychiatrist refused to refill the medication. And a diagnosis with generalized anxiety disorder, tremor onto his side, major depressive disorder, recurrent severe with psychotic features at. They start the patient on a trial of Ropinirole. She was told to follow up with a psychiatrist within 2 days. Patient had an EEG on 05/12/[address] Juan Jose Patel for myoclonus and was reported as normal. Objective - Vital Signs Vital signs: Vital Signs Temp 98.1 F 05/27/20 12:00 Pulse 79 05/27/20 14:00 Resp 16 05/27/20 14:00 BP 84/40 05/27/20 14:00 Pulse Ox 98 05/27/20 14:00 Intake & Output 05/26/20 05/27/20 05/27/20 18:59 06:59 18:59 Intake Total 2470 1800 1180 Output Total 536 595 375 Balance 1934 1205 805 Weight 58.9 kg 60.9 kg Intake: IV 1900 1200 800 0.9 Normal Saline 500 Dextrose 5%-0.9% NaCl 1, 1200 1200 800 000 ml @ 100 mls/hr IV . Q10H CORAL Rx#:[id number] Piperacillin-Tazobactam 3 200 .375 gm In Sodium Chloride 0.9% 100 ml @ 25 mls/hr IVPB Q8HR CORAL Rx# :[id number] Tube Feeding 480 480 320 Other 90 120 60 Output: Urine 536 595 375 Other: Voiding Method Indwelling Catheter Indwelling Catheter Indwelling Catheter # Bowel Movements 1 1 1 - Exam GENERAL: The patient is lying in bed and does not seem in distress. NEUROLOGICAL: Limited because of condition. Higher mental function: The patient is stupor and was not responsive to me or following commands. Cranial nerves: Patient was resistant to opening the eyes even though painful stimuli. I had to manually open eyes and the primary gaze was midline the. The pupils are round 3 mm bilaterally and reactive to light. Her primary gaze was midline but she had roving of the eyes. She do not have any fixed gaze deviation. At one point when I asked her to look to the left, she did. No facial weakness is noted that. Otherwise I could not assess the rest of the cranial nerves because of patient condition. Motor: Is deferred because of patient condition. Patient was withdrawing to painful stimuli throughout. Patient does have increased tone throughout all extremities. There is no spontaneous movement noted. No seizure-like activity noted. No clonus is noted. Cerebellum: Could not assess because of her condition. Sensation: Could not assess like sensation about to painful stimuli the patient was withdrawing as well as was grimacing on her face. Reflexes (right/left): 3+ throughout. Plantars are downgoing bilaterally. - Labs CBC & Chem 7: 05/27/20 04:20 05/27/20 09:35 Labs: Abnormal Lab Results - Last 24 Hours (Table) 05/26/20 05/26/20 05/26/20 Range/Units 14:19 18:14 23:27 RBC (3.80-5.40) m/uL Hgb (11.4-16.0) gm/dL Hct (34.0-46.0) % MCH (25.0-35.0) pg Lymphocytes # (1.0-4.8) k/uL Potassium 3.2 L (3.5-5.1) mmol/L Chloride (98-107) mmol/L Glucose (74-99) mg/dL POC Glucose (mg/dL) 125 H 116 H (75-99) mg/dL Calcium (8.4-10.2) mg/dL Creatine Kinase (30-135) U/L 05/27/20 05/27/20 05/27/20 Range/Units 04:20 04:20 11:44 RBC 3.00 L (3.80-5.40) m/uL Hgb 10.6 L (11.4-16.0) gm/dL Hct 29.1 L (34.0-46.0) % MCH 35.5 H (25.0-35.0) pg Lymphocytes # 0.7 L (1.0-4.8) k/uL Potassium (3.5-5.1) mmol/L Chloride 114 H (98-107) mmol/L Glucose 127 H (74-99) mg/dL POC Glucose (mg/dL) 119 H (75-99) mg/dL Calcium 8.0 L (8.4-10.2) mg/dL Creatine Kinase 992 H (30-135) U/L 05/27/20 Range/Units 12:22 RBC (3.80-5.40) m/uL Hgb (11.4-16.0) gm/dL Hct (34.0-46.0) % MCH (25.0-35.0) pg Lymphocytes # (1.0-4.8) k/uL Potassium (3.5-5.1) mmol/L Chloride (98-107) mmol/L Glucose (74-99) mg/dL POC Glucose (mg/dL) 120 H (75-99) mg/dL Calcium (8.4-10.2) mg/dL Creatine Kinase (30-135) U/L Microbiology - Last 24 Hours (Table) 05/24/20 11:21 Blood Culture - Preliminary Blood No Growth after 72 hours 05/24/20 11:15 Blood Culture - Preliminary Blood No Growth after 72 hours 05/21/20 18:02 Blood Culture - Preliminary Blood No Growth after 120 hours 05/25/20 12:00 CSF Gram Stain - Preliminary Cerebral Spinal Fluid CSF Culture - Preliminary 05/24/20 13:45 Urine Culture - Final Urine,Catheterized Escherichia coli Citrobacter amalonaticus Assessment and Plan Assessment: * Encephalopathy likely Catatonia > Serotonin Syndrome (Especially with history of Ativan withdrawl) * Also has compoenent toxic-metabolic encephalopathy * Elevated CK, increased tone throughout, low grade fever,tachycardia, tachypneic and hyperreflexia and encephalopathy seems seems autonomic form above---improving * Elevated CK---tending down * Electrolye imbalance (hypokalemia, hypophosphatemia)--resolved * PORFIRIO--resolved * History of colonr cancer * History of esophageal stricture * History of depression * History of diverticular disease Plan: * EEG on the 05/24/2020 shows background slowing suggestive of mild to moderate encephalopathy. There are no focal slowing, upper performed discharges or seizure during the study. * Repeat EEG on 05/26/2020: It's an abnormal routine EEG. The background slowing suggestive of moderate to severe encephalopathy likely due to medication effect (Ativan). There are no focal slowing, epileptiform discharges or seizure during routine EEG. Because of the rare bilateral frontal sharps with no following slow wave or evolution to seizure, recommend repeating EEG once the patient is stable/outpatient and possibly consider long-term EEG as an outpatient to rule out epileptiform discharges. The excessive fast activity likely due to medication effect. The EEG is worse compared to 05/24/2020 EEG, likely due to medication effect. * Issues currently on Ativan 2 mg every 6 hours scheduled. Recommend going up on Ativan but will defer the management to the psychiatry team. * Continue supportive care with normalization of the vital signs. * On Cyprohepatidine 4mg q6 hours which can help with Serotonin syndrome. * Lumbar puncture was performed on 05/25/2020 and CSF study is clear, colorless, total nuclear cells 0, glucose is 63 and that his CSF protein is 47 which is within normal limits. Because the nucleated cells is 0, as does not seem and meningeal encephalitis * Jacobson virus PCR was not detected. Influenza A and B PCR is not detected. Urine Legionella is negative. * Patient is on Zosyn per ID team. * AST 78 which is trending down compared to 2 days ago which was 109. ALTs 34 which is within normal limits. * TSH is 0.752 which is within normal limits. * Will consider getting MRI Brain if no improvement. * Psychiatry is on board. * Infection disease is on board. Per the patient's son (Dalton) she follows-up with Dr. Patel but does not have history of seizure. He said the Lamictal is for mood disorder. He was updated of the patient's condition today. The plan was discussed with the patient nurse and ICU nurse. Evan Arreaga M.D. Neuro-hospitalist Time with Patient: Less than 30
[2020-05-27 16:59] LABS: Glucose,Whole Blood 119 mg/dL (75-99)
[2020-05-27] MEDS: ACETAMINOPHEN TAB 325 MG TAB PO PRN (17:19)
--- NOTE | 2020-05-27 22:36 | PN ---
PROGRESS NOTE DATE OF SERVICE: 05/27/2020 REASON FOR FOLLOWUP: Fever and possible UTI. INTERVAL HISTORY: The patient overall has improved. No ( ) except for a low grade at 100.4 this morning. The patient is hemodynamically stable. The patient is breathing comfortably, no oxygen. The patient is lethargic and unable to provide any history. No vomiting or diarrhea reported by nursing staff. PHYSICAL EXAMINATION: Blood pressure 112/66, pulse of 92, temperature 98.1. She is 98% on 2 L nasal cannula. General description is an elderly female lying in bed in no distress. Respiratory system: Unlabored breathing, decreased breath sounds. No wheeze. HEART: S1, S2. Regular rate and rhythm. ABDOMEN: Soft, no tenderness. LABS: Hemoglobin is 10.5, white count 25.7, BUN of 10, creatinine 0.87. DIAGNOSTIC IMPRESSION AND PLAN: Patient with fever, multifactorial, possible component of urinary tract infection, urine showing E coli and Citrobacter. Patient is covered with Zosyn. Fever has resolved or improving and monitor clinical course closely. MMODL / IJN: [id number] /
[2020-05-28] MEDS: DEXTROSE 5%-0.9% NACL 1,000 ML IV SCH ×3 (04:00→22:13)
[2020-05-28 04:53] LABS: Calcium 7.7 mg/dL (8.4-10.2); Potassium 3.9 mmol/L (3.5-5.1)
[2020-05-28 04:58] LABS: Basophils % (A) 1 %; Eosinophils # (A) 0.3 k/uL (0-0.7); Eosinophils % (A) 5 %; HCT 29.8 % (34.0-46.0); HGB 9.5 gm/dL (11.4-16.0); Lymphocytes # (A) 0.9 k/uL (1.0-4.8); Lymphocytes % (A) 19 %; MCH 31.4 pg (25.0-35.0); MCHC 31.8 g/dL (31.0-37.0); MCV 98.5 fL (80.0-100.0); Mean Platelet Volume 8.7; Monocytes # (A) 0.4 k/uL (0-1.0); Monocytes % (A) 7 %; Neutrophils # (A) 3.1 k/uL (1.3-7.7); Neutrophils % (A) 65 %; Platelet Count 177 k/uL (150-450); RBC 3.03 m/uL (3.80-5.40); WBC 4.8 k/uL (3.8-10.6)
[2020-05-28] MEDS ORDERED: POTASSIUM BICARBONATE/CIT AC 20 MEQ TABLET.EFF NG-TUBE SCH (05:00)
[2020-05-28] MEDS: LORazepam 2 MG/ML INJ IV SCH ×4 (05:28→23:40)
[2020-05-28] MEDS: CYPROHEPTADINE 4 MG TABLET PO SCH ×4 (05:28→23:31)
--- NOTE | 2020-05-28 08:12 | XR ---
EXAMINATION TYPE: XR chest 1V portable DATE OF EXAM: 05/28/2020 COMPARISON: 05/25/2020 INDICATION: ICU management TECHNIQUE: Single frontal view of the chest is obtained. FINDINGS: The heart size is normal. The pulmonary vasculature is normal. The lungs are clear. Nasogastric tube transverses the thorax the tip in left upper quadrant of the abdomen IMPRESSION: 1. No acute pulmonary process.
[2020-05-28] MEDS: PIPERACILLIN-TAZOBACTAM 3.375 GM in SODIUM CHLORIDE 0.9% 100 ML IVPB SCH ×3 (08:20→23:44)
[2020-05-28] MEDS: lamoTRIgine 100 MG TAB PO SCH ×2 (08:52→22:44)
[2020-05-28] MEDS: PANTOPRAZOLE 40 MG/10 ML VIAL IVP SCH (08:52)
[2020-05-28] MEDS: HEPARIN SODIUM,PORCINE 5,000 UNIT/ML 1 ML VIAL SQ SCH ×2 (08:52→22:05)
--- NOTE | 2020-05-28 10:33 | CDI ---
Documentation Clarification Form Date: 05/28/2020 10:01:07 AM From: Loraine Estrada RN CCDS Admit Date: 05/20/2020 05:00:00 PM Patient Name: Myriam Maloney Visit Number: [id number] Discharge Date: ATTENTION: The Clinical Documentation Specialists (CDI) and [facility] Coding Staff appreciate your assistance in clarifying documentation. Please respond to the clarification below the line at the bottom and electronically sign. The CDI & [facility] Coding staff will review the response and follow-up if needed. Please note: Queries are made part of the Legal Health Record. If you have any questions, please contact the author of this message via ITS. Dr. Vanessa Lin MD Possibility of urinary tract infection is documented in Internal Medicine Progress Note 05/27 History/Risk Factors: 75-year-old female presents to the ED via EMS for worsening anxiety and depression for the last three days. Medical History: Colon CA; HLD; HLD; Seizure disorder; Anxiety; Depression and panic disorder. Clinical Indicators: Vital Signs 05/24: B/P 143/68; HR 86; Temp 99.5 F Core: RR 24; SpO2 98% 2L nasal cannula WBC 05/24: 4.9 Urinalysis 05/24: Blood trace; Leukocyte Esterase Small; Wbc 3; Rbc 3 Urine Culture 05/24: Verified 05/26 Escherichia coli; Citrobacter amalonaticus ID progress note 05/27: Patient with fever, multifactorial, possible component of urinary tract infection, urine showing E coli and Citrobacter. Patient is covered with Zoysn. Nursing Note 05/21 ICU Physical Assessment Genitourinary voiding pattern: Indwelling Cheatham Catheter. Treatment Antibiotics: 05/25 Zosyn Ivpb Q8HR Please document the condition that these clinical indicators signify cause if known: UTI Due to Cheatham Catheter UTI Not due to Cheatham Catheter Other, please specify Unable to determine (Last Revision: February 2017) UTI Not due to Cheatham Catheter MTDD
[2020-05-28 12:02] LABS: Glucose,Whole Blood 99 mg/dL (75-99)
--- NOTE | 2020-05-28 12:38 | P.PN ---
Subjective Progress Note Date: 05/28/20 She was seen at bedside and the per the patient nurse as she'll have episodes where she is more responsive than others. The at times she'll attempt to open her eyes or the she'll call her husbands name. Per the patient nurse there is no seizure-like activity seen. Otherwise for the most part she hasn't been having much of increased posturing or fevers. Occasionally the patient will be tachycardiac in the range of 100 to 110s and one episode of tachypneic. Ativan was increased from 2 mg every 6 hours to the 2.5 every 6 hours. The Coronavirus PCR is negative twice. Possibly the patient that she's opening her eyes spontaneously other than that she's not verbalizing. Objective - Vital Signs Vital signs: Vital Signs Temp 99.1 F 05/28/20 08:00 Pulse 90 05/28/20 08:00 Resp 14 05/28/20 08:00 BP 147/74 05/28/20 08:00 Pulse Ox 96 05/28/20 08:00 Intake & Output 05/27/20 05/28/20 05/28/20 18:59 06:59 18:59 Intake Total 1770 1790 270 Output Total 535 1040 155 Balance 1235 750 115 Weight 60.9 kg Intake: IV 1200 1300 200 Dextrose 5%-0.9% NaCl 1, 1200 1200 200 000 ml @ 100 mls/hr IV . Q10H CORAL Rx#:[id number] Piperacillin-Tazobactam 3 100 .375 gm In Sodium Chloride 0.9% 100 ml @ 25 mls/hr IVPB Q8HR CORAL Rx# :[id number] Tube Feeding 480 400 40 Other 90 90 30 Output: Urine 535 1040 155 Other: Voiding Method Indwelling Catheter Indwelling Catheter Indwelling Catheter # Bowel Movements 1 - Exam GENERAL: The patient is lying in bed and does not seem in distress. NEUROLOGICAL: Limited because of condition. Higher mental function: The patient is stupor and was not responsive to me or following commands. Cranial nerves: Her pupils are open and primary gaze is midline. The pupils are round 3 mm bilaterally and reactive to light. No facial weakness is noted that. Otherwise I could not assess the rest of the cranial nerves because of patient condition. Motor: Is deferred because of patient condition. Patient was withdrawing to painful stimuli throughout. Patient does have increased tone throughout all extremities. There is no spontaneous movement noted. No seizure-like activity noted. No clonus is noted. Cerebellum: Could not assess because of her condition. Sensation: Could not assess like sensation about to painful stimuli the patient was withdrawing as well as was grimacing on her face. Reflexes (right/left): 3+ throughout. Plantars are downgoing bilaterally. - Labs CBC & Chem 7: 05/28/20 04:16 05/28/20 04:16 Labs: Abnormal Lab Results - Last 24 Hours (Table) 05/27/20 05/27/20 05/27/20 Range/Units 11:44 12:22 16:58 RBC (3.80-5.40) m/uL Hgb (11.4-16.0) gm/dL Hct (34.0-46.0) % Lymphocytes # (1.0-4.8) k/uL Chloride (98-107) mmol/L Glucose (74-99) mg/dL POC Glucose (mg/dL) 119 H 120 H 119 H (75-99) mg/dL Calcium (8.4-10.2) mg/dL 05/28/20 05/28/20 Range/Units 04:16 04:16 RBC 3.03 L (3.80-5.40) m/uL Hgb 9.5 L (11.4-16.0) gm/dL Hct 29.8 L (34.0-46.0) % Lymphocytes # 0.9 L (1.0-4.8) k/uL Chloride 111 H (98-107) mmol/L Glucose 109 H (74-99) mg/dL POC Glucose (mg/dL) (75-99) mg/dL Calcium 7.7 L (8.4-10.2) mg/dL Microbiology - Last 24 Hours (Table) 05/21/20 18:02 Blood Culture - Final Blood No Growth after 144 hours 05/25/20 12:00 CSF Gram Stain - Preliminary Cerebral Spinal Fluid CSF Culture - Preliminary 05/24/20 11:21 Blood Culture - Preliminary Blood No Growth after 72 hours 05/24/20 11:15 Blood Culture - Preliminary Blood No Growth after 72 hours Assessment and Plan Assessment: * Encephalopathy likely Catatonia > Serotonin Syndrome (Especially with history of Ativan withdrawl) * Also has compoenent toxic-metabolic encephalopathy * Elevated CK, increased tone throughout, low grade fever,tachycardia, tachypneic and hyperreflexia and encephalopathy seems seems autonomic form above---improving * Elevated CK---tending down * Electrolye imbalance (hypokalemia, hypophosphatemia)--resolved * PORFIRIO--resolved * History of colonr cancer * History of esophageal stricture * History of depression * History of diverticular disease Plan: * EEG on the 05/24/2020 shows background slowing suggestive of mild to moderate encephalopathy. There are no focal slowing, upper performed discharges or seizure during the study. * Repeat EEG on 05/26/2020: It's an abnormal routine EEG. The background slowing suggestive of moderate to severe encephalopathy likely due to medication effect (Ativan). There are no focal slowing, epileptiform discharges or seizure during routine EEG. Because of the rare bilateral frontal sharps with no following slow wave or evolution to seizure, recommend repeating EEG once the patient is stable/outpatient and possibly consider long-term EEG as an outpatient to rule out epileptiform discharges. The excessive fast activity likely due to medication effect. The EEG is worse compared to 05/24/2020 EEG, likely due to medication effect. * currently on Ativan 2.5 mg every 6 hours scheduled. Recommend going up on Ativan but will defer the management to the psychiatry team. * Lumbar puncture was performed on 05/25/2020 and CSF study is clear, colorless, total nuclear cells 0, glucose is 63 and that his CSF protein is 47 which is within normal limits. Because the nucleated cells is 0, as does not seem and meningeal encephalitis * Jacobson virus PCR was not detected. Influenza A and B PCR is not detected. Urine Legionella is negative. * Continue supportive care with normalization of the vital signs. * On Cyprohepatidine 4mg q6 hours which can help with Serotonin syndrome. * Is on Lamictal 100 mg 1 tablet twice a day for mood disorder * Patient is on Zosyn per ID team. * AST 78 which is trending down compared to 2 days ago which was 109. ALTs 34 which is within normal limits. * TSH is 0.752 which is within normal limits. * I ordered MRI Brain to rule out intracranial abnormality. * Psychiatry is on board. * Infection disease is on board. Per the patient's son (Dalton) she follows-up with Dr. Patel but does not have history of seizure. He said the Lamictal is for mood disorder. The plan was discussed with the patient nurse and ICU nurse. Evan Arreaga M.D. Neuro-hospitalist Time with Patient: Less than 30
--- NOTE | 2020-05-28 13:26 | P.PN ---
Progress Note - Text Progress Note Date: 05/28/20 Interval History: 05/26/2020: Patient was seen resting in bed and was unarousable and unable to participate in the psychiatric interview. Review of the patient's chart shows that lumbar puncture CSF was within normal limits. The patient is being treated for serotonin syndrome. Urine cultures are positive for gram-negative bacilli and the patient is on empiric Zosyn. She can just remain encephalopathic. Ativan challenge was initiated to treat the patient for catatonia. At 12:09 PM the patient scored a 34 on the severity of the Dona-Kwame Catatonia Rating Scale. After 2 administrations of 2 mg IV of ativan, after 10 minutes, the recheck of score revealed improvement with a new score of 22. The patient had a significant decrease in her negativism, perseveration, and her ambitendency. 05/27/2020: Patient continues to be unarousable and unable to participate in the psychiatric interview. The patient continues to display significant negativism. She has been noted by nursing staff to occasionally respond to questioning albeit with 1 word answers. She is also been noted to be moving her mouth more. Upon a evaluation, the patient did withdraw and cringe when pinched. This was not present yesterday. She has been tolerating Ativan well. EEG did not display epileptiform activity. 05/28/2020: Patient continues to be nonverbal. She did appear to have more spontaneous movements and opened her eyes briefly. She was able to obey a simple command of opening her eyes and raising her hand. She otherwise continues to be mostly unresponsive and intermittently cooperative. Review of the patient's outpatient PCP note from 04/28/2020, the patient noticed increased tremors in her arms and legs as her ativan was discontinued. Patient was prescribed ropinirole and informed to follow with her outpatient psychiatrist who refused to continue the medication. The patient has been afebrile and tolerating the ativan. She is on a total of 10 mg daily at this time. We will continue to gradually titrate the medication. Mental Status Exam: General Appearance: Patient appears to be her stated age, is lying in bed in no apparent distress. NG tube in place. Behavior: Patient appears to be encephalopathic. Minimally responsive. Able to follow simple commands. Briefly opened her eyes. Speech: Patient is minimally responsive. Did not speak today. Mood/Affect: Unable to assess Suicidality/Homicidality: Unable to assess Perceptions: Unable to assess Though content/process: Unable to assess Memory and concentration: Unable to assess Judgment and insight: poor Assessment Major Depressive Disorder, with catatonia Serotonin syndrome UTI -Patient presentation may be multimodal in etiology. We will continue management to rule out and treat for possible causes for the patient's presenation. Plan: -We will continue treatment with Ativan for catatonia. Ativan will be increased to 3 mg q6H for management of Catatonia. We may require doses of up to 16-24 mg IV before a significant response. Due to patient age, we will continue with gradual titration. -Will continue lamictal at this time. -Psychiatry will continue to follow.
--- NOTE | 2020-05-28 13:45 | P.PN ---
Subjective Progress Note Date: 05/28/20 Principal diagnosis: Acute serotonin syndrome Patient was reevaluated today on 05/24/2020, patient was seen by Dr. Kumari on consultation yesterday, and she was mostly admitted with questionable neuroleptic malignant syndrome or possibly serotonin syndrome. Based on the clinical history I believe the patient most likely had serotonin syndrome. Patient remains in the ICU, she is doing fairly well, in no form of distress, on 2 L nasal cannula, O2 saturations 98%. Remains on IV fluid at 150 mL/h, CPK seems to be coming down nicely. Patient is sleepy, but arousable, and follows simple instructions once a arousable but slowly. In no form of respiratory distress. CBC today is basically normal. Electrolytes are normal. Renal profile is normal. CPK is coming down it is 06/24/2000 today compared to over [address] of the brain showed no acute process. Patient is yet to be seen by neurology on consultation, mostly to be evaluated for her myoclonic activity. May or may not recommend lumbar puncture specially with her low-grade fever on presentation. Patient was reevaluated today on 05/25/2020, patient is basically about the same. He underwent lumbar puncture today, results are pending. Patient remains on Zosyn empirically. Cultures including blood and urine are negative so far. Patient is on O2 at 2 L nasal cannula with O2 saturation 97%. IV fluid is Down to 100 mL/h D5 0.9. She has significant urine output. Mentation seems to be waxing and waning. Last night she had another episode of stiffness, tremors, myoclonus, and low-grade fever. EEG showed encephalopathy but no active seizure activity. Reevaluated today on 05/26/2020, patient is about the same, mental status is about the same, she had a T-max last night of 101.1, no significant improvement in mentation since admission. Patient is not responding to any questions, not verbally responsive. CBC is relatively normal basic metabolic profile is normal renal profile is normal potassium is a bit low at 3.1. CPK continues to trend down it is 1017 today Reevaluated today on 05/27/2020, patient remains in the ICU, she is basically about the same. I have not seen any change in the last few days. Mental status is about the same, patient refuses to open her eyes, does not follow any instructions, at times seems to be quite rigid in her upper extremities. Urine cultures came back positive for E. coli and Citrobacter, remains on antibiotics in the form of Zosyn. No seizure activity is documented. CPKs seems to be trending down. CPK today was 992. Renal profile remains normal. Electrolytes are normal. The patient is seen today 05/28/2020 in follow-up in the intensive care unit. She is resting comfortably in bed. In no acute distress. She continues to refuse to open her eyes. Remains nonverbal. Not making eye contact. Not following any simple commands. Her extremities are less rigid. She remains on room air with O2 saturations in the mid 90s. Temperature 99.1. Blood pressure stable. Follow-up chest x-ray reveals no acute pulmonary process. White count 4.8. Hemoglobin 9.5. Lymphocytes 0.9. Sodium 138. Potassium 3.9. Creatinine 0.79. Cerebrospinal fluid cultures reveal no growth to date. Blood culture is revealing no growth. Urine culture was positive for E. coli and Citrobacter. She remains on Zosyn. Heparin for DVT prophylaxis. Objective - Vital Signs Vital signs: Vital Signs Temp 99.1 F 05/28/20 08:00 Pulse 90 05/28/20 08:00 Resp 14 05/28/20 08:00 BP 147/74 05/28/20 08:00 Pulse Ox 96 05/28/20 08:00 Intake & Output 05/27/20 05/28/20 05/28/20 18:59 06:59 18:59 Intake Total 1770 1790 270 Output Total 535 1040 155 Balance 1235 750 115 Weight 60.9 kg Intake: IV 1200 1300 200 Dextrose 5%-0.9% NaCl 1, 1200 1200 200 000 ml @ 100 mls/hr IV . Q10H CORAL Rx#:[id number] Piperacillin-Tazobactam 3 100 .375 gm In Sodium Chloride 0.9% 100 ml @ 25 mls/hr IVPB Q8HR CORAL Rx# :[id number] Tube Feeding 480 400 40 Other 90 90 30 Output: Urine 535 1040 155 Other: Voiding Method Indwelling Catheter Indwelling Catheter Indwelling Catheter # Bowel Movements 1 - Exam GENERAL EXAM: 75-year-old female patient, nonverbal, not following any simple commands, on room air, comfortable in no apparent distress. HEAD: Normocephalic. EYES: Normal reaction of pupils, equal size. NOSE: Nasogastric tube remains in place. Clear with pink turbinates. THROAT: No erythema or exudates. NECK: No masses, no JVD. CHEST: No chest wall deformity. LUNGS: Equal air entry with no crackles, wheeze, rhonchi or dullness. CVS: S1 and S2 normal with no audible murmur, regular rhythm. ABDOMEN: No hepatosplenomegaly, normal bowel sounds, no guarding or rigidity. SPINE: No scoliosis or deformity SKIN: No rashes CENTRAL NERVOUS SYSTEM: No focal deficits, tone is somewhat less rigid in all 4 extremities. EXTREMITIES: There is no peripheral edema. No clubbing, no cyanosis. Peripheral pulses are intact. - Labs CBC & Chem 7: 05/28/20 04:16 05/28/20 04:16 Labs: Abnormal Lab Results - Last 24 Hours (Table) 05/27/20 05/28/20 05/28/20 Range/Units 16:58 04:16 04:16 RBC 3.03 L (3.80-5.40) m/uL Hgb 9.5 L (11.4-16.0) gm/dL Hct 29.8 L (34.0-46.0) % Lymphocytes # 0.9 L (1.0-4.8) k/uL Chloride 111 H (98-107) mmol/L Glucose 109 H (74-99) mg/dL POC Glucose (mg/dL) 119 H (75-99) mg/dL Calcium 7.7 L (8.4-10.2) mg/dL Microbiology - Last 24 Hours (Table) 05/21/20 18:02 Blood Culture - Final Blood No Growth after 144 hours 05/25/20 12:00 CSF Gram Stain - Preliminary Cerebral Spinal Fluid CSF Culture - Preliminary 05/24/20 11:21 Blood Culture - Preliminary Blood No Growth after 72 hours 05/24/20 11:15 Blood Culture - Preliminary Blood No Growth after 72 hours Assessment and Plan Assessment: 1 Altered mental status suspect secondary to acute serotonin syndrome. 2 History of seizure disorder. This is even questionable according to the neurologist 3 History of colon cancer. 4 History of esophageal strictures. 5 Dyslipidemia. 6 History of depression. 7 History of diverticular disease. 8 Elevated CPK with acute rhabdomyolysis most likely secondary to acute serotonin syndrome or myoclonic activity/possible seizures. 9 Acute urinary tract infection, remains on Zosyn. Ji: The patient was seen and evaluated by Dr. Jenny Wilson from the pulmonary and critical care standpoint On room air, remains nonverbal Psychology and neurology on the case Transfer to the regular medical floor We'll continue to follow and make further recommendations based on her clinical status I, the cosigning physician, performed a history & physical examination of the patient. Lungs sounds are clear. Maintaining good O2 saturations in the 90s on room air. I discussed the assessment and plan of care with my nurse practitioner, Louann Rojas. I attest to the above note as dictated by her.
--- NOTE | 2020-05-28 16:38 | P.PN ---
Subjective Progress Note Date: 05/28/20 Principal diagnosis: Encephalopathy w/ Catatonia; Serotonin syndrome with component of toxic metabolic encephalopathy Patient was admitted for psychiatric issues. Patient as per the chart does have seizure disorder patient is presently having tonic-clonic activity. Patient was believed to have neuroleptic malignant syndrome because of her Mudgett dis ability diaphoresis and tachycardia and patient was febrile. No source of infection was found at that time. Overweight was negative, chest x-ray did not show any pneumonia UA was within normal limits. Although patient doesn't appear to be on medications that can cause significant neuroleptic malignant syndrome upon review of her chart it looks like patient is on very low-dose of Seroquel although benztropine was discontinued. Patient is still having fevers but those are low-grade. I'm not completely convinced this is neuroleptic malignant syndrome because of that reason I'm consulting neurology patient will need EEG which was ordered. Will request psychiatry to reevaluate the patient. As a source of infection is not clear and consulting infectious disease patient may and up needing a lumbar puncture. 05/25/2020 Patient will undergo lumbar puncture today. Patient was started on empiric antibiotics by infectious disease. The patient remains on D5 normal saline at 1 50 mL per hour. Patient is being followed by multiple consultants serotonin syndrome is a consideration because of which patient is receiving cyproheptadine. Possibly of this is low and patient the did not receive any SSRIs since admission but patient was on AcipHex sore at home unsure when she has taken this medication. Patient myoclonus can be related to cogentin as well which is being held since admission. Patient barely responds to commands. Patient had an EEG showed encephalopathy but no seizure focus. 05/26/2020 Patient had a lumbar puncture CSF is actually within normal limits etiology of her symptoms is not clear patient is being treated for serotonin syndrome and catatonia is being considered by psychiatry and the patient and will be started on a Ativan for catatonia. Patient continues to have fevers urine cultures are positive for gram negatives bacilli. Patient is on empiric Zosyn at this time. Patient is arousable but doesn't follow commands drowsy sleepy encephalopathic 05/27/2020 Patient's fevers are better patient had low-grade fevers yesterday. urine cultures are positive for E. coli and Citrobacter. Patient is being continued on Zosyn. Patient is barely responsive excessively drowsy EEG showed severe encephalopathy 05/28/2020 Patient remains in ICU; has episodes of increasing responsiveness; per nursing staff patient attempts to open her eyes and cause her 's name does not follow any commands; no further seizure-like activity Vital signs are reviewed with a temperature of 99.1, pulse 90, respiration 14 and blood pressure 147/74; patient gets tachypneic and tachycardic occasionally Lab review with CBC reveals hemoglobin of 9.5; chemical profile is unremarkable; CK was 992 yesterday; we'll order repeat levels Neurology is following for encephalopathy likely catatonia/serotonin syndrome; Ativan has been increased from 2 mg after 2.5 mg every 6 hours; neuro recommending to increase Ativan but deferring it to psychiatry team; lumbar puncture performed has been unremarkable Patient has been negative for clonal virus PCR, influenza A and B and urine Legionella antigen 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; Norvas continued Lamictal 100 mg twice a day for mood disorder; MRI has been ordered to rule out intracranial abnormality Objective - Vital Signs Vital signs: Vital Signs Temp 99.1 F 05/28/20 08:00 Pulse 90 05/28/20 08:00 Resp 14 05/28/20 08:00 BP 147/74 05/28/20 08:00 Pulse Ox 96 05/28/20 08:00 Intake & Output 05/27/20 05/28/20 05/28/20 18:59 06:59 18:59 Intake Total 1770 1790 270 Output Total 535 1040 155 Balance 1235 750 115 Weight 60.9 kg Intake: IV 1200 1300 200 Dextrose 5%-0.9% NaCl 1, 1200 1200 200 000 ml @ 100 mls/hr IV . Q10H CORAL Rx#:[id number] Piperacillin-Tazobactam 3 100 .375 gm In Sodium Chloride 0.9% 100 ml @ 25 mls/hr IVPB Q8HR CORAL Rx# :[id number] Tube Feeding 480 400 40 Other 90 90 30 Output: Urine 535 1040 155 Other: Voiding Method Indwelling Catheter Indwelling Catheter Indwelling Catheter # Bowel Movements 1 - Exam GENERAL: Patient is arousable drowsy is having myoclonic activity barely able to open eyes. HEENT: Pupils are round and equally reacting to light. EOMI. No scleral icterus. No conjunctival pallor. Normocephalic, atraumatic. No pharyngeal erythema. No thyromegaly. CARDIOVASCULAR: S1 and S2 present. No murmurs, rubs, or gallops. PULMONARY: Chest is clear to auscultation, no wheezing or crackles. ABDOMEN: Soft, nontender, nondistended, normoactive bowel sounds. No palpable organomegaly. MUSCULOSKELETAL: No joint swelling or deformity. EXTREMITIES: No cyanosis, clubbing, or pedal edema. NEUROLOGICAL: No tremor or significant myoclonic activity today SKIN: No rashes. - Labs CBC & Chem 7: 05/28/20 04:16 05/28/20 04:16 Labs: Abnormal Lab Results - Last 24 Hours (Table) 05/27/20 05/28/20 05/28/20 Range/Units 16:58 04:16 04:16 RBC 3.03 L (3.80-5.40) m/uL Hgb 9.5 L (11.4-16.0) gm/dL Hct 29.8 L (34.0-46.0) % Lymphocytes # 0.9 L (1.0-4.8) k/uL Chloride 111 H (98-107) mmol/L Glucose 109 H (74-99) mg/dL POC Glucose (mg/dL) 119 H (75-99) mg/dL Calcium 7.7 L (8.4-10.2) mg/dL Microbiology - Last 24 Hours (Table) 05/21/20 18:02 Blood Culture - Final Blood No Growth after 144 hours 05/25/20 12:00 CSF Gram Stain - Preliminary Cerebral Spinal Fluid CSF Culture - Preliminary 05/24/20 11:21 Blood Culture - Preliminary Blood No Growth after 72 hours 05/24/20 11:15 Blood Culture - Preliminary Blood No Growth after 72 hours Assessment and Plan Assessment: -Myoclonus and severe encephalopathy continues to have fevers being followed by neurology, psychiatry and infectious disease etiology of her presentation and symptoms is not clear patient doesn't have any myoclonic jerks at this time. Patient is presently being treated for serotonin syndrome the other consideration is catatonia. CSF service is within normal limits. Patient is on empiric Zosyn and urine culture showing above-mentioned bacteria. Patient received Ativan yesterday for catatonia -Fever: Etiology of fever is not clear. Serotonin syndrome, sepsis, catatonia are being considered -Elevated CK secondary to myoclonic activity. Patient is receiving IV fluids -Possibility of urinary tract infection -Major depression and anxiety disorder -Hypovolemic hypernatremia which improved and patient is presently on D5 normal saline now. Presently has an NG tube as well -Hyperlipidemia -Seizure disorder , patient had an EEG which showed encephalopathy without any seizures spikes -History of esophageal stricture -DVT prophylaxis with subcutaneous heparin
[2020-05-28 18:35] LABS: Glucose,Whole Blood 105 mg/dL (75-99)
--- NOTE | 2020-05-28 22:42 | PN ---
PROGRESS NOTE DATE OF SERVICE: 05/28/2020 REASON FOR FOLLOWUP: Fever and a question of UTI. INTERVAL HISTORY: The patient has been running a low-grade fever of 99.9, no fever today though. The patient remains to be unresponsive, lethargic and unable to provide any history and has been moved out of the ICU. No vomiting or diarrhea has been reported. PHYSICAL EXAMINATION: Blood pressure 121/61, pulse 100, temperature 99.2. She is 93% on room air. General description is an elderly female lying in bed in no distress. Respiratory system: Unlabored breathing with decreased breath sounds in the base, no wheeze. Heart S1, S2. Regular rate and rhythm. Abdomen soft, no tenderness. LAB: Hemoglobin 9.5, white count 4.8, creatinine 0.79. DIAGNOSTIC IMPRESSION AND PLAN: Patient with a fever for which the patient did have extensive workup. The patient did have a negative coronavirus times 2. Negative influenza. Denies any chest pain. Urine was mildly positive, shows Citrobacter and is currently on Zosyn to continue while monitor clinical course closely. Continue supportive care. MMODL / IJN: [id number] /
[2020-05-29 01:52] LABS: Glucose,Whole Blood 110 mg/dL (75-99)
[2020-05-29] MEDS: CYPROHEPTADINE 4 MG TABLET PO SCH ×4 (06:00→23:37)
[2020-05-29] MEDS: LORazepam 2 MG/ML INJ IV SCH ×4 (06:00→23:37)
[2020-05-29 06:03] LABS: Glucose,Whole Blood 118 mg/dL (75-99)
[2020-05-29] MEDS: PANTOPRAZOLE 40 MG/10 ML VIAL IVP SCH (08:12)
[2020-05-29] MEDS: HEPARIN SODIUM,PORCINE 5,000 UNIT/ML 1 ML VIAL SQ SCH ×2 (08:12→23:25)
[2020-05-29] MEDS: PIPERACILLIN-TAZOBACTAM 3.375 GM in SODIUM CHLORIDE 0.9% 100 ML IVPB SCH ×2 (08:12→16:00)
[2020-05-29] MEDS: lamoTRIgine 100 MG TAB PO SCH ×2 (08:13→23:25)
[2020-05-29 11:55] LABS: Glucose,Whole Blood 96 mg/dL (75-99)
--- NOTE | 2020-05-29 12:32 | MR ---
EXAMINATION TYPE: MR brain wo con DATE OF EXAM: 05/29/2020 COMPARISON: NONE HISTORY: Altered mental status TECHNIQUE: T1-weighted sagittal, T2, FLAIR, and diffusion axial, and T2 coronal coronal views of the brain are submitted. FINDINGS: There is extreme motion artifact resulting in markedly limited exam. Grossly no definite abnormal sig nal seen on diffusion imaging. Exam is nearly nondiagnostic. There is generalized degenerative change with low attenuation seen throughout the white matter which is nonspecific but most typical remote i schemic change. Abnormal signal in the basal ganglia bilaterally likely in the basis of remote lacuna r infarct. Changes of chronic sinusitis. IMPRESSION: 1. Nearly nondiagnostic exam due to extensive motion artifact. No obvious abnormal signal on diffusio n imaging to suggest acute ischemia. 2. Degenerative and nonspecific white matter changes most typical of remote ischemia.
--- NOTE | 2020-05-29 13:46 | P.PN ---
Progress Note - Text Progress Note Date: 05/29/20 Interval History: 05/26/2020: Patient was seen resting in bed and was unarousable and unable to participate in the psychiatric interview. Review of the patient's chart shows that lumbar puncture CSF was within normal limits. The patient is being treated for serotonin syndrome. Urine cultures are positive for gram-negative bacilli and the patient is on empiric Zosyn. She can just remain encephalopathic. Ativan challenge was initiated to treat the patient for catatonia. At 12:09 PM the patient scored a 34 on the severity of the Dona-Kwame Catatonia Rating Scale. After 2 administrations of 2 mg IV of ativan, after 10 minutes, the recheck of score revealed improvement with a new score of 22. The patient had a significant decrease in her negativism, perseveration, and her ambitendency. 05/27/2020: Patient continues to be unarousable and unable to participate in the psychiatric interview. The patient continues to display significant negativism. She has been noted by nursing staff to occasionally respond to questioning albeit with 1 word answers. She is also been noted to be moving her mouth more. Upon a evaluation, the patient did withdraw and cringe when pinched. This was not present yesterday. She has been tolerating Ativan well. EEG did not display epileptiform activity. 05/28/2020: Patient continues to be nonverbal. She did appear to have more spontaneous movements and opened her eyes briefly. She was able to obey a simple command of opening her eyes and raising her hand. She otherwise continues to be mostly unresponsive and intermittently cooperative. Review of the patient's outpatient PCP note from 04/28/2020, the patient noticed increased tremors in her arms and legs as her ativan was discontinued. Patient was prescribed ropinirole and informed to follow with her outpatient psychiatrist who refused to continue the medication. The patient has been afebrile and tolerating the ativan. She is on a total of 10 mg daily at this time. We will continue to gradually titrate the medication. 05/29/2020: Patient is responsive today. Patient is able to open her eyes and keeps her eyes open for an extended period of time. She is able to follow simple commands and answers her name and is able to lift her hand when asked. She appears to be tolerating her Ativan well. She appears to be more spontaneous in her movements and is overall less stiff and rigid. Mental Status Exam: General Appearance: Patient appears to be her stated age, is lying in bed in no apparent distress. NG tube in place. Behavior: Patient appears to be encephalopathic. Able to follow simple commands. Opened her eyes and much more responsive today but still overall encephalopathic. Speech: Patient is minimally responsive. Did not speak today. Mood/Affect: Unable to assess Suicidality/Homicidality: Unable to assess Perceptions: Unable to assess Though content/process: Unable to assess Memory and concentration: Unable to assess Judgment and insight: poor Assessment Major Depressive Disorder, with catatonia Serotonin syndrome UTI -Patient presentation may be multimodal in etiology. We will continue management to rule out and treat for possible causes for the patient's presenation. Plan: -We will continue treatment with Ativan for catatonia. Ativan will be increased to 3.5 mg q6H for management of Catatonia. We may require doses of up to 16-24 mg IV before a significant response. Due to patient age, we will continue with gradual titration. -Will continue lamictal at this time. -Psychiatry will continue to follow.
[2020-05-29] MEDS: DEXTROSE 5%-0.9% NACL 1,000 ML IV SCH ×2 (16:00→23:21)
--- NOTE | 2020-05-29 17:31 | PN ---
PROGRESS NOTE DATE OF SERVICE: 05/29/2020 REASON FOR FOLLOWUP: 1. Fever, UTI. 2. Diarrhea. INTERVAL HISTORY: The patient is currently afebrile. The patient remains lethargic. Did have the NG for breathing. No vomiting has been reported. She did have diarrhea, for which the patient has a fecal management system. Patient herself is unable to provide any history. PHYSICAL EXAMINATION: Blood pressure 110/57, pulse of 94, temperature 99.4. She is 92% on 3 L nasal cannula. General description is an elderly female lying in bed in no distress. RESPIRATORY SYSTEM: Unlabored breathing with decreased breath sounds at the base. No wheeze. HEART: S1, S2. Regular rate and rhythm. ABDOMEN: Soft. No tenderness. LABS: White count was normal yesterday. Cultures from urine did show E coli. Rest of the cultures have been negative. DIAGNOSTIC IMPRESSION AND PLAN: Patient with a fever, multifactorial; possible infectious source is UTI, which has been adequately treated, now with evidence of significant diarrhea. We will discontinue Zosyn, check stool for C difficile and treat if positive. Monitor clinical course closely. MMODL / IJN: [id number] /
[2020-05-29 18:49] LABS: Glucose,Whole Blood 152 mg/dL (75-99)
[2020-05-30 00:17] LABS: Glucose,Whole Blood 154 mg/dL (75-99)
[2020-05-30] MEDS: ACETAMINOPHEN TAB 325 MG TAB PO PRN ×2 (03:25→16:17)
[2020-05-30] MEDS: LORazepam 2 MG/ML INJ IV SCH ×3 (05:23→17:14)
[2020-05-30] MEDS: CYPROHEPTADINE 4 MG TABLET PO SCH ×3 (05:23→16:17)
[2020-05-30] MEDS: DEXTROSE 5%-0.9% NACL 1,000 ML IV SCH ×2 (05:29→16:17)
[2020-05-30 06:54] LABS: Glucose,Whole Blood 127 mg/dL (75-99)
[2020-05-30] MEDS: HEPARIN SODIUM,PORCINE 5,000 UNIT/ML 1 ML VIAL SQ SCH ×2 (07:22→19:59)
[2020-05-30] MEDS: PANTOPRAZOLE 40 MG/10 ML VIAL IVP SCH (07:23)
[2020-05-30] MEDS: lamoTRIgine 100 MG TAB PO SCH ×2 (07:23→19:59)
--- NOTE | 2020-05-30 08:10 | XR ---
EXAMINATION TYPE: XR chest 1V portable DATE OF EXAM: 05/30/2020 COMPARISON: 05/28/2019 HISTORY: Shortness of breath TECHNIQUE: Single frontal view of the chest is obtained. FINDINGS: NG tube with bilateral infiltrate and small effusion. Coarsened interstitium. No pneumotho rax. Arthropathy of the shoulders. Heart size stable. Atherosclerotic change aorta. IMPRESSION: Bilateral infiltrate and pleural effusion correlate for pneumonia versus CHF.
[2020-05-30 10:17] LABS: Basophils % (A) 0 %; Eosinophils # (A) 0.2 k/uL (0-0.7); Eosinophils % (A) 4 %; HCT 27.9 % (34.0-46.0); HGB 9.2 gm/dL (11.4-16.0); Hypochromasia Slight; Lymphocytes # (A) 0.7 k/uL (1.0-4.8); Lymphocytes % (A) 17 %; MCH 32.2 pg (25.0-35.0); MCV 97.6 fL (80.0-100.0); Mean Platelet Volume 8.1; Monocytes # (A) 0.4 k/uL (0-1.0); Monocytes % (A) 9 %; Neutrophils # (A) 2.9 k/uL (1.3-7.7); Neutrophils % (A) 68 %; Platelet Count 185 k/uL (150-450); RBC 2.86 m/uL (3.80-5.40); RDW 12.6 % (11.5-15.5); WBC 4.3 k/uL (3.8-10.6)
[2020-05-30] MEDS: PIPERACILLIN-TAZOBACTAM 3.375 GM in SODIUM CHLORIDE 0.9% 100 ML IVPB SCH ×2 (10:35→16:16)
[2020-05-30 11:35] LABS: Glucose,Whole Blood 121 mg/dL (75-99)
--- NOTE | 2020-05-30 12:44 | P.PN ---
Progress Note - Text Progress Note Date: 05/30/20 Interval History: 05/26/2020: Patient was seen resting in bed and was unarousable and unable to participate in the psychiatric interview. Review of the patient's chart shows that lumbar puncture CSF was within normal limits. The patient is being treated for serotonin syndrome. Urine cultures are positive for gram-negative bacilli and the patient is on empiric Zosyn. She can just remain encephalopathic. Ativan challenge was initiated to treat the patient for catatonia. At 12:09 PM the patient scored a 34 on the severity of the Dona-Kwame Catatonia Rating Scale. After 2 administrations of 2 mg IV of ativan, after 10 minutes, the recheck of score revealed improvement with a new score of 22. The patient had a significant decrease in her negativism, perseveration, and her ambitendency. 05/27/2020: Patient continues to be unarousable and unable to participate in the psychiatric interview. The patient continues to display significant negativism. She has been noted by nursing staff to occasionally respond to questioning albeit with 1 word answers. She is also been noted to be moving her mouth more. Upon a evaluation, the patient did withdraw and cringe when pinched. This was not present yesterday. She has been tolerating Ativan well. EEG did not display epileptiform activity. 05/28/2020: Patient continues to be nonverbal. She did appear to have more spontaneous movements and opened her eyes briefly. She was able to obey a simple command of opening her eyes and raising her hand. She otherwise continues to be mostly unresponsive and intermittently cooperative. Review of the patient's outpatient PCP note from 04/28/2020, the patient noticed increased tremors in her arms and legs as her ativan was discontinued. Patient was prescribed ropinirole and informed to follow with her outpatient psychiatrist who refused to continue the medication. The patient has been afebrile and tolerating the ativan. She is on a total of 10 mg daily at this time. We will continue to gradually titrate the medication. 05/29/2020: Patient is responsive today. Patient is able to open her eyes and keeps her eyes open for an extended period of time. She is able to follow simple commands and answers her name and is able to lift her hand when asked. She appears to be tolerating her Ativan well. She appears to be more spontaneous in her movements and is overall less stiff and rigid. 05/30/2020: Patient is awake and is able to respond to questions in short responses. She tries to answer with longer responses but has difficulty speaking. She is able to follow simple commands. She does remain rigid in her upper extremities and is unable to release her fist. She is alert and oriented to person. She is able to name her son and . Mental Status Exam: General Appearance: Patient appears to be her stated age, is lying in bed in no apparent distress. NG tube in place. Behavior: Able to follow simple commands. Patient's eyes are open throughout the interview. Speech: Patient speaking in short responses and makes an effort but is unable t o speak more than a few words at a time. Low in volume, nonspontaneous. Mood/Affect: Unable to assess Suicidality/Homicidality: Unable to assess Perceptions: Unable to assess Though content/process: Unable to assess Memory and concentration: Unable to assess Judgment and insight: poor Assessment Major Depressive Disorder, with catatonia Serotonin syndrome UTI -Patient presentation may be multimodal in etiology. We will continue management to rule out and treat for possible causes for the patient's presenation. Plan: -We will continue ativan 3.5 mg IV q6H for management of catatonia. Will hold at this dose and re-evaluate tomorrow for possible titration. Due to advanced age we will try to maintain on minimal effective therapeutic dose for the patient. -Will continue lamictal at this time. -Psychiatry will continue to follow.
--- NOTE | 2020-05-30 13:41 | P.PN ---
Subjective Progress Note Date: 05/30/20 Principal diagnosis: Acute serotonin syndrome Patient was reevaluated today on 05/24/2020, patient was seen by Dr. Kumari on consultation yesterday, and she was mostly admitted with questionable neuroleptic malignant syndrome or possibly serotonin syndrome. Based on the clinical history I believe the patient most likely had serotonin syndrome. Patient remains in the ICU, she is doing fairly well, in no form of distress, on 2 L nasal cannula, O2 saturations 98%. Remains on IV fluid at 150 mL/h, CPK seems to be coming down nicely. Patient is sleepy, but arousable, and follows simple instructions once a arousable but slowly. In no form of respiratory distress. CBC today is basically normal. Electrolytes are normal. Renal profile is normal. CPK is coming down it is 06/24/2000 today compared to over [address] of the brain showed no acute process. Patient is yet to be seen by neurology on consultation, mostly to be evaluated for her myoclonic activity. May or may not recommend lumbar puncture specially with her low-grade fever on presentation. Patient was reevaluated today on 05/25/2020, patient is basically about the same. He underwent lumbar puncture today, results are pending. Patient remains on Zosyn empirically. Cultures including blood and urine are negative so far. Patient is on O2 at 2 L nasal cannula with O2 saturation 97%. IV fluid is Down to 100 mL/h D5 0.9. She has significant urine output. Mentation seems to be waxing and waning. Last night she had another episode of stiffness, tremors, myoclonus, and low-grade fever. EEG showed encephalopathy but no active seizure activity. Reevaluated today on 05/26/2020, patient is about the same, mental status is about the same, she had a T-max last night of 101.1, no significant improvement in mentation since admission. Patient is not responding to any questions, not verbally responsive. CBC is relatively normal basic metabolic profile is normal renal profile is normal potassium is a bit low at 3.1. CPK continues to trend down it is 1017 today Reevaluated today on 05/27/2020, patient remains in the ICU, she is basically about the same. I have not seen any change in the last few days. Mental status is about the same, patient refuses to open her eyes, does not follow any instructions, at times seems to be quite rigid in her upper extremities. Urine cultures came back positive for E. coli and Citrobacter, remains on antibiotics in the form of Zosyn. No seizure activity is documented. CPKs seems to be trending down. CPK today was 992. Renal profile remains normal. Electrolytes are normal. The patient is seen today 05/28/2020 in follow-up in the intensive care unit. She is resting comfortably in bed. In no acute distress. She continues to refuse to open her eyes. Remains nonverbal. Not making eye contact. Not following any simple commands. Her extremities are less rigid. She remains on room air with O2 saturations in the mid 90s. Temperature 99.1. Blood pressure stable. Follow-up chest x-ray reveals no acute pulmonary process. White count 4.8. Hemoglobin 9.5. Lymphocytes 0.9. Sodium 138. Potassium 3.9. Creatinine 0.79. Cerebrospinal fluid cultures reveal no growth to date. Blood culture is revealing no growth. Urine culture was positive for E. coli and Citrobacter. She remains on Zosyn. Heparin for DVT prophylaxis. Patient is seen today 10/28/2020 in follow-up on the regular medical floor. She is a bit more awake and alert. No following some simple commands. Opening eyes spontaneously. Maintaining O2 saturations in the 90s on 2 L/m per nasal cannula. T-max today at 100.3 axillary. Currently afebrile. Chest x-ray revealing bilateral infiltrates and pleural effusions. Urine culture was positive for E. coli. Cerebrospinal fluid revealed no growth. Blood cultures with no growth. Sodium 4.3. Potassium 9.2. Glucose 121. Continued on Zosyn. Objective - Vital Signs Vital signs: Vital Signs Temp 98.2 F 05/30/20 08:00 Pulse 73 05/30/20 08:00 Resp 20 05/30/20 08:00 BP 99/57 05/30/20 08:00 Pulse Ox 94 L 05/30/20 08:00 Intake & Output 05/29/20 05/30/20 05/30/20 18:59 06:59 18:59 Intake Total 800 840 Output Total 725 1600 Balance 75 -760 Weight 60.9 kg Intake: IV 400 Dextrose 5%-0.9% NaCl 1, 300 000 ml @ 100 mls/hr IV . Q10H [facility] Rx#:[id number] Piperacillin-Tazobactam 3 100 .375 gm In Sodium Chloride 0.9% 100 ml @ 25 mls/hr IVPB Q8HR [facility] Rx# :[id number] Oral 0 Tube Feeding 400 480 Other 360 Output: Urine 525 1600 Uretheral ([place]) 800 Stool 200 Other: Voiding Method Indwelling Catheter Indwelling Catheter Indwelling Catheter - Exam GENERAL EXAM: Awake, following simple commands 75-year-old female patient, nonverbal, on 2 L nasal cannula, comfortable in no apparent distress. HEAD: Normocephalic. EYES: Normal reaction of pupils, equal size. NOSE: Nasogastric tube remains in place. Clear with pink turbinates. THROAT: No erythema or exudates. NECK: No masses, no JVD. CHEST: No chest wall deformity. LUNGS: Equal air entry with few basilar crackles. CVS: S1 and S2 normal with no audible murmur, regular rhythm. ABDOMEN: No hepatosplenomegaly, normal bowel sounds, no guarding or rigidity. SPINE: No scoliosis or deformity SKIN: No rashes CENTRAL NERVOUS SYSTEM: No focal deficits, tone is somewhat less rigid in all 4 extremities. EXTREMITIES: There is no peripheral edema. No clubbing, no cyanosis. Peripheral pulses are intact. - Labs CBC & Chem 7: 05/30/20 10:02 05/28/20 04:16 Labs: Abnormal Lab Results - Last 24 Hours (Table) 05/29/20 05/30/20 05/30/20 Range/Units 18:37 00:05 06:52 RBC (3.80-5.40) m/uL Hgb (11.4-16.0) gm/dL Hct (34.0-46.0) % Lymphocytes # (1.0-4.8) k/uL POC Glucose (mg/dL) 152 H 154 H 127 H (75-99) mg/dL 05/30/20 05/30/20 Range/Units 10:02 11:32 RBC 2.86 L (3.80-5.40) m/uL Hgb 9.2 L (11.4-16.0) gm/dL Hct 27.9 L (34.0-46.0) % Lymphocytes # 0.7 L (1.0-4.8) k/uL POC Glucose (mg/dL) 121 H (75-99) mg/dL Microbiology - Last 24 Hours (Table) 05/25/20 12:00 CSF Gram Stain - Final Cerebral Spinal Fluid CSF Culture - Final 05/24/20 11:15 Blood Culture - Preliminary Blood No Growth after 120 hours 05/24/20 11:21 Blood Culture - Preliminary Blood No Growth after 120 hours Assessment and Plan Assessment: 1 Altered mental status suspect secondary to acute serotonin syndrome. 2 Acute hypoxic respiratory failure secondary to suspected aspiration pneumonia, on Zosyn 2 History of seizure disorder. 3 History of colon cancer. 4 History of esophageal strictures. 5 Dyslipidemia. 6 History of depression. 7 History of diverticular disease. 8 Elevated CPK with acute rhabdomyolysis most likely secondary to acute serotonin syndrome or myoclonic activity/possible seizures. 9 Acute urinary tract infection, remains on Zosyn. Plan: The patient was seen and evaluated by Dr. Alvarado X-ray and labs reviewed Remains on Zosyn, add bronchodilators A bit more awake and alert Psychology and neurology on the case We'll continue to follow and make further recommendations based on her clinical status I, the cosigning physician, performed a history & physical examination of the patient. Lungs sounds with few basilar crackles. Maintaining good O2 saturations in the 90s on 2 L/m per nasal cannula. I discussed the assessment and plan of care with my nurse practitioner, Louann Rojas. I attest to the above note as dictated by her.
[2020-05-30 16:10] LABS: Albumin 2.6 g/dL (3.80-4.90); Albumin/Globulin Ratio 1.73 (1.60-3.17); Anion Gap 4.7 mmol/L (4.00-12.00); BUN/Creat Ratio 13.75 Ratio (12.00-20.00); Calcium 7.6 mg/dL (8.7-10.3); Carbon Dioxide 25.3 mmol/L (21.6-31.8); Globulin 1.5 g/dL (1.6-3.3); Non-African American GFR(CKD) 71.6 (60.0-200.0); Potassium 3.9 mmol/L (3.5-5.5); Total Bilirubin 0.3 mg/dL (0.3-1.2); Total Protein 4.1 g/dL (6.2-8.2)
--- NOTE | 2020-05-30 16:12 | P.PN ---
Subjective Progress Note Date: 05/29/20 Principal diagnosis: Encephalopathy w/ Catatonia; Serotonin syndrome with component of toxic metabolic encephalopathy Patient was admitted for psychiatric issues. Patient as per the chart does have seizure disorder patient is presently having tonic-clonic activity. Patient was believed to have neuroleptic malignant syndrome because of her Mudgett dis ability diaphoresis and tachycardia and patient was febrile. No source of infection was found at that time. Overweight was negative, chest x-ray did not show any pneumonia UA was within normal limits. Although patient doesn't appear to be on medications that can cause significant neuroleptic malignant syndrome upon review of her chart it looks like patient is on very low-dose of Seroquel although benztropine was discontinued. Patient is still having fevers but those are low-grade. I'm not completely convinced this is neuroleptic malignant syndrome because of that reason I'm consulting neurology patient will need EEG which was ordered. Will request psychiatry to reevaluate the patient. As a source of infection is not clear and consulting infectious disease patient may and up needing a lumbar puncture. 05/25/2020 Patient will undergo lumbar puncture today. Patient was started on empiric antibiotics by infectious disease. The patient remains on D5 normal saline at 1 50 mL per hour. Patient is being followed by multiple consultants serotonin syndrome is a consideration because of which patient is receiving cyproheptadine. Possibly of this is low and patient the did not receive any SSRIs since admission but patient was on AcipHex sore at home unsure when she has taken this medication. Patient myoclonus can be related to cogentin as well which is being held since admission. Patient barely responds to commands. Patient had an EEG showed encephalopathy but no seizure focus. 05/26/2020 Patient had a lumbar puncture CSF is actually within normal limits etiology of her symptoms is not clear patient is being treated for serotonin syndrome and catatonia is being considered by psychiatry and the patient and will be started on a Ativan for catatonia. Patient continues to have fevers urine cultures are positive for gram negatives bacilli. Patient is on empiric Zosyn at this time. Patient is arousable but doesn't follow commands drowsy sleepy encephalopathic 05/27/2020 Patient's fevers are better patient had low-grade fevers yesterday. urine cultures are positive for E. coli and Citrobacter. Patient is being continued on Zosyn. Patient is barely responsive excessively drowsy EEG showed severe encephalopathy 05/28/2020 Patient remains in ICU; has episodes of increasing responsiveness; per nursing staff patient attempts to open her eyes and cause her 's name does not follow any commands; no further seizure-like activity Vital signs are reviewed with a temperature of 99.1, pulse 90, respiration 14 and blood pressure 147/74; patient gets tachypneic and tachycardic occasionally Lab review with CBC reveals hemoglobin of 9.5; chemical profile is unremarkable; CK was 992 yesterday; we'll order repeat levels Neurology is following for encephalopathy likely catatonia/serotonin syndrome; Ativan has been increased from 2 mg after 2.5 mg every 6 hours; neuro recommending to increase Ativan but deferring it to psychiatry team; lumbar puncture performed has been unremarkable Patient has been negative for clonal virus PCR, influenza A and B and urine Legionella antigen 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; [facility] continued Lamictal 100 mg twice a day for mood disorder; MRI has been ordered to rule out intracranial abnormality 05/29/2020 Patient is seen and evaluated in room at bedside; has been transferred out of ICU; patient is more responsive today and opens eyes with verbal stimulation; has been following simple commands since morning; low slow at time of my examination; patient is less stiff with overall more spontaneous movements with increased Ativan; patient is recommended to continue treatment with Ativan for catatonia which is increased to 3.5 mg every 6 hours; patient's dose may need to be increased up to 16-24 mg IV; gradual titration is recommended due to patient's age Objective - Vital Signs Vital signs: Vital Signs Temp 99.2 F 05/29/20 08:11 Pulse 96 05/29/20 08:11 Resp 19 05/29/20 08:11 BP 126/66 05/29/20 08:11 Pulse Ox 92 L 05/29/20 08:11 Intake & Output 05/28/20 05/29/20 05/29/20 18:59 06:59 18:59 Intake Total 270 1900 Output Total 985 650 Balance -715 1250 Intake: IV 200 1300 Dextrose 5%-0.9% NaCl 1, 200 1200 000 ml @ 100 mls/hr IV . Q10H [facility] Rx#:[id number] Piperacillin-Tazobactam 3 100 .375 gm In Sodium Chloride 0.9% 100 ml @ 25 mls/hr IVPB Q8HR [facility] Rx# :[id number] Tube Feeding 40 480 Other 30 120 Output: Urine 985 650 Other: Voiding Method Indwelling Catheter Indwelling Catheter Indwelling Catheter - Exam GENERAL: Patient is arousable drowsy is having myoclonic activity barely able to open eyes. HEENT: Pupils are round and equally reacting to light. EOMI. No scleral icterus. No conjunctival pallor. Normocephalic, atraumatic. No pharyngeal erythema. No thyromegaly. CARDIOVASCULAR: S1 and S2 present. No murmurs, rubs, or gallops. PULMONARY: Chest is clear to auscultation, no wheezing or crackles. ABDOMEN: Soft, nontender, nondistended, normoactive bowel sounds. No palpable organomegaly. MUSCULOSKELETAL: No joint swelling or deformity. EXTREMITIES: No cyanosis, clubbing, or pedal edema. NEUROLOGICAL: No tremor or significant myoclonic activity today SKIN: No rashes. - Labs CBC & Chem 7: 05/30/20 10:02 05/28/20 04:16 Labs: Abnormal Lab Results - Last 24 Hours (Table) 05/28/20 05/29/20 05/29/20 Range/Units 18:32 01:50 06:02 POC Glucose (mg/dL) 105 H 110 H 118 H (75-99) mg/dL Microbiology - Last 24 Hours (Table) 05/24/20 11:15 Blood Culture - Preliminary Blood No Growth after 120 hours 05/24/20 11:21 Blood Culture - Preliminary Blood No Growth after 120 hours 05/25/20 12:00 CSF Gram Stain - Preliminary Cerebral Spinal Fluid CSF Culture - Preliminary Assessment and Plan Assessment: -Myoclonus and severe encephalopathy continues to have fevers being followed by neurology, psychiatry and infectious disease etiology of her presentation and symptoms is not clear patient doesn't have any myoclonic jerks at this time. Patient is presently being treated for serotonin syndrome the other consideration is catatonia. CSF service is within normal limits. Patient is on empiric Zosyn and urine culture showing above-mentioned bacteria. Patient received Ativan yesterday for catatonia -Fever: Etiology of fever is not clear. Serotonin syndrome, sepsis, catatonia are being considered -Elevated CK secondary to myoclonic activity. Patient is receiving IV fluids -Possibility of urinary tract infection -Major depression and anxiety disorder -Hypovolemic hypernatremia which improved and patient is presently on D5 normal saline now. Presently has an NG tube as well -Hyperlipidemia -Seizure disorder , patient had an EEG which showed encephalopathy without any s eizures spikes -History of esophageal stricture -DVT prophylaxis with subcutaneous heparin
[2020-05-30 16:52] LABS: Glucose,Whole Blood 130 mg/dL (75-99)
[2020-05-30] MEDS: IPRATROPIUM-ALBUTEROL 3 ML NEB INHALATION SCH (18:50)
--- NOTE | 2020-05-30 20:58 | PN ---
PROGRESS NOTE DATE OF SERVICE: 05/30/2020 REASON FOR FOLLOWUP: 1. Fever, possible pneumonia. 2. Diarrhea. INTERVAL HISTORY: The patient did spike a fever of 100.8 degrees Fahrenheit this afternoon. No culture has been done. The patient remains lethargic, unable to provide any history. She still has the NG for feeding and rectal tube for diarrhea, but no worsening stool output reported by the nursing staff. The patient was unable to provide any history. PHYSICAL EXAMINATION: Blood pressure is 149/71, pulse of 108, temperature 100.8. She is 95% on 2 L nasal cannula. General description is an elderly female lying in bed in no distress. RESPIRATORY SYSTEM: Unlabored breathing with decreased breath sounds at the base. No wheeze. HEART: S1, S2. Regular rate and rhythm. ABDOMEN: Soft. No tenderness. LABS/IMAGING: Chest x-ray: bilateral infiltrate. Stool for C difficile came back negative. White count is normal. DIAGNOSTIC IMPRESSION AND PLAN: 1. Patient with a fever in this patient who did have an extensive workup, including an LP that has been negative and there was a positive UA. Now a question of pneumonia. Zosyn has been restarted by Pulmonary; to continue. 2. Diarrhea, possibly antibiotic-associated. Stool for C difficile negative. Recommend symptomatic treatment at this point and continue with supportive care. MMODL / IJN: [id number] /
[2020-05-31] MEDS: LORazepam 2 MG/ML INJ IV SCH ×4 (00:14→17:30)
[2020-05-31] MEDS: CYPROHEPTADINE 4 MG TABLET PO SCH ×4 (00:15→17:18)
[2020-05-31] MEDS: PIPERACILLIN-TAZOBACTAM 3.375 GM in SODIUM CHLORIDE 0.9% 100 ML IVPB SCH ×3 (00:20→17:14)
[2020-05-31] MEDS: DEXTROSE 5%-0.9% NACL 1,000 ML IV SCH ×3 (00:22→22:17)
[2020-05-31] MEDS: ACETAMINOPHEN TAB 325 MG TAB PO PRN (01:29)
[2020-05-31 02:39] LABS: Glucose,Whole Blood 128 mg/dL (75-99)
[2020-05-31 07:21] LABS: Glucose,Whole Blood 128 mg/dL (75-99)
[2020-05-31] MEDS: IPRATROPIUM-ALBUTEROL 3 ML NEB INHALATION SCH ×3 (07:45→20:48)
--- NOTE | 2020-05-31 08:19 | P.PN ---
Subjective Progress Note Date: 05/30/20 Principal diagnosis: Encephalopathy w/ Catatonia; Serotonin syndrome with component of toxic metabolic encephalopathy Patient was admitted for psychiatric issues. Patient as per the chart does have seizure disorder patient is presently having tonic-clonic activity. Patient was believed to have neuroleptic malignant syndrome because of her Mudgett dis ability diaphoresis and tachycardia and patient was febrile. No source of infection was found at that time. Overweight was negative, chest x-ray did not show any pneumonia UA was within normal limits. Although patient doesn't appear to be on medications that can cause significant neuroleptic malignant syndrome upon review of her chart it looks like patient is on very low-dose of Seroquel although benztropine was discontinued. Patient is still having fevers but those are low-grade. I'm not completely convinced this is neuroleptic malignant syndrome because of that reason I'm consulting neurology patient will need EEG which was ordered. Will request psychiatry to reevaluate the patient. As a source of infection is not clear and consulting infectious disease patient may and up needing a lumbar puncture. 05/25/2020 Patient will undergo lumbar puncture today. Patient was started on empiric antibiotics by infectious disease. The patient remains on D5 normal saline at 1 50 mL per hour. Patient is being followed by multiple consultants serotonin syndrome is a consideration because of which patient is receiving cyproheptadine. Possibly of this is low and patient the did not receive any SSRIs since admission but patient was on AcipHex sore at home unsure when she has taken this medication. Patient myoclonus can be related to cogentin as well which is being held since admission. Patient barely responds to commands. Patient had an EEG showed encephalopathy but no seizure focus. 05/26/2020 Patient had a lumbar puncture CSF is actually within normal limits etiology of her symptoms is not clear patient is being treated for serotonin syndrome and catatonia is being considered by psychiatry and the patient and will be started on a Ativan for catatonia. Patient continues to have fevers urine cultures are positive for gram negatives bacilli. Patient is on empiric Zosyn at this time. Patient is arousable but doesn't follow commands drowsy sleepy encephalopathic 05/27/2020 Patient's fevers are better patient had low-grade fevers yesterday. urine cultures are positive for E. coli and Citrobacter. Patient is being continued on Zosyn. Patient is barely responsive excessively drowsy EEG showed severe encephalopathy 05/28/2020 Patient remains in ICU; has episodes of increasing responsiveness; per nursing staff patient attempts to open her eyes and cause her 's name does not follow any commands; no further seizure-like activity Vital signs are reviewed with a temperature of 99.1, pulse 90, respiration 14 and blood pressure 147/74; patient gets tachypneic and tachycardic occasionally Lab review with CBC reveals hemoglobin of 9.5; chemical profile is unremarkable; CK was 992 yesterday; we'll order repeat levels Neurology is following for encephalopathy likely catatonia/serotonin syndrome; Ativan has been increased from 2 mg after 2.5 mg every 6 hours; neuro recommending to increase Ativan but deferring it to psychiatry team; lumbar puncture performed has been unremarkable Patient has been negative for clonal virus PCR, influenza A and B and urine Legionella antigen 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; [facility] continued Lamictal 100 mg twice a day for mood disorder; MRI has been ordered to rule out intracranial abnormality 05/29/2020 Patient is seen and evaluated in room at bedside; has been transferred out of ICU; patient is more responsive today and opens eyes with verbal stimulation; has been following simple commands since morning; low slow at time of my examination; patient is less stiff with overall more spontaneous movements with increased Ativan; patient is recommended to continue treatment with Ativan for catatonia which is increased to 3.5 mg every 6 hours; patient's dose may need to be increased up to 16-24 mg IV; gradual titration is recommended due to patient's age 0105/30/2020 Patient is seen in follow-up on the regular medical floor. She is more awake and alert; following simple commands. Opening eyes spontaneously. Maintaining O2 saturations in the 90s on 2 L/m per nasal cannula. T-max today at 100.3 axillary. Currently afebrile. Chest x-ray revealing bilateral infiltrates and pleural effusions. Urine culture was positive for E. coli. Cerebrospinal fluid revealed no growth. Blood cultures with no growth. Sodium 4.3. Potassium 9.2. Glucose 121. Continued on Zosyn. Psych is following patient and recommending to continue with ativan at 3.5mg IV q6hrs with plan to monitor at this dose without further titration if possible Objective - Vital Signs Vital signs: Vital Signs Temp 100.8 F H 05/30/20 14:00 Pulse 108 H 05/30/20 14:00 Resp 20 05/30/20 14:00 BP 149/71 05/30/20 14:00 Pulse Ox 95 05/30/20 14:00 Intake & Output 05/29/20 05/30/20 05/30/20 18:59 06:59 18:59 Intake Total 800 840 Output Total 725 1600 Balance 75 -760 Weight 60.9 kg Intake: IV 400 Dextrose 5%-0.9% NaCl 1, 300 000 ml @ 100 mls/hr IV . Q10H [facility] Rx#:[id number] Piperacillin-Tazobactam 3 100 .375 gm In Sodium Chloride 0.9% 100 ml @ 25 mls/hr IVPB Q8HR [facility] Rx# :[id number] Oral 0 Tube Feeding 400 480 Other 360 Output: Urine 525 1600 Uretheral ([place]) 800 Stool 200 Other: Voiding Method Indwelling Catheter Indwelling Catheter Indwelling Catheter - Exam GENERAL: Patient is arousable drowsy is having myoclonic activity barely able to open eyes. HEENT: Pupils are round and equally reacting to light. EOMI. No scleral icterus. No conjunctival pallor. Normocephalic, atraumatic. No pharyngeal erythema. No thyromegaly. CARDIOVASCULAR: S1 and S2 present. No murmurs, rubs, or gallops. PULMONARY: Chest is clear to auscultation, no wheezing or crackles. ABDOMEN: Soft, nontender, nondistended, normoactive bowel sounds. No palpable organomegaly. MUSCULOSKELETAL: No joint swelling or deformity. EXTREMITIES: No cyanosis, clubbing, or pedal edema. NEUROLOGICAL: No tremor or significant myoclonic activity today SKIN: No rashes. - Labs CBC & Chem 7: 05/30/20 10:02 05/30/20 10:02 Labs: Abnormal Lab Results - Last 24 Hours (Table) 05/29/20 05/30/20 05/30/20 Range/Units 18:37 00:05 06:52 RBC (3.80-5.40) m/uL Hgb (11.4-16.0) gm/dL Hct (34.0-46.0) % Lymphocytes # (1.0-4.8) k/uL Chloride (96-109) mmol/L POC Glucose (mg/dL) 152 H 154 H 127 H (75-99) mg/dL Calcium (8.7-10.3) mg/dL AST (13-35) U/L Total Protein (6.2-8.2) g/dL Albumin (3.80-4.90) g/dL Globulin (1.6-3.3) g/dL 05/30/20 05/30/20 05/30/20 Range/Units 10:02 10:02 11:32 RBC 2.86 L (3.80-5.40) m/uL Hgb 9.2 L (11.4-16.0) gm/dL Hct 27.9 L (34.0-46.0) % Lymphocytes # 0.7 L (1.0-4.8) k/uL Chloride 111 H (96-109) mmol/L POC Glucose (mg/dL) 121 H (75-99) mg/dL Calcium 7.6 L (8.7-10.3) mg/dL AST 71 H (13-35) U/L Total Protein 4.1 L (6.2-8.2) g/dL Albumin 2.60 L (3.80-4.90) g/dL Globulin 1.5 L (1.6-3.3) g/dL Microbiology - Last 24 Hours (Table) 05/24/20 11:15 Blood Culture - Final Blood No Growth after 144 hours 05/24/20 11:21 Blood Culture - Final Blood No Growth after 144 hours 05/25/20 12:00 CSF Gram Stain - Final Cerebral Spinal Fluid CSF Culture - Final Assessment and Plan Assessment: -Myoclonus and severe encephalopathy continues to have fevers being followed by neurology, psychiatry and infectious disease etiology of her presentation and symptoms is not clear patient doesn't have any myoclonic jerks at this time. Patient is presently being treated for serotonin syndrome the other consideration is catatonia. CSF service is within normal limits. Patient is on empiric Zosyn and urine culture showing above-mentioned bacteria. Patient received Ativan yesterday for catatonia -Fever: Etiology of fever is not clear. Serotonin syndrome, sepsis, catatonia are being considered -Elevated CK secondary to myoclonic activity. Patient is receiving IV fluids -Possibility of urinary tract infection -Major depression and anxiety disorder -Hypovolemic hypernatremia which improved and patient is presently on D5 normal saline now. Presently has an NG tube as well -Hyperlipidemia -Seizure disorder , patient had an EEG which showed encephalopathy without any seizures spikes -History of esophageal stricture -DVT prophylaxis with subcutaneous heparin
[2020-05-31] MEDS: HEPARIN SODIUM,PORCINE 5,000 UNIT/ML 1 ML VIAL SQ SCH ×2 (09:41→22:11)
[2020-05-31] MEDS: lamoTRIgine 100 MG TAB PO SCH ×2 (09:41→22:11)
[2020-05-31] MEDS: PANTOPRAZOLE 40 MG/10 ML VIAL IVP SCH (09:41)
[2020-05-31 11:35] LABS: Glucose,Whole Blood 122 mg/dL (75-99)
--- NOTE | 2020-05-31 12:44 | P.PN ---
Progress Note - Text Progress Note Date: 05/31/20 Interval History: 05/26/2020: Patient was seen resting in bed and was unarousable and unable to participate in the psychiatric interview. Review of the patient's chart shows that lumbar puncture CSF was within normal limits. The patient is being treated for serotonin syndrome. Urine cultures are positive for gram-negative bacilli and the patient is on empiric Zosyn. She can just remain encephalopathic. Ativan challenge was initiated to treat the patient for catatonia. At 12:09 PM the patient scored a 34 on the severity of the Don[place]wame Catatonia Rating Scale. After 2 administrations of 2 mg IV of ativan, after 10 minutes, the recheck of score revealed improvement with a new score of 22. The patient had a significant decrease in her negativism, perseveration, and her ambitendency. 05/27/2020: Patient continues to be unarousable and unable to participate in the psychiatric interview. The patient continues to display significant negativism. She has been noted by nursing staff to occasionally respond to questioning albeit with 1 word answers. She is also been noted to be moving her mouth more. Upon a evaluation, the patient did withdraw and cringe when pinched. This was not present yesterday. She has been tolerating Ativan well. EEG did not display epileptiform activity. 05/28/2020: Patient continues to be nonverbal. She did appear to have more spontaneous movements and opened her eyes briefly. She was able to obey a simple command of opening her eyes and raising her hand. She otherwise continues to be mostly unresponsive and intermittently cooperative. Review of the patient's outpatient PCP note from 04/28/2020, the patient noticed increased tremors in her arms and legs as her ativan was discontinued. Patient was prescribed ropinirole and informed to follow with her outpatient psychiatrist who refused to continue the medication. The patient has been afebrile and tolerating the ativan. She is on a total of 10 mg daily at this time. We will continue to gradually titrate the medication. 05/29/2020: Patient is responsive today. Patient is able to open her eyes and keeps her eyes open for an extended period of time. She is able to follow simple commands and answers her name and is able to lift her hand when asked. She appears to be tolerating her Ativan well. She appears to be more spontaneous in her movements and is overall less stiff and rigid. 05/30/2020: Patient is awake and is able to respond to questions in short responses. She tries to answer with longer responses but has difficulty speaking. She is able to follow simple commands. She does remain rigid in her upper extremities and is unable to release her fist. She is alert and oriented to person. She is able to name her son and . 05/31/2020: Patient is awake and able to follow simple commands and able to answer in short responses. She continues to display some rigidity in her upper extremities. Vitals reviewed and stable. Patient appears to be tolerating the ativan well. She denies any SI or HI today. She reports no AH or VH. Mental Status Exam: General Appearance: Patient appears to be her stated age, is lying in bed in no apparent distress. NG tube in place. Behavior: Able to follow simple commands. Patient's eyes are open throughout the interview. Speech: Patient speaking in short responses and makes an effort but is unable to speak more than a few words at a time. Low in volume, nonspontaneous. Mood/Affect: Unable to assess Suicidality/Homicidality: Unable to assess Perceptions: Unable to assess Though content/process: Unable to assess Memory and concentration: Unable to assess Judgment and insight: poor Assessment Major Depressive Disorder, with catatonia Serotonin syndrome UTI -Patient presentation may be multimodal in etiology. We will continue management to rule out and treat for possible causes for the patient's presenation. Plan: -Increase ativan to 4 mg IV q6H for management of catatonia. Will hold at this dose and re-evaluate tomorrow for possible titration. Due to advanced age we will try to maintain on minimal effective therapeutic dose for the patient. -Once patient is medically stable, we recommend placement to a geriatric psychiatric facility. -Will continue lamictal at this time. -Psychiatry will continue to follow.
--- NOTE | 2020-05-31 15:32 | P.PN ---
Subjective Progress Note Date: 05/31/20 Principal diagnosis: Acute serotonin syndrome Patient was reevaluated today on 05/24/2020, patient was seen by Dr. Kumari on consultation yesterday, and she was mostly admitted with questionable neuroleptic malignant syndrome or possibly serotonin syndrome. Based on the clinical history I believe the patient most likely had serotonin syndrome. Patient remains in the ICU, she is doing fairly well, in no form of distress, on 2 L nasal cannula, O2 saturations 98%. Remains on IV fluid at 150 mL/h, CPK seems to be coming down nicely. Patient is sleepy, but arousable, and follows simple instructions once a arousable but slowly. In no form of respiratory distress. CBC today is basically normal. Electrolytes are normal. Renal profile is normal. CPK is coming down it is 06/24/2000 today compared to over [address] of the brain showed no acute process. Patient is yet to be seen by neurology on consultation, mostly to be evaluated for her myoclonic activity. May or may not recommend lumbar puncture specially with her low-grade fever on presentation. Patient was reevaluated today on 05/25/2020, patient is basically about the same. He underwent lumbar puncture today, results are pending. Patient remains on Zosyn empirically. Cultures including blood and urine are negative so far. Patient is on O2 at 2 L nasal cannula with O2 saturation 97%. IV fluid is Down to 100 mL/h D5 0.9. She has significant urine output. Mentation seems to be waxing and waning. Last night she had another episode of stiffness, tremors, myoclonus, and low-grade fever. EEG showed encephalopathy but no active seizure activity. Reevaluated today on 05/26/2020, patient is about the same, mental status is about the same, she had a T-max last night of 101.1, no significant improvement in mentation since admission. Patient is not responding to any questions, not verbally responsive. CBC is relatively normal basic metabolic profile is normal renal profile is normal potassium is a bit low at 3.1. CPK continues to trend down it is 1017 today Reevaluated today on 05/27/2020, patient remains in the ICU, she is basically about the same. I have not seen any change in the last few days. Mental status is about the same, patient refuses to open her eyes, does not follow any instructions, at times seems to be quite rigid in her upper extremities. Urine cultures came back positive for E. coli and Citrobacter, remains on antibiotics in the form of Zosyn. No seizure activity is documented. CPKs seems to be trending down. CPK today was 992. Renal profile remains normal. Electrolytes are normal. The patient is seen today 05/28/2020 in follow-up in the intensive care unit. She is resting comfortably in bed. In no acute distress. She continues to refuse to open her eyes. Remains nonverbal. Not making eye contact. Not following any simple commands. Her extremities are less rigid. She remains on room air with O2 saturations in the mid 90s. Temperature 99.1. Blood pressure stable. Follow-up chest x-ray reveals no acute pulmonary process. White count 4.8. Hemoglobin 9.5. Lymphocytes 0.9. Sodium 138. Potassium 3.9. Creatinine 0.79. Cerebrospinal fluid cultures reveal no growth to date. Blood culture is revealing no growth. Urine culture was positive for E. coli and Citrobacter. She remains on Zosyn. Heparin for DVT prophylaxis. Patient is seen today 10/28/2020 in follow-up on the regular medical floor. She is a bit more awake and alert. No following some simple commands. Opening eyes spontaneously. Maintaining O2 saturations in the 90s on 2 L/m per nasal cannula. T-max today at 100.3 axillary. Currently afebrile. Chest x-ray revealing bilateral infiltrates and pleural effusions. Urine culture was positive for E. coli. Cerebrospinal fluid revealed no growth. Blood cultures with no growth. Sodium 4.3. Potassium 9.2. Glucose 121. Continued on Zosyn. On 05/31/2020 patient seen in follow-up on selective care unit, encephalopathic, drowsy, but opens eyes to voice, she is able to squeeze hands on command, h owever it takes quite a few times to get her to let go of the examiner's hands. She is on 3 L oxygen with pulse ox of 93-96%, she has been intermittently febrile, T-max in the last 24 hours was 101.6F. His urine culture came back positive for E. coli and Citrobacter and amalonaticus. NG tube remains in place, and patient is receiving nutrition via the NG tube. CSF cultures have been negative, blood cultures have been negative. ID service is following, normal labs today, chest x-ray from yesterday showed bilateral infiltrates and pleural effusion coarsened interstitium, patient appears to be in no respiratory distress. Objective - Vital Signs Vital signs: Vital Signs Temp 101.6 F H 05/31/20 14:05 Pulse 102 H 05/31/20 14:05 Resp 20 05/31/20 14:05 BP 108/52 05/31/20 14:05 Pulse Ox 93 L 05/31/20 14:05 Intake & Output 05/30/20 05/31/20 05/31/20 18:59 06:59 18:59 Intake Total 450 Output Total 400 900 600 Balance 50 -900 -600 Weight 60.8 kg Intake: Tube Feeding 450 Output: Urine 400 800 600 Stool 100 Other: Voiding Method Indwelling Catheter Indwelling Catheter Indwelling Catheter - Exam GENERAL EXAM: Drowsy, encephalopathic, 75-year-old white female, 3 L of oxygen pulse ox of 93-96%, confused, comfortable in no apparent distress. HEAD: Normocephalic/atraumatic. EYES: Normal reaction of pupils, equal size. Conjunctiva pink, sclera white. NOSE: Clear with pink turbinates. THROAT: No erythema or exudates. NECK: No masses, no JVD, no thyroid enlargement, no adenopathy. CHEST: No chest wall deformity. Symmetrical expansion. LUNGS: Equal air entry with scattered rhonchi CVS: Regular rate and rhythm, normal S1 and S2, no gallops, no murmurs, no rubs ABDOMEN: Soft, nontender. No hepatosplenomegaly, normal bowel sounds, no guarding or rigidity. EXTREMITIES: No clubbing, no edema, no cyanosis, 2+ pulses and upper and lower extremities. MUSCULOSKELETAL: Patient is experiencing intermittent rigidity in her arms, intermittently afebrile, SPINE: No scoliosis or deformity SKIN: No rashes CENTRAL NERVOUS SYSTEM: Drowsy, confused, No focal deficits, tone is normal in all 4 extremities. - Labs CBC & Chem 7: 05/30/20 10:02 05/30/20 10:02 Labs: Abnormal Lab Results - Last 24 Hours (Table) 05/30/20 05/30/20 05/31/20 Range/Units 10:02 16:48 02:37 Chloride 111 H (96-109) mmol/L POC Glucose (mg/dL) 130 H 128 H (75-99) mg/dL Calcium 7.6 L (8.7-10.3) mg/dL AST 71 H (13-35) U/L Total Protein 4.1 L (6.2-8.2) g/dL Albumin 2.60 L (3.80-4.90) g/dL Globulin 1.5 L (1.6-3.3) g/dL 05/31/20 05/31/20 Range/Units 07:19 11:33 Chloride (96-109) mmol/L POC Glucose (mg/dL) 128 H 122 H (75-99) mg/dL Calcium (8.7-10.3) mg/dL AST (13-35) U/L Total Protein (6.2-8.2) g/dL Albumin (3.80-4.90) g/dL Globulin (1.6-3.3) g/dL Microbiology - Last 24 Hours (Table) 05/24/20 11:15 Blood Culture - Final Blood No Growth after 144 hours 05/24/20 11:21 Blood Culture - Final Blood No Growth after 144 hours Assessment and Plan Plan: Assessment: #1. Altered mental status, suspect secondary to acute serotonin syndrome #2. Acute hypoxic respiratory failure is admitted to suspected aspiration pneumonia, currently on Zosyn #3. History of seizure disorder #4. History of esophageal strictures #5. History of dyslipidemia #6. History of depression #7. History of diverticular disease #8. CPK with acute rhabdomyolysis most likely secondary to acute serotonin syndrome or myoclonic activity/possible seizures #9. Acute urinary tract infection, with cultures positive for E. coli and Citrobacter and amalonaticus Plan: Continue current antibiotics, wean FiO2, maintain aspiration precautions, patient remains encephalopathic, remains at risk for aspiration, and continues to be intermittently febrile, she remains on Zosyn for antibiotic coverage, ID service is following, nothing in the sputum cultures, patient is positive for urinary tract infection. Continue GI and DVT prophylaxis, maintain safety precautions, will continue to follow I performed a history & physical examination of the patient and discussed their management with my nurse practitioner, Olive Pastor. I reviewed the nurse practitioner's note and agree with the documented findings and plan of care. Lung sounds are positive for diminished breath sounds. The findings and the impression was discussed with the patient. I attest to the documentation by the nurse practitioner. Time with Patient: Less than 30
[2020-05-31 16:31] LABS: Glucose,Whole Blood 129 mg/dL (75-99)
--- NOTE | 2020-05-31 19:28 | P.PN ---
Subjective Progress Note Date: 05/31/20 Principal diagnosis: Severe depression. Encephalopathy w/ Catatonia; Serotonin syndrome with component of toxic metabolic encephalopathy Patient is a 75-year-old female with a known history of seizure disorder, GERD, hyperlipidemia, history of colon cancer, esophageal strictures and history of esophageal palpitation, anxiety depression and panic disorder and history of major depression and admission to mental health unit presents to ER with complai nts of worsening anxiety and depression for the past 3 days. EMS was called by her stating that her symptoms had worsened. Denies any overdose or suicidal ideation as per the ER note. No complaints of chest pain or shortness of. No nausea vomiting or abdominal pain or diarrhea. Laboratory data showed WBC 6.3, hemoglobin 13.2 and platelets 251 D-dimer 0.94 Sodium 142, potassium 3.3, chloride 108, BUN 30 and creatinine 1.29 Lactic acid was 4.4 on admission Troponin x1 - COVID-19 PCR is negative Today morning patient was found to be hyponatremic with sodium level 150, potassium 2.8 and chloride 116. IV fluids were changed to D5 water. UA is negative for infection EKG showed sinus tachycardia Chest x-ray showed no acute pulmonary process VQ scan showed low probability for PE 05/22/2020 Patient is currently in the MICU. Yesterday evening patient developed muscular rigidity and diaphoretic and tachycardic and febrile. Patient received dose of Haldol prior to this episode and suspected neuroleptic malignant syndrome. Patient was given fluid boluses and started on Ativan for muscle rigidity. Patient was transferred to MICU and was seen by rapid response team. Haldol has been discontinued and monitor QT interval. Potassium was replaced and went up to 3.0 today. Possibly is also low and is being replaced with potassium phosphate. Laboratory data showed WBC is 4.4, hemoglobin 9.7 and platelets 134 BUN 39 creatinine 0.95 and phosphorus level is 1.0 and CPK level went up to 3024 and 3177 patient is being continued on D5 water at 150 cc/h. Critical care team is on board. 05/23/2019 Patient is currently lying in the bed. Able to open her eyes slowly. Does not communicate or follow simple commands. bilateral lower extremities are less rigid today. Laboratory data showed improved potassium level to 4.0 and CPK level improved to 2632 today. Continue IV hydration with D5 normal saline. T- max 99.7 Culture showed no growth Patient is being continued on Ativan as needed for agitation and is being monitored in the ICU. 05/31/2020 Patient is still encephalopathic and drowsy. Resting in the bed comfortably. Able to open her eyes occasionally. Does not communicate at this time. Otherwise patient is currently being continued on Ciproheptadine and Ativan when necessary for agitation. Continued on IV hydration Urine culture showed E. coli and Citrobacter. IV antibiotics no in the form of Zosyn Neurology and pulmonary is on board. Current medications reviewed. Objective - Vital Signs Vital signs: Vital Signs Temp 101.6 F H 05/31/20 14:05 Pulse 102 H 05/31/20 14:05 Resp 20 05/31/20 14:05 BP 108/52 05/31/20 14:05 Pulse Ox 93 L 05/31/20 14:05 Intake & Output 05/30/20 05/31/20 05/31/20 18:59 06:59 18:59 Intake Total 450 Output Total 400 900 600 Balance 50 -900 -600 Weight 60.8 kg Intake: Tube Feeding 450 Output: Urine 400 800 600 Stool 100 Other: Voiding Method Indwelling Catheter Indwelling Catheter Indwelling Catheter - Exam PHYSICAL EXAMINATION: Patient is lying in the bed comfortably, does not open her eyes and not responding verbally. HEENT: Normocephalic. Neck is supple. Pupils reactive. Nostrils clear. Oral cavity is moist. Ears reveal no drainage. Neck reveals no JVD, carotid bruits, or thyromegaly. CHEST EXAMINATION: Trachea is central. Symmetrical expansion. Lung morley clear to auscultation and percussion. CARDIAC: Normal S1, S2 with no gallops. No murmurs ABDOMEN: Soft. non distended. Bowel sounds normal. No organomegaly. No abdominal bruits. Extremities: reveal no edema. No clubbing or cyanosis Neurologically awake, alerts.Oriented x0. withdrawn, No focal deficits noted Skin: No rash or skin lesions. Psychiatric: Noncooperative. Musculoskeletal: No joint swelling or deformity. - Labs CBC & Chem 7: 05/30/20 10:02 05/30/20 10:02 Labs: Abnormal Lab Results - Last 24 Hours (Table) 05/31/20 05/31/20 05/31/20 Range/Units 02:37 07:19 11:33 POC Glucose (mg/dL) 128 H 128 H 122 H (75-99) mg/dL 05/31/20 Range/Units 16:28 POC Glucose (mg/dL) 129 H (75-99) mg/dL Microbiology - Last 24 Hours (Table) 05/24/20 11:15 Blood Culture - Final Blood No Growth after 144 hours 05/24/20 11:21 Blood Culture - Final Blood No Growth after 144 hours Assessment and Plan Assessment: Myoclonus with severe encephalopathy due to acute serotonin syndrome. Catatonia with severe depression Possible neuroleptic malignant syndrome. E. coli and Citrobacter urinary tract infection Severe rhabdomyolysis. Improved. Acute episode of major depressive disorder Generalized anxiety and panic disorder Hypernatremia and severe hypokalemia. Improved now Hyperlipidemia History of seizure disorder. EEG showed encephalopathy without any seizure spik es. GERD History of esophageal stricture status post EGD and dilation Anxiety/depression panic disorder history DVT prophylaxis with heparin subcu Plan: Patient will be continued IV hydration with D5 water and replace potassium aggressively. Continue with Ciproheptadine Patient will be continued on constant observation and suicide and elopement precautions. Ativan as needed for agitation and follow-up closely. Replace electrolytes and further recommendations based on the clinical course. Urology and pulmonary is on board. Time with Patient: Greater than 30
--- NOTE | 2020-05-31 22:16 | PN ---
PROGRESS NOTE DATE OF SERVICE: 05/31/2020 REASON FOR FOLLOWUP: Fever, pneumonia and diarrhea. INTERVAL HISTORY: The patient did spike another fever of 101.6 degrees Fahrenheit this afternoon. The patient is hemodynamically stable. The patient remains lethargic and is unable to provide any history. Tolerating her tube feeds and no worsening diarrhea has been reported by nursing staff. PHYSICAL EXAMINATION: Blood pressure 138/52 with a pulse of 102, temperature 101.6. She is 93% on 3 L nasal cannula. General description is an elderly female lying in bed in no distress. RESPIRATORY SYSTEM: Unlabored breathing with decreased breath sounds at the base. No wheeze. HEART: S1, S2. Regular rate and rhythm. ABDOMEN: Soft. No tenderness. LABS: No new labs have been obtained today. DIAGNOSTIC IMPRESSION AND PLAN: Patient with a fever in this patient who did have extensive workup, and most of it came back negative except for a urinary tract infection and a question of pneumonia. The patient is covered with Zosyn. With the new fever, will repeat her cultures as well as chest x-ray and adjust medication further on the basis of these reports. Continue with supportive care. MMODL / IJN: [id number] /
[2020-06-01] MEDS: PIPERACILLIN-TAZOBACTAM 3.375 GM in SODIUM CHLORIDE 0.9% 100 ML IVPB SCH ×3 (00:24→17:11)
[2020-06-01] MEDS: LORazepam 2 MG/ML INJ IV SCH ×4 (00:24→18:14)
[2020-06-01] MEDS: CYPROHEPTADINE 4 MG TABLET PO SCH ×4 (00:25→18:13)
[2020-06-01 00:43] LABS: Glucose,Whole Blood 122 mg/dL (75-99)
[2020-06-01 04:23] LABS: Appearance,Urine Clear (Clear); Bilirubin,Urine Negative (Negative); Blood,Urine Trace (Negative); Color,Urine Colorless; Glucose,Urine (UA) Negative (Negative); Ketones,Urine Negative (Negative); Leukocyte Esterase,Urine Trace (Negative); Nitrite,Urine Negative (Negative); Protein,Urine Negative (Negative); RBC,Urine 1 /hpf (0-5); Specific Gravity,Urine 1.005 (1.001-1.035); Urobilinogen,Urine <2.0 mg/dL (<2.0); WBC,Urine 5 /hpf (0-5)
[2020-06-01 06:22] LABS: Glucose,Whole Blood 113 mg/dL (75-99)
[2020-06-01 07:18] LABS: Glucose,Whole Blood 102 mg/dL (75-99)
[2020-06-01] MEDS: IPRATROPIUM-ALBUTEROL 3 ML NEB INHALATION SCH ×3 (08:05→19:45)
[2020-06-01] MEDS: HEPARIN SODIUM,PORCINE 5,000 UNIT/ML 1 ML VIAL SQ SCH ×2 (09:06→20:58)
[2020-06-01] MEDS: lamoTRIgine 100 MG TAB PO SCH ×2 (09:06→20:58)
[2020-06-01] MEDS: PANTOPRAZOLE 40 MG/10 ML VIAL IVP SCH (09:06)
[2020-06-01] MEDS: DEXTROSE 5%-0.9% NACL 1,000 ML IV SCH ×2 (09:07→17:12)
--- NOTE | 2020-06-01 09:41 | XR ---
EXAMINATION TYPE: XR chest 1V portable DATE OF EXAM: 06/01/2020 Comparison: 05/30/2020 Clinical History: 75-year-old female pneumonia Findings: Heart normal size. Aorta and pulmonary vasculature within normal limits. Some improving aeration at t he medial right base. Persistent patchy opacity at the left base. NG tube sidehole above the GE junct ion. Advancement by 7 cm. Cholecystectomy clips. Impression: 1. Some improvement in aeration at the medial right base. Persistent patchy atelectasis or infiltrate at the left base. 2. Advance the NG tube by 7 cm so that the side hole enters the stomach.
[2020-06-01 11:25] LABS: Glucose,Whole Blood 101 mg/dL (75-99)
--- NOTE | 2020-06-01 12:55 | P.PN ---
Progress Note - Text Progress Note Date: 06/01/20 Interval History: 05/26/2020: Patient was seen resting in bed and was unarousable and unable to participate in the psychiatric interview. Review of the patient's chart shows that lumbar puncture CSF was within normal limits. The patient is being treated for serotonin syndrome. Urine cultures are positive for gram-negative bacilli and the patient is on empiric Zosyn. She can just remain encephalopathic. Ativan challenge was initiated to treat the patient for catatonia. At 12:09 PM the patient scored a 34 on the severity of the Dona-Kwame Catatonia Rating Scale. After 2 administrations of 2 mg IV of ativan, after 10 minutes, the recheck of score revealed improvement with a new score of 22. The patient had a significant decrease in her negativism, perseveration, and her ambitendency. 05/27/2020: Patient continues to be unarousable and unable to participate in the psychiatric interview. The patient continues to display significant negativism. She has been noted by nursing staff to occasionally respond to questioning albeit with 1 word answers. She is also been noted to be moving her mouth more. Upon a evaluation, the patient did withdraw and cringe when pinched. This was not present yesterday. She has been tolerating Ativan well. EEG did not display epileptiform activity. 05/28/2020: Patient continues to be nonverbal. She did appear to have more spontaneous movements and opened her eyes briefly. She was able to obey a simple command of opening her eyes and raising her hand. She otherwise continues to be mostly unresponsive and intermittently cooperative. Review of the patient's outpatient PCP note from 04/28/2020, the patient noticed increased tremors in her arms and legs as her ativan was discontinued. Patient was prescribed ropinirole and informed to follow with her outpatient psychiatrist who refused to continue the medication. The patient has been afebrile and tolerating the ativan. She is on a total of 10 mg daily at this time. We will continue to gradually titrate the medication. 05/29/2020: Patient is responsive today. Patient is able to open her eyes and keeps her eyes open for an extended period of time. She is able to follow simple commands and answers her name and is able to lift her hand when asked. She appears to be tolerating her Ativan well. She appears to be more spontaneous in her movements and is overall less stiff and rigid. 05/30/2020: Patient is awake and is able to respond to questions in short responses. She tries to answer with longer responses but has difficulty speaking. She is able to follow simple commands. She does remain rigid in her upper extremities and is unable to release her fist. She is alert and oriented to person. She is able to name her son and . 05/31/2020: Patient is awake and able to follow simple commands and able to answer in short responses. She continues to display some rigidity in her upper extremities. Vitals reviewed and stable. Patient appears to be tolerating the ativan well. She denies any SI or HI today. She reports no AH or VH. 06/01/2020: Patient is arousable but mainly somnolent. She is able to follow simple commands. Much less rigid and more compliant. Mental Status Exam: General Appearance: Patient appears to be her stated age, is lying in bed in no apparent distress. NG tube in place. Behavior: Able to follow simple commands. Patient's eyes are open throughout the interview. Speech: Patient is mostly non verbal today. Low in volume, nonspontaneous. Mood/Affect: Unable to assess Suicidality/Homicidality: Unable to assess Perceptions: Unable to assess Though content/process: Unable to assess Memory and concentration: Unable to assess Judgment and insight: poor Assessment Major Depressive Disorder, with catatonia Serotonin syndrome UTI -Patient presentation may be multimodal in etiology. We will continue management to rule out and treat for possible causes for the patient's presenation. Plan: -We will decrease ativan to 3.5 mg IV q6H due to oversedation. -Once patient is medically stable, we recommend placement to a geriatric psychiatric facility. -Will continue lamictal at this time. -Psychiatry will continue to follow.
[2020-06-01] MEDS ORDERED: LORazepam 2 MG/ML INJ IV ONE (13:15)
--- NOTE | 2020-06-01 14:21 | P.PN ---
Subjective Progress Note Date: 06/01/20 Principal diagnosis: Acute serotonin syndrome Patient was reevaluated today on 05/24/2020, patient was seen by Dr. Kumari on consultation yesterday, and she was mostly admitted with questionable neuroleptic malignant syndrome or possibly serotonin syndrome. Based on the clinical history I believe the patient most likely had serotonin syndrome. Patient remains in the ICU, she is doing fairly well, in no form of distress, on 2 L nasal cannula, O2 saturations 98%. Remains on IV fluid at 150 mL/h, CPK seems to be coming down nicely. Patient is sleepy, but arousable, and follows simple instructions once a arousable but slowly. In no form of respiratory distress. CBC today is basically normal. Electrolytes are normal. Renal profile is normal. CPK is coming down it is 06/24/2000 today compared to over [address] of the brain showed no acute process. Patient is yet to be seen by neurology on consultation, mostly to be evaluated for her myoclonic activity. May or may not recommend lumbar puncture specially with her low-grade fever on presentation. Patient was reevaluated today on 05/25/2020, patient is basically about the same. He underwent lumbar puncture today, results are pending. Patient remains on Zosyn empirically. Cultures including blood and urine are negative so far. Patient is on O2 at 2 L nasal cannula with O2 saturation 97%. IV fluid is Down to 100 mL/h D5 0.9. She has significant urine output. Mentation seems to be waxing and waning. Last night she had another episode of stiffness, tremors, myoclonus, and low-grade fever. EEG showed encephalopathy but no active seizure activity. Reevaluated today on 05/26/2020, patient is about the same, mental status is about the same, she had a T-max last night of 101.1, no significant improvement in mentation since admission. Patient is not responding to any questions, not verbally responsive. CBC is relatively normal basic metabolic profile is normal renal profile is normal potassium is a bit low at 3.1. CPK continues to trend down it is 1017 today Reevaluated today on 05/27/2020, patient remains in the ICU, she is basically about the same. I have not seen any change in the last few days. Mental status is about the same, patient refuses to open her eyes, does not follow any instructions, at times seems to be quite rigid in her upper extremities. Urine cultures came back positive for E. coli and Citrobacter, remains on antibiotics in the form of Zosyn. No seizure activity is documented. CPKs seems to be trending down. CPK today was 992. Renal profile remains normal. Electrolytes are normal. The patient is seen today 05/28/2020 in follow-up in the intensive care unit. She is resting comfortably in bed. In no acute distress. She continues to refuse to open her eyes. Remains nonverbal. Not making eye contact. Not following any simple commands. Her extremities are less rigid. She remains on room air with O2 saturations in the mid 90s. Temperature 99.1. Blood pressure stable. Follow-up chest x-ray reveals no acute pulmonary process. White count 4.8. Hemoglobin 9.5. Lymphocytes 0.9. Sodium 138. Potassium 3.9. Creatinine 0.79. Cerebrospinal fluid cultures reveal no growth to date. Blood culture is revealing no growth. Urine culture was positive for E. coli and Citrobacter. She remains on Zosyn. Heparin for DVT prophylaxis. Patient is seen today 10/28/2020 in follow-up on the regular medical floor. She is a bit more awake and alert. No following some simple commands. Opening eyes spontaneously. Maintaining O2 saturations in the 90s on 2 L/m per nasal cannula. T-max today at 100.3 axillary. Currently afebrile. Chest x-ray revealing bilateral infiltrates and pleural effusions. Urine culture was positive for E. coli. Cerebrospinal fluid revealed no growth. Blood cultures with no growth. Sodium 4.3. Potassium 9.2. Glucose 121. Continued on Zosyn. On 05/31/2020 patient seen in follow-up on selective care unit, encephalopathic, drowsy, but opens eyes to voice, she is able to squeeze hands on command, h owever it takes quite a few times to get her to let go of the examiner's hands. She is on 3 L oxygen with pulse ox of 93-96%, she has been intermittently febrile, T-max in the last 24 hours was 101.6F. His urine culture came back positive for E. coli and Citrobacter and amalonaticus. NG tube remains in place, and patient is receiving nutrition via the NG tube. CSF cultures have been negative, blood cultures have been negative. ID service is following, normal labs today, chest x-ray from yesterday showed bilateral infiltrates and pleural effusion coarsened interstitium, patient appears to be in no respiratory distress. On 06/01/2019 the patient seen in follow-up on medical floor, still encephalopathic, drowsy, maybe slightly better, she is able to some simple answers, denies any acute distress, she states her breathing is "OK". Follow some simple commands, she is on 3 L of oxygen pulse ox of 100%, we reviewed her oxygen, does not appear to be in any respiratory difficulty, lung sounds are clear, diminished at bases, still intermittently febrile, T-max in the last 24 hours is 101.6F. Patient appears to be a little less rigid thinking compared to yesterday's exam, chest x-ray shows improvement in aeration of the medial right base, persistent patchy atelectasis at the left base noted, NG tube needs to be advanced by 7 cm as noted by Dr. Guzmán. Patient is receiving enteral nutritional support, with tube feedings, tolerating them well. She is on antibiotics for urinary tract infection, with the urine cultures positive for E. coli and Citrobacter, CSF cultures and blood cultures have been negative thus far. Repeat urinalysis today showed trace leuks, and trace blood, no evidence of urinary tract infection, Legionella urine antigen. She remains on D5 0.9 normal saline at a rate of 100 ML per hour. She remains on Zosyn for antibiotic coverage. No nausea or vomiting, Objective - Vital Signs Vital signs: Vital Signs Temp 98.7 F 06/01/20 07:55 Pulse 88 06/01/20 12:53 Resp 16 06/01/20 07:55 BP 148/64 06/01/20 07:55 Pulse Ox 100 06/01/20 07:55 Intake & Output 05/31/20 06/01/20 06/01/20 18:59 06:59 18:59 Output Total 600 950 Balance -600 -950 Weight 60.8 kg Output: Urine 600 950 Other: Voiding Method Indwelling Catheter Indwelling Catheter Indwelling Catheter - Exam GENERAL EXAM: Drowsy, encephalopathic, 75-year-old white female, 3 L of oxygen pulse ox of 93-96%, confused, able to give some simple verbal responses on today's exam, appears to be a bit more responsive to verbal stimulation and attempting to respond verbally comfortable in no apparent distress. HEAD: Normocephalic/atraumatic. EYES: Normal reaction of pupils, equal size. Conjunctiva pink, sclera white. NOSE: Clear with pink turbinates. THROAT: No erythema or exudates. NECK: No masses, no JVD, no thyroid enlargement, no adenopathy. CHEST: No chest wall deformity. Symmetrical expansion. LUNGS: Equal air entry with scattered rhonchi CVS: Regular rate and rhythm, normal S1 and S2, no gallops, no murmurs, no rubs ABDOMEN: Soft, nontender. No hepatosplenomegaly, normal bowel sounds, no guarding or rigidity. EXTREMITIES: No clubbing, no edema, no cyanosis, 2+ pulses and upper and lower extremities. MUSCULOSKELETAL: Patient is experiencing intermittent rigidity in her arms, intermittently afebrile, SPINE: No scoliosis or deformity SKIN: No rashes CENTRAL NERVOUS SYSTEM: Drowsy, confused, No focal deficits, tone is normal in all 4 extremities. - Labs CBC & Chem 7: 05/30/20 10:02 05/30/20 10:02 Labs: Abnormal Lab Results - Last 24 Hours (Table) 05/31/20 05/31/20 05/31/20 Range/Units 16:28 21:23 21:23 POC Glucose (mg/dL) 129 H (75-99) mg/dL C-Reactive Protein 120.2 H (<10.0) mg/L Procalcitonin 0.24 H (0.02-0.09) ng/mL Urine Blood (Negative) Ur Leukocyte Esterase (Negative) 06/01/20 06/01/20 06/01/20 Range/Units 00:41 04:00 06:18 POC Glucose (mg/dL) 122 H 113 H (75-99) mg/dL C-Reactive Protein (<10.0) mg/L Procalcitonin (0.02-0.09) ng/mL Urine Blood Trace H (Negative) Ur Leukocyte Esterase Trace H (Negative) 06/01/20 06/01/20 Range/Units 07:05 11:24 POC Glucose (mg/dL) 102 H 101 H (75-99) mg/dL C-Reactive Protein (<10.0) mg/L Procalcitonin (0.02-0.09) ng/mL Urine Blood (Negative) Ur Leukocyte Esterase (Negative) Assessment and Plan Plan: Assessment: #1. Altered mental status, suspect secondary to acute serotonin syndrome #2. Acute hypoxic respiratory failure is admitted to suspected aspiration pneumonia, currently on Zosyn #3. History of seizure disorder #4. History of esophageal strictures #5. History of dyslipidemia #6. History of depression #7. History of diverticular disease #8. CPK with acute rhabdomyolysis most likely secondary to acute serotonin syndrome or myoclonic activity/possible seizures #9. Acute urinary tract infection, with cultures positive for E. coli and Citrobacter and amalonaticus Plan: No respiratory difficulty noted, we removed the oxygen, obtain O2 sat on room air, maintain aspiration precautions, clinically patient seems to be slightly more responsive on today's exam, attempted to respond verbally. Still encephalopathic and drowsy, still intermittently febrile, CSF and blood cultures have been negative, patient is on Zosyn for antibiotic coverage, repeat urinalysis showed no growth, chest x-ray has been reviewed showing some improvement in aeration in the medial right base, no complaints of shortness of breath, maintain aspiration precautions, head of the bed up at least 30 at all times. From pulmonary/critical care perspective patient has been stable, no acute events overnight, we will sign off and see the patient on as-needed basis. I performed a history & physical examination of the patient and discussed their management with my nurse practitioner, Olive Pastor. I reviewed the nurse practitioner's note and agree with the documented findings and plan of care. Lung sounds are positive for diminished breath sounds. The findings and the impression was discussed with the patient. I attest to the documentation by the nurse practitioner. Time with Patient: Less than 30
--- NOTE | 2020-06-01 15:58 | P.PN ---
Subjective Progress Note Date: 06/01/20 Patient was seen for a follow-up. Initially consultation performed by Dr. Evan Arreaga. Please refer to his note for details. Patient has history of depression, anxiety, came with altered mental status. Alex fernandez was diagnosed with catatonia, perhaps acute serotonin syndrome due to reaction of Haldol. Patient also had aspiration pneumonia, seizure disorder, esophageal strictures. Patient has some fluctuating mental status, sometimes more alert, sometimes more somnolent. No seizure-like activity has been documented. Patient underwent lumbar puncture, in which the WBCs were 0. MRI of the brain showed nearly nondiagnostic exam due to extensive motion artifact. No obvious abnormal signal on diffusion imaging to suggest acute ischemia. Degenerative and nonspecific white matter changes most typical of remote ischemia. Patient follows up with psychiatrist. Patient currently on Ativan 3.5 mg IV every 6 hours IV. Patient's catatonia has improved. UTI. EEG on 05/26/2020 showed background slowing consistent with encephalopathy. Some frontal sharp waves were seen. Repeat EEG was recommended Objective - Vital Signs Vital signs: Vital Signs Temp 97.5 F L 06/01/20 14:00 Pulse 83 06/01/20 14:00 Resp 20 06/01/20 14:00 BP 144/71 06/01/20 14:00 Pulse Ox 94 L 06/01/20 14:00 Intake & Output 05/31/20 06/01/20 06/01/20 18:59 06:59 18:59 Output Total 600 950 Balance -600 -950 Weight 60.8 kg Output: Urine 600 950 Other: Voiding Method Indwelling Catheter Indwelling Catheter Indwelling Catheter - Exam Patient sedated with Ativan. Patient has NG tube in place. Minimally arousable to noxious stimuli. Tone is normal in the arms. No significant rigidity. Pupils are round and reacting. Oculocephalics are absent. Reflexes are 2 in the upper limbs, 2 at the knees, trace ankles and plantar is downgoing on the right, questionable upon left. No seizure-like activity. - Labs CBC & Chem 7: 05/30/20 10:02 05/30/20 10:02 Labs: Abnormal Lab Results - Last 24 Hours (Table) 05/31/20 05/31/20 05/31/20 Range/Units 16:28 21:23 21:23 POC Glucose (mg/dL) 129 H (75-99) mg/dL C-Reactive Protein 120.2 H (<10.0) mg/L Procalcitonin 0.24 H (0.02-0.09) ng/mL Urine Blood (Negative) Ur Leukocyte Esterase (Negative) 06/01/20 06/01/20 06/01/20 Range/Units 00:41 04:00 06:18 POC Glucose (mg/dL) 122 H 113 H (75-99) mg/dL C-Reactive Protein (<10.0) mg/L Procalcitonin (0.02-0.09) ng/mL Urine Blood Trace H (Negative) Ur Leukocyte Esterase Trace H (Negative) 06/01/20 06/01/20 Range/Units 07:05 11:24 POC Glucose (mg/dL) 102 H 101 H (75-99) mg/dL C-Reactive Protein (<10.0) mg/L Procalcitonin (0.02-0.09) ng/mL Urine Blood (Negative) Ur Leukocyte Esterase (Negative) Assessment and Plan Assessment: * Altered mental status, possible toxic metabolic encephalopathy, possible serotonin syndrome. * History of anxiety depression. * History of seizure disorder, on Lamictal 100 mg twice a day. * UTI, possible pneumonia on Zosyn. ID following. Plan: * Patient at present sedated with Ativan. Psychiatry managing the catatonia/serotonin syndrome. * Consider repeating EEG, when patient more awake * Patient's CSF shows WBC 0, RBC 0, total protein is normal 47 (12-60), glucose 63. HSV-1 and HSV 2 PCR negative.
[2020-06-01 16:44] LABS: Glucose,Whole Blood 109 mg/dL (75-99)
--- NOTE | 2020-06-01 22:19 | PN ---
PROGRESS NOTE DATE OF SERVICE: 06/10/2020 REASON FOR FOLLOWUP: Pneumonia and diarrhea. INTERVAL HISTORY: The patient did spike a fever last night of 100. The patient has been afebrile since then. The patient remains lethargic and is unable to provide any history. No vomiting or any worsening diarrhea per the nursing staff. PHYSICAL EXAMINATION: Blood pressure 160/73 with a pulse of 119, temperature 97.3. She is 92% on room air. General description is an elderly female lying in bed in no distress. RESPIRATORY SYSTEM: Unlabored breathing with decreased breath sounds at the base. No wheeze. HEART: S1, S2. Regular rate and rhythm. ABDOMEN: Soft. No tenderness. LABS/IMAGING: Repeat urine done yesterday has been negative. Chest x-ray reported improvement in aeration, right medial lung base. DIAGNOSTIC IMPRESSION AND PLAN: Patient with a fever, concerning for aspiration pneumonia. Patient is covered with Zosyn. Culture has been negative so far. To continue and monitor clinical course closely. MMODL / IJN: [id number] /
[2020-06-02 00:09] LABS: Glucose,Whole Blood 121 mg/dL (75-99)
[2020-06-02] MEDS: LORazepam 2 MG/ML INJ IV SCH ×5 (00:41→23:37)
[2020-06-02] MEDS: PIPERACILLIN-TAZOBACTAM 3.375 GM in SODIUM CHLORIDE 0.9% 100 ML IVPB SCH ×4 (00:41→23:38)
[2020-06-02] MEDS: CYPROHEPTADINE 4 MG TABLET PO SCH ×5 (00:45→23:37)
[2020-06-02] MEDS: DEXTROSE 5%-0.9% NACL 1,000 ML IV SCH ×3 (03:42→20:17)
[2020-06-02] MEDS: ACETAMINOPHEN TAB 325 MG TAB PO PRN (05:28)
[2020-06-02 06:13] LABS: Glucose,Whole Blood 126 mg/dL (75-99)
[2020-06-02] MEDS: IPRATROPIUM-ALBUTEROL 3 ML NEB INHALATION SCH ×3 (09:17→19:59)
[2020-06-02] MEDS: lamoTRIgine 100 MG TAB PO SCH ×2 (09:58→20:17)
[2020-06-02] MEDS: HEPARIN SODIUM,PORCINE 5,000 UNIT/ML 1 ML VIAL SQ SCH ×2 (09:58→20:17)
[2020-06-02] MEDS: PANTOPRAZOLE 40 MG/10 ML VIAL IVP SCH (09:59)
--- NOTE | 2020-06-02 13:41 | P.PN ---
Progress Note - Text Progress Note Date: 06/02/20 Interval History: Patient appears to be much more awake today as compared to previous days. She continues to be able to follow simple commands. She attempts to verbalize but has difficulty speaking more than one word. She is able to respond yes no fashion. She is currently denying any suicidal or homicidal ideation, intention, and/or plan. She states that she feels "okay." She continues to be on enteral nutrition. She is less sedated today. Mental Status Exam: General Appearance: Patient appears to be her stated age, is lying in bed in no apparent distress. NG tube in place. Behavior: Patient is much more spontaneous in her movements and behavior today. Eye contact is appropriate. Speech: Speech is low in volume, nonspontaneous, and typically in one-word replies. Mood/Affect: Patient states she feels "okay." Affect is blunted. Suicidality/Homicidality: Patient does not endorse any suicidal or homicidal ideation, intention, and/or plan today. Perceptions: The patient does not report any auditory or visual hallucinations. Though content/process: Patient does appear to attempt to verbalize but has difficulty speaking. Memory and concentration: Unable to assess Judgment and insight: poor Assessment Major Depressive Disorder, with catatonia Serotonin syndrome UTI -Patient presentation may be multimodal in etiology. We will continue management to rule out and treat for possible causes for the patient's presenation. Plan: -Continue ativan 3.5 mg IV q6H due to oversedation. -Once patient is medically stable, we recommend placement to a geriatric psychiatric facility. -Will continue lamictal at this time. -Psychiatry will continue to follow.
--- NOTE | 2020-06-02 22:42 | PN ---
PROGRESS NOTE DATE OF SERVICE: 06/02/2020 REASON FOR FOLLOWUP: Aspiration pneumonia. INTERVAL HISTORY: The patient is currently afebrile. The patient is breathing comfortably. She seems slightly more awake and alert per the nursing staff. No vomiting has been noticed and diarrhea has slowed down. PHYSICAL EXAMINATION: Blood pressure 104/55 with a pulse of 89, temperature 98.1. She is 93% on room air. General description is an elderly female lying in bed in no distress. RESPIRATORY SYSTEM: Unlabored breathing. Clear to auscultation anteriorly. HEART: S1, S2. Regular rate and rhythm. ABDOMEN: Soft. No tenderness. LABS: No new labs have been obtained today. DIAGNOSTIC IMPRESSION AND PLAN: Patient with a fever, concerning for aspiration pneumonia. Patient is covered with Zosyn; to continue. Monitor clinical course closely. Continue supportive care. MMODL / CAESARN: [id number] /
[2020-06-03 00:02] LABS: Glucose,Whole Blood 117 mg/dL (75-99)
[2020-06-03] MEDS: CYPROHEPTADINE 4 MG TABLET PO SCH ×4 (05:26→23:26)
[2020-06-03] MEDS: LORazepam 2 MG/ML INJ IV SCH ×4 (05:26→23:27)
[2020-06-03 06:26] LABS: Glucose,Whole Blood 162 mg/dL (75-99)
[2020-06-03] MEDS: IPRATROPIUM-ALBUTEROL 3 ML NEB INHALATION SCH ×3 (08:54→20:03)
[2020-06-03] MEDS: HEPARIN SODIUM,PORCINE 5,000 UNIT/ML 1 ML VIAL SQ SCH ×2 (09:43→20:22)
[2020-06-03] MEDS: PANTOPRAZOLE 40 MG/10 ML VIAL IVP SCH (09:43)
[2020-06-03] MEDS: PIPERACILLIN-TAZOBACTAM 3.375 GM in SODIUM CHLORIDE 0.9% 100 ML IVPB SCH ×3 (09:43→23:27)
[2020-06-03] MEDS: lamoTRIgine 100 MG TAB PO SCH ×2 (09:43→20:22)
--- NOTE | 2020-06-03 10:20 | P.PN ---
Subjective Progress Note Date: 06/02/20 06/02/2020: Patient continues to be somnolent. Does not follow commands. No seizure-like activity noted. Patient currently on Ativan 3.5 mg IV every 6 hours. This is as per psychiatry. Patient was seen for a follow-up. Initially consultation performed by Dr. Evan Arreaga. Please refer to his note for details. Patient has history of depression, anxiety, came with altered mental status. Patient was diagnosed with catatonia, perhaps acute serotonin syndrome due to reaction of Haldol. Patient also had aspiration pneumonia, seizure disorder, esophageal strictures. Patient has some fluctuating mental status, sometimes more alert, sometimes more somnolent. No seizure-like activity has been docum ented. Patient underwent lumbar puncture, in which the WBCs were 0. MRI of the brain showed nearly nondiagnostic exam due to extensive motion artifact. No obvious abnormal signal on diffusion imaging to suggest acute ischemia. Degenerative and nonspecific white matter changes most typical of rem ote ischemia. Patient follows up with psychiatrist. Patient currently on Ativan 3.5 mg IV every 6 hours IV. Patient's catatonia has improved. UTI. EEG on 05/26/2020 showed background slowing consistent with encephalopathy. Some frontal sharp waves were seen. Repeat EEG was recommended Objective - Vital Signs Vital signs: Vital Signs Temp 98.9 F 06/02/20 14:00 Pulse 110 H 06/02/20 14:00 Resp 16 06/02/20 14:00 BP 177/53 06/02/20 14:00 Pulse Ox 93 L 06/02/20 14:00 Intake & Output 06/01/20 06/02/20 06/02/20 18:59 06:59 18:59 Intake Total 1900 Output Total 625 675 500 Balance -625 675 1400 Weight 61.5 kg 54.5 kg Intake: Intake, IV Titration 1300 Amount Dextrose 5%-0.9% NaCl 1, 1200 000 ml @ 100 mls/hr IV . Q10H [facility] Rx#:[id number] Piperacillin-Tazobactam 3 100 .375 gm In Sodium Chloride 0.9% 100 ml @ 25 mls/hr IVPB Q8HR [facility] Rx# :[id number] Oral 0 Tube Feeding 480 Other 120 Output: Urine 625 675 500 Other: Voiding Method Indwelling Catheter Indwelling Catheter Indwelling Catheter - Exam Patient sedated with Ativan. Patient has NG tube in place. Patient does grimace, and withdraws slightly in the arms with painful stimuli. Patient movement is symmetric for noxious stimuli bilaterally. Tone is moderately increased in the arms. Pupils are round and reacting. Oculocephalics are absent. Reflexes are 2 in the upper limbs, 2 at the knees, trace ankles and plantar is downgoing on the right, questionable upon left. No seizure-like activity. - Labs CBC & Chem 7: 05/30/20 10:02 05/30/20 10:02 Labs: Abnormal Lab Results - Last 24 Hours (Table) 06/02/20 06/02/20 Range/Units 00:03 06:11 POC Glucose (mg/dL) 121 H 126 H (75-99) mg/dL Microbiology - Last 24 Hours (Table) 05/31/20 21:23 Blood Culture - Preliminary Blood No Growth after 24 hours Assessment and Plan Assessment: * Altered mental status, possible toxic metabolic encephalopathy, possible se rotonin syndrome. * History of anxiety depression. * History of seizure disorder, on Lamictal 100 mg twice a day. * UTI, possible pneumonia on Zosyn. ID following. Plan: * Patient at present sedated with Ativan. Psychiatry managing the catatonia/serotonin syndrome. * Consider repeating EEG, due to persistent encephalopathy. * Patient's CSF shows WBC 0, RBC 0, total protein is normal 47 (12-60), glucose 63. HSV-1 and HSV 2 PCR negative.
[2020-06-03 11:37] LABS: Glucose,Whole Blood 116 mg/dL (75-99)
--- NOTE | 2020-06-03 13:03 | P.PN ---
Progress Note - Text Progress Note Date: 06/03/20 Interval History: Patient continues to display continued improvement. She is able to speak in complete albeit short sentences. She is reporting she feels "okay." She is able to reply "How are you today?" She is not reporting any suicidal or homicidal ideation, intention, and/or plan. She does not report any auditory or visual hallucinations. She is alert and oriented to self only and is not able to provide the name of the type of building she is currently in. She continues to have an NG tube in place. It is uncertain at this time if she is able to feed herself. Mental Status Exam: General Appearance: Patient appears to be her stated age, is lying in bed in no apparent distress. NG tube in place. Behavior: Patient is much more spontaneous in her movements and behavior today. Eye contact is appropriate. Speech: Speech is low in volume, more spontaneous, and able to speak in complete short sentences. Mood/Affect: Patient states she feels "okay." Affect is blunted. Suicidality/Homicidality: Patient does not endorse any suicidal or homicidal ideation, intention, and/or plan today. Perceptions: The patient does not report any auditory or visual hallucinations. Though content/process: Patient does appear to attempt to verbalize but has difficulty speaking. Memory and concentration: AAO to self. Judgment and insight: poor Assessment Major Depressive Disorder, with catatonia - resolving Serotonin syndrome UTI Plan: -Continue ativan 3.5 mg IV q6H. Will consider taper tomorrow. Patient does not appear to be over-sedated and is spontaneous and responding appropriately during the inteview albeit minimal. -Patient require rehab due to the length of stay and weakness as a result. Geriatric psychiatry placement will be continued to be recommended if patient continues to display an inability to care for self secondary to her depressive symptoms. Recommend patient is given an adequate trial off NG tube feeds to see if she will care for self. -Will continue lamictal at this time. -Psychiatry will continue to follow.
[2020-06-03] MEDS: DEXTROSE 5%-0.9% NACL 1,000 ML IV SCH (15:34)
--- NOTE | 2020-06-03 15:53 | EEG ---
ELECTROENCEPHALOGRAM REPORT DATE OF SERVICE: 06/03/2020 PREAMBLE: This is a 75-year-old female with altered mental status. Patient has got increased rigidity and possible serotonin syndrome. This study is performed to evaluate for encephalopathy. EEG FINDINGS: This is a 21 channel routine EEG recording in a patient utilizing 10-20 international system with referential and bipolar montages. Background consists of moderately well- developed and regulated, mixed frequencies of 2-3 hertz delta mixed with some fast frequency beta activity. Intermittent improvement in background was noted with appearance of 4-6 hertz theta activity. Well-formed alpha was not seen. Some sleep spindles were seen. EKG channel showed no arrhythmia. A photic driving response was not seen. Some sharply contoured waves were seen, but did not appear epileptiform. IMPRESSION: This is an abnormal EEG due to background slowing of moderate degree. This is suggestive of generalized cerebral dysfunction as can be seen with toxic metabolic encephalopathy or due to diffuse structural brain abnormality. No definitive epileptiform activity was seen. MMODL / IJN: [id number] / [facility]
[2020-06-03] MEDS: ACETAMINOPHEN TAB 325 MG TAB PO PRN (16:00)
[2020-06-03 18:00] LABS: Glucose,Whole Blood 128 mg/dL (75-99)
[2020-06-03] MEDS ORDERED: IOPAMIDOL CONTRAST (ORAL USE) VIAL PO PRN (22:05)
--- NOTE | 2020-06-03 22:42 | PN ---
PROGRESS NOTE DATE OF SERVICE: 06/03/2020 REASON FOR FOLLOWUP: Fever and aspiration pneumonia. INTERVAL HISTORY: The patient did spike another fever this evening of 101.4 degrees Fahrenheit. The patient is hemodynamically stable, not on any pressor support. The patient remains lethargic; unable to provide any history. Tolerating her tube feeds. No worsening diarrhea reported by nursing staff. Patient herself was unable to provide any history. PHYSICAL EXAMINATION: Blood pressure 126/67, pulse of 94, temperature 100.6. T-max 101.4. She is 94% on room air. General description is an elderly female lying in bed in no distress. RESPIRATORY SYSTEM: Unlabored breathing with decreased breath sounds at the base. No wheeze. HEART: S1, S2. Regular rate and rhythm. ABDOMEN: Soft. No tenderness. LABS: No new labs have been obtained today. DIAGNOSTIC IMPRESSION AND PLAN: Patient with a fever in this patient who did have extensive workup with no clear possible aspiration pneumonia. We will obtain a CT of abdomen and pelvis with contrast through the NG tube. Continue empiric Zosyn at this point in time and monitor clinical course closely. MMODL / IJN: [id number] /
[2020-06-04 01:53] LABS: Glucose,Whole Blood 104 mg/dL (75-99)
[2020-06-04] MEDS: DEXTROSE 5%-0.9% NACL 1,000 ML IV SCH ×3 (05:46→16:08)
[2020-06-04] MEDS: CYPROHEPTADINE 4 MG TABLET PO SCH ×2 (05:46→12:48)
[2020-06-04] MEDS: LORazepam 2 MG/ML INJ IV SCH ×4 (05:46→23:44)
[2020-06-04 05:52] LABS: Glucose,Whole Blood 127 mg/dL (75-99)
[2020-06-04] MEDS: IPRATROPIUM-ALBUTEROL 3 ML NEB INHALATION SCH ×3 (07:25→19:24)
[2020-06-04 08:15] LABS: Basophils % (A) 0 %; Eosinophils # (A) 0.1 k/uL (0-0.7); Eosinophils % (A) 2 %; HCT 27.7 % (34.0-46.0); HGB 8.8 gm/dL (11.4-16.0); Hypochromasia Slight; Lymphocytes # (A) 0.9 k/uL (1.0-4.8); Lymphocytes % (A) 14 %; MCH 31.1 pg (25.0-35.0); MCHC 31.7 g/dL (31.0-37.0); MCV 98.2 fL (80.0-100.0); Mean Platelet Volume 7.7; Monocytes # (A) 0.3 k/uL (0-1.0); Monocytes % (A) 4 %; Neutrophils # (A) 4.6 k/uL (1.3-7.7); Neutrophils % (A) 77 %; Platelet Count 364 k/uL (150-450); RBC 2.82 m/uL (3.80-5.40); RDW 13.2 % (11.5-15.5); WBC 6.1 k/uL (3.8-10.6)
[2020-06-04] MEDS: lamoTRIgine 100 MG TAB PO SCH ×2 (08:36→22:04)
[2020-06-04] MEDS: PANTOPRAZOLE 40 MG/10 ML VIAL IVP SCH (08:36)
[2020-06-04] MEDS: HEPARIN SODIUM,PORCINE 5,000 UNIT/ML 1 ML VIAL SQ SCH ×2 (08:36→22:04)
[2020-06-04] MEDS: PIPERACILLIN-TAZOBACTAM 3.375 GM in SODIUM CHLORIDE 0.9% 100 ML IVPB SCH ×3 (08:36→23:45)
[2020-06-04 11:41] LABS: Glucose,Whole Blood 104 mg/dL (75-99)
[2020-06-04 11:50] LABS: African American GFR (CKD) 63.4 (60.0-200.0); Anion Gap 13.1 mmol/L (4.00-12.00); Calcium 8.2 mg/dL (8.7-10.3); Carbon Dioxide 24.9 mmol/L (21.6-31.8); Non-African American GFR(CKD) 54.7 (60.0-200.0); Potassium 3.9 mmol/L (3.5-5.5)
--- NOTE | 2020-06-04 12:56 | CT ---
EXAMINATION TYPE: CT abdomen pelvis w con DATE OF EXAM: 06/04/2020 HISTORY: Fever and dehydration. CT DLP: 984.4mGycm Automated Exposure Control for Dose Reduction was Utilized. CONTRAST: CT scan of the abdomen and pelvis is performed with IV Contrast, patient injected with 100 ml mL of I sovue 300. COMPARISON: CT abdomen and pelvis July 30, 2018 FINDINGS: Exam is suboptimal as there is motion artifact degradation. There is also artifact from ove rlying upper extremities. LUNG BASES: Tiny bilateral pleural effusions. Posterior dependent atelectasis and/or consolidation LIVER/GB: Cholecystectomy clips redemonstrated. PANCREAS: Mild generalized pancreatic atrophy with prominent vessels towards the pancreatic head rede monstrated. Findings suspicious for cavernous transformation of the portal vein seen better on prior study. SPLEEN: No significant abnormality is seen. ADRENALS: No significant abnormality is seen. KIDNEYS: Cortical thinning bilaterally. Symmetric cortical medullary uptake and excretion without hyd ronephrosis. Cheatham catheter decompresses bladder. BOWEL: Oral contrast reaches level sigmoid colon. No suspicious small or large bowel dilatation. Some diverticula in the proximal sigmoid colon. Air-fluid level in the sigmoid rectal colon consistent wi th diarrhea and/or mild uncomplicated colitis. Right-sided partial colectomy changes seen better on p rior CT, more artifact at this level on current study. UTERUS/ADNEXA: Anteverted uterus. Displaced surgical clip right pelvis redemonstrated axial image 62. LYMPH NODES: No greater than 1cm abdominal or pelvic lymph nodes are appreciated. OSSEOUS STRUCTURES: No significant abnormality is seen. OTHER: Slight scoliotic curvature. IMPRESSION: Suboptimal study, slightly prominent fluid filled sigmoid rectal colon with air-fluid lev el consistent with diarrhea and/or mild uncomplicated colitis otherwise no new or acute finding ident ified.
--- NOTE | 2020-06-04 13:31 | P.PN ---
Progress Note - Text Progress Note Date: 06/04/20 Interval History: Patient appears somnolent today. She is arousable and is able to respond appropriately in short sentences. She continues to display some rigidity in her upper extremities having difficulty opening her hands and uncrossing her arms. She continues to receive NG tube feeds. Mental Status Exam: General Appearance: Patient appears to be her stated age, is lying in bed in no apparent distress. NG tube in place. Behavior: Patient is spontaneous in her movements and behavior. Eye contact is appropriate. She does appear somnolent. Speech: Speech is low in volume, more spontaneous, and able to speak in complete short sentences. Mood/Affect: Patient states she feels "fine." Affect is blunted. Suicidality/Homicidality: Patient does not endorse any suicidal or homicidal ideation, intention, and/or plan today. Perceptions: The patient does not report any auditory or visual hallucinations. Though content/process: Patient does appear to attempt to verbalize but has difficulty speaking. Memory and concentration: AAO to self. Judgment and insight: poor Assessment Major Depressive Disorder, with catatonia - resolving Serotonin syndrome UTI Plan: -We will taper Ativan to 3 mg IV every 6 hours. -Patient may require rehab due to the length of stay and weakness as a result. Geriatric psychiatry placement will be continued to be recommended if patient continues to display an inability to care for self secondary to her depressive symptoms. Recommend patient is given an adequate trial off NG tube feeds to see if she will care for self. -Will continue lamictal at this time. -Psychiatry will follow loosely. We'll reevaluate the patient on Sunday.
[2020-06-04 18:09] LABS: Glucose,Whole Blood 108 mg/dL (75-99)
--- NOTE | 2020-06-04 19:18 | P.PN ---
Subjective Progress Note Date: 06/03/20 06/03/2020: Patient much more awake, denies headache. Patient able to tell that it is May. Patient continues to be on Ativan 3.5 mg IV every 6 hours. Patient did have a temperature spike of 101.1F. 06/02/2020: Patient continues to be somnolent. Does not follow commands. No seizure-like activity noted. Patient currently on Ativan 3.5 mg IV every 6 hours. This is as per psychiatry. 06/01/2020: Patient was seen for a follow-up. Initially consultation performed by Dr. Evan Arreaga. Please refer to his note for details. Patient has history of depression, anxiety, came with altered mental status. Patient was diagnosed with catatonia, perhaps acute serotonin syndrome due to reaction of Haldol. Patient also had aspiration pneumonia, seizure disorder, esophageal strictures. Patient has some fluctuating mental status, sometimes more alert, sometimes more somnolent. No seizure-like activity has been documented. Patient underwent lumbar puncture, in which the WBCs were 0. RBC 0, glucose 63, protein 47 (12-60) MRI of the brain showed nearly nondiagnostic exam due to extensive motion artifact. No obvious abnormal signal on diffusion imaging to suggest acute ischemia. Degenerative and nonspecific white matter changes most typical of remote ischemia. Patient follows up with psychiatrist. Patient currently on Ativan 3.5 mg IV every 6 hours IV. Patient's catatonia has improved. Patient was asleep. UTI. EEG on 05/26/2020 showed background slowing consistent with encephalopathy. Some frontal sharp waves were seen. Repeat EEG was recommended Objective - Vital Signs Vital signs: Vital Signs Temp 101.4 F H 06/03/20 16:00 Pulse 100 06/03/20 16:00 Resp 18 06/03/20 13:59 BP 114/69 06/03/20 13:59 Pulse Ox 90 L 06/03/20 13:59 Intake & Output 06/02/20 06/03/20 06/03/20 18:59 06:59 18:59 Intake Total 1900 1200 Output Total 500 725 600 Balance 1400 475 -600 Weight 50 kg Intake: IV 1200 Dextrose 5%-0.9% NaCl 1, 1200 000 ml @ 100 mls/hr IV . Q10H [facility] Rx#:[id number] Intake, IV Titration 1300 Amount Dextrose 5%-0.9% NaCl 1, 1200 000 ml @ 100 mls/hr IV . Q10H [facility] Rx#:[id number] Piperacillin-Tazobactam 3 100 .375 gm In Sodium Chloride 0.9% 100 ml @ 25 mls/hr IVPB Q8HR [facility] Rx# :[id number] Oral 0 Tube Feeding 480 Other 120 Output: Urine 500 725 600 Other: Voiding Method Indwelling Catheter Indwelling Catheter Toilet - Exam Patient is still hard to arouse, although does wake up slightly on calling her name loudly. She denies headache. She still is somewhat hard to arouse. Patient able to tell that it is May. Patient is extremely rigid in both arms and legs. Not able to flex or extend her elbows or arms. Her right index finger is sticking out in dystonic manner. No seizure-like activity. Per nursing report, sometimes she started sweating. - Labs CBC & Chem 7: 06/04/20 07:33 06/04/20 07:33 Labs: Abnormal Lab Results - Last 24 Hours (Table) 06/02/20 06/03/20 06/03/20 Range/Units 23:59 06:22 11:35 POC Glucose (mg/dL) 117 H 162 H 116 H (75-99) mg/dL 06/03/20 Range/Units 17:59 POC Glucose (mg/dL) 128 H (75-99) mg/dL Microbiology - Last 24 Hours (Table) 05/31/20 21:23 Blood Culture - Preliminary Blood No Growth after 48 hours Assessment and Plan Assessment: * Altered mental status, possible toxic metabolic encephalopathy, doubt serotonin syndrome. * Generalized dystonia. * History of anxiety depression. * History of seizure disorder, on Lamictal 100 mg twice a day. * UTI, possible pneumonia on Zosyn. ID following. Plan: * Patient is currently on Ativan 3.5 mg IV every 6 hours. It is not helping with catatonia. I will stop cyproheptadine. Consider starting bromocriptine or levodopa. Patient at present sedated with Ativan. Psychiatry managing the catatonia/serotonin syndrome. * Patient underwent EEG, which was abnormal due to background slowing of moderate degree. This is suggestive of generalized cerebral dysfunction as can be seen with toxic metabolic encephalopathy due to diffuse structural brain abnormality. No definitive epileptiform activity was seen. * Patient's CSF shows WBC 0, RBC 0, total protein is normal 47 (12-60), glucose 63. HSV-1 and HSV 2 PCR negative.
--- NOTE | 2020-06-04 19:23 | P.PN ---
Subjective Progress Note Date: 06/04/20 06/04/2020: Patient continues to be very rigid, encephalopathic, somnolent. Per nurse she was able to tell her name today. 06/03/2020: Patient much more awake, denies headache. Patient able to tell that it is May. Patient continues to be on Ativan 3.5 mg IV every 6 hours. Patient did have a temperature spike of 101.1F. 06/02/2020: Patient continues to be somnolent. Does not follow commands. No seizure-like activity noted. Patient currently on Ativan 3.5 mg IV every 6 hours. This is as per psychiatry. 06/01/2020: Patient was seen for a follow-up. Initially consultation performed by Dr. Evan Arreaga. Please refer to his note for details. Patient has history of depression, anxiety, came with altered mental status. Patient was diagnosed with catatonia, perhaps acute serotonin syndrome due to reaction of Haldol. Patient also had aspiration pneumonia, seizure disorder, esophageal strictures. Patient has some fluctuating mental status, sometimes more alert, sometimes more somnolent. No seizure-like activity has been documented. Patient underwent lumbar puncture, in which the WBCs were 0. RBC 0, glucose 63, protein 47 (12-60) MRI of the brain showed nearly nondiagnostic exam due to extensive motion artifact. No obvious abnormal signal on diffusion imaging to suggest acute ischemia. Degenerative and nonspecific white matter changes most typical of remote ischemia. Patient follows up with psychiatrist. Patient currently on Ativan 3.5 mg IV every 6 hours IV. Patient's catatonia has improved. Patient was asleep. UTI. EEG on 05/26/2020 showed background slowing consistent with encephalopathy. Some frontal sharp waves were seen. Repeat EEG was recommended Objective - Vital Signs Vital signs: Vital Signs Temp 99.3 F 06/04/20 18:50 Pulse 107 H 06/04/20 18:50 Resp 18 06/04/20 13:43 BP 178/76 06/04/20 18:50 Pulse Ox 94 L 06/04/20 18:50 Intake & Output 06/04/20 06/04/20 06/05/20 06:59 18:59 06:59 Output Total 500 Balance -500 Weight 51.5 kg Output: Urine 500 Other: Voiding Method Toilet # Voids 3 # Bowel Movements 1 - Exam Patient is still hard to arouse, although does wake up slightly on calling her name loudly. Patient tries to move her arm slightly to noxious stimuli. Tori russell is extremely rigid in both arms and legs. Not able to flex or extend her elbows or arms. Her right index finger is sticking out in dystonic manner. No seizure-like activity. - Labs CBC & Chem 7: 06/04/20 07:33 06/04/20 07:33 Labs: Abnormal Lab Results - Last 24 Hours (Table) 06/04/20 06/04/20 06/04/20 Range/Units 01:53 05:50 07:33 RBC 2.82 L (3.80-5.40) m/uL Hgb 8.8 L (11.4-16.0) gm/dL Hct 27.7 L (34.0-46.0) % Lymphocytes # 0.9 L (1.0-4.8) k/uL Anion Gap (4.00-12.00) mmol/L Est GFR (CKD-EPI)NonAf (60.0-200.0) BUN/Creatinine Ratio (12.00-20.00) Ratio Glucose (70-110) mg/dL POC Glucose (mg/dL) 104 H 127 H (75-99) mg/dL Calcium (8.7-10.3) mg/dL 06/04/20 06/04/20 06/04/20 Range/Units 07:33 11:38 18:07 RBC (3.80-5.40) m/uL Hgb (11.4-16.0) gm/dL Hct (34.0-46.0) % Lymphocytes # (1.0-4.8) k/uL Anion Gap 13.10 H (4.00-12.00) mmol/L Est GFR (CKD-EPI)NonAf 54.7 L (60.0-200.0) BUN/Creatinine Ratio 21.00 H (12.00-20.00) Ratio Glucose 123 H (70-110) mg/dL POC Glucose (mg/dL) 104 H 108 H (75-99) mg/dL Calcium 8.2 L (8.7-10.3) mg/dL Microbiology - Last 24 Hours (Table) 05/31/20 21:23 Blood Culture - Preliminary Blood No Growth after 72 hours Assessment and Plan Assessment: * Altered mental status, possible toxic metabolic encephalopathy, doubt serotonin syndrome. * Generalized dystonia, severe rigidity. Doubt catatonia, as patient is not responding to high-dose Ativan. * History of anxiety depression. * History of seizure disorder, on Lamictal 100 mg twice a day. * UTI, possible pneumonia on Zosyn. ID following. Plan: * Patient's dose of Ativan has been decreased to 3 mg IV every 6 hours. Patient continues to be severely dystonic. We will empirically try Sinemet 25/100, 1 tablet 3 times a day. Bromocriptine is also another choice. * Patient underwent EEG, which was abnormal due to background slowing of moderate degree. This is suggestive of generalized cerebral dysfunction as can be seen with toxic metabolic encephalopathy due to diffuse structural brain abnormality. No definitive epileptiform activity was seen. * Patient's CSF shows WBC 0, RBC 0, total protein is normal 47 (12-60), glucose 63. HSV-1 and HSV 2 PCR negative. * Dr. Hope will follow up in the morning.
[2020-06-04] MEDS: CARBIDOPA-LEVODOPA 25-100 MG 1 EACH TAB PO SCH (22:04)
--- NOTE | 2020-06-04 22:52 | PN ---
PROGRESS NOTE DATE OF SERVICE: 06/04/2020 REASON FOR FOLLOWUP: Fever and concern for aspiration pneumonia. INTERVAL HISTORY: The patient is currently afebrile. She was slightly more awake and alert today. She was breathing comfortably. Denies having any chest pain or cough. No abdominal pain or any worsening diarrhea reported. PHYSICAL EXAMINATION: Blood pressure 158/76, pulse of 107, temperature 99.3. She is 94% on room air. General description is an elderly female lying in bed in no distress. RESPIRATORY SYSTEM: Unlabored breathing. Clear to auscultation anteriorly. HEART: S1, S2. Regular rate and rhythm. ABDOMEN: Soft. No tenderness. LABS: Hemoglobin 8.8, white count 6.1. BUN of 21, creatinine 1.0. DIAGNOSTIC IMPRESSION AND PLAN: Patient with a fever in this patient who did have extensive workup, including that has been negative, with concern for possible aspiration pneumonia. Patient is covered with Zosyn; to continue. CT of abdomen and pelvis did not show any significant abnormality. Continue with supportive care. MMODL / IJN: [id number] /
[2020-06-05 01:19] LABS: Glucose,Whole Blood 107 mg/dL (75-99)
[2020-06-05] MEDS: DEXTROSE 5%-0.9% NACL 1,000 ML IV SCH ×3 (02:59→23:59)
--- NOTE | 2020-06-05 04:48 | XR ---
EXAM: XR Chest, 1 View CLINICAL HISTORY: ITS.REASON XR Reason: check ng tube placement TECHNIQUE: Frontal view of the chest. COMPARISON: 06/01/2020 FINDINGS: Lungs: Improving aeration in the left lung base. Mild opacification and subsegmental atelectasis left lung base. Pleural space: Unremarkable. No pneumothorax. Heart: No cardiomegaly. Mediastinum: Unremarkable. Bones/joints: No acute osseous abnormality. Tubes, lines and devices: Enteric tube tip and side-port proximal stomach. Upper abdomen: Cholecystectomy clips. IMPRESSION: 1. Enteric tube tip and side-port proximal stomach. 2. Improving aeration in the left lung base.
[2020-06-05] MEDS: LORazepam 2 MG/ML INJ IV SCH ×4 (05:40→23:41)
[2020-06-05 06:16] LABS: Glucose,Whole Blood 108 mg/dL (75-99)
[2020-06-05 06:41] LABS: Basophils % (A) 0 %; Eosinophils # (A) 0.2 k/uL (0-0.7); Eosinophils % (A) 3 %; HCT 28.7 % (34.0-46.0); HGB 9.4 gm/dL (11.4-16.0); Hypochromasia Slight; Lymphocytes # (A) 0.8 k/uL (1.0-4.8); Lymphocytes % (A) 13 %; MCH 32.1 pg (25.0-35.0); MCHC 32.9 g/dL (31.0-37.0); MCV 97.6 fL (80.0-100.0); Mean Platelet Volume 7.9; Monocytes # (A) 0.3 k/uL (0-1.0); Monocytes % (A) 6 %; Neutrophils # (A) 4.6 k/uL (1.3-7.7); Neutrophils % (A) 77 %; Platelet Count 395 k/uL (150-450); RBC 2.94 m/uL (3.80-5.40); RDW 12.9 % (11.5-15.5)
[2020-06-05] MEDS: HEPARIN SODIUM,PORCINE 5,000 UNIT/ML 1 ML VIAL SQ SCH ×2 (07:40→20:27)
[2020-06-05] MEDS: PANTOPRAZOLE 40 MG/10 ML VIAL IVP SCH (07:40)
[2020-06-05] MEDS: PIPERACILLIN-TAZOBACTAM 3.375 GM in SODIUM CHLORIDE 0.9% 100 ML IVPB SCH ×3 (07:41→23:41)
[2020-06-05] MEDS: CARBIDOPA-LEVODOPA 25-100 MG 1 EACH TAB PO SCH ×3 (07:41→20:27)
[2020-06-05] MEDS: lamoTRIgine 100 MG TAB PO SCH ×2 (07:41→20:27)
[2020-06-05] MEDS: IPRATROPIUM-ALBUTEROL 3 ML NEB INHALATION SCH ×3 (08:08→20:21)
[2020-06-05 10:21] LABS: Albumin 3.1 g/dL (3.80-4.90); Albumin/Globulin Ratio 1.72 (1.60-3.17); Anion Gap 8.5 mmol/L (4.00-12.00); Calcium 8.6 mg/dL (8.7-10.3); Carbon Dioxide 23.5 mmol/L (21.6-31.8); Globulin 1.8 g/dL (1.6-3.3); Non-African American GFR(CKD) 62.1 (60.0-200.0); Potassium 3.8 mmol/L (3.5-5.5); Total Bilirubin 0.5 mg/dL (0.3-1.2); Total Protein 4.9 g/dL (6.2-8.2)
--- NOTE | 2020-06-05 10:23 | P.PN ---
Subjective Progress Note Date: 06/01/20 Principal diagnosis: Severe depression. Encephalopathy w/ Catatonia; Serotonin syndrome with component of toxic metabolic encephalopathy Patient is a 75-year-old female with a known history of seizure disorder, GERD, hyperlipidemia, history of colon cancer, esophageal strictures and history of esophageal palpitation, anxiety depression and panic disorder and history of major depression and admission to mental health unit presents to ER with complai nts of worsening anxiety and depression for the past 3 days. EMS was called by her stating that her symptoms had worsened. Denies any overdose or suicidal ideation as per the ER note. No complaints of chest pain or shortness of. No nausea vomiting or abdominal pain or diarrhea. Laboratory data showed WBC 6.3, hemoglobin 13.2 and platelets 251 D-dimer 0.94 Sodium 142, potassium 3.3, chloride 108, BUN 30 and creatinine 1.29 Lactic acid was 4.4 on admission Troponin x1 - COVID-19 PCR is negative Today morning patient was found to be hyponatremic with sodium level 150, potassium 2.8 and chloride 116. IV fluids were changed to D5 water. UA is negative for infection EKG showed sinus tachycardia Chest x-ray showed no acute pulmonary process VQ scan showed low probability for PE 05/22/2020 Patient is currently in the MICU. Yesterday evening patient developed muscular rigidity and diaphoretic and tachycardic and febrile. Patient received dose of Haldol prior to this episode and suspected neuroleptic malignant syndrome. Patient was given fluid boluses and started on Ativan for muscle rigidity. Patient was transferred to MICU and was seen by rapid response team. Haldol has been discontinued and monitor QT interval. Potassium was replaced and went up to 3.0 today. Possibly is also low and is being replaced with potassium phosphate. Laboratory data showed WBC is 4.4, hemoglobin 9.7 and platelets 134 BUN 39 creatinine 0.95 and phosphorus level is 1.0 and CPK level went up to 3024 and 3177 patient is being continued on D5 water at 150 cc/h. Critical care team is on board. 05/23/2019 Patient is currently lying in the bed. Able to open her eyes slowly. Does not communicate or follow simple commands. bilateral lower extremities are less rigid today. Laboratory data showed improved potassium level to 4.0 and CPK level improved to 2632 today. Continue IV hydration with D5 normal saline. T- max 99.7 Culture showed no growth Patient is being continued on Ativan as needed for agitation and is being monitored in the ICU. 05/31/2020 Patient is still encephalopathic and drowsy. Resting in the bed comfortably. Able to open her eyes occasionally. Does not communicate at this time. Otherwise patient is currently being continued on Ciproheptadine and Ativan when necessary for agitation. Continued on IV hydration Urine culture showed E. coli and Citrobacter. IV antibiotics no in the form of Zosyn Neurology and pulmonary is on board. 06/01/2020 Patient is currently lying in the bed, still encephalopathic and does not open eyes with verbal commands. Less spastic compared to yesterday. Patient is on NG tube feeding and is tolerating well. Patient has been afebrile. Continued on antibiotics in the form of Zosyn. Neurology and psychiatric is following. Current medications reviewed. Objective - Vital Signs Vital signs: Vital Signs Temp 97.3 F L 06/01/20 19:11 Pulse 119 H 06/01/20 19:11 Resp 20 06/01/20 19:11 BP 160/73 06/01/20 19:11 Pulse Ox 92 L 06/01/20 19:11 Intake & Output 06/01/20 06/01/20 06/02/20 06:59 18:59 06:59 Output Total 950 625 Balance -950 -625 Weight 61.5 kg Output: Urine 950 625 Other: Voiding Method Indwelling Catheter Indwelling Catheter - Exam PHYSICAL EXAMINATION: Patient is lying in the bed comfortably, does not open her eyes and not responding verbally. HEENT: Normocephalic. Neck is supple. Pupils reactive. Nostrils clear. Oral cavity is moist. Ears reveal no drainage. Neck reveals no JVD, carotid bruits, or thyromegaly. CHEST EXAMINATION: Trachea is central. Symmetrical expansion. Lung morley clear to auscultation and percussion. CARDIAC: Normal S1, S2 with no gallops. No murmurs ABDOMEN: Soft. non distended. Bowel sounds normal. No organomegaly. No abdominal bruits. Extremities: reveal no edema. No clubbing or cyanosis Neurologically awake, alerts.Oriented x0. withdrawn, No focal deficits noted Skin: No rash or skin lesions. Psychiatric: Noncooperative. Musculoskeletal: No joint swelling or deformity. - Labs CBC & Chem 7: 06/05/20 05:56 06/05/20 05:56 Labs: Abnormal Lab Results - Last 24 Hours (Table) 05/31/20 06/01/20 06/01/20 Range/Units 21:23 00:41 04:00 POC Glucose (mg/dL) 122 H (75-99) mg/dL Procalcitonin 0.24 H (0.02-0.09) ng/mL Urine Blood Trace H (Negative) Ur Leukocyte Esterase Trace H (Negative) 06/01/20 06/01/20 06/01/20 Range/Units 06:18 07:05 11:24 POC Glucose (mg/dL) 113 H 102 H 101 H (75-99) mg/dL Procalcitonin (0.02-0.09) ng/mL Urine Blood (Negative) Ur Leukocyte Esterase (Negative) 06/01/20 Range/Units 16:42 POC Glucose (mg/dL) 109 H (75-99) mg/dL Procalcitonin (0.02-0.09) ng/mL Urine Blood (Negative) Ur Leukocyte Esterase (Negative) Microbiology - Last 24 Hours (Table) 05/31/20 21:23 Blood Culture - Preliminary Blood No Growth after 24 hours Assessment and Plan Assessment: Myoclonus with severe encephalopathy due to acute serotonin syndrome. Catatonia with severe depression Possible neuroleptic malignant syndrome. E. coli and Citrobacter urinary tract infection Severe rhabdomyolysis. Improved. Acute episode of major depressive disorder Generalized anxiety and panic disorder Hypernatremia and severe hypokalemia. Improved now Hyperlipidemia History of seizure disorder. EEG showed encephalopathy without any seizure spikes. GERD History of esophageal stricture status post EGD and dilation Anxiety/depression panic disorder history DVT prophylaxis with heparin subcu Plan: Patient will be continued IV hydration with D5 water and replace potassium aggressively. Continue with Ciproheptadine Patient will be continued on constant observation and suicide and elopement precautions. Ativan as needed for agitation and follow-up closely. Replace electrolytes and further recommendations based on the clinical course. Urology and pulmonary is on board. Time with Patient: Greater than 30
--- NOTE | 2020-06-05 10:31 | P.PN ---
Subjective Progress Note Date: 06/02/20 Principal diagnosis: Severe depression. Encephalopathy w/ Catatonia; Serotonin syndrome with component of toxic metabolic encephalopathy Patient is a 75-year-old female with a known history of seizure disorder, GERD, hyperlipidemia, history of colon cancer, esophageal strictures and history of esophageal palpitation, anxiety depression and panic disorder and history of major depression and admission to mental health unit presents to ER with complai nts of worsening anxiety and depression for the past 3 days. EMS was called by her stating that her symptoms had worsened. Denies any overdose or suicidal ideation as per the ER note. No complaints of chest pain or shortness of. No nausea vomiting or abdominal pain or diarrhea. Laboratory data showed WBC 6.3, hemoglobin 13.2 and platelets 251 D-dimer 0.94 Sodium 142, potassium 3.3, chloride 108, BUN 30 and creatinine 1.29 Lactic acid was 4.4 on admission Troponin x1 - COVID-19 PCR is negative Today morning patient was found to be hyponatremic with sodium level 150, potassium 2.8 and chloride 116. IV fluids were changed to D5 water. UA is negative for infection EKG showed sinus tachycardia Chest x-ray showed no acute pulmonary process VQ scan showed low probability for PE 05/22/2020 Patient is currently in the MICU. Yesterday evening patient developed muscular rigidity and diaphoretic and tachycardic and febrile. Patient received dose of Haldol prior to this episode and suspected neuroleptic malignant syndrome. Patient was given fluid boluses and started on Ativan for muscle rigidity. Patient was transferred to MICU and was seen by rapid response team. Haldol has been discontinued and monitor QT interval. Potassium was replaced and went up to 3.0 today. Possibly is also low and is being replaced with potassium phosphate. Laboratory data showed WBC is 4.4, hemoglobin 9.7 and platelets 134 BUN 39 creatinine 0.95 and phosphorus level is 1.0 and CPK level went up to 3024 and 3177 patient is being continued on D5 water at 150 cc/h. Critical care team is on board. 05/23/2019 Patient is currently lying in the bed. Able to open her eyes slowly. Does not communicate or follow simple commands. bilateral lower extremities are less rigid today. Laboratory data showed improved potassium level to 4.0 and CPK level improved to 2632 today. Continue IV hydration with D5 normal saline. T- max 99.7 Culture showed no growth Patient is being continued on Ativan as needed for agitation and is being monitored in the ICU. 05/31/2020 Patient is still encephalopathic and drowsy. Resting in the bed comfortably. Able to open her eyes occasionally. Does not communicate at this time. Otherwise patient is currently being continued on Ciproheptadine and Ativan when necessary for agitation. Continued on IV hydration Urine culture showed E. coli and Citrobacter. IV antibiotics no in the form of Zosyn Neurology and pulmonary is on board. 06/01/2020 Patient is currently lying in the bed, still encephalopathic and does not open eyes with verbal commands. Less spastic compared to yesterday. Patient is on NG tube feeding and is tolerating well. Patient has been afebrile. Continued on antibiotics in the form of Zosyn. Neurology and psychiatric is following. 06/02/2020 Patient is able to open her eyes with verbal stimuli today. Does not follow commands. Tolerating tube feeding. Patient has been afebrile. Continued on Ativan 3.5 mg IV every 6 hours. Psychiatric and neurology is following. Patient underwent neurological workup including EEG, MRI and LP. Continued on antibiotics for urinary tract infection. Current medications reviewed. Objective - Vital Signs Vital signs: Vital Signs Temp 98.9 F 06/02/20 14:00 Pulse 110 H 06/02/20 14:00 Resp 16 06/02/20 14:00 BP 177/53 06/02/20 14:00 Pulse Ox 93 L 06/02/20 14:00 Intake & Output 06/01/20 06/02/20 06/02/20 18:59 06:59 18:59 Intake Total 1900 Output Total 625 675 Balance -625 -675 1900 Weight 61.5 kg 54.5 kg Intake: Intake, IV Titration 1300 Amount Dextrose 5%-0.9% NaCl 1, 1200 000 ml @ 100 mls/hr IV . Q10H [facility] Rx#:[id number] Piperacillin-Tazobactam 3 100 .375 gm In Sodium Chloride 0.9% 100 ml @ 25 mls/hr IVPB Q8HR [facility] Rx# :[id number] Oral 0 Tube Feeding 480 Other 120 Output: Urine 625 675 Other: Voiding Method Indwelling Catheter Indwelling Catheter Indwelling Catheter - Exam PHYSICAL EXAMINATION: Patient is lying in the bed comfortably, does not open her eyes and not responding verbally. HEENT: Normocephalic. Neck is supple. Pupils reactive. Nostrils clear. Oral cavity is moist. Ears reveal no drainage. Neck reveals no JVD, carotid bruits, or thyromegaly. CHEST EXAMINATION: Trachea is central. Symmetrical expansion. Lung morley clear to auscultation and percussion. CARDIAC: Normal S1, S2 with no gallops. No murmurs ABDOMEN: Soft. non distended. Bowel sounds normal. No organomegaly. No abdominal bruits. Extremities: reveal no edema. No clubbing or cyanosis Neurologically awake, alerts.Oriented x0. withdrawn, No focal deficits noted Skin: No rash or skin lesions. Psychiatric: Noncooperative. Musculoskeletal: No joint swelling or deformity. - Labs CBC & Chem 7: 06/05/20 05:56 06/05/20 05:56 Labs: Abnormal Lab Results - Last 24 Hours (Table) 06/02/20 06/02/20 Range/Units 00:03 06:11 POC Glucose (mg/dL) 121 H 126 H (75-99) mg/dL Microbiology - Last 24 Hours (Table) 05/31/20 21:23 Blood Culture - Preliminary Blood No Growth after 24 hours Assessment and Plan Assessment: Myoclonus with severe encephalopathy due to acute serotonin syndrome. Catatonia with severe depression Possible neuroleptic malignant syndrome. E. coli and Citrobacter urinary tract infection Severe rhabdomyolysis. Improved. Acute episode of major depressive disorder Generalized anxiety and panic disorder Hypernatremia and severe hypokalemia. Improved now Hyperlipidemia History of seizure disorder. EEG showed encephalopathy without any seizure spikes. GERD History of esophageal stricture status post EGD and dilation Anxiety/depression panic disorder history DVT prophylaxis with heparin subcu Plan: Patient will be continued to feeding and IV hydration.. was given Ciproheptadine. Continue with Ativan. Ativan as needed for agitation and follow-up closely. Replace electrolytes and further recommendations based on the clinical course. Neurology and psychiatric is on board.. Time with Patient: Greater than 30
--- NOTE | 2020-06-05 10:32 | P.PN ---
Subjective Progress Note Date: 06/03/20 Principal diagnosis: Severe depression. Encephalopathy w/ Catatonia; Serotonin syndrome with component of toxic metabolic encephalopathy Patient is a 75-year-old female with a known history of seizure disorder, GERD, hyperlipidemia, history of colon cancer, esophageal strictures and history of esophageal palpitation, anxiety depression and panic disorder and history of major depression and admission to mental health unit presents to ER with complai nts of worsening anxiety and depression for the past 3 days. EMS was called by her stating that her symptoms had worsened. Denies any overdose or suicidal ideation as per the ER note. No complaints of chest pain or shortness of. No nausea vomiting or abdominal pain or diarrhea. Laboratory data showed WBC 6.3, hemoglobin 13.2 and platelets 251 D-dimer 0.94 Sodium 142, potassium 3.3, chloride 108, BUN 30 and creatinine 1.29 Lactic acid was 4.4 on admission Troponin x1 - COVID-19 PCR is negative Today morning patient was found to be hyponatremic with sodium level 150, potassium 2.8 and chloride 116. IV fluids were changed to D5 water. UA is negative for infection EKG showed sinus tachycardia Chest x-ray showed no acute pulmonary process VQ scan showed low probability for PE 05/22/2020 Patient is currently in the MICU. Yesterday evening patient developed muscular rigidity and diaphoretic and tachycardic and febrile. Patient received dose of Haldol prior to this episode and suspected neuroleptic malignant syndrome. Patient was given fluid boluses and started on Ativan for muscle rigidity. Patient was transferred to MICU and was seen by rapid response team. Haldol has been discontinued and monitor QT interval. Potassium was replaced and went up to 3.0 today. Possibly is also low and is being replaced with potassium phosphate. Laboratory data showed WBC is 4.4, hemoglobin 9.7 and platelets 134 BUN 39 creatinine 0.95 and phosphorus level is 1.0 and CPK level went up to 3024 and 3177 patient is being continued on D5 water at 150 cc/h. Critical care team is on board. 05/23/2019 Patient is currently lying in the bed. Able to open her eyes slowly. Does not communicate or follow simple commands. bilateral lower extremities are less rigid today. Laboratory data showed improved potassium level to 4.0 and CPK level improved to 2632 today. Continue IV hydration with D5 normal saline. T- max 99.7 Culture showed no growth Patient is being continued on Ativan as needed for agitation and is being monitored in the ICU. 05/31/2020 Patient is still encephalopathic and drowsy. Resting in the bed comfortably. Able to open her eyes occasionally. Does not communicate at this time. Otherwise patient is currently being continued on Ciproheptadine and Ativan when necessary for agitation. Continued on IV hydration Urine culture showed E. coli and Citrobacter. IV antibiotics no in the form of Zosyn Neurology and pulmonary is on board. 06/01/2020 Patient is currently lying in the bed, still encephalopathic and does not open eyes with verbal commands. Less spastic compared to yesterday. Patient is on NG tube feeding and is tolerating well. Patient has been afebrile. Continued on antibiotics in the form of Zosyn. Neurology and psychiatric is following. 06/02/2020 Patient is able to open her eyes with verbal stimuli today. Does not follow commands. Tolerating tube feeding. Patient has been afebrile. Continued on Ativan 3.5 mg IV every 6 hours. Psychiatric and neurology is following. Patient underwent neurological workup including EEG, MRI and LP. Continued on antibiotics for urinary tract infection. 06/03/2020 Patient is more awake and able to open her eyes. Trying to communicate. No complains of chest pain. Tolerating tube feeding. Otherwise T-max is 101.1. Patient is being continued on Ativan 3.5 mg every 6 hours. Also on antibiotics in the form of Zosyn for E. coli urinary tract infection. Patient is on Cheatham catheter. Fecal collecting system will be discontinued. Current medications reviewed. Objective - Vital Signs Vital signs: Vital Signs Temp 101.4 F H 06/03/20 16:00 Pulse 100 06/03/20 16:00 Resp 18 06/03/20 13:59 BP 114/69 06/03/20 13:59 Pulse Ox 90 L 06/03/20 13:59 Intake & Output 06/02/20 06/03/20 06/03/20 18:59 06:59 18:59 Intake Total 1900 1200 Output Total 500 725 400 Balance 1400 475 -400 Weight 50 kg Intake: IV 1200 Dextrose 5%-0.9% NaCl 1, 1200 000 ml @ 100 mls/hr IV . Q10H [facility] Rx#:[id number] Intake, IV Titration 1300 Amount Dextrose 5%-0.9% NaCl 1, 1200 000 ml @ 100 mls/hr IV . Q10H [facility] Rx#:[id number] Piperacillin-Tazobactam 3 100 .375 gm In Sodium Chloride 0.9% 100 ml @ 25 mls/hr IVPB Q8HR [facility] Rx# :[id number] Oral 0 Tube Feeding 480 Other 120 Output: Urine 500 725 400 Other: Voiding Method Indwelling Catheter Indwelling Catheter Toilet - Exam PHYSICAL EXAMINATION: Patient is lying in the bed comfortably, does not open her eyes and not responding verbally. HEENT: Normocephalic. Neck is supple. Pupils reactive. Nostrils clear. Oral cavity is moist. Ears reveal no drainage. Neck reveals no JVD, carotid bruits, or thyromegaly. CHEST EXAMINATION: Trachea is central. Symmetrical expansion. Lung morley clear to auscultation and percussion. CARDIAC: Normal S1, S2 with no gallops. No murmurs ABDOMEN: Soft. non distended. Bowel sounds normal. No organomegaly. No abdominal bruits. Extremities: reveal no edema. No clubbing or cyanosis Neurologically awake, alerts.Oriented x0. withdrawn, No focal deficits noted Skin: No rash or skin lesions. Psychiatric: Noncooperative. Musculoskeletal: No joint swelling or deformity. - Labs CBC & Chem 7: 06/05/20 05:56 06/05/20 05:56 Labs: Abnormal Lab Results - Last 24 Hours (Table) 06/02/20 06/03/20 06/03/20 Range/Units 23:59 06:22 11:35 POC Glucose (mg/dL) 117 H 162 H 116 H (75-99) mg/dL Microbiology - Last 24 Hours (Table) 05/31/20 21:23 Blood Culture - Preliminary Blood No Growth after 48 hours Assessment and Plan Assessment: Myoclonus with severe encephalopathy due to acute serotonin syndrome. Catatonia with severe depression Possible neuroleptic malignant syndrome. E. coli and Citrobacter urinary tract infection Severe rhabdomyolysis. Improved. Acute episode of major depressive disorder Generalized anxiety and panic disorder Hypernatremia and severe hypokalemia. Improved now Hyperlipidemia History of seizure disorder. EEG showed encephalopathy without any seizure spikes. GERD History of esophageal stricture status post EGD and dilation Anxiety/depression panic disorder history DVT prophylaxis with heparin subcu Plan: Patient will be continued to feeding and IV hydration.. was given Ciproheptadine. Continue with Ativan. Ativan as needed for agitation and follow-up closely. Replace electrolytes and further recommendations based on the clinical course. Neurology and psychiatric is on board.. Time with Patient: Greater than 30
--- NOTE | 2020-06-05 10:37 | P.PN ---
Subjective Progress Note Date: 06/04/20 Principal diagnosis: Severe depression. Encephalopathy w/ Catatonia; Serotonin syndrome with component of toxic metabolic encephalopathy Patient is a 75-year-old female with a known history of seizure disorder, GERD, hyperlipidemia, history of colon cancer, esophageal strictures and history of esophageal palpitation, anxiety depression and panic disorder and history of major depression and admission to mental health unit presents to ER with complai nts of worsening anxiety and depression for the past 3 days. EMS was called by her stating that her symptoms had worsened. Denies any overdose or suicidal ideation as per the ER note. No complaints of chest pain or shortness of. No nausea vomiting or abdominal pain or diarrhea. Laboratory data showed WBC 6.3, hemoglobin 13.2 and platelets 251 D-dimer 0.94 Sodium 142, potassium 3.3, chloride 108, BUN 30 and creatinine 1.29 Lactic acid was 4.4 on admission Troponin x1 - COVID-19 PCR is negative Today morning patient was found to be hyponatremic with sodium level 150, potassium 2.8 and chloride 116. IV fluids were changed to D5 water. UA is negative for infection EKG showed sinus tachycardia Chest x-ray showed no acute pulmonary process VQ scan showed low probability for PE 05/22/2020 Patient is currently in the MICU. Yesterday evening patient developed muscular rigidity and diaphoretic and tachycardic and febrile. Patient received dose of Haldol prior to this episode and suspected neuroleptic malignant syndrome. Patient was given fluid boluses and started on Ativan for muscle rigidity. Patient was transferred to MICU and was seen by rapid response team. Haldol has been discontinued and monitor QT interval. Potassium was replaced and went up to 3.0 today. Possibly is also low and is being replaced with potassium phosphate. Laboratory data showed WBC is 4.4, hemoglobin 9.7 and platelets 134 BUN 39 creatinine 0.95 and phosphorus level is 1.0 and CPK level went up to 3024 and 3177 patient is being continued on D5 water at 150 cc/h. Critical care team is on board. 05/23/2019 Patient is currently lying in the bed. Able to open her eyes slowly. Does not communicate or follow simple commands. bilateral lower extremities are less rigid today. Laboratory data showed improved potassium level to 4.0 and CPK level improved to 2632 today. Continue IV hydration with D5 normal saline. T- max 99.7 Culture showed no growth Patient is being continued on Ativan as needed for agitation and is being monitored in the ICU. 05/31/2020 Patient is still encephalopathic and drowsy. Resting in the bed comfortably. Able to open her eyes occasionally. Does not communicate at this time. Otherwise patient is currently being continued on Ciproheptadine and Ativan when necessary for agitation. Continued on IV hydration Urine culture showed E. coli and Citrobacter. IV antibiotics no in the form of Zosyn Neurology and pulmonary is on board. 06/01/2020 Patient is currently lying in the bed, still encephalopathic and does not open eyes with verbal commands. Less spastic compared to yesterday. Patient is on NG tube feeding and is tolerating well. Patient has been afebrile. Continued on antibiotics in the form of Zosyn. Neurology and psychiatric is following. 06/02/2020 Patient is able to open her eyes with verbal stimuli today. Does not follow commands. Tolerating tube feeding. Patient has been afebrile. Continued on Ativan 3.5 mg IV every 6 hours. Psychiatric and neurology is following. Patient underwent neurological workup including EEG, MRI and LP. Continued on antibiotics for urinary tract infection. 06/03/2020 Patient is more awake and able to open her eyes. Trying to communicate. No complains of chest pain. Tolerating tube feeding. Otherwise T-max is 101.1. Patient is being continued on Ativan 3.5 mg every 6 hours. Also on antibiotics in the form of Zosyn for E. coli urinary tract infection. Patient is on Cheatham catheter. Fecal collecting system will be discontinued. 06/04/2020 Patient remained somnolent today. Patient was able to open her eyes on and off and was able to tell her name as per nursing staff. Patient has been afebrile. Patient is on Ativan 3 mg IV every 6 hourly. Continued on carbidopa levodopa and antibiotics in the form of Zosyn. Neurology and psychiatric is on board. Current medications reviewed. Objective - Vital Signs Vital signs: Vital Signs Temp 98.7 F 06/04/20 13:43 Pulse 110 H 06/04/20 13:43 Resp 18 06/04/20 13:43 BP 120/69 06/04/20 13:43 Pulse Ox 92 L 06/04/20 13:43 Intake & Output 06/03/20 06/04/20 06/04/20 18:59 06:59 18:59 Output Total 600 500 Balance -600 -500 Weight 50 kg 51.5 kg Output: Urine 600 500 Other: Voiding Method Toilet Toilet # Bowel Movements 1 - Exam PHYSICAL EXAMINATION: Patient is lying in the bed comfortably, does not open her eyes and not responding verbally. HEENT: Normocephalic. Neck is supple. Pupils reactive. Nostrils clear. Oral cavity is moist. Ears reveal no drainage. Neck reveals no JVD, carotid bruits, or thyromegaly. CHEST EXAMINATION: Trachea is central. Symmetrical expansion. Lung omrley clear to auscultation and percussion. CARDIAC: Normal S1, S2 with no gallops. No murmurs ABDOMEN: Soft. non distended. Bowel sounds normal. No organomegaly. No abdominal bruits. Extremities: reveal no edema. No clubbing or cyanosis Neurologically awake, alerts.Oriented x0. withdrawn, No focal deficits noted Skin: No rash or skin lesions. Psychiatric: Noncooperative. Musculoskeletal: No joint swelling or deformity. - Labs CBC & Chem 7: 06/05/20 05:56 06/05/20 05:56 Labs: Abnormal Lab Results - Last 24 Hours (Table) 06/03/20 06/04/20 06/04/20 Range/Units 17:59 01:53 05:50 RBC (3.80-5.40) m/uL Hgb (11.4-16.0) gm/dL Hct (34.0-46.0) % Lymphocytes # (1.0-4.8) k/uL Anion Gap (4.00-12.00) mmol/L Est GFR (CKD-EPI)NonAf (60.0-200.0) BUN/Creatinine Ratio (12.00-20.00) Ratio Glucose (70-110) mg/dL POC Glucose (mg/dL) 128 H 104 H 127 H (75-99) mg/dL Calcium (8.7-10.3) mg/dL 06/04/20 06/04/20 06/04/20 Range/Units 07:33 07:33 11:38 RBC 2.82 L (3.80-5.40) m/uL Hgb 8.8 L (11.4-16.0) gm/dL Hct 27.7 L (34.0-46.0) % Lymphocytes # 0.9 L (1.0-4.8) k/uL Anion Gap 13.10 H (4.00-12.00) mmol/L Est GFR (CKD-EPI)NonAf 54.7 L (60.0-200.0) BUN/Creatinine Ratio 21.00 H (12.00-20.00) Ratio Glucose 123 H (70-110) mg/dL POC Glucose (mg/dL) 104 H (75-99) mg/dL Calcium 8.2 L (8.7-10.3) mg/dL Microbiology - Last 24 Hours (Table) 05/31/20 21:23 Blood Culture - Preliminary Blood No Growth after 72 hours Assessment and Plan Assessment: Myoclonus with severe encephalopathy due to acute serotonin syndrome. Catatonia with severe depression Possible neuroleptic malignant syndrome. E. coli and Citrobacter urinary tract infection Severe rhabdomyolysis. Improved. Acute episode of major depressive disorder Generalized anxiety and panic disorder Hypernatremia and severe hypokalemia. Improved now Hyperlipidemia History of seizure disorder. EEG showed encephalopathy without any seizure spikes. GERD History of esophageal stricture status post EGD and dilation Anxiety/depression panic disorder history DVT prophylaxis with heparin subcu Plan: Patient will be continued to feeding and IV hydration.. was given Ciproheptadine. Continue with Ativan. Ativan as needed for agitation and follow-up closely. Replace electrolytes and further recommendations based on the clinical course. Neurology and psychiatric is on board.. Time with Patient: Greater than 30
[2020-06-05 11:44] LABS: Glucose,Whole Blood 140 mg/dL (75-99)
[2020-06-05] MEDS: ACETAMINOPHEN TAB 325 MG TAB PO PRN (16:13)
--- NOTE | 2020-06-05 16:49 | PN ---
PROGRESS NOTE DATE OF SERVICE: 06/05/2020 REASON FOR FOLLOWUP: Aspiration pneumonia. INTERVAL HISTORY: The patient is currently afebrile. Patient remains to be sleepy and lethargic and unable to provide any history. No vomiting or any worsening reported by nursing staff. Patient was not able to provide any history. PHYSICAL EXAMINATION: Blood pressure 118/85 with a pulse of 89, temperature 96.8 and she is 95% on 2 L nasal cannula. General description is an elderly female lying in bed in no distress. Respiratory system: Unlabored breathing, decreased breath sounds in the bases. No wheeze. HEART: S1, S2. Regular rate and rhythm. Abdomen soft, no tenderness. LABS: Hemoglobin is 9.4, white count 6.0, BUN of 18, creatinine 0.9. DIAGNOSTIC IMPRESSION AND PLAN: Patient with fever concerning for possible aspiration pneumonia. Chest x-ray this morning shows improving aeration left lung base. To continue Zosyn, transition to oral antibiotic on discharge. Continue supportive care. MMODL / IJN: [id number] /
[2020-06-05 16:55] LABS: Glucose,Whole Blood 137 mg/dL (75-99)
--- NOTE | 2020-06-05 17:50 | P.PN ---
Subjective Progress Note Date: 06/05/20 The patient is a 75-year-old female who is seen in neurologic follow- up on June 05, 2020 via teleneurology. This patient has been in the hospital for several days for mental status changes that were originally thought to be consistent with serotonin syndrome versus neuroleptic malignant syndrome. Both diagnoses have been without at this time. The patient continues to be catatonic, however is improving. According to the patient's nurse, the patient pulled out her NG tube last night. She apparently had been more awake, earlier in the morning. She reportedly was able to state her name, yesterday. The patient continues to receive Ativan 3 mg IV push every 6 hours. Objective - Vital Signs Vital signs: Vital Signs Temp 96.8 F L 06/05/20 07:37 Pulse 88 06/05/20 12:05 Resp 16 06/05/20 12:05 BP 181/85 06/05/20 07:37 Pulse Ox 95 06/05/20 07:37 Intake & Output 06/04/20 06/05/20 06/05/20 18:59 06:59 18:59 Intake Total 0 Output Total 1401 Balance -1401 0 Weight 51.5 kg Intake: Oral 0 Output: Urine 1400 Stool 1 Other: Voiding Method Indwelling Catheter # Voids 3 # Bowel Movements 1 - Exam Gen.: The patient is reclining in the bed. She is well-nourished, well- developed and in no acute distress. HEENT: Head is atraumatic, normocephalic. Fundus not visualized. There is no scleral icterus. Mucous membranes are moist. Neck: Rigid Heart: Regular rate and rhythm Extremities: Upper extremities are flexed at the elbows and rigid. Lower extremities are flexed at the hips and knees and are also rigid. Neurological examination Mental status: The patient does not open her eyes. She is nonverbal. She follows no instructions. Cranial nerves: Pupils are equal at 3 mm and reactive. Patient does blink when her eyelashes are touched. When the eyelids are passively opened, the eyes are midline, however drift to the left. Sensation: The patient does grimace and withdraw from noxious stimulation. Motor: As previously stated, extremities are rigid. Right index finger is dystonic. - Labs CBC & Chem 7: 06/05/20 05:56 06/05/20 05:56 Labs: Abnormal Lab Results - Last 24 Hours (Table) 06/04/20 06/04/20 06/05/20 Range/Units 07:33 18:07 01:18 RBC (3.80-5.40) m/uL Hgb (11.4-16.0) gm/dL Hct (34.0-46.0) % Lymphocytes # (1.0-4.8) k/uL Glucose (70-110) mg/dL POC Glucose (mg/dL) 108 H 107 H (75-99) mg/dL Calcium (8.7-10.3) mg/dL AST (13-35) U/L Creatine Kinase 386 H (26-186) U/L Total Protein (6.2-8.2) g/dL Albumin (3.80-4.90) g/dL 06/05/20 06/05/20 06/05/20 Range/Units 05:56 05:56 06:15 RBC 2.94 L (3.80-5.40) m/uL Hgb 9.4 L (11.4-16.0) gm/dL Hct 28.7 L (34.0-46.0) % Lymphocytes # 0.8 L (1.0-4.8) k/uL Glucose 117 H (70-110) mg/dL POC Glucose (mg/dL) 108 H (75-99) mg/dL Calcium 8.6 L (8.7-10.3) mg/dL AST 58 H (13-35) U/L Creatine Kinase (26-186) U/L Total Protein 4.9 L (6.2-8.2) g/dL Albumin 3.10 L (3.80-4.90) g/dL 06/05/20 Range/Units 11:43 RBC (3.80-5.40) m/uL Hgb (11.4-16.0) gm/dL Hct (34.0-46.0) % Lymphocytes # (1.0-4.8) k/uL Glucose (70-110) mg/dL POC Glucose (mg/dL) 140 H (75-99) mg/dL Calcium (8.7-10.3) mg/dL AST (13-35) U/L Creatine Kinase (26-186) U/L Total Protein (6.2-8.2) g/dL Albumin (3.80-4.90) g/dL Microbiology - Last 24 Hours (Table) 05/31/20 21:23 Blood Culture - Preliminary Blood No Growth after 96 hours Assessment and Plan Assessment: 1. Catatonia-etiology undetermined at this time 2. History of anxiety and depression 3. EEG, MRI and lumbar puncture have shown no reason for the patient's catatonia Plan: 1. Ativan dosing has been lowered to 3 mg every 6 IV push, per psychiatry 2. Neurology will continue to monitor patient 3. Geriatric psych placement may be beneficial for this patient. She may benefit from electro convulsive therapy Time with Patient: Less than 30 (spent 20 minutes with patient via teleneurology)
[2020-06-06] LABS: Glucose,Whole Blood 118 mg/dL (75-99)
[2020-06-06] MEDS: LORazepam 2 MG/ML INJ IV SCH ×4 (06:02→23:42)
[2020-06-06 06:39] LABS: Basophils % (A) 0 %; Eosinophils # (A) 0.2 k/uL (0-0.7); Eosinophils % (A) 2 %; HCT 29.2 % (34.0-46.0); HGB 9.3 gm/dL (11.4-16.0); Hypochromasia Slight; Lymphocytes % (A) 10 %; MCH 31.1 pg (25.0-35.0); MCHC 31.7 g/dL (31.0-37.0); MCV 98.1 fL (80.0-100.0); Monocytes # (A) 0.4 k/uL (0-1.0); Monocytes % (A) 4 %; Neutrophils # (A) 7.6 k/uL (1.3-7.7); Neutrophils % (A) 82 %; Platelet Count 432 k/uL (150-450); RBC 2.97 m/uL (3.80-5.40); RDW 13.5 % (11.5-15.5); WBC 9.2 k/uL (3.8-10.6)
[2020-06-06 06:43] LABS: Glucose,Whole Blood 134 mg/dL (75-99)
[2020-06-06] MEDS: DEXTROSE 5%-0.9% NACL 1,000 ML IV SCH ×2 (07:46→20:29)
[2020-06-06] MEDS: PIPERACILLIN-TAZOBACTAM 3.375 GM in SODIUM CHLORIDE 0.9% 100 ML IVPB SCH (07:46)
[2020-06-06] MEDS: lamoTRIgine 100 MG TAB PO SCH ×2 (07:46→20:29)
[2020-06-06] MEDS: CARBIDOPA-LEVODOPA 25-100 MG 1 EACH TAB PO SCH ×3 (07:46→20:29)
[2020-06-06] MEDS: PANTOPRAZOLE 40 MG/10 ML VIAL IVP SCH (07:46)
[2020-06-06] MEDS: HEPARIN SODIUM,PORCINE 5,000 UNIT/ML 1 ML VIAL SQ SCH ×2 (07:46→20:29)
[2020-06-06] MEDS: ACETAMINOPHEN TAB 325 MG TAB PO PRN (07:56)
[2020-06-06] MEDS: IPRATROPIUM-ALBUTEROL 3 ML NEB INHALATION SCH ×3 (08:28→20:36)
[2020-06-06 09:39] LABS: African American GFR (CKD) 63.4 (60.0-200.0); Albumin 3.2 g/dL (3.80-4.90); Albumin/Globulin Ratio 1.68 (1.60-3.17); Anion Gap 6.9 mmol/L (4.00-12.00); Calcium 8.4 mg/dL (8.7-10.3); Carbon Dioxide 23.1 mmol/L (21.6-31.8); Globulin 1.9 g/dL (1.6-3.3); Non-African American GFR(CKD) 54.7 (60.0-200.0); Potassium 3.7 mmol/L (3.5-5.5); Total Bilirubin 0.5 mg/dL (0.3-1.2); Total Protein 5.1 g/dL (6.2-8.2)
[2020-06-06 11:31] LABS: Glucose,Whole Blood 130 mg/dL (75-99)
--- NOTE | 2020-06-06 15:27 | P.PN ---
Subjective Progress Note Date: 06/06/20 The patient is a 75-year-old female who is seen in neurologic follow- up on June 05, 2020 via teleneurology. This patient has been in the hospital for several days for mental status changes that were originally thought to be consistent with serotonin syndrome versus neuroleptic malignant syndrome. Both diagnoses have been without at this time. The patient continues to be catatonic, however is improving. According to the patient's nurse, the patient pulled out her NG tube last night. She apparently had been more awake, earlier in the morning. She reportedly was able to state her name, yesterday. The patient continues to receive Ativan 3 mg IV push every 6 hours. June 06, 2020 patient is seen in neurologic follow-up via teleneurology. Per nursing, the patient did open her eyes this morning. She also reportedly had a fever of 100.8 axillary. The patient reportedly opened her eyes this morning. She has a "wet cough", per nursing. Objective - Vital Signs Vital signs: Vital Signs Temp 99.8 F H 06/06/20 10:03 Pulse 100 06/06/20 08:39 Resp 16 06/06/20 08:39 BP 139/70 06/06/20 07:56 Pulse Ox 95 06/06/20 07:56 Intake & Output 06/05/20 06/06/20 06/06/20 18:59 06:59 18:59 Intake Total 0 Output Total 500 Balance 0 -500 Weight 47.5 kg Intake: Oral 0 Output: Urine 500 Other: Voiding Method Indwelling Catheter Indwelling Catheter # Voids 3 # Bowel Movements 2 - Exam Gen.: The patient is reclining in the bed. She is well-nourished, well- developed and in no acute distress. HEENT: Head is atraumatic, normocephalic. Fundus not visualized. There is no scleral icterus. Mucous membranes are moist. Neurological examination Mental status: Patient is nonverbal. She follows no commands. She does not open her eyes to verbal or noxious stimulation. Cranial nerves: Pupils are equal, round and reactive to light. Eyes are midline when lids are passively opened. There is no obvious facial asymmetry. The patient opens her mouth when her eyelids are passively opened. Motor: The patient is observed to reposition her right leg and her left arm. Sensation: There is grimace and withdrawal in response to noxious stimulation. - Labs CBC & Chem 7: 06/06/20 06:15 06/06/20 06:15 Labs: Abnormal Lab Results - Last 24 Hours (Table) 06/05/20 06/05/20 06/05/20 Range/Units 11:43 16:54 23:59 RBC (3.80-5.40) m/uL Hgb (11.4-16.0) gm/dL Hct (34.0-46.0) % Chloride (96-109) mmol/L Est GFR (CKD-EPI)NonAf (60.0-200.0) BUN/Creatinine Ratio (12.00-20.00) Ratio Glucose (70-110) mg/dL POC Glucose (mg/dL) 140 H 137 H 118 H (75-99) mg/dL Calcium (8.7-10.3) mg/dL AST (13-35) U/L Total Protein (6.2-8.2) g/dL Albumin (3.80-4.90) g/dL 06/06/20 06/06/20 06/06/20 Range/Units 06:15 06:15 06:42 RBC 2.97 L (3.80-5.40) m/uL Hgb 9.3 L (11.4-16.0) gm/dL Hct 29.2 L (34.0-46.0) % Chloride 110 H (96-109) mmol/L Est GFR (CKD-EPI)NonAf 54.7 L (60.0-200.0) BUN/Creatinine Ratio 24.00 H (12.00-20.00) Ratio Glucose 125 H (70-110) mg/dL POC Glucose (mg/dL) 134 H (75-99) mg/dL Calcium 8.4 L (8.7-10.3) mg/dL AST 50 H (13-35) U/L Total Protein 5.1 L (6.2-8.2) g/dL Albumin 3.20 L (3.80-4.90) g/dL Microbiology - Last 24 Hours (Table) 05/31/20 21:23 Blood Culture - Preliminary Blood No Growth after 120 hours Assessment and Plan Assessment: 1. Catatonia-etiology undetermined at this time, possibly secondary to depression 2. History of anxiety and depression 3. EEG, MRI and lumbar puncture have shown no reason for the patient's catatonia Plan: 1. Ativan dosing has been lowered to 3 mg every 6 IV push, per psychiatry 2. Neurology will continue to monitor patient 3. She may benefit from electro convulsive therapy, as Ativan does not appear to be having significant benefit Time with Patient: Less than 30 (spent 20 minutes with patient's via teleneurology)
[2020-06-06 16:47] LABS: Glucose,Whole Blood 124 mg/dL (75-99)
--- NOTE | 2020-06-06 21:59 | P.PN ---
Subjective Progress Note Date: 06/05/20 Principal diagnosis: Severe depression. Encephalopathy w/ Catatonia; Serotonin syndrome with component of toxic metabolic encephalopathy Patient is a 75-year-old female with a known history of seizure disorder, GERD, hyperlipidemia, history of colon cancer, esophageal strictures and history of esophageal palpitation, anxiety depression and panic disorder and history of major depression and admission to mental health unit presents to ER with complai nts of worsening anxiety and depression for the past 3 days. EMS was called by her stating that her symptoms had worsened. Denies any overdose or suicidal ideation as per the ER note. No complaints of chest pain or shortness of. No nausea vomiting or abdominal pain or diarrhea. Laboratory data showed WBC 6.3, hemoglobin 13.2 and platelets 251 D-dimer 0.94 Sodium 142, potassium 3.3, chloride 108, BUN 30 and creatinine 1.29 Lactic acid was 4.4 on admission Troponin x1 - COVID-19 PCR is negative Today morning patient was found to be hyponatremic with sodium level 150, potassium 2.8 and chloride 116. IV fluids were changed to D5 water. UA is negative for infection EKG showed sinus tachycardia Chest x-ray showed no acute pulmonary process VQ scan showed low probability for PE 05/22/2020 Patient is currently in the MICU. Yesterday evening patient developed muscular rigidity and diaphoretic and tachycardic and febrile. Patient received dose of Haldol prior to this episode and suspected neuroleptic malignant syndrome. Patient was given fluid boluses and started on Ativan for muscle rigidity. Patient was transferred to MICU and was seen by rapid response team. Haldol has been discontinued and monitor QT interval. Potassium was replaced and went up to 3.0 today. Possibly is also low and is being replaced with potassium phosphate. Laboratory data showed WBC is 4.4, hemoglobin 9.7 and platelets 134 BUN 39 creatinine 0.95 and phosphorus level is 1.0 and CPK level went up to 3024 and 3177 patient is being continued on D5 water at 150 cc/h. Critical care team is on board. 05/23/2019 Patient is currently lying in the bed. Able to open her eyes slowly. Does not communicate or follow simple commands. bilateral lower extremities are less rigid today. Laboratory data showed improved potassium level to 4.0 and CPK level improved to 2632 today. Continue IV hydration with D5 normal saline. T- max 99.7 Culture showed no growth Patient is being continued on Ativan as needed for agitation and is being monitored in the ICU. 05/31/2020 Patient is still encephalopathic and drowsy. Resting in the bed comfortably. Able to open her eyes occasionally. Does not communicate at this time. Otherwise patient is currently being continued on Ciproheptadine and Ativan when necessary for agitation. Continued on IV hydration Urine culture showed E. coli and Citrobacter. IV antibiotics no in the form of Zosyn Neurology and pulmonary is on board. 06/01/2020 Patient is currently lying in the bed, still encephalopathic and does not open eyes with verbal commands. Less spastic compared to yesterday. Patient is on NG tube feeding and is tolerating well. Patient has been afebrile. Continued on antibiotics in the form of Zosyn. Neurology and psychiatric is following. 06/02/2020 Patient is able to open her eyes with verbal stimuli today. Does not follow commands. Tolerating tube feeding. Patient has been afebrile. Continued on Ativan 3.5 mg IV every 6 hours. Psychiatric and neurology is following. Patient underwent neurological workup including EEG, MRI and LP. Continued on antibiotics for urinary tract infection. 06/03/2020 Patient is more awake and able to open her eyes. Trying to communicate. No complains of chest pain. Tolerating tube feeding. Otherwise T-max is 101.1. Patient is being continued on Ativan 3.5 mg every 6 hours. Also on antibiotics in the form of Zosyn for E. coli urinary tract infection. Patient is on [place] catheter. Fecal collecting system will be discontinued. 06/04/2020 Patient remained somnolent today. Patient was able to open her eyes on and off and was able to tell her name as per nursing staff. Patient has been afebrile. Patient is on Ativan 3 mg IV every 6 hourly. Continued on carbidopa levodopa and antibiotics in the form of Zosyn. Neurology and psychiatric is on board. 06/05/2020 Patient is awake and opens her eyes with verbal command. Patient was able to state her name as per nursing staff this morning. Patient pulled out her NG tube last night and was replaced back. Patient is afebrile. Continued on Ativan 3 mg IV push every 6 hours. Laboratory data showed WBC 6.0, hemoglobin 9.4 and platelets 395 BUN 18 and creatinine 0.9 AST 58 ALT 24 and alk phos 75 and blood sugar is controlled. Patient is tolerating tube feeding. Current medications reviewed. Objective - Vital Signs Vital signs: Vital Signs Temp 99.1 F 06/05/20 18:40 Pulse 82 06/05/20 18:40 Resp 16 06/05/20 15:19 BP 95/46 06/05/20 18:40 Pulse Ox 96 06/05/20 18:40 Intake & Output 06/05/20 06/05/20 06/06/20 06:59 18:59 06:59 Intake Total 0 Output Total 1401 Balance -1401 0 Intake: Oral 0 Output: Urine 1400 Stool 1 Other: # Voids 3 # Bowel Movements 1 - Exam PHYSICAL EXAMINATION: Patient is lying in the bed comfortably, does not open her eyes and not responding verbally. HEENT: Normocephalic. Neck is supple. Pupils reactive. Nostrils clear. Oral cavity is moist. Ears reveal no drainage. Neck reveals no JVD, carotid bruits, or thyromegaly. CHEST EXAMINATION: Trachea is central. Symmetrical expansion. Lung morley clear to auscultation and percussion. CARDIAC: Normal S1, S2 with no gallops. No murmurs ABDOMEN: Soft. non distended. Bowel sounds normal. No organomegaly. No abdominal bruits. Extremities: reveal no edema. No clubbing or cyanosis Neurologically awake, alerts.Oriented x0. withdrawn, No focal deficits noted Skin: No rash or skin lesions. Psychiatric: Noncooperative. Musculoskeletal: No joint swelling or deformity. - Labs CBC & Chem 7: 06/06/20 06:15 06/06/20 06:15 Labs: Abnormal Lab Results - Last 24 Hours (Table) 06/05/20 06/05/20 06/05/20 Range/Units 01:18 05:56 05:56 RBC 2.94 L (3.80-5.40) m/uL Hgb 9.4 L (11.4-16.0) gm/dL Hct 28.7 L (34.0-46.0) % Lymphocytes # 0.8 L (1.0-4.8) k/uL Glucose 117 H (70-110) mg/dL POC Glucose (mg/dL) 107 H (75-99) mg/dL Calcium 8.6 L (8.7-10.3) mg/dL AST 58 H (13-35) U/L Total Protein 4.9 L (6.2-8.2) g/dL Albumin 3.10 L (3.80-4.90) g/dL 06/05/20 06/05/20 06/05/20 Range/Units 06:15 11:43 16:54 RBC (3.80-5.40) m/uL Hgb (11.4-16.0) gm/dL Hct (34.0-46.0) % Lymphocytes # (1.0-4.8) k/uL Glucose (70-110) mg/dL POC Glucose (mg/dL) 108 H 140 H 137 H (75-99) mg/dL Calcium (8.7-10.3) mg/dL AST (13-35) U/L Total Protein (6.2-8.2) g/dL Albumin (3.80-4.90) g/dL Microbiology - Last 24 Hours (Table) 05/31/20 21:23 Blood Culture - Preliminary Blood No Growth after 96 hours Assessment and Plan Assessment: Myoclonus with severe encephalopathy due to acute serotonin syndrome. Catatonia with severe depression Possible neuroleptic malignant syndrome. E. coli and Citrobacter urinary tract infection Severe rhabdomyolysis. Improved. Acute episode of major depressive disorder Generalized anxiety and panic disorder Hypernatremia and severe hypokalemia. Improved now Hyperlipidemia History of seizure disorder. EEG showed encephalopathy without any seizure spikes. GERD History of esophageal stricture status post EGD and dilation Anxiety/depression panic disorder history DVT prophylaxis with heparin subcu Plan: Patient will be continued to feeding and IV hydration.. was given Ciproheptadine. Continue with Ativan. and follow-up closely. Replace electrolytes and further recommendations based on the clinical course. Neurology and psychiatriy is on board.. Time with Patient: Greater than 30
--- NOTE | 2020-06-06 21:59 | PN ---
PROGRESS NOTE DATE OF SERVICE: 06/06/2020 REASON FOR FOLLOWUP: Fever and a question of pneumonia. INTERVAL HISTORY: The patient is currently afebrile. The patient remains to be lethargic, unable any provide any history. The patient did have a low-grade fever of 100.3 this morning. No vomiting or diarrhea or any changes reported by nursing staff. PHYSICAL EXAMINATION: Blood pressure 139/70 with a pulse of 110, temperature 100.6. She is 95% on 2 L nasal cannula. General description is an elderly female lying in bed in no distress. Respiratory system: Unlabored breathing, decreased breath sounds in the base, with no wheeze. Heart S1, S2. Regular rate and rhythm. ABDOMEN: Soft, no tenderness. LABORATORY DATA: Hemoglobin 9.1, white count 9.2, BUN of 24, creatinine 1.0. DIAGNOSTIC IMPRESSION AND PLAN: Patient with a fever in this patient who did have extensive workup including an LP and all of them have been negative as well as CT of abdomen and pelvis. Chest x-ray suspicious for pneumonia. Patient has been on a course of IV Zosyn, will be monitored closely off antibiotic therapy. We will repeat CRP and procalcitonin tomorrow and also check a lower extremity Doppler to make sure no evidence of any deep vein thrombosis. Continue supportive care. MMODL / IJN: [id number] /
--- NOTE | 2020-06-06 22:01 | P.PN ---
Subjective Progress Note Date: 06/06/20 Principal diagnosis: Severe depression. Encephalopathy w/ Catatonia; Serotonin syndrome with component of toxic metabolic encephalopathy Patient is a 75-year-old female with a known history of seizure disorder, GERD, hyperlipidemia, history of colon cancer, esophageal strictures and history of esophageal palpitation, anxiety depression and panic disorder and history of major depression and admission to mental health unit presents to ER with complai nts of worsening anxiety and depression for the past 3 days. EMS was called by her stating that her symptoms had worsened. Denies any overdose or suicidal ideation as per the ER note. No complaints of chest pain or shortness of. No nausea vomiting or abdominal pain or diarrhea. Laboratory data showed WBC 6.3, hemoglobin 13.2 and platelets 251 D-dimer 0.94 Sodium 142, potassium 3.3, chloride 108, BUN 30 and creatinine 1.29 Lactic acid was 4.4 on admission Troponin x1 - COVID-19 PCR is negative Today morning patient was found to be hyponatremic with sodium level 150, potassium 2.8 and chloride 116. IV fluids were changed to D5 water. UA is negative for infection EKG showed sinus tachycardia Chest x-ray showed no acute pulmonary process VQ scan showed low probability for PE 05/22/2020 Patient is currently in the MICU. Yesterday evening patient developed muscular rigidity and diaphoretic and tachycardic and febrile. Patient received dose of Haldol prior to this episode and suspected neuroleptic malignant syndrome. Patient was given fluid boluses and started on Ativan for muscle rigidity. Patient was transferred to MICU and was seen by rapid response team. Haldol has been discontinued and monitor QT interval. Potassium was replaced and went up to 3.0 today. Possibly is also low and is being replaced with potassium phosphate. Laboratory data showed WBC is 4.4, hemoglobin 9.7 and platelets 134 BUN 39 creatinine 0.95 and phosphorus level is 1.0 and CPK level went up to 3024 and 3177 patient is being continued on D5 water at 150 cc/h. Critical care team is on board. 05/23/2019 Patient is currently lying in the bed. Able to open her eyes slowly. Does not communicate or follow simple commands. bilateral lower extremities are less rigid today. Laboratory data showed improved potassium level to 4.0 and CPK level improved to 2632 today. Continue IV hydration with D5 normal saline. T- max 99.7 Culture showed no growth Patient is being continued on Ativan as needed for agitation and is being monitored in the ICU. 05/31/2020 Patient is still encephalopathic and drowsy. Resting in the bed comfortably. Able to open her eyes occasionally. Does not communicate at this time. Otherwise patient is currently being continued on Ciproheptadine and Ativan when necessary for agitation. Continued on IV hydration Urine culture showed E. coli and Citrobacter. IV antibiotics no in the form of Zosyn Neurology and pulmonary is on board. 06/01/2020 Patient is currently lying in the bed, still encephalopathic and does not open eyes with verbal commands. Less spastic compared to yesterday. Patient is on NG tube feeding and is tolerating well. Patient has been afebrile. Continued on antibiotics in the form of Zosyn. Neurology and psychiatric is following. 06/02/2020 Patient is able to open her eyes with verbal stimuli today. Does not follow commands. Tolerating tube feeding. Patient has been afebrile. Continued on Ativan 3.5 mg IV every 6 hours. Psychiatric and neurology is following. Patient underwent neurological workup including EEG, MRI and LP. Continued on antibiotics for urinary tract infection. 06/03/2020 Patient is more awake and able to open her eyes. Trying to communicate. No complains of chest pain. Tolerating tube feeding. Otherwise T-max is 101.1. Patient is being continued on Ativan 3.5 mg every 6 hours. Also on antibiotics in the form of Zosyn for E. coli urinary tract infection. Patient is on Cheatham catheter. Fecal collecting system will be discontinued. 06/04/2020 Patient remained somnolent today. Patient was able to open her eyes on and off and was able to tell her name as per nursing staff. Patient has been afebrile. Patient is on Ativan 3 mg IV every 6 hourly. Continued on carbidopa levodopa and antibiotics in the form of Zosyn. Neurology and psychiatric is on board. 06/05/2020 Patient is awake and opens her eyes with verbal command. Patient was able to state her name as per nursing staff this morning. Patient pulled out her NG tube last night and was replaced back. Patient is afebrile. Continued on Ativan 3 mg IV push every 6 hours. Laboratory data showed WBC 6.0, hemoglobin 9.4 and platelets 395 BUN 18 and creatinine 0.9 AST 58 ALT 24 and alk phos 75 and blood sugar is controlled. Patient is tolerating tube feeding. 06/06/2020 Patient is able to open her eyes with verbal commands. Denied any complaints of chest pain or shortness of breath. Saturating at 93% on room air. Blood press ure is controlled. T-max is 100.6 yesterday morning. Afebrile currently. Remains on IV Ativan. Tolerating tolerated tube feeding. Psychiatry and neurology is on board. Current medications reviewed. Objective - Vital Signs Vital signs: Vital Signs Temp 98.3 F 06/06/20 14:07 Pulse 114 H 06/06/20 14:07 Resp 19 06/06/20 14:07 BP 160/82 06/06/20 14:07 Pulse Ox 91 L 06/06/20 14:07 Intake & Output 06/05/20 06/06/20 06/06/20 18:59 06:59 18:59 Intake Total 0 Output Total 500 Balance 0 -500 Weight 47.5 kg Intake: Oral 0 Output: Urine 500 Other: Voiding Method Indwelling Catheter Indwelling Catheter # Voids 3 # Bowel Movements 2 - Exam PHYSICAL EXAMINATION: Patient is lying in the bed comfortably, Able to open her eyes but not communicating.. HEENT: Normocephalic. Neck is supple. Pupils reactive. Nostrils clear. Oral cavity is moist. Ears reveal no drainage. Neck reveals no JVD, carotid bruits, or thyromegaly. CHEST EXAMINATION: Trachea is central. Symmetrical expansion. Lung morley clear to auscultation and percussion. CARDIAC: Normal S1, S2 with no gallops. No murmurs ABDOMEN: Soft. non distended. Bowel sounds normal. No organomegaly. No abdominal bruits. Extremities: reveal no edema. No clubbing or cyanosis Neurologically awake, alerts.Oriented x1-2. withdrawn, No focal deficits noted Skin: No rash or skin lesions. Psychiatric: Noncooperative. Musculoskeletal: No joint swelling or deformity. - Labs CBC & Chem 7: 06/06/20 06:15 06/06/20 06:15 Labs: Abnormal Lab Results - Last 24 Hours (Table) 06/05/20 06/05/20 06/06/20 Range/Units 16:54 23:59 06:15 RBC 2.97 L (3.80-5.40) m/uL Hgb 9.3 L (11.4-16.0) gm/dL Hct 29.2 L (34.0-46.0) % Chloride (96-109) mmol/L Est GFR (CKD-EPI)NonAf (60.0-200.0) BUN/Creatinine Ratio (12.00-20.00) Ratio Glucose (70-110) mg/dL POC Glucose (mg/dL) 137 H 118 H (75-99) mg/dL Calcium (8.7-10.3) mg/dL AST (13-35) U/L Total Protein (6.2-8.2) g/dL Albumin (3.80-4.90) g/dL 06/06/20 06/06/20 06/06/20 Range/Units 06:15 06:42 11:29 RBC (3.80-5.40) m/uL Hgb (11.4-16.0) gm/dL Hct (34.0-46.0) % Chloride 110 H (96-109) mmol/L Est GFR (CKD-EPI)NonAf 54.7 L (60.0-200.0) BUN/Creatinine Ratio 24.00 H (12.00-20.00) Ratio Glucose 125 H (70-110) mg/dL POC Glucose (mg/dL) 134 H 130 H (75-99) mg/dL Calcium 8.4 L (8.7-10.3) mg/dL AST 50 H (13-35) U/L Total Protein 5.1 L (6.2-8.2) g/dL Albumin 3.20 L (3.80-4.90) g/dL Microbiology - Last 24 Hours (Table) 05/31/20 21:23 Blood Culture - Preliminary Blood No Growth after 120 hours Assessment and Plan Assessment: Myoclonus with severe encephalopathy due to acute serotonin syndrome. Catatonia with severe depression Possible neuroleptic malignant syndrome. E. coli and Citrobacter urinary tract infection Severe rhabdomyolysis. Improved. Acute episode of major depressive disorder Generalized anxiety and panic disorder Hypernatremia and severe hypokalemia. Improved now Hyperlipidemia History of seizure disorder. EEG showed encephalopathy without any seizure spikes. GERD History of esophageal stricture status post EGD and dilation Anxiety/depression panic disorder history DVT prophylaxis with heparin subcu Plan: Patient will be continued to feeding and IV hydration.. was given Ciproheptadine. Continue with Ativan. and follow-up closely. Replace electrolytes and further recommendations based on the clinical course. Neurology and psychiatriy is on board.. Time with Patient: Greater than 30
[2020-06-07 00:11] LABS: Glucose,Whole Blood 140 mg/dL (75-99)
[2020-06-07] MEDS: ACETAMINOPHEN TAB 325 MG TAB PO PRN ×2 (02:49→20:06)
[2020-06-07] MEDS: DEXTROSE 5%-0.9% NACL 1,000 ML IV SCH ×2 (03:54→16:26)
[2020-06-07] MEDS: LORazepam 2 MG/ML INJ IV SCH ×3 (05:36→17:25)
[2020-06-07 06:35] LABS: Glucose,Whole Blood 107 mg/dL (75-99)
[2020-06-07 06:46] LABS: Basophils % (A) 0 %; Eosinophils # (A) 0.2 k/uL (0-0.7); Eosinophils % (A) 4 %; HCT 28.1 % (34.0-46.0); Hypochromasia Slight; Lymphocytes # (A) 1.1 k/uL (1.0-4.8); Lymphocytes % (A) 16 %; MCHC 32.2 g/dL (31.0-37.0); MCV 96.3 fL (80.0-100.0); Mean Platelet Volume 7.9; Monocytes # (A) 0.3 k/uL (0-1.0); Monocytes % (A) 5 %; Neutrophils % (A) 73 %; Platelet Count 453 k/uL (150-450); RBC 2.91 m/uL (3.80-5.40); RDW 13.6 % (11.5-15.5); WBC 6.9 k/uL (3.8-10.6)
[2020-06-07] MEDS: IPRATROPIUM-ALBUTEROL 3 ML NEB INHALATION SCH ×3 (07:42→20:07)
[2020-06-07] MEDS: lamoTRIgine 100 MG TAB PO SCH ×2 (08:23→20:06)
[2020-06-07] MEDS: HEPARIN SODIUM,PORCINE 5,000 UNIT/ML 1 ML VIAL SQ SCH ×2 (08:23→20:06)
[2020-06-07] MEDS: CARBIDOPA-LEVODOPA 25-100 MG 1 EACH TAB PO SCH ×3 (08:23→20:06)
[2020-06-07] MEDS: PANTOPRAZOLE 40 MG/10 ML VIAL IVP SCH (08:24)
--- NOTE | 2020-06-07 08:45 | US ---
EXAMINATION TYPE: US venous doppler duplex LE BI DATE OF EXAM: 06/07/2020 8:33 AM COMPARISON: NONE CLINICAL HISTORY: 75-year-old female swelling /fever. Edema SIDE PERFORMED: Bilateral TECHNIQUE: The lower extremity deep venous system is examined utilizing real time linear array sonog sander with graded compression, doppler sonography and color-flow sonography. FINDINGS: VESSELS IMAGED: Common Femoral Vein Deep Femoral Vein Greater Saphenous Vein * Femoral Vein Popliteal Vein Small Saphenous Vein * Proximal Calf Veins (* superficial vessels) Right Leg: Negative for DVT Left Leg: Negative for DVT IMPRESSION: No evidence for DVT within the bilateral lower extremities imaged from the groin to the upper calves.
[2020-06-07 09:23] LABS: Anion Gap 6.2 mmol/L (4.00-12.00); BUN/Creat Ratio 26.25 Ratio (12.00-20.00); C Reactive Protein 10.1 mg/dL (0.0-0.8); Calcium 8.2 mg/dL (8.7-10.3); Carbon Dioxide 24.8 mmol/L (21.6-31.8); Non-African American GFR(CKD) 71.6 (60.0-200.0); Potassium 3.5 mmol/L (3.5-5.5)
[2020-06-07 11:27] LABS: Glucose,Whole Blood 121 mg/dL (75-99)
[2020-06-07] MEDS: AMOXIC-POT CLAV 875-125MG 1 EACH TAB PEG/G-TUBE SCH ×2 (11:32→20:06)
--- NOTE | 2020-06-07 13:57 | P.PN ---
Progress Note - Text Progress Note Date: 06/07/20 Interval History: Patient appears to be somnolent today with some decorticate posturing. She makes eye contact but is nonverbal and not responding to questions. She has been afebrile. She is receiving tube feeds. Unable to obtain significant history from the patient today. Mental Status Exam: General Appearance: Patient has NG Tube in place. She appears her stated age. She appears to be somewhat malaised and somnolent. Behavior: Patient is somnolent but arousable. She makes appropriate eye contact. Speech: Nonverbal today. Mood/Affect: Unable to assess Suicidality/Homicidality: Unable to assess Perceptions: Unable to assess Though content/process: Unable to assess Memory and concentration: Unable to assess Judgment and insight: poor Assessment Encephalopathy Major Depressive Disorder, with catatonia UTI Plan: -We will taper Ativan to 2.5 mg IV every 6 hours. Should patient display worsening symptoms of catatonia including decreased responsiveness, increased rigidity, etc, we will likely have to place her back on higher doses of ativan. -Patient may require rehab due to the length of stay and weakness as a result. Geriatric psychiatry placement will be continued to be recommended if patient continues to display an inability to care for self secondary to her depressive symptoms. Recommend patient is given an adequate trial off NG tube feeds to see if she will care for self. -Will continue lamictal at this time. -Psychiatry will continue to follow loosely.
--- NOTE | 2020-06-07 14:26 | P.PN ---
Subjective Progress Note Date: 06/07/20 HISTORY OF PRESENT ILLNESS This is a 75-year-old female treated for fever and questionable pneum onia. Temperature max is 100.5. Heart rate 98, blood pressure 150/71, pulse ox 94% on room air. Patient remains lethargic and unable to provide any history. Patient has not had vomiting or diarrhea reported by the nursing staff. She has already had extensive workup including LP, CAT scan abdomen and pelvis, all negative. Chest x-ray suspicious for pneumonia and patient has been on a course of IV Zosyn currently off antibiotics but we will start Augmentin today given via NG tube. WBC 6.9, hemoglobin 9, platelet count 453. Creatinine 0.8. Pro- calcitonin 0.2 to. C-reactive protein 10.1. PHYSICAL EXAMINATION Gen: This i and 75-year-old female. HEENT: Head is atraumatic, normocephalic. Pupils equal, round. Sclerae is anicteric. NECK: Supple. No JVD. No lymphadenopathy. LUNGS: decreased breath sounds at the bases. No intercostal retractions. HEART: Regular rate and rhythm. No murmur. ABDOMEN: Soft. Bowel sounds are present. No masses. No tenderness. EXTREMITIES: No pedal edema. No calf tenderness. NEUROLOGICAL: Patient is awake, alert and oriented x3. ASSESSMENT Febrile illness with possible pneumonia PLAN Start Augmentin 875 mg twice daily. The above dictated assessment and findings were discussed with Dr. Edwards. The impression and plan of care have been directed as dictated. Gayle Taylor nurse practitioner acting as scribe for Dr. Edwards. Objective - Vital Signs Vital signs: Vital Signs Temp 97.8 F 06/07/20 08:00 Pulse 98 06/07/20 08:00 Resp 16 06/07/20 08:23 BP 154/71 06/07/20 08:00 Pulse Ox 94 L 06/07/20 08:00 Intake & Output 06/06/20 06/07/20 06/07/20 18:59 06:59 18:59 Intake Total 1200 Output Total 1201 Balance 1200 -1201 Weight 49 kg Intake: IV 1100 Dextrose 5%-0.9% NaCl 1, 1100 000 ml @ 100 mls/hr IV . Q10H [facility] Rx#:[id number] Intake, IV Titration 100 Amount Piperacillin-Tazobactam 3 100 .375 gm In Sodium Chloride 0.9% 100 ml @ 25 mls/hr IVPB Q8HR [facility] Rx# :[id number] Output: Urine 1200 Stool 1 Other: Voiding Method Indwelling Catheter Indwelling Catheter Indwelling Catheter # Bowel Movements 1 - Labs CBC & Chem 7: 06/07/20 06:04 06/07/20 06:04 Labs: Abnormal Lab Results - Last 24 Hours (Table) 06/06/20 06/06/20 06/07/20 Range/Units 11:29 16:46 00:10 RBC (3.80-5.40) m/uL Hgb (11.4-16.0) gm/dL Hct (34.0-46.0) % Plt Count (150-450) k/uL Chloride (96-109) mmol/L BUN/Creatinine Ratio (12.00-20.00) Ratio Glucose (70-110) mg/dL POC Glucose (mg/dL) 130 H 124 H 140 H (75-99) mg/dL Calcium (8.7-10.3) mg/dL C-Reactive Protein (0.0-0.8) mg/dL Procalcitonin (0.02-0.09) ng/mL 06/07/20 06/07/20 06/07/20 Range/Units 06:04 06:04 06:04 RBC 2.91 L (3.80-5.40) m/uL Hgb 9.0 L (11.4-16.0) gm/dL Hct 28.1 L (34.0-46.0) % Plt Count 453 H (150-450) k/uL Chloride 110 H (96-109) mmol/L BUN/Creatinine Ratio 26.25 H (12.00-20.00) Ratio Glucose 119 H (70-110) mg/dL POC Glucose (mg/dL) (75-99) mg/dL Calcium 8.2 L (8.7-10.3) mg/dL C-Reactive Protein 10.1 H (0.0-0.8) mg/dL Procalcitonin 0.22 H (0.02-0.09) ng/mL 06/07/20 Range/Units 06:33 RBC (3.80-5.40) m/uL Hgb (11.4-16.0) gm/dL Hct (34.0-46.0) % Plt Count (150-450) k/uL Chloride (96-109) mmol/L BUN/Creatinine Ratio (12.00-20.00) Ratio Glucose (70-110) mg/dL POC Glucose (mg/dL) 107 H (75-99) mg/dL Calcium (8.7-10.3) mg/dL C-Reactive Protein (0.0-0.8) mg/dL Procalcitonin (0.02-0.09) ng/mL Microbiology - Last 24 Hours (Table) 05/31/20 21:23 Blood Culture - Final Blood No Growth after 144 hours
[2020-06-07 16:59] LABS: Glucose,Whole Blood 112 mg/dL (75-99)
[2020-06-08] MEDS: LORazepam 2 MG/ML INJ IV SCH ×5 (00:16→22:46)
[2020-06-08] MEDS: DEXTROSE 5%-0.9% NACL 1,000 ML IV SCH ×3 (00:26→22:47)
[2020-06-08 00:41] LABS: Glucose,Whole Blood 102 mg/dL (75-99)
[2020-06-08 06:40] LABS: Glucose,Whole Blood 114 mg/dL (75-99)
[2020-06-08] MEDS: PANTOPRAZOLE 40 MG/10 ML VIAL IVP SCH (08:13)
[2020-06-08] MEDS: HEPARIN SODIUM,PORCINE 5,000 UNIT/ML 1 ML VIAL SQ SCH ×2 (08:13→21:10)
[2020-06-08] MEDS: CARBIDOPA-LEVODOPA 25-100 MG 1 EACH TAB PO SCH ×3 (08:14→21:10)
[2020-06-08] MEDS: lamoTRIgine 100 MG TAB PO SCH ×2 (08:14→21:10)
[2020-06-08] MEDS: AMOXIC-POT CLAV 875-125MG 1 EACH TAB PEG/G-TUBE SCH ×2 (08:14→21:10)
[2020-06-08] MEDS: IPRATROPIUM-ALBUTEROL 3 ML NEB INHALATION SCH ×3 (08:26→19:39)
[2020-06-08 12:26] LABS: Glucose,Whole Blood 112 mg/dL (75-99)
--- NOTE | 2020-06-08 13:59 | P.PN ---
Subjective Progress Note Date: 06/08/20 HISTORY OF PRESENT ILLNESS This is a 75-year-old female treated for fever and questionable pneum onia. Temperature max is 100.3. Heart rate 116, blood pressure 183/79, pulse ox 93% on room air. Patient confused and unable to provide any history. Patient has not had vomiting or diarrhea reported by the nursing staff. She has already had extensive workup including LP, CAT scan abdomen and pelvis, all negative. Chest x-ray suspicious for pneumonia and patient has been on a course of IV Zosy n. Patient was started on Augmentin yesterday. PHYSICAL EXAMINATION Gen: This i and 75-year-old female. HEENT: Head is atraumatic, normocephalic. Pupils equal, round. Sclerae is anicteric. NECK: Supple. No JVD. No lymphadenopathy. LUNGS: decreased breath sounds at the bases. No intercostal retractions. HEART: Regular rate and rhythm. No murmur. ABDOMEN: Soft. Bowel sounds are present. No masses. No tenderness. Cheatham catheter. EXTREMITIES: No pedal edema. No calf tenderness. NEUROLOGICAL: Patient will withdraw from pain. ASSESSMENT Febrile illness with possible pneumonia PLAN Continue Augmentin 875 mg twice daily. The above dictated assessment and findings were discussed with Dr. Edwards. The impression and plan of care have been directed as dictated. Gayle Taylor nurse practitioner acting as scribe for Dr. Edwards. Objective - Vital Signs Vital signs: Vital Signs Temp 97.9 F 06/08/20 07:26 Pulse 116 H 06/08/20 12:22 Resp 18 06/08/20 07:26 BP 183/79 06/08/20 07:26 Pulse Ox 93 L 06/08/20 07:26 Intake & Output 06/07/20 06/08/20 06/08/20 18:59 06:59 18:59 Intake Total 1280 Output Total 801 801 Balance 479 -801 Weight 49 kg 39 kg Intake: IV 800 Dextrose 5%-0.9% NaCl 1, 800 000 ml @ 100 mls/hr IV . Q10H [facility] Rx#:[id number] Tube Feeding 480 Output: Urine 800 800 Stool 1 1 Other: Voiding Method Indwelling Catheter Indwelling Catheter - Labs CBC & Chem 7: 06/07/20 06:04 06/07/20 06:04 Labs: Abnormal Lab Results - Last 24 Hours (Table) 06/07/20 06/08/20 06/08/20 Range/Units 16:58 00:39 06:39 POC Glucose (mg/dL) 112 H 102 H 114 H (75-99) mg/dL 06/08/20 Range/Units 12:24 POC Glucose (mg/dL) 112 H (75-99) mg/dL
[2020-06-08] MEDS: ACETAMINOPHEN TAB 325 MG TAB PO PRN (17:46)
[2020-06-08 18:25] LABS: Glucose,Whole Blood 135 mg/dL (75-99)
[2020-06-09 00:41] LABS: Glucose,Whole Blood 108 mg/dL (75-99)
[2020-06-09] MEDS: ACETAMINOPHEN TAB 325 MG TAB PO PRN (02:14)
[2020-06-09] MEDS: DEXTROSE 5%-0.9% NACL 1,000 ML IV SCH ×2 (05:46→16:26)
[2020-06-09] MEDS: LORazepam 2 MG/ML INJ IV SCH ×4 (05:47→18:14)
[2020-06-09 06:44] LABS: Glucose,Whole Blood 106 mg/dL (75-99)
[2020-06-09] MEDS: IPRATROPIUM-ALBUTEROL 3 ML NEB INHALATION SCH ×3 (08:08→18:53)
[2020-06-09] MEDS: CARBIDOPA-LEVODOPA 25-100 MG 1 EACH TAB PO SCH ×3 (09:03→21:40)
[2020-06-09] MEDS: lamoTRIgine 100 MG TAB PO SCH ×2 (09:03→21:40)
[2020-06-09] MEDS: AMOXIC-POT CLAV 875-125MG 1 EACH TAB PEG/G-TUBE SCH ×2 (09:03→21:41)
[2020-06-09] MEDS: PANTOPRAZOLE 40 MG/10 ML VIAL IVP SCH (09:04)
[2020-06-09] MEDS: HEPARIN SODIUM,PORCINE 5,000 UNIT/ML 1 ML VIAL SQ SCH ×2 (09:04→21:40)
--- NOTE | 2020-06-09 12:56 | P.PN ---
Progress Note - Text Progress Note Date: 06/09/20 Interval History: Patient continues to be somnolent and unresponsive today. She is nonverbal. She has been noted to be somewhat arousable at times by nursing staff but remains primarily unchanged since admission. We are unable to obtain any significant history today. Mental Status Exam: General Appearance: Patient has NG Tube in place. She appears her stated age. No acute distress. Behavior: Patient is somnolent but arousable. She makes appropriate eye contact. Speech: Nonverbal today. Mood/Affect: Unable to assess Suicidality/Homicidality: Unable to assess Perceptions: Unable to assess Though content/process: Unable to assess Memory and concentration: Unable to assess Judgment and insight: poor Assessment Encephalopathy Major Depressive Disorder, with catatonia UTI Plan: -We will increase Ativan to 3 mg IV every 6 hours. When the patient was at a dose of 3.5 mg IV every 6 hours, the patient appeared to be doing significantly better in regards to responsiveness. -After discussion with neurology and the primary team, the recommendation will b e that the patient is transferred to a facility that can administer ECT. The patient is able to respond to Ativan but we are limited due to the patient's age. We recommend that the patient be evaluated in a facility that can offer ECT to treat the patient's catatonia. The patient's Dona Kwame rating scales for catatonia have been placed in her chart. -Will continue lamictal at this time. -Psychiatry will continue to follow loosely.
[2020-06-09] MEDS ORDERED: LORazepam 2 MG/ML INJ IV SCH ×2 (13:08→18:00)
[2020-06-09 13:19] LABS: Glucose,Whole Blood 106 mg/dL (75-99)
--- NOTE | 2020-06-09 16:26 | PN ---
PROGRESS NOTE DATE OF SERVICE: 06/09/2020 REASON FOR FOLLOWUP: Fever possible pneumonia. INTERVAL HISTORY: The patient is currently afebrile, last temperature was yesterday of 99.7. The patient remains to be less responsive though responds to her name, but did not answer any question. She still has her tube feeds through the NG and no diarrhea has been reported. Patient is still unable to provide any history. PHYSICAL EXAMINATION: Blood pressure 145/65 with a pulse of 70, temperature 98.6. General description is an elderly female lying in bed in no distress. RESPIRATORY SYSTEM: Unlabored breathing with decreased breath sounds at the bases. No wheeze. HEART: S1, S2. Regular rate and rhythm. ABDOMEN: Soft, no tenderness. LABS: No new labs have been obtained today. DIAGNOSTIC IMPRESSION AND PLAN: Patient with a fever in this patient who did have extensive workup including chest x- ray, CT abdomen and pelvis, venous Doppler. Only positive points has been possible pneumonia for which the patient completed IV antibiotic, currently on oral Augmentin to continue for a short course and monitor clinical course closely. MMODL / IJN: [id number] /
--- NOTE | 2020-06-09 16:45 | P.PN ---
Subjective Progress Note Date: 06/09/19 Patient was seen today and the per the patient's nurse her condition remains the same. Objective - Vital Signs Vital signs: Vital Signs Temp 98.6 F 06/09/20 14:00 Pulse 70 06/09/20 14:00 Resp 18 06/09/20 14:00 BP 145/65 06/09/20 14:00 Pulse Ox 96 06/09/20 14:00 Intake & Output 06/08/20 06/09/20 06/09/20 18:59 06:59 18:59 Output Total 350 550 550 Balance -350 -550 -550 Weight 56 kg Output: Urine 350 550 550 Other: Voiding Method Indwelling Catheter Indwelling Catheter # Bowel Movements 1 - Exam GENERAL: The patient is lying in bed and does not seem in distress. NEUROLOGICAL: Limited because of condition. Higher mental function: The patient is drowsy and would open eyes briefly to voice. She is oriented to self. But other than that she is not verbally responsive or following commands. Cranial nerves: Her pupils are open and primary gaze is midline. The pupils are round 3 mm bilaterally and reactive to light. No facial weakness is noted that. Otherwise I could not assess the rest of the cranial nerves because of patient condition. Motor: Is deferred because of patient condition. Patient was withdrawing to painful stimuli throughout. Patient does have increased tone throughout all extremities. There is no spontaneous movement noted. No seizure-like activity noted. No clonus is noted. Cerebellum: Could not assess because of her condition. Sensation: Could not assess like sensation about to painful stimuli the patient was withdrawing as well as was grimacing on her face. Reflexes (right/left): 3+ throughout. Plantars are downgoing bilaterally. - Labs CBC & Chem 7: 06/07/20 06:04 06/07/20 06:04 Labs: Abnormal Lab Results - Last 24 Hours (Table) 06/08/20 06/09/20 06/09/20 Range/Units 18:23 00:40 06:43 POC Glucose (mg/dL) 135 H 108 H 106 H (75-99) mg/dL 06/09/20 Range/Units 13:17 POC Glucose (mg/dL) 106 H (75-99) mg/dL Assessment and Plan Assessment: * Encephalopathy: Etiology undertermined but seem likely Catatonia (Especially with history of Ativan withdrawl) * Also has compoenent toxic-metabolic encephalopathy * Elevated CK, increased tone throughout, low grade fever,tachycardia, tachypneic and hyperreflexia and encephalopathy seems seems autonomic form above---improving * Elevated CK---tending down * Electrolye imbalance (hypokalemia, hypophosphatemia)--resolved * PORFIRIO--resolved * History of colonr cancer * History of esophageal stricture * History of depression * History of diverticular disease Plan: * EEG on the 05/24/2020 shows background slowing suggestive of mild to moderate encephalopathy. There are no focal slowing, upper performed discharges or seizure during the study. * Repeat EEG on 05/26/2020: It's an abnormal routine EEG. The background slowing suggestive of moderate to severe encephalopathy likely due to medication effect (Ativan). There are no focal slowing, epileptiform dischar ges or seizure during routine EEG on 05/26/20. Because of the rare bilateral frontal sharps with no following slow wave or evolution to seizure, recommend repeating EEG once the patient is stable/outpatient and possibly consider long-term EEG as an outpatient to rule out epileptiform discharges. The excessive fast activity likely due to medication effect. The EEG is worse compared to 05/24/2020 EEG, likely due to medication effect. * EEG was on 06/03/2020 and it's reported as abnormal EEG due to background slowing of moderate degree at. This is suggestive of generalized cerebral dysfunction as can be seen with toxic metabolic encephalopathy or due to diffuse structural brain abnormality. No definite epileptiform activity was seen. * Lumbar puncture was performed on 05/25/2020 and CSF study is clear, colorless, total nuclear cells 0, glucose is 63 and that his CSF protein is 47 which is within normal limits. Because the nucleated cells is 0, as does not seem and meningeal encephalitis * MR the brain is reported as nearly nondiagnostic exam due to extensive motion artifacts. No obvious abnormal signal on diffusion images to suggest acute ischemia. Degenerative and nonspecific white matter changes most typical of remote ischemia. * TSH is 0.752 which is within normal limits. * Jacobson virus PCR was not detected. Influenza A and B PCR is not detected. Urine Legionella is negative. * currently on Ativan 3 mg every 6 hours scheduled and was increased today by Psychiatry team. * Patient is on Sinemet 25/101 tablet 3 times a day since 06/04/[address] Baptiste's recommendation * Is on Lamictal 100 mg 1 tablet twice a day for mood disorder. Patient does not have history of seizure disorder but rather on Lamictal for mood disorder per patient's son. * I spoke with the psychiatry team and he feels like the patient has catatonia and she benefits from higher dose of Ativan. Since the patient has not had a dramatic improvement it's decided that the patient will benefit from a facility that has ECT. * Infection disease is on board. The plan was discussed with the patient nurse and Psychiatry team. Also the plan was discussed with the patient's son via son. Evan Arreaga M.D. Neuro-hospitalist Time with Patient: Less than 30
--- NOTE | 2020-06-09 22:35 | P.PN ---
Subjective Progress Note Date: 06/07/20 Principal diagnosis: Severe depression. Encephalopathy w/ Catatonia; Serotonin syndrome with component of toxic metabolic encephalopathy Patient is a 75-year-old female with a known history of seizure disorder, GERD, hyperlipidemia, history of colon cancer, esophageal strictures and history of esophageal palpitation, anxiety depression and panic disorder and history of major depression and admission to mental health unit presents to ER with complai nts of worsening anxiety and depression for the past 3 days. EMS was called by her stating that her symptoms had worsened. Denies any overdose or suicidal ideation as per the ER note. No complaints of chest pain or shortness of. No nausea vomiting or abdominal pain or diarrhea. Laboratory data showed WBC 6.3, hemoglobin 13.2 and platelets 251 D-dimer 0.94 Sodium 142, potassium 3.3, chloride 108, BUN 30 and creatinine 1.29 Lactic acid was 4.4 on admission Troponin x1 - COVID-19 PCR is negative Today morning patient was found to be hyponatremic with sodium level 150, potassium 2.8 and chloride 116. IV fluids were changed to D5 water. UA is negative for infection EKG showed sinus tachycardia Chest x-ray showed no acute pulmonary process VQ scan showed low probability for PE 05/22/2020 Patient is currently in the MICU. Yesterday evening patient developed muscular rigidity and diaphoretic and tachycardic and febrile. Patient received dose of Haldol prior to this episode and suspected neuroleptic malignant syndrome. Patient was given fluid boluses and started on Ativan for muscle rigidity. Patient was transferred to MICU and was seen by rapid response team. Haldol has been discontinued and monitor QT interval. Potassium was replaced and went up to 3.0 today. Possibly is also low and is being replaced with potassium phosphate. Laboratory data showed WBC is 4.4, hemoglobin 9.7 and platelets 134 BUN 39 creatinine 0.95 and phosphorus level is 1.0 and CPK level went up to 3024 and 3177 patient is being continued on D5 water at 150 cc/h. Critical care team is on board. 05/23/2019 Patient is currently lying in the bed. Able to open her eyes slowly. Does not communicate or follow simple commands. bilateral lower extremities are less rigid today. Laboratory data showed improved potassium level to 4.0 and CPK level improved to 2632 today. Continue IV hydration with D5 normal saline. T- max 99.7 Culture showed no growth Patient is being continued on Ativan as needed for agitation and is being monitored in the ICU. 05/31/2020 Patient is still encephalopathic and drowsy. Resting in the bed comfortably. Able to open her eyes occasionally. Does not communicate at this time. Otherwise patient is currently being continued on Ciproheptadine and Ativan when necessary for agitation. Continued on IV hydration Urine culture showed E. coli and Citrobacter. IV antibiotics no in the form of Zosyn Neurology and pulmonary is on board. 06/01/2020 Patient is currently lying in the bed, still encephalopathic and does not open eyes with verbal commands. Less spastic compared to yesterday. Patient is on NG tube feeding and is tolerating well. Patient has been afebrile. Continued on antibiotics in the form of Zosyn. Neurology and psychiatric is following. 06/02/2020 Patient is able to open her eyes with verbal stimuli today. Does not follow commands. Tolerating tube feeding. Patient has been afebrile. Continued on Ativan 3.5 mg IV every 6 hours. Psychiatric and neurology is following. Patient underwent neurological workup including EEG, MRI and LP. Continued on antibiotics for urinary tract infection. 06/03/2020 Patient is more awake and able to open her eyes. Trying to communicate. No complains of chest pain. Tolerating tube feeding. Otherwise T-max is 101.1. Patient is being continued on Ativan 3.5 mg every 6 hours. Also on antibiotics in the form of Zosyn for E. coli urinary tract infection. Patient is on Cheatham catheter. Fecal collecting system will be discontinued. 06/04/2020 Patient remained somnolent today. Patient was able to open her eyes on and off and was able to tell her name as per nursing staff. Patient has been afebrile. Patient is on Ativan 3 mg IV every 6 hourly. Continued on carbidopa levodopa and antibiotics in the form of Zosyn. Neurology and psychiatric is on board. 06/05/2020 Patient is awake and opens her eyes with verbal command. Patient was able to state her name as per nursing staff this morning. Patient pulled out her NG tube last night and was replaced back. Patient is afebrile. Continued on Ativan 3 mg IV push every 6 hours. Laboratory data showed WBC 6.0, hemoglobin 9.4 and platelets 395 BUN 18 and creatinine 0.9 AST 58 ALT 24 and alk phos 75 and blood sugar is controlled. Patient is tolerating tube feeding. 06/06/2020 Patient is able to open her eyes with verbal commands. Denied any complaints of chest pain or shortness of breath. Saturating at 93% on room air. Blood press ure is controlled. T-max is 100.6 yesterday morning. Afebrile currently. Remains on IV Ativan. Tolerating tolerated tube feeding. Psychiatry and neurology is on board. 06/07/20 Patient is currently lying in the bed able to open her eyes with double stimuli. Could not communicate. Spasticity of bilateral upper and lower extremities is much improved now. Patient is being planned IV Ativan scheduled dose. Psychiatry is following. Currently NG tube feeding which patient is tolerating well. Patient has been afebrile. No chest pain or shortness of breath. No diarrhea. Current medications reviewed. Objective - Vital Signs Vital signs: Vital Signs Temp 97.8 F 06/07/20 08:00 Pulse 100 06/07/20 11:54 Resp 16 06/07/20 08:23 BP 154/71 06/07/20 08:00 Pulse Ox 94 L 06/07/20 08:00 Intake & Output 06/06/20 06/07/20 06/07/20 18:59 06:59 18:59 Intake Total 1200 Output Total 1201 Balance 1200 -1201 Weight 49 kg 49 kg Intake: IV 1100 Dextrose 5%-0.9% NaCl 1, 1100 000 ml @ 100 mls/hr IV . Q10H CORAL Rx#:[id number] Intake, IV Titration 100 Amount Piperacillin-Tazobactam 3 100 .375 gm In Sodium Chloride 0.9% 100 ml @ 25 mls/hr IVPB Q8HR CORAL Rx# :[id number] Output: Urine 1200 Stool 1 Other: Voiding Method Indwelling Catheter Indwelling Catheter Indwelling Catheter # Bowel Movements 1 - Exam PHYSICAL EXAMINATION: Patient is lying in the bed comfortably, Able to open her eyes but not communicating.. HEENT: Normocephalic. Neck is supple. Pupils reactive. Nostrils clear. Oral cavity is moist. Ears reveal no drainage. Neck reveals no JVD, carotid bruits, or thyromegaly. CHEST EXAMINATION: Trachea is central. Symmetrical expansion. Lung morley clear to auscultation and percussion. CARDIAC: Normal S1, S2 with no gallops. No murmurs ABDOMEN: Soft. non distended. Bowel sounds normal. No organomegaly. No abdominal bruits. Extremities: reveal no edema. No clubbing or cyanosis Neurologically awake, alerts.Oriented x1-2. withdrawn, No focal deficits noted Skin: No rash or skin lesions. Psychiatric: Noncooperative. Musculoskeletal: No joint swelling or deformity. - Labs CBC & Chem 7: 06/07/20 06:04 06/07/20 06:04 Labs: Abnormal Lab Results - Last 24 Hours (Table) 06/06/20 06/07/20 06/07/20 Range/Units 16:46 00:10 06:04 RBC (3.80-5.40) m/uL Hgb (11.4-16.0) gm/dL Hct (34.0-46.0) % Plt Count (150-450) k/uL Chloride (96-109) mmol/L BUN/Creatinine Ratio (12.00-20.00) Ratio Glucose (70-110) mg/dL POC Glucose (mg/dL) 124 H 140 H (75-99) mg/dL Calcium (8.7-10.3) mg/dL C-Reactive Protein (0.0-0.8) mg/dL Procalcitonin 0.22 H (0.02-0.09) ng/mL 06/07/20 06/07/20 06/07/20 Range/Units 06:04 06:04 06:33 RBC 2.91 L (3.80-5.40) m/uL Hgb 9.0 L (11.4-16.0) gm/dL Hct 28.1 L (34.0-46.0) % Plt Count 453 H (150-450) k/uL Chloride 110 H (96-109) mmol/L BUN/Creatinine Ratio 26.25 H (12.00-20.00) Ratio Glucose 119 H (70-110) mg/dL POC Glucose (mg/dL) 107 H (75-99) mg/dL Calcium 8.2 L (8.7-10.3) mg/dL C-Reactive Protein 10.1 H (0.0-0.8) mg/dL Procalcitonin (0.02-0.09) ng/mL 06/07/20 Range/Units 11:25 RBC (3.80-5.40) m/uL Hgb (11.4-16.0) gm/dL Hct (34.0-46.0) % Plt Count (150-450) k/uL Chloride (96-109) mmol/L BUN/Creatinine Ratio (12.00-20.00) Ratio Glucose (70-110) mg/dL POC Glucose (mg/dL) 121 H (75-99) mg/dL Calcium (8.7-10.3) mg/dL C-Reactive Protein (0.0-0.8) mg/dL Procalcitonin (0.02-0.09) ng/mL Microbiology - Last 24 Hours (Table) 05/31/20 21:23 Blood Culture - Final Blood No Growth after 144 hours Assessment and Plan Assessment: Myoclonus with severe encephalopathy due to acute serotonin syndrome. Catatonia with severe depression Possible neuroleptic malignant syndrome. E. coli and Citrobacter urinary tract infection Severe rhabdomyolysis. Improved. Acute episode of major depressive disorder Generalized anxiety and panic disorder Hypernatremia and severe hypokalemia. Improved now Hyperlipidemia History of seizure disorder. EEG showed encephalopathy without any seizure spikes. GERD History of esophageal stricture status post EGD and dilation Anxiety/depression panic disorder history DVT prophylaxis with heparin subcu Plan: Patient will be continued to feeding and IV hydration.. was given Ciproheptadine. Continue with IV Ativan. and follow-up closely. Replace electrolytes and further recommendations based on the clinical course. Neurology and psychiatriy is on board.. Time with Patient: Greater than 30
--- NOTE | 2020-06-09 22:37 | P.PN ---
Subjective Progress Note Date: 06/08/20 Principal diagnosis: Severe depression. Encephalopathy w/ Catatonia; Serotonin syndrome with component of toxic metabolic encephalopathy Patient is a 75-year-old female with a known history of seizure disorder, GERD, hyperlipidemia, history of colon cancer, esophageal strictures and history of esophageal palpitation, anxiety depression and panic disorder and history of major depression and admission to mental health unit presents to ER with complai nts of worsening anxiety and depression for the past 3 days. EMS was called by her stating that her symptoms had worsened. Denies any overdose or suicidal ideation as per the ER note. No complaints of chest pain or shortness of. No nausea vomiting or abdominal pain or diarrhea. Laboratory data showed WBC 6.3, hemoglobin 13.2 and platelets 251 D-dimer 0.94 Sodium 142, potassium 3.3, chloride 108, BUN 30 and creatinine 1.29 Lactic acid was 4.4 on admission Troponin x1 - COVID-19 PCR is negative Today morning patient was found to be hyponatremic with sodium level 150, potassium 2.8 and chloride 116. IV fluids were changed to D5 water. UA is negative for infection EKG showed sinus tachycardia Chest x-ray showed no acute pulmonary process VQ scan showed low probability for PE 05/22/2020 Patient is currently in the MICU. Yesterday evening patient developed muscular rigidity and diaphoretic and tachycardic and febrile. Patient received dose of Haldol prior to this episode and suspected neuroleptic malignant syndrome. Patient was given fluid boluses and started on Ativan for muscle rigidity. Patient was transferred to MICU and was seen by rapid response team. Haldol has been discontinued and monitor QT interval. Potassium was replaced and went up to 3.0 today. Possibly is also low and is being replaced with potassium phosphate. Laboratory data showed WBC is 4.4, hemoglobin 9.7 and platelets 134 BUN 39 creatinine 0.95 and phosphorus level is 1.0 and CPK level went up to 3024 and 3177 patient is being continued on D5 water at 150 cc/h. Critical care team is on board. 05/23/2019 Patient is currently lying in the bed. Able to open her eyes slowly. Does not communicate or follow simple commands. bilateral lower extremities are less rigid today. Laboratory data showed improved potassium level to 4.0 and CPK level improved to 2632 today. Continue IV hydration with D5 normal saline. T- max 99.7 Culture showed no growth Patient is being continued on Ativan as needed for agitation and is being monitored in the ICU. 05/31/2020 Patient is still encephalopathic and drowsy. Resting in the bed comfortably. Able to open her eyes occasionally. Does not communicate at this time. Otherwise patient is currently being continued on Ciproheptadine and Ativan when necessary for agitation. Continued on IV hydration Urine culture showed E. coli and Citrobacter. IV antibiotics no in the form of Zosyn Neurology and pulmonary is on board. 06/01/2020 Patient is currently lying in the bed, still encephalopathic and does not open eyes with verbal commands. Less spastic compared to yesterday. Patient is on NG tube feeding and is tolerating well. Patient has been afebrile. Continued on antibiotics in the form of Zosyn. Neurology and psychiatric is following. 06/02/2020 Patient is able to open her eyes with verbal stimuli today. Does not follow commands. Tolerating tube feeding. Patient has been afebrile. Continued on Ativan 3.5 mg IV every 6 hours. Psychiatric and neurology is following. Patient underwent neurological workup including EEG, MRI and LP. Continued on antibiotics for urinary tract infection. 06/03/2020 Patient is more awake and able to open her eyes. Trying to communicate. No complains of chest pain. Tolerating tube feeding. Otherwise T-max is 101.1. Patient is being continued on Ativan 3.5 mg every 6 hours. Also on antibiotics in the form of Zosyn for E. coli urinary tract infection. Patient is on Cheatham catheter. Fecal collecting system will be discontinued. 06/04/2020 Patient remained somnolent today. Patient was able to open her eyes on and off and was able to tell her name as per nursing staff. Patient has been afebrile. Patient is on Ativan 3 mg IV every 6 hourly. Continued on carbidopa levodopa and antibiotics in the form of Zosyn. Neurology and psychiatric is on board. 06/05/2020 Patient is awake and opens her eyes with verbal command. Patient was able to state her name as per nursing staff this morning. Patient pulled out her NG tube last night and was replaced back. Patient is afebrile. Continued on Ativan 3 mg IV push every 6 hours. Laboratory data showed WBC 6.0, hemoglobin 9.4 and platelets 395 BUN 18 and creatinine 0.9 AST 58 ALT 24 and alk phos 75 and blood sugar is controlled. Patient is tolerating tube feeding. 06/06/2020 Patient is able to open her eyes with verbal commands. Denied any complaints of chest pain or shortness of breath. Saturating at 93% on room air. Blood press ure is controlled. T-max is 100.6 yesterday morning. Afebrile currently. Remains on IV Ativan. Tolerating tolerated tube feeding. Psychiatry and neurology is on board. 06/07/20 Patient is currently lying in the bed able to open her eyes with double stimuli. Could not communicate. Spasticity of bilateral upper and lower extremities is much improved now. Patient is being planned IV Ativan scheduled dose. Psychiatry is following. Currently NG tube feeding which patient is tolerating well. Patient has been afebrile. No chest pain or shortness of breath. No diarrhea. 2020-06-08 Patient is currently resting her bed with minimal agitation. Center on IV Ativan. Able to open her eyes but not able to communicate. Confusion restless at times. Currently patient is IV Zosyn for possible pneumonia. Change to Augmentin. ID is on board. T-max of 100.3 Current medications reviewed. Objective - Vital Signs Vital signs: Vital Signs Temp 99.7 F H 06/08/20 14:00 Pulse 91 06/08/20 19:48 Resp 18 06/08/20 14:00 BP 189/80 06/08/20 14:00 Pulse Ox 96 06/08/20 14:00 Intake & Output 06/08/20 06/08/20 06/09/20 06:59 18:59 06:59 Output Total 801 350 Balance -801 -350 Weight 39 kg Output: Urine 800 350 Stool 1 Other: Voiding Method Indwelling Catheter Indwelling Catheter # Bowel Movements 1 - Exam PHYSICAL EXAMINATION: Patient is lying in the bed comfortably, Able to open her eyes but not communicating.. HEENT: Normocephalic. Neck is supple. Pupils reactive. Nostrils clear. Oral cavity is moist. Ears reveal no drainage. Neck reveals no JVD, carotid bruits, or thyromegaly. CHEST EXAMINATION: Trachea is central. Symmetrical expansion. Lung morley clear to auscultation and percussion. CARDIAC: Normal S1, S2 with no gallops. No murmurs ABDOMEN: Soft. non distended. Bowel sounds normal. No organomegaly. No abdominal bruits. Extremities: reveal no edema. No clubbing or cyanosis Neurologically awake, alerts.Oriented x1-2. withdrawn, No focal deficits noted Skin: No rash or skin lesions. Psychiatric: Noncooperative. Musculoskeletal: No joint swelling or deformity. - Labs CBC & Chem 7: 06/07/20 06:04 06/07/20 06:04 Labs: Abnormal Lab Results - Last 24 Hours (Table) 06/08/20 06/08/20 06/08/20 Range/Units 00:39 06:39 12:24 POC Glucose (mg/dL) 102 H 114 H 112 H (75-99) mg/dL 06/08/20 Range/Units 18:23 POC Glucose (mg/dL) 135 H (75-99) mg/dL Assessment and Plan Assessment: Myoclonus with severe encephalopathy due to acute serotonin syndrome. Catatonia with severe depression Possible neuroleptic malignant syndrome. E. coli and Citrobacter urinary tract infection Severe rhabdomyolysis. Improved. Acute episode of major depressive disorder Generalized anxiety and panic disorder Hypernatremia and severe hypokalemia. Improved now Hyperlipidemia History of seizure disorder. EEG showed encephalopathy without any seizure spi kes. GERD History of esophageal stricture status post EGD and dilation Anxiety/depression panic disorder history DVT prophylaxis with heparin subcu Plan: Patient will be continued to feeding and IV hydration.. was given Ciproheptadine. Continue with IV Ativan. and follow-up closely. Replace electrolytes and further recommendations based on the clinical course. Neurology and psychiatriy is on board..
--- NOTE | 2020-06-09 22:40 | P.PN ---
Subjective Progress Note Date: 06/09/20 Principal diagnosis: Severe depression. Encephalopathy w/ Catatonia; Serotonin syndrome with component of toxic metabolic encephalopathy Patient is a 75-year-old female with a known history of seizure disorder, GERD, hyperlipidemia, history of colon cancer, esophageal strictures and history of esophageal palpitation, anxiety depression and panic disorder and history of major depression and admission to mental health unit presents to ER with complai nts of worsening anxiety and depression for the past 3 days. EMS was called by her stating that her symptoms had worsened. Denies any overdose or suicidal ideation as per the ER note. No complaints of chest pain or shortness of. No nausea vomiting or abdominal pain or diarrhea. Laboratory data showed WBC 6.3, hemoglobin 13.2 and platelets 251 D-dimer 0.94 Sodium 142, potassium 3.3, chloride 108, BUN 30 and creatinine 1.29 Lactic acid was 4.4 on admission Troponin x1 - COVID-19 PCR is negative Today morning patient was found to be hyponatremic with sodium level 150, potassium 2.8 and chloride 116. IV fluids were changed to D5 water. UA is negative for infection EKG showed sinus tachycardia Chest x-ray showed no acute pulmonary process VQ scan showed low probability for PE 05/22/2020 Patient is currently in the MICU. Yesterday evening patient developed muscular rigidity and diaphoretic and tachycardic and febrile. Patient received dose of Haldol prior to this episode and suspected neuroleptic malignant syndrome. Patient was given fluid boluses and started on Ativan for muscle rigidity. Patient was transferred to MICU and was seen by rapid response team. Haldol has been discontinued and monitor QT interval. Potassium was replaced and went up to 3.0 today. Possibly is also low and is being replaced with potassium phosphate. Laboratory data showed WBC is 4.4, hemoglobin 9.7 and platelets 134 BUN 39 creatinine 0.95 and phosphorus level is 1.0 and CPK level went up to 3024 and 3177 patient is being continued on D5 water at 150 cc/h. Critical care team is on board. 05/23/2019 Patient is currently lying in the bed. Able to open her eyes slowly. Does not communicate or follow simple commands. bilateral lower extremities are less rigid today. Laboratory data showed improved potassium level to 4.0 and CPK level improved to 2632 today. Continue IV hydration with D5 normal saline. T- max 99.7 Culture showed no growth Patient is being continued on Ativan as needed for agitation and is being monitored in the ICU. 05/31/2020 Patient is still encephalopathic and drowsy. Resting in the bed comfortably. Able to open her eyes occasionally. Does not communicate at this time. Otherwise patient is currently being continued on Ciproheptadine and Ativan when necessary for agitation. Continued on IV hydration Urine culture showed E. coli and Citrobacter. IV antibiotics no in the form of Zosyn Neurology and pulmonary is on board. 06/01/2020 Patient is currently lying in the bed, still encephalopathic and does not open eyes with verbal commands. Less spastic compared to yesterday. Patient is on NG tube feeding and is tolerating well. Patient has been afebrile. Continued on antibiotics in the form of Zosyn. Neurology and psychiatric is following. 06/02/2020 Patient is able to open her eyes with verbal stimuli today. Does not follow commands. Tolerating tube feeding. Patient has been afebrile. Continued on Ativan 3.5 mg IV every 6 hours. Psychiatric and neurology is following. Patient underwent neurological workup including EEG, MRI and LP. Continued on antibiotics for urinary tract infection. 06/03/2020 Patient is more awake and able to open her eyes. Trying to communicate. No complains of chest pain. Tolerating tube feeding. Otherwise T-max is 101.1. Patient is being continued on Ativan 3.5 mg every 6 hours. Also on antibiotics in the form of Zosyn for E. coli urinary tract infection. Patient is on Cheatham catheter. Fecal collecting system will be discontinued. 06/04/2020 Patient remained somnolent today. Patient was able to open her eyes on and off and was able to tell her name as per nursing staff. Patient has been afebrile. Patient is on Ativan 3 mg IV every 6 hourly. Continued on carbidopa levodopa and antibiotics in the form of Zosyn. Neurology and psychiatric is on board. 06/05/2020 Patient is awake and opens her eyes with verbal command. Patient was able to state her name as per nursing staff this morning. Patient pulled out her NG tube last night and was replaced back. Patient is afebrile. Continued on Ativan 3 mg IV push every 6 hours. Laboratory data showed WBC 6.0, hemoglobin 9.4 and platelets 395 BUN 18 and creatinine 0.9 AST 58 ALT 24 and alk phos 75 and blood sugar is controlled. Patient is tolerating tube feeding. 06/06/2020 Patient is able to open her eyes with verbal commands. Denied any complaints of chest pain or shortness of breath. Saturating at 93% on room air. Blood press ure is controlled. T-max is 100.6 yesterday morning. Afebrile currently. Remains on IV Ativan. Tolerating tolerated tube feeding. Psychiatry and neurology is on board. 06/07/20 Patient is currently lying in the bed able to open her eyes with double stimuli. Could not communicate. Spasticity of bilateral upper and lower extremities is much improved now. Patient is being planned IV Ativan scheduled dose. Psychiatry is following. Currently NG tube feeding which patient is tolerating well. Patient has been afebrile. No chest pain or shortness of breath. No diarrhea. 2020-06-08 Patient is currently resting her bed with minimal agitation. Center on IV Ativan. Able to open her eyes but not able to communicate. Confusion restless at times. Currently patient is IV Zosyn for possible pneumonia. Change to Augmentin. ID is on board. T-max of 100.3 2020-06-09 Patient still unresponsive but able to open her eyes. Mentation is unchanged and could not provide any history. Patient is being continued on IV Ativan. Neurology and psychiatry is on board. Patient may benefit from ECT and will be transferred to a facility which offers ECT for patient's catatonia. Will discuss with transfer team and possible transfer to [facility]. Otherwise patient is being continued on tube feeding and antibiotics in the form of Augmentin. Follow-up CBC and BMP. Patient has been afebrile. Current medications reviewed. Objective - Vital Signs Vital signs: Vital Signs Temp 99.3 F 06/09/20 19:25 Pulse 117 H 06/09/20 19:25 Resp 14 06/09/20 19:25 BP 145/61 06/09/20 19:25 Pulse Ox 95 06/09/20 19:25 Intake & Output 06/09/20 06/09/20 06/10/20 06:59 18:59 06:59 Output Total 550 550 Balance -550 -550 Weight 56 kg Output: Urine 550 550 Other: Voiding Method Indwelling Catheter - Exam PHYSICAL EXAMINATION: Patient is lying in the bed comfortably, Able to open her eyes but not communicating.. HEENT: Normocephalic. Neck is supple. Pupils reactive. Nostrils clear. Oral cavity is moist. Ears reveal no drainage. Neck reveals no JVD, carotid bruits, or thyromegaly. CHEST EXAMINATION: Trachea is central. Symmetrical expansion. Lung morley clear to auscultation and percussion. CARDIAC: Normal S1, S2 with no gallops. No murmurs ABDOMEN: Soft. non distended. Bowel sounds normal. No organomegaly. No abdominal bruits. Extremities: reveal no edema. No clubbing or cyanosis Neurologically awake, alerts.Oriented x1-2. withdrawn, No focal deficits noted Skin: No rash or skin lesions. Psychiatric: Noncooperative. Musculoskeletal: No joint swelling or deformity. - Labs CBC & Chem 7: 06/07/20 06:04 06/07/20 06:04 Labs: Abnormal Lab Results - Last 24 Hours (Table) 06/09/20 06/09/20 06/09/20 Range/Units 00:40 06:43 13:17 POC Glucose (mg/dL) 108 H 106 H 106 H (75-99) mg/dL Assessment and Plan Assessment: Myoclonus with severe encephalopathy due to acute serotonin syndrome. Catatonia with severe depression Possible neuroleptic malignant syndrome. E. coli and Citrobacter urinary tract infection Severe rhabdomyolysis. Improved. Acute episode of major depressive disorder Generalized anxiety and panic disorder Hypernatremia and severe hypokalemia. Improved now Hyperlipidemia History of seizure disorder. EEG showed encephalopathy without any seizure s pikes. GERD History of esophageal stricture status post EGD and dilation Anxiety/depression panic disorder history DVT prophylaxis with heparin subcu Plan: Patient will be continued to feeding and IV hydration.. was given Ciproheptadine. Continue with IV Ativan. and follow-up closely. Replace electrolytes and further recommendations based on the clinical course. Neurology and psychiatriy is on board.. Time with Patient: Greater than 30
[2020-06-10 00:04] LABS: Glucose,Whole Blood 124 mg/dL (75-99)
[2020-06-10] MEDS: LORazepam 2 MG/ML INJ IV SCH ×5 (00:22→23:01)
[2020-06-10] MEDS: DEXTROSE 5%-0.9% NACL 1,000 ML IV SCH ×3 (05:33→20:03)
[2020-06-10 05:49] LABS: Glucose,Whole Blood 133 mg/dL (75-99)
[2020-06-10 06:23] LABS: Basophils % (A) 0 %; Eosinophils # (A) 0.2 k/uL (0-0.7); Eosinophils % (A) 2 %; HCT 27.8 % (34.0-46.0); Hypochromasia Moderate; Lymphocytes # (A) 0.8 k/uL (1.0-4.8); Lymphocytes % (A) 10 %; MCH 31.6 pg (25.0-35.0); MCHC 32.5 g/dL (31.0-37.0); MCV 97.3 fL (80.0-100.0); Mean Platelet Volume 7.9; Monocytes # (A) 0.4 k/uL (0-1.0); Monocytes % (A) 5 %; Neutrophils # (A) 6.5 k/uL (1.3-7.7); Neutrophils % (A) 81 %; Platelet Count 405 k/uL (150-450); RBC 2.86 m/uL (3.80-5.40); RDW 13.5 % (11.5-15.5)
[2020-06-10] MEDS: IPRATROPIUM-ALBUTEROL 3 ML NEB INHALATION SCH ×3 (07:06→20:09)
[2020-06-10] MEDS: PANTOPRAZOLE 40 MG/10 ML VIAL IVP SCH (09:16)
[2020-06-10] MEDS: CARBIDOPA-LEVODOPA 25-100 MG 1 EACH TAB PO SCH ×3 (09:24→20:02)
[2020-06-10] MEDS: AMOXIC-POT CLAV 875-125MG 1 EACH TAB PEG/G-TUBE SCH ×2 (09:24→20:02)
[2020-06-10] MEDS: HEPARIN SODIUM,PORCINE 5,000 UNIT/ML 1 ML VIAL SQ SCH ×2 (09:24→20:02)
[2020-06-10] MEDS: lamoTRIgine 100 MG TAB PO SCH ×2 (09:24→20:02)
[2020-06-10] MEDS: ACETAMINOPHEN TAB 325 MG TAB PO PRN (09:37)
[2020-06-10 09:48] LABS: Anion Gap 10.9 mmol/L (4.00-12.00); BUN/Creat Ratio 26.25 Ratio (12.00-20.00); Calcium 8.4 mg/dL (8.7-10.3); Carbon Dioxide 23.1 mmol/L (21.6-31.8); Non-African American GFR(CKD) 71.6 (60.0-200.0); Potassium 3.6 mmol/L (3.5-5.5)
[2020-06-10 12:20] LABS: Glucose,Whole Blood 135 mg/dL (75-99)
--- NOTE | 2020-06-10 13:10 | P.PN ---
Progress Note - Text Progress Note Date: 06/10/20 Interval History: From 05/26/2020: Patient was seen resting in bed and was unarousable and unable to participate in the psychiatric interview. Review of the patient's chart shows that lumbar puncture CSF was within normal limits. The patient is being treated for serotonin syndrome. Urine cultures are positive for gram-negative bacilli and the patient is on empiric Zosyn. She can just remain encephalopathic. Ativan challenge was initiated to treat the patient for catatonia. At 12:09 PM the patient scored a 34 on the severity of the Dona-Kwame Catatonia Rating Scale. After 2 administrations of 2 mg IV of ativan, after 10 minutes, the recheck of score revealed improvement with a new score of 22. The patient had a significant decrease in her negativism, perseveration, and her ambitendency. Today (06/10/2020): Patient appears to more responsive today but is unable to verbalize sentences during the psychiatric interview with much substance. She has been noted to have elevated temperatures including a temperature 100F earlier this morning. She appears to be much more alert today and is able to maintain eye contact. She does not follow commands today. Mental Status Exam: General Appearance: Patient has NG Tube in place. She appears her stated age. No acute distress. Behavior: Patient is somnolent but arousable. She makes appropriate eye contact. Speech: Nonverbal today. Mood/Affect: Unable to assess Suicidality/Homicidality: Unable to assess Perceptions: Unable to assess Though content/process: Unable to assess Memory and concentration: Unable to assess Judgment and insight: poor Assessment Encephalopathy Major Depressive Disorder, with catatonia UTI Plan: -The patient appeared better when she was on 3.5 mg IV every 6 hours in regards to her responsiveness. When she was at 4 mg IV every 6 hours, the patient did appear to be more somnolent.Due to these reasons, it is best recommended that the patient is treated with ECT as it is difficult balancing the patient's Ativan dose to manage catatonia and her ability to tolerate higher doses. We will continue her current dose at this time. -Recommendation for transfer to a facility that can administer ECT. Discussed case with rn field case manager. Currently looking into placement at [facility]. -Will continue lamictal at this time. -Psychiatry will continue to follow loosely.
[2020-06-10] MEDS ORDERED: SODIUM CHLORIDE 0.9% 500 ML 500 ML IV ONE (14:00)
[2020-06-10 15:05] VITALS: BMI 17.2
[2020-06-10 16:37] LABS: Glucose,Whole Blood 137 mg/dL (75-99)
--- NOTE | 2020-06-10 22:14 | PN ---
PROGRESS NOTE DATE OF SERVICE: 06/10/2020 REASON FOR FOLLOWUP: Fever, pneumonia and sinusitis. INTERVAL HISTORY: The patient currently did have a low-grade fever of 100.4 degrees this morning. Afebrile since then. The patient remains to be , unable to provide any history. No vomiting, diarrhea. the patient herself is unable to provide any history. PHYSICAL EXAMINATION: Blood pressure 92/33, with pulse of 99, temperature 98.4. She is 96% on room air. General description: The patient is an elderly female lying in bed in no distress. Respiratory system: Unlabored breathing, decreased breath sounds in the bases. No wheeze. HEART S1, S2. Regular rate and rhythm. ABDOMEN: Soft. No tenderness. LAB: Hemoglobin 9.1, white count 8.0. BUN of 21, creatinine 0.8. DIAGNOSTIC IMPRESSION AND PLAN: Patient with fever in this patient who did have extensive workup, possible pneumonia and started on oral Augmentin. Continue for short course. Monitor clinical course closely. MMODL / IJN: [id number] /
[2020-06-10 23:53] LABS: Glucose,Whole Blood 137 mg/dL (75-99)
--- NOTE | 2020-06-11 00:56 | P.PN ---
Subjective Progress Note Date: 06/10/20 Principal diagnosis: Severe depression. Encephalopathy w/ Catatonia; Serotonin syndrome with component of toxic metabolic encephalopathy Patient is a 75-year-old female with a known history of seizure disorder, GERD, hyperlipidemia, history of colon cancer, esophageal strictures and history of esophageal palpitation, anxiety depression and panic disorder and history of major depression and admission to mental health unit presents to ER with complai nts of worsening anxiety and depression for the past 3 days. EMS was called by her stating that her symptoms had worsened. Denies any overdose or suicidal ideation as per the ER note. No complaints of chest pain or shortness of. No nausea vomiting or abdominal pain or diarrhea. Laboratory data showed WBC 6.3, hemoglobin 13.2 and platelets 251 D-dimer 0.94 Sodium 142, potassium 3.3, chloride 108, BUN 30 and creatinine 1.29 Lactic acid was 4.4 on admission Troponin x1 - COVID-19 PCR is negative Today morning patient was found to be hyponatremic with sodium level 150, potassium 2.8 and chloride 116. IV fluids were changed to D5 water. UA is negative for infection EKG showed sinus tachycardia Chest x-ray showed no acute pulmonary process VQ scan showed low probability for PE 05/22/2020 Patient is currently in the MICU. Yesterday evening patient developed muscular rigidity and diaphoretic and tachycardic and febrile. Patient received dose of Haldol prior to this episode and suspected neuroleptic malignant syndrome. Patient was given fluid boluses and started on Ativan for muscle rigidity. Patient was transferred to MICU and was seen by rapid response team. Haldol has been discontinued and monitor QT interval. Potassium was replaced and went up to 3.0 today. Possibly is also low and is being replaced with potassium phosphate. Laboratory data showed WBC is 4.4, hemoglobin 9.7 and platelets 134 BUN 39 creatinine 0.95 and phosphorus level is 1.0 and CPK level went up to 3024 and 3177 patient is being continued on D5 water at 150 cc/h. Critical care team is on board. 05/23/2019 Patient is currently lying in the bed. Able to open her eyes slowly. Does not communicate or follow simple commands. bilateral lower extremities are less rigid today. Laboratory data showed improved potassium level to 4.0 and CPK level improved to 2632 today. Continue IV hydration with D5 normal saline. T- max 99.7 Culture showed no growth Patient is being continued on Ativan as needed for agitation and is being monitored in the ICU. 05/31/2020 Patient is still encephalopathic and drowsy. Resting in the bed comfortably. Able to open her eyes occasionally. Does not communicate at this time. Otherwise patient is currently being continued on Ciproheptadine and Ativan when necessary for agitation. Continued on IV hydration Urine culture showed E. coli and Citrobacter. IV antibiotics no in the form of Zosyn Neurology and pulmonary is on board. 06/01/2020 Patient is currently lying in the bed, still encephalopathic and does not open eyes with verbal commands. Less spastic compared to yesterday. Patient is on NG tube feeding and is tolerating well. Patient has been afebrile. Continued on antibiotics in the form of Zosyn. Neurology and psychiatric is following. 06/02/2020 Patient is able to open her eyes with verbal stimuli today. Does not follow commands. Tolerating tube feeding. Patient has been afebrile. Continued on Ativan 3.5 mg IV every 6 hours. Psychiatric and neurology is following. Patient underwent neurological workup including EEG, MRI and LP. Continued on antibiotics for urinary tract infection. 06/03/2020 Patient is more awake and able to open her eyes. Trying to communicate. No complains of chest pain. Tolerating tube feeding. Otherwise T-max is 101.1. Patient is being continued on Ativan 3.5 mg every 6 hours. Also on antibiotics in the form of Zosyn for E. coli urinary tract infection. Patient is on Cheatham catheter. Fecal collecting system will be discontinued. 06/04/2020 Patient remained somnolent today. Patient was able to open her eyes on and off and was able to tell her name as per nursing staff. Patient has been afebrile. Patient is on Ativan 3 mg IV every 6 hourly. Continued on carbidopa levodopa and antibiotics in the form of Zosyn. Neurology and psychiatric is on board. 06/05/2020 Patient is awake and opens her eyes with verbal command. Patient was able to state her name as per nursing staff this morning. Patient pulled out her NG tube last night and was replaced back. Patient is afebrile. Continued on Ativan 3 mg IV push every 6 hours. Laboratory data showed WBC 6.0, hemoglobin 9.4 and platelets 395 BUN 18 and creatinine 0.9 AST 58 ALT 24 and alk phos 75 and blood sugar is controlled. Patient is tolerating tube feeding. 06/06/2020 Patient is able to open her eyes with verbal commands. Denied any complaints of chest pain or shortness of breath. Saturating at 93% on room air. Blood press ure is controlled. T-max is 100.6 yesterday morning. Afebrile currently. Remains on IV Ativan. Tolerating tolerated tube feeding. Psychiatry and neurology is on board. 06/07/20 Patient is currently lying in the bed able to open her eyes with double stimuli. Could not communicate. Spasticity of bilateral upper and lower extremities is much improved now. Patient is being planned IV Ativan scheduled dose. Psychiatry is following. Currently NG tube feeding which patient is tolerating well. Patient has been afebrile. No chest pain or shortness of breath. No diarrhea. 2020-06-08 Patient is currently resting her bed with minimal agitation. Center on IV Ativan. Able to open her eyes but not able to communicate. Confusion restless at times. Currently patient is IV Zosyn for possible pneumonia. Change to Augmentin. ID is on board. T-max of 100.3 2020-06-09 Patient still unresponsive but able to open her eyes. Mentation is unchanged and could not provide any history. Patient is being continued on IV Ativan. Neurology and psychiatry is on board. Patient may benefit from ECT and will be transferred to a facility which offers ECT for patient's catatonia. Will discuss with transfer team and possible transfer to [facility]. Otherwise patient is being continued on tube feeding and antibiotics in the form of Augmentin. Follow-up CBC and BMP. Patient has been afebrile. 06/10/2020 Patient is currently lying in the bed. Awake and opens her eyes but could not communicate. Patient is being continued on IV Ativan. Tolerating NG tube feeding. T-max of 100.0 this morning. Awaiting to be transferred to psychiatric facility with ECT availability. manager room is following. Laboratory data showed WBC 8.0, hemoglobin 9.0 and platelets 405 BUN 21 creatinine 0.8 Calcium 8.4 No diarrhea. No abdominal tenderness. Patient cannot provide any history at this time. Current medications reviewed. Objective - Vital Signs Vital signs: Vital Signs Temp 99.4 F 06/10/20 14:00 Pulse 99 06/10/20 14:00 Resp 16 06/10/20 14:00 BP 92/33 06/10/20 14:15 Pulse Ox 96 06/10/20 14:00 Intake & Output 06/10/20 06/10/20 06/11/20 06:59 18:59 06:59 Output Total 400 450 Balance -400 -450 Weight 44 kg 44 kg Output: Urine 400 450 Other: Voiding Method Indwelling Catheter - Exam PHYSICAL EXAMINATION: Patient is lying in the bed comfortably, Able to open her eyes but not communicating.. HEENT: Normocephalic. Neck is supple. Pupils reactive. Nostrils clear. Oral cavity is moist. Ears reveal no drainage. Neck reveals no JVD, carotid bruits, or thyromegaly. CHEST EXAMINATION: Trachea is central. Symmetrical expansion. Lung morley clear to auscultation and percussion. CARDIAC: Normal S1, S2 with no gallops. No murmurs ABDOMEN: Soft. non distended. Bowel sounds normal. No organomegaly. No abdominal bruits. Extremities: reveal no edema. No clubbing or cyanosis Neurologically awake, alerts.Oriented x1-2. withdrawn, No focal deficits noted Skin: No rash or skin lesions. Psychiatric: Noncooperative. Musculoskeletal: No joint swelling or deformity. - Labs CBC & Chem 7: 06/10/20 05:41 06/10/20 05:41 Labs: Abnormal Lab Results - Last 24 Hours (Table) 06/09/20 06/10/20 06/10/20 Range/Units 06:15 00:01 05:41 RBC 2.86 L (3.80-5.40) m/uL Hgb 9.0 L (11.4-16.0) gm/dL Hct 27.8 L (34.0-46.0) % Lymphocytes # 0.8 L (1.0-4.8) k/uL BUN/Creatinine Ratio (12.00-20.00) Ratio Glucose (70-110) mg/dL POC Glucose (mg/dL) 124 H (75-99) mg/dL Calcium (8.7-10.3) mg/dL RBC Folate 1,058 H (280 - 791) ng/mL 06/10/20 06/10/20 06/10/20 Range/Units 05:41 05:48 12:18 RBC (3.80-5.40) m/uL Hgb (11.4-16.0) gm/dL Hct (34.0-46.0) % Lymphocytes # (1.0-4.8) k/uL BUN/Creatinine Ratio 26.25 H (12.00-20.00) Ratio Glucose 141 H (70-110) mg/dL POC Glucose (mg/dL) 133 H 135 H (75-99) mg/dL Calcium 8.4 L (8.7-10.3) mg/dL RBC Folate (280 - 791) ng/mL 06/10/20 Range/Units 16:35 RBC (3.80-5.40) m/uL Hgb (11.4-16.0) gm/dL Hct (34.0-46.0) % Lymphocytes # (1.0-4.8) k/uL BUN/Creatinine Ratio (12.00-20.00) Ratio Glucose (70-110) mg/dL POC Glucose (mg/dL) 137 H (75-99) mg/dL Calcium (8.7-10.3) mg/dL RBC Folate (280 - 791) ng/mL Assessment and Plan Assessment: Myoclonus with severe encephalopathy due to acute serotonin syndrome. Catatonia with severe depression Possible neuroleptic malignant syndrome. E. coli and Citrobacter urinary tract infection Severe rhabdomyolysis. Improved. Acute episode of major depressive disorder Generalized anxiety and panic disorder Hypernatremia and severe hypokalemia. Improved now Hyperlipidemia History of seizure disorder. EEG showed encephalopathy without any seizure spikes. GERD History of esophageal stricture status post EGD and dilation Anxiety/depression panic disorder history DVT prophylaxis with heparin subcu Plan: Patient will be continued to feeding and IV hydration.. was given Ciproheptadine. Continue with IV Ativan. and follow-up closely. Possible transfer to psychiatric facility with ECT availablity.. Replace electrolytes and further recommendations based on the clinical course. Neurology and psychiatriy is on board.. Time with Patient: Greater than 30
[2020-06-11] MEDS: ACETAMINOPHEN TAB 325 MG TAB PO PRN (01:00)
[2020-06-11] MEDS: LORazepam 2 MG/ML INJ IV SCH ×4 (05:05→23:09)
[2020-06-11 05:49] LABS: Glucose,Whole Blood 110 mg/dL (75-99)
[2020-06-11] MEDS: IPRATROPIUM-ALBUTEROL 3 ML NEB INHALATION SCH ×3 (07:58→20:29)
[2020-06-11] MEDS: lamoTRIgine 100 MG TAB PO SCH ×2 (08:42→20:35)
[2020-06-11] MEDS: CARBIDOPA-LEVODOPA 25-100 MG 1 EACH TAB PO SCH ×3 (08:42→20:36)
[2020-06-11] MEDS: AMOXIC-POT CLAV 875-125MG 1 EACH TAB PEG/G-TUBE SCH ×2 (08:42→20:35)
[2020-06-11] MEDS: PANTOPRAZOLE 40 MG/10 ML VIAL IVP SCH (08:42)
[2020-06-11] MEDS: HEPARIN SODIUM,PORCINE 5,000 UNIT/ML 1 ML VIAL SQ SCH ×2 (08:42→20:49)
[2020-06-11] MEDS: DEXTROSE 5%-0.9% NACL 1,000 ML IV SCH ×2 (09:29→15:26)
[2020-06-11 11:28] LABS: Glucose,Whole Blood 153 mg/dL (75-99)
--- NOTE | 2020-06-11 13:12 | P.PN ---
Progress Note - Text Progress Note Date: 06/11/20 Interval History: From 05/26/2020: Patient was seen resting in bed and was unarousable and unable to participate in the psychiatric interview. Review of the patient's chart shows that lumbar puncture CSF was within normal limits. The patient is being treated for serotonin syndrome. Urine cultures are positive for gram-negative bacilli and the patient is on empiric Zosyn. She can just remain encephalopathic. Ativan challenge was initiated to treat the patient for catatonia. At 12:09 PM the patient scored a 34 on the severity of the Don[place]-Kwame Catatonia Rating Scale. After 2 administrations of 2 mg IV of ativan, after 10 minutes, the recheck of score revealed improvement with a new score of 22. The patient had a significant decrease in her negativism, perseveration, and her ambitendency. Today (06/11/2020): Patient was seen at bedside and is currently unarousable and unable to participate in the psychiatric interview. The patient's and son came to visit and were also unable to illicit a response. Patient does not appear in any acute distress but is unable to follow commands and responds minimally to painful stimuli. Significant discussion with the patient's family took place regarding her diagnosis, hospital stay, and treatment options. We discussed at length that ativan is limited at this time due to oversedation that the patient experienced at higher doses despite an initial positive response to the medication. The recommendation of electric convulsive therapy was discussed at length with the family including the risks, benefits, and alternatives. The family at this time do not wish to pursue ECT due to a family history of ECT treatments that lead to adverse outcomes in family members in the past. They also do not wish for the patient to be sent far away from home. At this time, they wish to pursue hospice. Mental Status Exam: General Appearance: Patient has NG Tube in place. She appears her stated age. No acute distress. Behavior: Patient is somnolent but arousable. She makes appropriate eye contact. Speech: Nonverbal today. Mood/Affect: Unable to assess Suicidality/Homicidality: Unable to assess Perceptions: Unable to assess Though content/process: Unable to assess Memory and concentration: Unable to assess Judgment and insight: poor Assessment Encephalopathy Major Depressive Disorder, with catatonia Plan: -We will continue ativan 3 mg IV q6H. At lower doses the patient appeared to be more rigid and was reaching temperatures of 100F. -We do recommend ECT as an option for treatment but agree with family's wishes for hospice. -Will continue lamictal at this time. -Psychiatry will sign off at this time. Please call or re-consult if necessary.
--- NOTE | 2020-06-11 14:37 | P.PN ---
Subjective Progress Note Date: 06/11/20 The patient's was seen at bedside and she has no improvement. I was told by Dr. Concepcion (Pyschiatrist) and he stated he had a meeting with the family in which they came and he discussed with them in detail of work-up and plan. He stated the family refused ECT and wanted patient patient to be hospice. Objective - Vital Signs Vital signs: Vital Signs Temp 98.6 F 06/11/20 08:00 Pulse 88 06/11/20 11:08 Resp 18 06/11/20 08:00 BP 187/72 06/11/20 08:00 Pulse Ox 92 L 06/11/20 08:00 Intake & Output 06/10/20 06/11/20 06/11/20 18:59 06:59 18:59 Output Total 450 350 Balance -450 -350 Weight 44 kg 45.5 kg Output: Urine 450 350 Other: Voiding Method Indwelling Catheter Indwelling Catheter - Exam GENERAL: The patient is lying in bed and does not seem in distress. NEUROLOGICAL: Limited because of condition. Higher mental function: The patient is drowsy and would open eyes briefly to voice. not verbal responding or following commands. Cranial nerves: Her pupils are open and primary gaze is midline. The pupils are round 3 mm bilaterally and reactive to light. No facial weakness is noted that. Otherwise I could not assess the rest of the cranial nerves because of patient condition. Motor: Is deferred because of patient condition. Patient was withdrawing to painful stimuli throughout. Patient does have increased tone throughout all extremities. There is no spontaneous movement noted. No seizure-like activity noted. No clonus is noted. Cerebellum: Could not assess because of her condition. Sensation: Could not assess like sensation about to painful stimuli the patient was withdrawing as well as was grimacing on her face. Reflexes (right/left): 3+ throughout. Plantars are downgoing bilaterally. - Labs CBC & Chem 7: 06/10/20 05:41 06/10/20 05:41 Labs: Abnormal Lab Results - Last 24 Hours (Table) 06/10/20 06/10/20 06/11/20 Range/Units 16:35 23:51 05:46 POC Glucose (mg/dL) 137 H 137 H 110 H (75-99) mg/dL 06/11/20 Range/Units 11:27 POC Glucose (mg/dL) 153 H (75-99) mg/dL Assessment and Plan Assessment: * Encephalopathy: Etiology undertermined but seem likely Catatonia (Especially with history of Ativan withdrawl) * Also has compoenent toxic-metabolic encephalopathy * Elevated CK, increased tone throughout, low grade fever,tachycardia, tachypneic and hyperreflexia and encephalopathy seems seems autonomic form above---improving * Elevated CK---tending down * Electrolye imbalance (hypokalemia, hypophosphatemia)--resolved * PORFIRIO--resolved * History of colonr cancer * History of esophageal stricture * History of depression * History of diverticular disease Plan: * EEG on the 05/24/2020 shows background slowing suggestive of mild to moderate encephalopathy. There are no focal slowing, upper performed discharges or seizure during the study. * Repeat EEG on 05/26/2020: It's an abnormal routine EEG. The background slowing suggestive of moderate to severe encephalopathy likely due to medication effect (Ativan). There are no focal slowing, epileptiform discharges or seizure during routine EEG on 05/26/20. Because of the rare bilateral frontal sharps with no following slow wave or evolution to seizure, recommend repeating EEG once the patient is stable/outpatient and possibly consider long-term EEG as an outpatient to rule out epileptiform discharges. The excessive fast activity likely due to medication effect. The EEG is worse compared to 05/24/2020 EEG, likely due to medication effect. * EEG was on 06/03/2020 and it's reported as abnormal EEG due to background slowing of moderate degree at. This is suggestive of generalized cerebral dysfunction as can be seen with toxic metabolic encephalopathy or due to diff use structural brain abnormality. No definite epileptiform activity was seen. * Lumbar puncture was performed on 05/25/2020 and CSF study is clear, colorless, total nuclear cells 0, glucose is 63 and that his CSF protein is 47 which is within normal limits. Because the nucleated cells is 0, as does not seem and meningeal encephalitis * MR the brain is reported as nearly nondiagnostic exam due to extensive motion artifacts. No obvious abnormal signal on diffusion images to suggest acute ischemia. Degenerative and nonspecific white matter changes most typical of remote ischemia. * TSH is 0.752 which is within normal limits. * Jacobson virus PCR was not detected. Influenza A and B PCR is not detected. Urine Legionella is negative. * currently on Ativan 3 mg every 6 hours scheduled and was increased today by Psychiatry team. * Patient is on Sinemet 25/101 tablet 3 times a day since 06/04/[address] Baptiste's recommendation * Is on Lamictal 100 mg 1 tablet twice a day for mood disorder. Patient does not have history of seizure disorder but rather on Lamictal for mood disorder per patient's son. * Psychiatry team had discussion with family and family decided not to pursue with ECT and wanted her to be hospice. Neurology will sign off. Evan Arreaga M.D. Neuro-hospitalist Time with Patient: Less than 30
[2020-06-11] MEDS ORDERED: MORPHINE SULFATE 2 MG/ML SYRINGE IVP PRN (15:21)
--- NOTE | 2020-06-11 15:34 | P.PN ---
Subjective Progress Note Date: 06/11/20 Principal diagnosis: Encephalopathy w/ Catatonia; Serotonin syndrome with component of toxic metabolic encephalopathy Patient was admitted for psychiatric issues. Patient as per the chart does have seizure disorder patient is presently having tonic-clonic activity. Patient was believed to have neuroleptic malignant syndrome because of her Mudgett dis ability diaphoresis and tachycardia and patient was febrile. No source of infection was found at that time. Overweight was negative, chest x-ray did not show any pneumonia UA was within normal limits. Although patient doesn't appear to be on medications that can cause significant neuroleptic malignant syndrome upon review of her chart it looks like patient is on very low-dose of Seroquel although benztropine was discontinued. Patient is still having fevers but those are low-grade. I'm not completely convinced this is neuroleptic malignant syndrome because of that reason I'm consulting neurology patient will need EEG which was ordered. Will request psychiatry to reevaluate the patient. As a source of infection is not clear and consulting infectious disease patient may and up needing a lumbar puncture. 05/25/2020 Patient will undergo lumbar puncture today. Patient was started on empiric antibiotics by infectious disease. The patient remains on D5 normal saline at 1 50 mL per hour. Patient is being followed by multiple consultants serotonin syndrome is a consideration because of which patient is receiving cyproheptadine. Possibly of this is low and patient the did not receive any SSRIs since admission but patient was on AcipHex sore at home unsure when she has taken this medication. Patient myoclonus can be related to cogentin as well which is being held since admission. Patient barely responds to commands. Patient had an EEG showed encephalopathy but no seizure focus. 05/26/2020 Patient had a lumbar puncture CSF is actually within normal limits etiology of her symptoms is not clear patient is being treated for serotonin syndrome and catatonia is being considered by psychiatry and the patient and will be started on a Ativan for catatonia. Patient continues to have fevers urine cultures are positive for gram negatives bacilli. Patient is on empiric Zosyn at this time. Patient is arousable but doesn't follow commands drowsy sleepy encephalopathic 05/27/2020 Patient's fevers are better patient had low-grade fevers yesterday. urine cultures are positive for E. coli and Citrobacter. Patient is being continued on Zosyn. Patient is barely responsive excessively drowsy EEG showed severe encephalopathy 05/28/2020 Patient remains in ICU; has episodes of increasing responsiveness; per nursing staff patient attempts to open her eyes and cause her 's name does not follow any commands; no further seizure-like activity Vital signs are reviewed with a temperature of 99.1, pulse 90, respiration 14 and blood pressure 147/74; patient gets tachypneic and tachycardic occasionally Lab review with CBC reveals hemoglobin of 9.5; chemical profile is unremarkable; CK was 992 yesterday; we'll order repeat levels Neurology is following for encephalopathy likely catatonia/serotonin syndrome; Ativan has been increased from 2 mg after 2.5 mg every 6 hours; neuro recommending to increase Ativan but deferring it to psychiatry team; lumbar puncture performed has been unremarkable Patient has been negative for clonal virus PCR, influenza A and B and urine Legionella antigen 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; [facility] Lam[facility]al 100 mg twice a day for mood disorder; MRI has been ordered to rule out intracranial abnormality 05/29/2020 Patient is seen and evaluated in room at bedside; has been transferred out of ICU; patient is more responsive today and opens eyes with verbal stimulation; has been following simple commands since morning; low slow at time of my examination; patient is less stiff with overall more spontaneous movements with increased Ativan; patient is recommended to continue treatment with Ativan for catatonia which is increased to 3.5 mg every 6 hours; patient's dose may need to be increased up to 16-24 mg IV; gradual titration is recommended due to patient's age 0105/30/2020 Patient is seen in follow-up on the regular medical floor. She is more awake and alert; following simple commands. Opening eyes spontaneously. Maintaining O2 saturations in the 90s on 2 L/m per nasal cannula. T-max today at 100.3 axillary. Currently afebrile. Chest x-ray revealing bilateral infiltrates and pleural effusions. Urine culture was positive for E. coli. Cerebrospinal fluid revealed no growth. Blood cultures with no growth. Sodium 4.3. Potassium 9.2. Glucose 121. Continued on Zosyn. Psych is following patient and recommending to continue with ativan at 3.5mg IV q6hrs with plan to monitor at this dose without further titration if possible 06/11/2020 Patient is seen and evaluated for follow-up; patient is resting comfortably but not arousable; patient has not responded even for family members Family members met with psych team regarding patient's treatment options; family decided not to pursue with ECT and wanted her to be hospice Psych is recommending ECT at this time and risks benefits and alternatives were discussed with family members who do not wish to pursue ECT due to family history of ECT treatments that led to adverse outcomes in family members in the past; family is leaning more towards taking patient home with hospice Adult failure to thrive; patient remains on enteral nutrition via NG tube; has been unresponsive with absolutely no oral intake; currently relying on tube feeding to maintain any sort of nutrition; family have decided not to pursue ECT and are leaning towards hospice care; patient will have no way of nutrition once NG tube was removed; we agree with plan for hospice for adult failure to thrive Objective - Vital Signs Vital signs: Vital Signs Temp 98.6 F 06/11/20 08:00 Pulse 88 06/11/20 11:08 Resp 18 06/11/20 08:00 BP 187/72 06/11/20 08:00 Pulse Ox 92 L 06/11/20 08:00 Intake & Output 06/10/20 06/11/20 06/11/20 18:59 06:59 18:59 Output Total 450 350 Balance -450 -350 Weight 44 kg 45.5 kg Output: Urine 450 350 Other: Voiding Method Indwelling Catheter Indwelling Catheter - Exam GENERAL: Patient is arousable drowsy is having myoclonic activity barely able to open eyes. HEENT: Pupils are round and equally reacting to light. EOMI. No scleral icterus. No conjunctival pallor. Normocephalic, atraumatic. No pharyngeal erythema. No thyromegaly. CARDIOVASCULAR: S1 and S2 present. No murmurs, rubs, or gallops. PULMONARY: Chest is clear to auscultation, no wheezing or crackles. ABDOMEN: Soft, nontender, nondistended, normoactive bowel sounds. No palpable organomegaly. MUSCULOSKELETAL: No joint swelling or deformity. EXTREMITIES: No cyanosis, clubbing, or pedal edema. NEUROLOGICAL: No tremor or significant myoclonic activity today SKIN: No rashes. - Labs CBC & Chem 7: 06/10/20 05:41 06/10/20 05:41 Labs: Abnormal Lab Results - Last 24 Hours (Table) 06/10/20 06/10/20 06/11/20 Range/Units 16:35 23:51 05:46 POC Glucose (mg/dL) 137 H 137 H 110 H (75-99) mg/dL 06/11/20 Range/Units 11:27 POC Glucose (mg/dL) 153 H (75-99) mg/dL Assessment and Plan Assessment: Adult failure to thrive; patient remains on enteral nutrition via NG tube; has been unresponsive with absolutely no oral intake; currently relying on tube feeding to maintain any sort of nutrition; family have decided not to pursue ECT and are leaning towards hospice care; patient will have no way of nutrition once NG tube was removed; we agree with plan for hospice for adult failure to thrive; case management on board; hospice is consulted -Myoclonus and severe encephalopathy continues to have fevers being followed by neurology, psychiatry and infectious disease etiology of her presentation and symptoms is not clear patient doesn't have any myoclonic jerks at this time. Patient is presently being treated for serotonin syndrome the other consideration is catatonia. CSF service is within normal limits. Patient is on empiric Zosyn and urine culture showing above-mentioned bacteria. Patient received Ativan yesterday for catatonia -Fever: Etiology of fever is not clear. Serotonin syndrome, sepsis, catatonia are being considered -Elevated CK secondary to myoclonic activity. Patient is receiving IV fluids -Possibility of urinary tract infection -Major depression and anxiety disorder -Hypovolemic hypernatremia which improved and patient is presently on D5 normal saline now. Presently has an NG tube as well -Hyperlipidemia -Seizure disorder , patient had an EEG which showed encephalopathy without any seizures spikes -History of esophageal stricture -DVT prophylaxis with subcutaneous heparin
[2020-06-11 17:03] LABS: Glucose,Whole Blood 99 mg/dL (75-99)
[2020-06-12] MEDS: DEXTROSE 5%-0.9% NACL 1,000 ML IV SCH ×3 (03:20→23:39)
[2020-06-12] MEDS: LORazepam 2 MG/ML INJ IV SCH ×4 (06:04→23:38)
[2020-06-12] MEDS: lamoTRIgine 100 MG TAB PO SCH ×2 (08:04→19:25)
[2020-06-12] MEDS: AMOXIC-POT CLAV 875-125MG 1 EACH TAB PEG/G-TUBE SCH ×2 (08:04→19:25)
[2020-06-12] MEDS: CARBIDOPA-LEVODOPA 25-100 MG 1 EACH TAB PO SCH ×3 (08:04→19:25)
[2020-06-12] MEDS: PANTOPRAZOLE 40 MG/10 ML VIAL IVP SCH (08:12)
[2020-06-12] MEDS: HEPARIN SODIUM,PORCINE 5,000 UNIT/ML 1 ML VIAL SQ SCH ×2 (08:12→20:55)
[2020-06-12] MEDS: IPRATROPIUM-ALBUTEROL 3 ML NEB INHALATION SCH ×3 (08:14→20:51)
--- NOTE | 2020-06-12 16:39 | P.PN ---
Subjective Progress Note Date: 06/12/20 Principal diagnosis: Encephalopathy w/ Catatonia; Serotonin syndrome with component of toxic metabolic encephalopathy Patient was admitted for psychiatric issues. Patient as per the chart does have seizure disorder patient is presently having tonic-clonic activity. Patient was believed to have neuroleptic malignant syndrome because of her Mudgett dis ability diaphoresis and tachycardia and patient was febrile. No source of infection was found at that time. Overweight was negative, chest x-ray did not show any pneumonia UA was within normal limits. Although patient doesn't appear to be on medications that can cause significant neuroleptic malignant syndrome upon review of her chart it looks like patient is on very low-dose of Seroquel although benztropine was discontinued. Patient is still having fevers but those are low-grade. I'm not completely convinced this is neuroleptic malignant syndrome because of that reason I'm consulting neurology patient will need EEG which was ordered. Will request psychiatry to reevaluate the patient. As a source of infection is not clear and consulting infectious disease patient may and up needing a lumbar puncture. 05/25/2020 Patient will undergo lumbar puncture today. Patient was started on empiric antibiotics by infectious disease. The patient remains on D5 normal saline at 1 50 mL per hour. Patient is being followed by multiple consultants serotonin syndrome is a consideration because of which patient is receiving cyproheptadine. Possibly of this is low and patient the did not receive any SSRIs since admission but patient was on AcipHex sore at home unsure when she has taken this medication. Patient myoclonus can be related to cogentin as well which is being held since admission. Patient barely responds to commands. Patient had an EEG showed encephalopathy but no seizure focus. 05/26/2020 Patient had a lumbar puncture CSF is actually within normal limits etiology of her symptoms is not clear patient is being treated for serotonin syndrome and catatonia is being considered by psychiatry and the patient and will be started on a Ativan for catatonia. Patient continues to have fevers urine cultures are positive for gram negatives bacilli. Patient is on empiric Zosyn at this time. Patient is arousable but doesn't follow commands drowsy sleepy encephalopathic 05/27/2020 Patient's fevers are better patient had low-grade fevers yesterday. urine cultures are positive for E. coli and Citrobacter. Patient is being continued on Zosyn. Patient is barely responsive excessively drowsy EEG showed severe encephalopathy 05/28/2020 Patient remains in ICU; has episodes of increasing responsiveness; per nursing staff patient attempts to open her eyes and cause her 's name does not follow any commands; no further seizure-like activity Vital signs are reviewed with a temperature of 99.1, pulse 90, respiration 14 and blood pressure 147/74; patient gets tachypneic and tachycardic occasionally Lab review with CBC reveals hemoglobin of 9.5; chemical profile is unremarkable; CK was 992 yesterday; we'll order repeat levels Neurology is following for encephalopathy likely catatonia/serotonin syndrome; Ativan has been increased from 2 mg after 2.5 mg every 6 hours; neuro recommending to increase Ativan but deferring it to psychiatry team; lumbar puncture performed has been unremarkable Patient has been negative for clonal virus PCR, influenza A and B and urine Legionella antigen 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 continued Lamictal 100 mg twice a day for mood disorder; MRI has been ordered to rule out intracranial abnormality 05/29/2020 Patient is seen and evaluated in room at bedside; has been transferred out of ICU; patient is more responsive today and opens eyes with verbal stimulation; has been following simple commands since morning; low slow at time of my examination; patient is less stiff with overall more spontaneous movements with increased Ativan; patient is recommended to continue treatment with Ativan for catatonia which is increased to 3.5 mg every 6 hours; patient's dose may need to be increased up to 16-24 mg IV; gradual titration is recommended due to patient's age 0105/30/2020 Patient is seen in follow-up on the regular medical floor. She is more awake and alert; following simple commands. Opening eyes spontaneously. Maintaining O2 saturations in the 90s on 2 L/m per nasal cannula. T-max today at 100.3 axillary. Currently afebrile. Chest x-ray revealing bilateral infiltrates and pleural effusions. Urine culture was positive for E. coli. Cerebrospinal fluid revealed no growth. Blood cultures with no growth. Sodium 4.3. Potassium 9.2. Glucose 121. Continued on Zosyn. Psych is following patient and recommending to continue with ativan at 3.5mg IV q6hrs with plan to monitor at this dose without further titration if possible 06/11/2020 Patient is seen and evaluated for follow-up; patient is resting comfortably but not arousable; patient has not responded even for family members Family members met with psych team regarding patient's treatment options; family decided not to pursue with ECT and wanted her to be hospice Psych is recommending ECT at this time and risks benefits and alternatives were discussed with family members who do not wish to pursue ECT due to family history of ECT treatments that led to adverse outcomes in family members in the past; family is leaning more towards taking patient home with hospice Adult failure to thrive; patient remains on enteral nutrition via NG tube; has been unresponsive with absolutely no oral intake; currently relying on tube feeding to maintain any sort of nutrition; family have decided not to pursue ECT and are leaning towards hospice care; patient will have no way of nutrition once NG tube was removed; we agree with plan for hospice for adult failure to thrive 06/12/2020 Patient is seen and evaluated resting comfortably; does not respond to any verbal stimulation Vital signs remained stable with a temperature of 99.1, pulse 100, respiration 18 and blood pressure 06/11/1958, SpO2 of 93% on room air Plan is to transfer patient to hospice facility for adult failure to thrive once arrangements are made Objective - Vital Signs Vital signs: Vital Signs Temp 98.1 F 06/12/20 07:45 Pulse 116 H 06/12/20 08:27 Resp 18 06/12/20 07:45 BP 161/66 06/12/20 07:45 Pulse Ox 91 L 06/12/20 07:45 Intake & Output 06/11/20 06/12/20 06/12/20 18:59 06:59 18:59 Output Total 100 300 Balance -100 -300 Weight 53 kg Output: Urine 100 300 Other: Voiding Method Indwelling Catheter Indwelling Catheter Indwelling Catheter # Bowel Movements 1 - Exam GENERAL: Patient is arousable drowsy is having myoclonic activity barely able to open eyes. HEENT: Pupils are round and equally reacting to light. EOMI. No scleral icterus. No conjunctival pallor. Normocephalic, atraumatic. No pharyngeal erythema. No thyromegaly. CARDIOVASCULAR: S1 and S2 present. No murmurs, rubs, or gallops. PULMONARY: Chest is clear to auscultation, no wheezing or crackles. ABDOMEN: Soft, nontender, nondistended, normoactive bowel sounds. No palpable organomegaly. MUSCULOSKELETAL: No joint swelling or deformity. EXTREMITIES: No cyanosis, clubbing, or pedal edema. NEUROLOGICAL: No tremor or significant myoclonic activity today SKIN: No rashes. - Labs CBC & Chem 7: 06/10/20 05:41 06/10/20 05:41 Assessment and Plan Assessment: Adult failure to thrive; patient remains on enteral nutrition via NG tube; has been unresponsive with absolutely no oral intake; currently relying on tube feeding to maintain any sort of nutrition; family have decided not to pursue ECT and are leaning towards hospice care; patient will have no way of nutrition once NG tube was removed; we agree with plan for hospice for adult failure to thrive; case management on board; hospice is consulted -Myoclonus and severe encephalopathy continues to have fevers being followed by neurology, psychiatry and infectious disease etiology of her presentation and symptoms is not clear patient doesn't have any myoclonic jerks at this time. Patient is presently being treated for serotonin syndrome the other consideration is catatonia. CSF service is within normal limits. Patient is on empiric Zosyn and urine culture showing above-mentioned bacteria. Patient received Ativan yesterday for catatonia -Fever: Etiology of fever is not clear. Serotonin syndrome, sepsis, catatonia are being considered -Elevated CK secondary to myoclonic activity. Patient is receiving IV fluids -Possibility of urinary tract infection -Major depression and anxiety disorder -Hypovolemic hypernatremia which improved and patient is presently on D5 normal saline now. Presently has an NG tube as well -Hyperlipidemia -Seizure disorder , patient had an EEG which showed encephalopathy without any seizures spikes -History of esophageal stricture -DVT prophylaxis with subcutaneous heparin
[2020-06-12 19:31] LABS: Glucose,Whole Blood 96 mg/dL (75-99)
[2020-06-13 00:44] LABS: Glucose,Whole Blood 98 mg/dL (75-99)
[2020-06-13] MEDS: LORazepam 2 MG/ML INJ IV SCH ×4 (05:40→23:33)
[2020-06-13 06:50] LABS: Glucose,Whole Blood 96 mg/dL (75-99)
[2020-06-13] MEDS: AMOXIC-POT CLAV 875-125MG 1 EACH TAB PEG/G-TUBE SCH (07:25)
[2020-06-13] MEDS: lamoTRIgine 100 MG TAB PO SCH ×2 (07:25→20:17)
[2020-06-13] MEDS: CARBIDOPA-LEVODOPA 25-100 MG 1 EACH TAB PO SCH ×3 (07:25→20:17)
[2020-06-13] MEDS: DEXTROSE 5%-0.9% NACL 1,000 ML IV SCH (07:40)
[2020-06-13] MEDS: HEPARIN SODIUM,PORCINE 5,000 UNIT/ML 1 ML VIAL SQ SCH ×2 (07:40→20:24)
[2020-06-13] MEDS: PANTOPRAZOLE 40 MG/10 ML VIAL IVP SCH (07:40)
[2020-06-13] MEDS: IPRATROPIUM-ALBUTEROL 3 ML NEB INHALATION SCH ×3 (08:41→19:05)
[2020-06-13 11:37] LABS: Glucose,Whole Blood 115 mg/dL (75-99)
[2020-06-13 16:40] LABS: Glucose,Whole Blood 112 mg/dL (75-99)
--- NOTE | 2020-06-13 17:21 | P.PN ---
Subjective Progress Note Date: 06/13/20 Principal diagnosis: Encephalopathy w/ Catatonia; Serotonin syndrome with component of toxic metabolic encephalopathy Patient was admitted for psychiatric issues. Patient as per the chart does have seizure disorder patient is presently having tonic-clonic activity. Patient was believed to have neuroleptic malignant syndrome because of her Mudgett dis ability diaphoresis and tachycardia and patient was febrile. No source of infection was found at that time. Overweight was negative, chest x-ray did not show any pneumonia UA was within normal limits. Although patient doesn't appear to be on medications that can cause significant neuroleptic malignant syndrome upon review of her chart it looks like patient is on very low-dose of Seroquel although benztropine was discontinued. Patient is still having fevers but those are low-grade. I'm not completely convinced this is neuroleptic malignant syndrome because of that reason I'm consulting neurology patient will need EEG which was ordered. Will request psychiatry to reevaluate the patient. As a source of infection is not clear and consulting infectious disease patient may and up needing a lumbar puncture. 05/25/2020 Patient will undergo lumbar puncture today. Patient was started on empiric antibiotics by infectious disease. The patient remains on D5 normal saline at 1 50 mL per hour. Patient is being followed by multiple consultants serotonin syndrome is a consideration because of which patient is receiving cyproheptadine. Possibly of this is low and patient the did not receive any SSRIs since admission but patient was on AcipHex sore at home unsure when she has taken this medication. Patient myoclonus can be related to cogentin as well which is being held since admission. Patient barely responds to commands. Patient had an EEG showed encephalopathy but no seizure focus. 05/26/2020 Patient had a lumbar puncture CSF is actually within normal limits etiology of her symptoms is not clear patient is being treated for serotonin syndrome and catatonia is being considered by psychiatry and the patient and will be started on a Ativan for catatonia. Patient continues to have fevers urine cultures are positive for gram negatives bacilli. Patient is on empiric Zosyn at this time. Patient is arousable but doesn't follow commands drowsy sleepy encephalopathic 05/27/2020 Patient's fevers are better patient had low-grade fevers yesterday. urine cultures are positive for E. coli and Citrobacter. Patient is being continued on Zosyn. Patient is barely responsive excessively drowsy EEG showed severe encephalopathy 05/28/2020 Patient remains in ICU; has episodes of increasing responsiveness; per nursing staff patient attempts to open her eyes and cause her 's name does not follow any commands; no further seizure-like activity Vital signs are reviewed with a temperature of 99.1, pulse 90, respiration 14 and blood pressure 147/74; patient gets tachypneic and tachycardic occasionally Lab review with CBC reveals hemoglobin of 9.5; chemical profile is unremarkable; CK was 992 yesterday; we'll order repeat levels Neurology is following for encephalopathy likely catatonia/serotonin syndrome; Ativan has been increased from 2 mg after 2.5 mg every 6 hours; neuro recommending to increase Ativan but deferring it to psychiatry team; lumbar puncture performed has been unremarkable Patient has been negative for clonal virus PCR, influenza A and B and urine Legionella antigen 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; [facility] continued Lamictal 100 mg twice a day for mood disorder; MRI has been ordered to rule out intracranial abnormality 05/29/2020 Patient is seen and evaluated in room at bedside; has been transferred out of ICU; patient is more responsive today and opens eyes with verbal stimulation; has been following simple commands since morning; low slow at time of my examination; patient is less stiff with overall more spontaneous movements with increased Ativan; patient is recommended to continue treatment with Ativan for catatonia which is increased to 3.5 mg every 6 hours; patient's dose may need to be increased up to 16-24 mg IV; gradual titration is recommended due to patient's age 0105/30/2020 Patient is seen in follow-up on the regular medical floor. She is more awake and alert; following simple commands. Opening eyes spontaneously. Maintaining O2 saturations in the 90s on 2 L/m per nasal cannula. T-max today at 100.3 axillary. Currently afebrile. Chest x-ray revealing bilateral infiltrates and pleural effusions. Urine culture was positive for E. coli. Cerebrospinal fluid revealed no growth. Blood cultures with no growth. Sodium 4.3. Potassium 9.2. Glucose 121. Continued on Zosyn. Psych is following patient and recommending to continue with ativan at 3.5mg IV q6hrs with plan to monitor at this dose without further titration if possible 06/11/2020 Patient is seen and evaluated for follow-up; patient is resting comfortably but not arousable; patient has not responded even for family members Family members met with psych team regarding patient's treatment options; family decided not to pursue with ECT and wanted her to be hospice Psych is recommending ECT at this time and risks benefits and alternatives were discussed with family members who do not wish to pursue ECT due to family history of ECT treatments that led to adverse outcomes in family members in the past; family is leaning more towards taking patient home with hospice Adult failure to thrive; patient remains on enteral nutrition via NG tube; has been unresponsive with absolutely no oral intake; currently relying on tube feeding to maintain any sort of nutrition; family have decided not to pursue ECT and are leaning towards hospice care; patient will have no way of nutrition once NG tube was removed; we agree with plan for hospice for adult failure to thrive 06/12/2020 Patient is seen and evaluated resting comfortably; does not respond to any verbal stimulation Vital signs remained stable with a temperature of 99.1, pulse 100, respiration 18 and blood pressure 06/11/1958, SpO2 of 93% on room air Plan is to transfer patient to hospice facility for adult failure to thrive once arrangements are made 06/13/2020 Patient is seen and evaluated; resting in bed; condition basically remains unchanged; family has decided for discharge to hospice facility; case management is on board to planned discharge to hospice with diagnosis of failure to thrive Objective - Vital Signs Vital signs: Vital Signs Temp 98.1 F 06/13/20 07:27 Pulse 92 06/13/20 12:30 Resp 18 06/13/20 07:27 BP 149/70 06/13/20 07:27 Pulse Ox 91 L 06/13/20 07:27 Intake & Output 06/12/20 06/13/20 06/13/20 18:59 06:59 18:59 Intake Total 0 0 Output Total 200 251 Balance -200 -251 0 Weight 48.5 kg Intake: Oral 0 0 Output: Urine 200 250 Stool 1 Other: Voiding Method Indwelling Catheter Indwelling Catheter Indwelling Catheter # Voids 3 - Exam GENERAL: Patient is arousable drowsy is having myoclonic activity barely able to open eyes. HEENT: Pupils are round and equally reacting to light. EOMI. No scleral icterus. No conjunctival pallor. Normocephalic, atraumatic. No pharyngeal erythema. No thyromegaly. CARDIOVASCULAR: S1 and S2 present. No murmurs, rubs, or gallops. PULMONARY: Chest is clear to auscultation, no wheezing or crackles. ABDOMEN: Soft, nontender, nondistended, normoactive bowel sounds. No palpable organomegaly. MUSCULOSKELETAL: No joint swelling or deformity. EXTREMITIES: No cyanosis, clubbing, or pedal edema. NEUROLOGICAL: No tremor or significant myoclonic activity today SKIN: No rashes. - Labs CBC & Chem 7: 06/10/20 05:41 06/10/20 05:41 Labs: Abnormal Lab Results - Last 24 Hours (Table) 06/13/20 Range/Units 11:35 POC Glucose (mg/dL) 115 H (75-99) mg/dL Assessment and Plan Assessment: Adult failure to thrive; patient remains on enteral nutrition via NG tube; has been unresponsive with absolutely no oral intake; currently relying on tube feeding to maintain any sort of nutrition; family have decided not to pursue ECT and are leaning towards hospice care; patient will have no way of nutrition once NG tube was removed; we agree with plan for hospice for adult failure to thrive; case management on board; hospice is consulted -Myoclonus and severe encephalopathy continues to have fevers being followed by neurology, psychiatry and infectious disease etiology of her presentation and symptoms is not clear patient doesn't have any myoclonic jerks at this time. Patient is presently being treated for serotonin syndrome the other consideration is catatonia. CSF service is within normal limits. Patient is on empiric Zosyn and urine culture showing above-mentioned bacteria. Patient received Ativan yesterday for catatonia -Fever: Etiology of fever is not clear. Serotonin syndrome, sepsis, catatonia are being considered -Elevated CK secondary to myoclonic activity. Patient is receiving IV fluids -Possibility of urinary tract infection -Major depression and anxiety disorder -Hypovolemic hypernatremia which improved and patient is presently on D5 normal saline now. Presently has an NG tube as well -Hyperlipidemia -Seizure disorder , patient had an EEG which showed encephalopathy without any seizures spikes -History of esophageal stricture -DVT prophylaxis with subcutaneous heparin
--- NOTE | 2020-06-13 17:54 | PN ---
PROGRESS NOTE DATE OF SERVICE: 06/13/2020 REASON FOR FOLLOWUP VISIT: Fever and question of pneumonitis. INTERVAL HISTORY: The patient is currently afebrile and no fever has been recorded in the last more than 24 hours. The patient remains to be nonverbal, unable to provide any history. NG has been discontinued and the patient is currently unable to take any medication and no nutrition. PHYSICAL EXAMINATION: Blood pressure 158/75 with a pulse of 95, temperature 98.2. She is 92% on room air. General description: The patient is an elderly female lying in bed in no distress. Respiratory system: Unlabored breathing. Clear to auscultation anteriorly. Heart S1, S2. Regular rate and rhythm. Abdomen: Soft no tenderness. LABS: No new labs have been obtained today. DIAGNOSTIC IMPRESSION AND PLAN: Patient with fever, multifactorial in this patient who did have extensive workup for infectious source and that has been negative with possible non-infection source. Today there was question of pneumonia and urinary tract infection that has been adequately treated. The patient is currently off antibiotics for more than 48 hours and no recurrence of fever. We will monitor the patient closely off antibiotic therapy. MMODL / IJN: [id number] /
[2020-06-13 20:12] LABS: Glucose,Whole Blood 101 mg/dL (75-99)
[2020-06-14] MEDS: DEXTROSE 5%-0.9% NACL 1,000 ML IV SCH ×4 (00:32→21:27)
[2020-06-14 00:41] LABS: Glucose,Whole Blood 99 mg/dL (75-99)
[2020-06-14 05:29] LABS: Glucose,Whole Blood 98 mg/dL (75-99)
[2020-06-14] MEDS: LORazepam 2 MG/ML INJ IV SCH ×3 (05:38→17:41)
[2020-06-14] MEDS: lamoTRIgine 100 MG TAB PO SCH ×2 (07:14→20:24)
[2020-06-14] MEDS: CARBIDOPA-LEVODOPA 25-100 MG 1 EACH TAB PO SCH ×3 (07:14→20:25)
[2020-06-14] MEDS: HEPARIN SODIUM,PORCINE 5,000 UNIT/ML 1 ML VIAL SQ SCH ×2 (07:18→21:27)
[2020-06-14] MEDS: PANTOPRAZOLE 40 MG/10 ML VIAL IVP SCH (07:19)
[2020-06-14] MEDS: IPRATROPIUM-ALBUTEROL 3 ML NEB INHALATION SCH ×3 (07:38→19:50)
[2020-06-14 11:38] LABS: Glucose,Whole Blood 119 mg/dL (75-99)
--- NOTE | 2020-06-14 12:12 | CDI ---
Documentation Clarification Form Date: 06/15/2020 11:40:24 AM From: Loraine Estrada RN CCDS Admit Date: 05/20/2020 05:00:00 PM Patient Name: Myriam Maloney Visit Number: [id number] Discharge Date: ATTENTION: The Clinical Documentation Specialists (CDI) and [facility] Coding Staff appreciate your assistance in clarifying documentation. Please respond to the clarification below the line at the bottom and electronically sign. The CDI & [facility] Coding staff will review the response and follow-up if needed. Please note: Queries are made part of the Legal Health Record. If you have any questions, please contact the author of this message via ITS. Dr. Brian Akbar Adult failure to thrive is documented in the Internal medicine progress notes 06/11, 06/12 & 06/13 History/Risk Factors: 75-year-old female presents to the ED with worsening depression, anxiety over the last three days. Medical history: Colon cancer, HLD and Seizures. Psychological history: Anxiety, Depression and Panic disorder. Clinical Indicators: Internal Medicine note 06/11 Adult failure to thrive; patient remains on enteral nutrition via NG tube; Has been unresponsive with absolutely no oral intake; currently relying on tube feeding to maintain any sort of nutrition. 06/04: Nursing Integumentary Assessment: Coccyx skin condition maceration , fragile texture with erythema 06/04: Dietary Consult: Nutrition Intake: Poor; Percent consumed 0% NPO on EN. Anthropometrics: BMI 19.5; BMI Classification: Underweight. Estimated Nutritional Needs current weight: 25-30 Kcals/Kg; Energy needs 1304- 1565 Kcal. Estimated Protein range needs 1.0 gram/kg; Estimated Protein needs 52 grams/day. Nutritional Diagnosis: Inadequate energy intake. Diagnosis related to: Poor appetite and NPO Treatment: Dietary Consult: See above Supplements: PPN/TPN: 05/27 EN feedings NG tube, Jevity 1.5 In your professional opinion, can you please clarify if these findings signify one of the following conditions? Mild Protein-Calorie Malnutrition Moderate Protein-Calorie Malnutrition Severe Protein-Calorie Malnutrition Other condition, please specify Unable to determine Moderate PCM secondary to poor oral intake documented in the [facility] by YAMILEX Sanchez. (Last Revision: November 2018) BEATRIZ
--- NOTE | 2020-06-14 12:36 | CDI ---
Documentation Clarification Form Date: 06/15/2020 12:21:07 PM From: Loraine Estrada RN CCDS Admit Date: 05/20/2020 05:00:00 PM Patient Name: Myriam Maloney Visit Number: [id number] Discharge Date: ATTENTION: The Clinical Documentation Specialists (CDI) and [facility] Coding Staff appreciate your assistance in clarifying documentation. Please respond to the clarification below the line at the bottom and electronically sign. The CDI & [facility] Coding staff will review the response and follow-up if needed. Please note: Queries are made part of the Legal Health Record. If you have any questions, please contact the author of this message via ITS. Dr. Brian Holbrook pressure ulcer was documented in the Nursing pressure injury assessment 06/05 History/Risk Factors: 75-year-old female presents to the ED with worsening depression, anxiety over the last three days. Medical history: Colon cancer, HLD and Seizures. Psychological history: Anxiety, Depression and Panic disorder. Clinical Indicators: Location: Coccyx Wound description: 06/04: Nursing Integumentary Assessment: Coccyx skin condition maceration, fragile texture with erythema Treatment: Turn 2 Q, Brief check and change; Medicated gel and ointment Dietary Consult 06/04: Inadequate energy intake, evidenced by poor appetite and NPO status. Elements for accurate and compliant documentation of an ulcer: *The location/laterality of the ulcer *Etiology (decubitus/pressure, diabetic, PVD) *Stage I-IV, Unstageable, Suspected Deep Tissue Injury (To the deepest stage) *If the ulcer was present at admission (POA) or occurred after admission In your professional opinion, can you please clarify the diagnosis, location, and laterality: * Stage 2 Pressure/Decubitus Ulcer (Partial thickness, loss of dermis, pink wound bed) * Stage 3 Pressure/Decubitus Ulcer (Full thickness tissue loss) * Unstageable * Other condition, please specify * Unable to determine Please indicate etiology of pressure ulcer (if known). Stage 1 decubitus / pressure ulcer noted in the coccyx region documented in the JOSH Sanchez RESEARCH INTERVIEWER (Last Revision: February 2017) BEATRIZ
--- NOTE | 2020-06-14 14:21 | PN ---
PROGRESS NOTE DATE OF SERVICE: 06/14/2020 REASON FOR FOLLOWUP: Fever. INTERVAL HISTORY: The patient is currently afebrile. She did have low grade fever of 99 early this morning. The patient is hemodynamically stable. Blood sugar a little on the high side. The patient is breathing comfortable on room air, remains to be NPO. Has no access and no diarrhea has been reported. No other changes. The patient herself unable to provide any history. PHYSICAL EXAMINATION: Blood pressure 124/63, pulse of 73, temperature 99.2. She is 94% on room air. General description is an elderly female lying in bed in no distress. Respiratory system: Unlabored breathing. Clear to auscultation anteriorly. Heart S1, S2. Regular rate and rhythm. Abdomen soft, no tenderness. LABS: No new labs have been obtained today. DIAGNOSTIC IMPRESSION AND PLAN: Patient with a fever. This patient did have extensive workup with concern for possible non infectious source. Patient pneumonia and urinary tract infection has been adequately treated. Currently off antibiotic for the last few days. We will continue to monitor the patient closely off antibiotic therapy. Continue supportive care. MMODL / IJN: [id number] / MTDD
[2020-06-14] MEDS ORDERED: hydrALAZINE HCL 20 MG/ML 1 ML VIAL IM STA (15:40)
--- NOTE | 2020-06-14 15:43 | P.PN ---
Subjective Progress Note Date: 06/14/20 Encephalopathy w/ Catatonia; Serotonin syndrome with component of toxic metabolic encephalopathy Patient was admitted for psychiatric issues. Patient as per the chart does have seizure disorder patient is presently having tonic-clonic activity. Patient was believed to have neuroleptic malignant syndrome because of her [employer] disability diaphoresis and tachycardia and patient was febrile. No source of infection was found at that time. Overweight was negative, chest x-ray did not show any pneumonia UA was within normal limits. Although patient doesn't appear to be on medications that can cause significant neuroleptic malignant syndrome upon review of her chart it looks like patient is on very low-dose of Seroquel although benztropine was discontinued. Patient is still having fevers but those are low-grade. I'm not completely convinced this is neuroleptic malignant syndrome because of that reason I'm consulting neurology patient will need EEG which was ordered. Will request psychiatry to reevaluate the patient. As a source of infection is not clear and consulting infectious disease patient may and up needing a lumbar puncture. 05/25/2020 Patient will undergo lumbar puncture today. Patient was started on empiric antibiotics by infectious disease. The patient remains on D5 normal saline at 1 50 mL per hour. Patient is being followed by multiple consultants serotonin syndrome is a consideration because of which patient is receiving cyproheptadine. Possibly of this is low and patient the did not receive any SSRIs since admission but patient was on AcipHex sore at home unsure when she has taken this medication. Patient myoclonus can be related to cogentin as well which is being held since admission. Patient barely responds to commands. Tori russell had an EEG showed encephalopathy but no seizure focus. 05/26/2020 Patient had a lumbar puncture CSF is actually within normal limits etiology of her symptoms is not clear patient is being treated for serotonin syndrome and catatonia is being considered by psychiatry and the patient and will be started on a Ativan for catatonia. Patient continues to have fevers urine cultures are positive for gram negatives bacilli. Patient is on empiric Zosyn at this time. Patient is arousable but doesn't follow commands drowsy sleepy encephalopathic 05/27/2020 Patient's fevers are better patient had low-grade fevers yesterday. urine cultures are positive for E. coli and Citrobacter. Patient is being continued on Zosyn. Patient is barely responsive excessively drowsy EEG showed severe encephalopathy 05/28/2020 Patient remains in ICU; has episodes of increasing responsiveness; per nursing s taff patient attempts to open her eyes and cause her 's name does not follow any commands; no further seizure-like activity Vital signs are reviewed with a temperature of 99.1, pulse 90, respiration 14 and blood pressure 147/74; patient gets tachypneic and tachycardic occasionally Lab review with CBC reveals hemoglobin of 9.5; chemical profile is unremarkable; CK was 992 yesterday; we'll order repeat levels Neurology is following for encephalopathy likely catatonia/serotonin syndrome; Ativan has been increased from 2 mg after 2.5 mg every 6 hours; neuro recommending to increase Ativan but deferring it to psychiatry team; lumbar puncture performed has been unremarkable Patient has been negative for clonal virus PCR, influenza A and B and urine Legionella antigen 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; [facility] continued Lamictal 100 mg twice a day for mood disorder; MRI has been ordered to rule out intracranial abnormality 05/29/2020 Patient is seen and evaluated in room at bedside; has been transferred out of ICU; patient is more responsive today and opens eyes with verbal stimulation; has been following simple commands since morning; low slow at time of my examination; patient is less stiff with overall more spontaneous movements with increased Ativan; patient is recommended to continue treatment with Ativan for catatonia which is increased to 3.5 mg every 6 hours; patient's dose may need to be increased up to 16-24 mg IV; gradual titration is recommended due to patient's age 0105/30/2020 Patient is seen in follow-up on the regular medical floor. She is more awake and alert; following simple commands. Opening eyes spontaneously. Maintaining O2 saturations in the 90s on 2 L/m per nasal cannula. T-max today at 100.3 axillary. Currently afebrile. Chest x-ray revealing bilateral infiltrates and pleural effusions. Urine culture was positive for E. coli. Cerebrospinal fluid revealed no growth. Blood cultures with no growth. Sodium 4.3. Potassium 9.2. Glucose 121. Continued on Zosyn. Psych is following patient and recommending to continue with ativan at 3.5mg IV q6hrs with plan to monitor at this dose without further titration if possible 06/11/2020 Patient is seen and evaluated for follow-up; patient is resting comfortably but not arousable; patient has not responded even for family members Family members met with psych team regarding patient's treatment options; family decided not to pursue with ECT and wanted her to be hospice Psych is recommending ECT at this time and risks benefits and alternatives were discussed with family members who do not wish to pursue ECT due to family history of ECT treatments that led to adverse outcomes in family members in the past; family is leaning more towards taking patient home with hospice Adult failure to thrive; patient remains on enteral nutrition via NG tube; has been unresponsive with absolutely no oral intake; currently relying on tube feeding to maintain any sort of nutrition; family have decided not to pursue ECT and are leaning towards hospice care; patient will have no way of nutrition once NG tube was removed; we agree with plan for hospice for adult failure to thrive 06/12/2020 Patient is seen and evaluated resting comfortably; does not respond to any verbal stimulation Vital signs remained stable with a temperature of 99.1, pulse 100, respiration 18 and blood pressure 06/11/1958, SpO2 of 93% on room air Plan is to transfer patient to hospice facility for adult failure to thrive once arrangements are made 06/13/2020 Patient is seen and evaluated; resting in bed; condition basically remains unchanged; family has decided for discharge to hospice facility; case management is on board to planned discharge to hospice with diagnosis of failure to thrive 06/14/2020 Patient is seen in follow-up this morning with no acute overnight issues. Patient's family met with psychiatrist on Sunday and discussed ECT therapy as this was their recommendation at a tertiary care center or an accepting facility that performs those and family is refusing to have any ECT therapy done. Family requesting hospice. Per family wishes NG tube was removed on Sunday in the hopes of transferring patient to hospice care at an accepting facility. Case management and social work following working with [facility] about finding a safe discharge plan. [facility] accepted the patient although awaiting to hear back from [facility]. Review of systems: unable to obtain due to patients clinical condition Objective - Vital Signs Vital signs: Vital Signs Temp 99.2 F 06/14/20 07:45 Pulse 73 06/14/20 08:00 Resp 16 06/14/20 08:00 BP 174/63 06/14/20 07:45 Pulse Ox 94 L 06/14/20 07:45 Intake & Output 06/13/20 06/14/20 06/14/20 18:59 06:59 18:59 Intake Total 0 Output Total 400 200 1 Balance -400 -200 -1 Weight 50 kg Intake: Oral 0 Output: Urine 400 200 Stool 1 Other: Voiding Method Indwelling Catheter Indwelling Catheter # Voids 3 - Exam GENERAL: Patient is arousable although continues to be drowsy with myoclonic activity barely able to open eyes. HEENT: Pupils are round and equally reacting to light. EOMI. No scleral icterus. No conjunctival pallor. Normocephalic, atraumatic. No pharyngeal erythema. No thyromegaly. CARDIOVASCULAR: S1 and S2 present. No murmurs, rubs, or gallops. PULMONARY: Chest is clear to auscultation, no wheezing or crackles. ABDOMEN: Soft, nontender, nondistended, normoactive bowel sounds. No palpable organomegaly. MUSCULOSKELETAL: No joint swelling or deformity. EXTREMITIES: No cyanosis, clubbing, or pedal edema. NEUROLOGICAL: No tremor or significant myoclonic activity today, somewhat restless at times SKIN: No rashes. - Labs CBC & Chem 7: 06/10/20 05:41 06/10/20 05:41 Labs: Abnormal Lab Results - Last 24 Hours (Table) 06/13/20 06/13/20 06/13/20 Range/Units 11:35 16:38 20:10 POC Glucose (mg/dL) 115 H 112 H 101 H (75-99) mg/dL Assessment and Plan Assessment: -Adult failure to thrive; patient recently had NG tube for tube feedings although has been removed per family wishes and patient continues to have no oral intake. Lengthy discussion was had with family and their wishes are for hospice and we agree with plan for hospice case management and social work following looking for an accepting facility hospice consulted -Moderate protein calorie malnutrition secondary to poor oral intake -Stage I decubitus/Pressure ulcer noted in the coccyx region; barrier cream being used -Myoclonus and severe encephalopathy; unclear of disease etiology with the poss ibility of serotonin syndrome or other considerations related to catatonia. Patient was seen and evaluated by neurology and workup has been negative along with psychiatry who has signed off as they were recommending transferring the patient to a facility with the possibility of ECT therapy. Family refused this therapy and wanted to proceed with hospice. Patient is maintained on 3 mg of IV Ativan every 6 hours. -Fever: Etiology of fever is not clear. Serotonin syndrome, sepsis, catatonia are being considered -Elevated CK secondary to myoclonic activity -Possibility of urinary tract infection, has been treated adequately with IV antibiotics -Major depression and anxiety disorder -Hypovolemic hypernatremia which improved and patient is presently on D5 normal saline now -Hyperlipidemia -Seizure disorder , patient had an EEG which showed encephalopathy without any seizures spikes -History of esophageal stricture -DVT prophylaxis with subcutaneous heparin -GI prophylaxis: Protonix -No code Plan: Continue with current medications. Case management and social work awaiting callback from [facility] as [facility] has accepted the patient. Patient continues to have no oral intake as family requested to have the NG tube removed and family is awaiting to discuss with [facility] the next step. Further recommendations to follow. Anticipate discharge in 24-48 h ours.
[2020-06-14 17:47] LABS: Glucose,Whole Blood 119 mg/dL (75-99)
--- NOTE | 2020-06-14 19:56 | P.PN ---
Subjective Progress Note Date: 06/14/20 06/14/2020: Patient is more awake, alert, but continues to be very rigid, encephalopathic. Patient not able to tell her name. No significant improvement as compared to last exam from 06/04/2020. 06/04/2020: Patient continues to be very rigid, encephalopathic, somnolent. Per nurse she was able to tell her name today. 06/03/2020: Patient much more awake, denies headache. Patient able to tell that it is May. Patient continues to be on Ativan 3.5 mg IV every 6 hours. Patient did have a temperature spike of 101.1F. 06/02/2020: Patient continues to be somnolent. Does not follow commands. No seizure-like activity noted. Patient currently on Ativan 3.5 mg IV every 6 hours. This is as per psychiatry. 06/01/2020: Patient was seen for a follow-up. Initially consultation performed by Dr. Evan Arreaga. Please refer to his note for details. Patient has history of depression, anxiety, came with altered mental status. Patient was diagnosed with catatonia, perhaps acute serotonin syndrome due to reaction of Haldol. Patient also had aspiration pneumonia, seizure disorder, esophageal strictures. Patient has some fluctuating mental status, sometimes more alert, sometimes more somnolent. No seizure-like activity has been documented. Patient underwent lumbar puncture, in which the WBCs were 0. RBC 0, glucose 63, protein 47 (12-60) MRI of the brain showed nearly nondiagnostic exam due to extensive motion artifact. No obvious abnormal signal on diffusion imaging to suggest acute ischemia. Degenerative and nonspecific white matter changes most typical of remote ischemia. Patient follows up with psychiatrist. Patient currently on Ativan 3.5 mg IV every 6 hours IV. Patient's catatonia has improved. Patient was asleep. UTI. EEG on 05/26/2020 showed background slowing consistent with encephalopathy. Some frontal sharp waves were seen. Repeat EEG was recommended Objective - Vital Signs Vital signs: Vital Signs Temp 100.1 F H 06/14/20 14:31 Pulse 105 H 06/14/20 16:06 Resp 16 06/14/20 16:06 BP 162/64 06/14/20 16:06 Pulse Ox 91 L 06/14/20 14:31 Intake & Output 06/14/20 06/14/20 06/15/20 06:59 18:59 06:59 Output Total 200 501 Balance -200 -501 Weight 50 kg Output: Urine 200 500 Stool 1 Other: Voiding Method Indwelling Catheter - Exam Patient is much more alert and awake, tries to speak, but did not speak any words. Did not tell me her name. Patient is extremely rigid in both arms and legs. Not able to flex or extend her elbows or arms. Her right index finger is sticking out in dystonic manner. No seizure-like activity. Patient has some dystonic tremors of her arms. Pupils are round and reacting, visual morley could not be tested. Face is symmetric. Cerebellar functions could not be tested. Gait could not be tested. - Labs CBC & Chem 7: 06/10/20 05:41 06/10/20 05:41 Labs: Abnormal Lab Results - Last 24 Hours (Table) 06/13/20 06/14/20 06/14/20 Range/Units 20:10 11:37 17:45 POC Glucose (mg/dL) 101 H 119 H 119 H (75-99) mg/dL Assessment and Plan Assessment: * Altered mental status, possible toxic metabolic encephalopathy, doubt serotonin syndrome. Rule out neuroleptic malignant syndrome. * Generalized dystonia, severe rigidity. Doubt catatonia, as patient is not responding to high-dose Ativan. * History of anxiety depression. * History of seizure disorder, on Lamictal 100 mg twice a day. * UTI, possible pneumonia on Zosyn. ID following. Plan: * Patient's dose of Ativan continues to be at 3 mg IV every 6 hours. Patient continues to be severely dystonic. Patient has not responded to Sinemet 25/100, 1 tablet 3 times a day. Bromocriptine is also another choice. Consider dantrolene. * Patient underwent EEG, which was abnormal due to background slowing of moderate degree. This is suggestive of generalized cerebral dysfunction as can be seen with toxic metabolic encephalopathy due to diffuse structural brain abnormality. No definitive epileptiform activity was seen. * Patient's CSF shows WBC 0, RBC 0, total protein is normal 47 (12-60), glucose 63. HSV-1 and HSV 2 PCR negative. * Patient's family's consider hospice care. Hospice has declined. Patient may go to rehab facility.
[2020-06-15 00:13] LABS: Glucose,Whole Blood 127 mg/dL (75-99)
[2020-06-15] MEDS: LORazepam 2 MG/ML INJ IV SCH ×3 (00:28→12:12)
[2020-06-15 05:56] LABS: Glucose,Whole Blood 121 mg/dL (75-99)
[2020-06-15 07:52] VITALS: TEMP 99.3
[2020-06-15] MEDS: IPRATROPIUM-ALBUTEROL 3 ML NEB INHALATION SCH ×2 (08:04→12:42)
[2020-06-15] MEDS ORDERED: hydrALAZINE HCL 20 MG/ML 1 ML VIAL IM STA (09:13)
[2020-06-15] MEDS ORDERED: hydrALAZINE HCL 20 MG/ML 1 ML VIAL IVP PRN (09:19)
[2020-06-15] MEDS: PANTOPRAZOLE 40 MG/10 ML VIAL IVP SCH (09:35)
[2020-06-15] MEDS: HEPARIN SODIUM,PORCINE 5,000 UNIT/ML 1 ML VIAL SQ SCH (09:36)
[2020-06-15] MEDS: CARBIDOPA-LEVODOPA 25-100 MG 1 EACH TAB PO SCH (09:40)
[2020-06-15] MEDS: lamoTRIgine 100 MG TAB PO SCH (09:40)
[2020-06-15 11:28] VITALS: BP 131/72
--- NOTE | 2020-06-15 11:35 | P.DS ---
Providers Date of admission: 05/20/20 17:00 Expected date of discharge: 06/15/20 Attending physician: Uvaldo Jiang Consults: 05/20/20 15:02 Consult Physician Routine Consulting Provider: Edison Concepcion Consult Reason/Comments: Anxiety and depression Do you want consulting provider notified?: Already Contacted 05/21/20 17:31 Consult Physician Routine Consulting Provider: Sai Arreaga Consult Reason/Comments: ICU management Do you want consulting provider notified?: Already Contacted 05/23/20 17:34 Consult Physician Routine Consulting Provider: Edison Concepcion Consult Reason/Comments: anxiety, depression, NMS Do you want consulting provider notified?: Yes, Notify in am 05/24/20 10:53 Consult Physician Routine Consulting Provider: Evan Arreaga Consult Reason/Comments: Encepholopathy Do you want consulting provider notified?: Yes Consult Physician Routine Consulting Provider: Arias Edwards Consult Reason/Comments: fever of unknown origin Do you want consulting provider notified?: Yes 05/24/20 14:48 Consult to Anesthesia Stat Consulting Provider: Anesthesia,Services Consult Reason/Comments: LP/CSF Primary care physician: Stated None Hospital Course: Final diagnosis -Encephalopathy w/ Catatonia; Serotonin syndrome with component of toxic metabolic encephalopathy -Adult failure to thrive secondary to no oral intake. -Moderate protein calorie malnutrition secondary to poor oral intake -Stage I decubitus/Pressure ulcer noted in the coccyx region -Myoclonus and severe encephalopathy; unclear of disease etiology with the possibility of serotonin syndrome or other considerations related to catatonia -Fever: Etiology of fever is not clear. Serotonin syndrome, sepsis, catatonia are being considered -Elevated CK secondary to myoclonic activity -Possibility of urinary tract infection, has been treated adequately with IV antibiotics -Major depression and anxiety disorder -Hypovolemic hypernatremia which improved -Hyperlipidemia -Seizure disorder -History of esophageal stricture -DVT prophylaxis -GI prophylaxis -No code Discharge disposition Patient is being discharged in a stable condition with guarded prognosis to [facility] hospice services. Total time taken is greater than 35 minutes. Hospital course This is a 75-year-old female who was recently admitted with multiple psychiatric issues and does have a history of seizure disorder and having tonic-clonic activity. Patient was being treated possibly from neuroleptic malignant syndrome. Neurology and psychiatry following the patient. Patient's medications were discontinued and patient was maintained on IV Ativan for quite some time with no improvement. Patient was also briefly monitored in the ICU for multiple episodes of increasing unresponsiveness with no changes. Multiple testings including lumbar puncture, EEG and CT of the brain were done and were unremarkable. Patient did have an NG tube as she was not eating anything by mouth and family wishes were to remove the NG tube and patient has been nothing by mouth. Psychiatry recommending possible ECT therapy although patient's family refused as they have had previous bad experiences with family members having that therapy in the past. Patient family members met with psychiatry and would like to make the patient hospice. Patient family member came in and signed on with [facility] services. Patient will be going to [facility] with [facility] services today. Currently no reports of chest pain, shortness of breath, or palpitations. Patient is afebrile. No reports of nausea or vomiting and patient recently had NG tube removed per family wishes and has had nothing by mouth. Patient will be going to [facility] today [facility] hospice services. On exam vital signs are stable. Cardio S1, S2 are muffled. Respiratory system shows diminished breath sounds at the bases with no wheezing or rhonchi noted. Abdomen is soft and obese, and nontender. Nervous system shows diffuse weakness. Please refer to medication reconciliation sheet for a list of medications. Patient Condition at Discharge: Stable Plan - Discharge Summary Discharge Rx Participant: No New Discharge Prescriptions: New LORazepam [Ativan] 3 mg PO TID 3 Days #12 tab Atropine Ophth Soln 1% 5Ml [Isopto Atropine 1% 5Ml] 1 drop SUBLINGUAL Q4H #1 bottle MORPHINE ORAL MELINDA CONC 20mg/mL [Roxanol Oral Soln Conc 20MG/ML] 10 mg PO Q4H PRN 3 Days #9 ml PRN Reason: Pain Continue lamoTRIgine [LaMICtal] 100 mg PO BID Discontinued Venlafaxine HCl [Effexor XR] 37.5 mg PO DAILY Benztropine Mesylate [Cogentin] 0.5 mg PO BID Discharge Medication List lamoTRIgine [LaMICtal] 100 mg PO BID 05/20/20 [History] Atropine Ophth Soln 1% 5Ml [Isopto Atropine 1% 5Ml] 1 drop SUBLINGUAL Q4H #1 bottle 06/15/20 [Rx] LORazepam [Ativan] 3 mg PO TID 3 Days #12 tab 06/15/20 [Rx] MORPHINE ORAL MELINDA CONC 20mg/mL [Roxanol Oral Soln Conc 20MG/ML] 10 mg PO Q4H PRN 3 Days #9 ml 06/15/20 [Rx] Follow up Appointment(s)/Referral(s): None,Stated [Primary Care Provider] - 1-2 days Activity/Diet/Wound Care/Special Instructions: [facility] Activity as tolerated Patient will be signing on with hospice care Discharge Disposition: TRANSFER TO SNF/ECF
[2020-06-15 11:55] LABS: Glucose,Whole Blood 112 mg/dL (75-99)
[2020-06-15] MEDS ORDERED: DANTROLENE 25 MG CAP PO SCH (12:00)
[2020-06-15] MEDS: DEXTROSE 5%-0.9% NACL 1,000 ML IV SCH (12:12)
[2020-06-15 12:43] VITALS: PULSE 88; RESP 18
--- NOTE | 2020-06-15 14:21 | P.PN ---
Progress Note - Text Progress Note Date: 06/15/20 REASON FOR FOLLOWUP: Fever. INTERVAL HISTORY: The patient is afebrile. The patient is hemodynamically stable. The patient is breathing comfortable on room air, remains to be NPO. Has no access and no diarrhea has been reported. No other changes. PHYSICAL EXAMINATION: Blood pressure 131/72, pulse of 88, temperature 99.3. She is 94% on room air. General description is an elderly female lying in bed in no distress. Respiratory system: Unlabored breathing. Clear to auscultation anteriorly. Heart S1, S2. Regular rate and rhythm. Abdomen soft, no tenderness. LABS: No new labs have been obtained today. DIAGNOSTIC IMPRESSION AND PLAN: Patient with a fever. This patient did have extensive workup with concern for possible non infectious source. Patient pneumonia and urinary tract infection has been adequately treated. Currently off antibiotic for the last few days. no need for ant ibiotics on discharge
--- NOTE | 2020-06-15 15:42 | P.PN ---
Subjective Progress Note Date: 06/15/20 06/15/2020: Patient continues to be awake, but encephalopathic, very rigid. No changes compared to yesterday. 06/14/2020: Patient is more awake, alert, but continues to be very rigid, encephalopathic. Patient not able to tell her name. No significant improvement as compared to last exam from 06/04/2020. 06/04/2020: Patient continues to be very rigid, encephalopathic, somnolent. Per nurse she was able to tell her name today. 06/03/2020: Patient much more awake, denies headache. Patient able to tell that it is May. Patient continues to be on Ativan 3.5 mg IV every 6 hours. Patient did have a temperature spike of 101.1F. 06/02/2020: Patient continues to be somnolent. Does not follow commands. No seizure-like activity noted. Patient currently on Ativan 3.5 mg IV every 6 hours. This is as per psychiatry. 06/01/2020: Patient was seen for a follow-up. Initially consultation performed by Dr. Evan Arreaga. Please refer to his note for details. Patient has history of depression, anxiety, came with altered mental status. Patient was diagnosed with catatonia, perhaps acute serotonin syndrome due to reaction of Haldol. Patient also had aspiration pneumonia, seizure disorder, es ophageal strictures. Patient has some fluctuating mental status, sometimes more alert, sometimes more somnolent. No seizure-like activity has been documented. Patient underwent lumbar puncture, in which the WBCs were 0. RBC 0, glucose 63, protein 47 (12-60) MRI of the brain showed nearly nondiagnostic exam due to extensive motion artifact. No obvious abnormal signal on diffusion imaging to suggest acute ischemia. Degenerative and nonspecific white matter changes most typical of remote ischemia. Patient follows up with psychiatrist. Patient currently on Ativan 3.5 mg IV every 6 hours IV. Patient's catatonia has improved. Patient was asleep. UTI. EEG on 05/26/2020 showed background slowing consistent with encephalopathy. Some frontal sharp waves were seen. Repeat EEG was recommended Objective - Vital Signs Vital signs: Vital Signs Temp 99.3 F 06/15/20 07:51 Pulse 88 06/15/20 12:42 Resp 18 06/15/20 12:42 BP 131/72 01/26/21 11:27 Pulse Ox 95 06/15/20 08:04 Intake & Output 06/14/20 06/15/20 06/15/20 18:59 06:59 18:59 Output Total 501 800 Balance -501 -800 Weight 51.5 kg Output: Urine 500 800 Stool 1 Other: Voiding Method Indwelling Catheter Indwelling Catheter Indwelling Catheter # Voids 2 - Exam No change as compared to yesterday examination is below. Patient is much more alert and awake, tries to speak, but did not speak any words. Did not tell me her name. Patient is extremely rigid in both arms and legs. Not able to flex or extend her elbows or arms. Her right index finger is sticking out in dystonic manner. No seizure-like activity. Patient has some dystonic tremors of her arms. Pupils are round and reacting, visual morley could not be tested. Face is symmetric. Cerebellar functions could not be tested. Gait could not be tested. - Labs CBC & Chem 7: 06/10/20 05:41 06/10/20 05:41 Labs: Abnormal Lab Results - Last 24 Hours (Table) 06/14/20 06/15/20 06/15/20 Range/Units 17:45 00:12 05:55 POC Glucose (mg/dL) 119 H 127 H 121 H (75-99) mg/dL 06/15/20 Range/Units 11:49 POC Glucose (mg/dL) 112 H (75-99) mg/dL Assessment and Plan Assessment: * Altered mental status, possible toxic metabolic encephalopathy, doubt serotonin syndrome. Rule out neuroleptic malignant syndrome. * Generalized dystonia, severe rigidity. Doubt catatonia, as patient is not responding to high-dose Ativan. * History of anxiety depression. * History of seizure disorder, on Lamictal 100 mg twice a day. * UTI, possible pneumonia on Zosyn. ID following. Plan: * Patient's dose of Ativan continues to be at 3 mg IV every 6 hours, without any clinical improvement. Patient continues to be severely dystonic. I decreased the dose of Ativan to 2 mg IV every 8 hours. Will decrease Sinemet down to 25/100 twice a day. Suggest slowly take her off Sinemet. * Discussed with psychiatry about consideration for dantrolene, although patient does not have very high temperature that occurs with neuroleptic malignant syndrome. Patient does have very mildly elevated CPKs. Apparently patient's family has decided patient to be hospice, therefore we will cancel the empiric treatment. Discussed with Dr Hardwick. * Patient underwent EEG, which was abnormal due to background slowing of moderate degree. This is suggestive of generalized cerebral dysfunction as can be seen with toxic metabolic encephalopathy due to diffuse structural brain abnormality. No definitive epileptiform activity was seen. * Patient's CSF shows WBC 0, RBC 0, total protein is normal 47 (12-60), glucose 63. HSV-1 and HSV 2 PCR negative. * Patient's family's have decided hospice care.
[2020-06-15] MEDS ORDERED: LORazepam 2 MG/ML INJ IV SCH (20:00)
[2020-06-16] MEDS ORDERED: CARBIDOPA-LEVODOPA 25-100 MG 1 EACH TAB PO SCH (09:00)
== END 2020-06-15 14:16 | DRG 917 ==
LOC: EC 12:42 → 5NMEDONC 15:47 → 4SSUR 16:47 → OBSVTOIN 17:00 → 4SSUR 20:03 → 2SICU 05-21 17:22 → 4SSUR 05-28 13:11
PROVIDERS: ADMIT Hospitalist; ATTEND Hospitalist
PROC: 009U3ZX Drainage of Spinal Canal, Percutaneous Approach, Diagnostic (ICD-10-PCS; principal; 2020-05-25)
DX: T43.211A Poisoning by selective serotonin and norepinephrine reuptake inhibitors, accidental (unintentional), initial encounter (principal); G92 Toxic encephalopathy; G21.0 Malignant neuroleptic syndrome; J69.0 Pneumonitis due to inhalation of food and vomit; J96.01 Acute respiratory failure with hypoxia; E44.0 Moderate protein-calorie malnutrition; E87.0 Hyperosmolality and hypernatremia; E87.1 Hypo-osmolality and hyponatremia; E87.2 Acidosis; F33.3 Major depressive disorder, recurrent, severe with psychotic symptoms; M62.82 Rhabdomyolysis; N39.0 Urinary tract infection, site not specified; N17.9 Acute kidney failure, unspecified; K52.1 Toxic gastroenteritis and colitis; L89.151 Pressure ulcer of sacral region, stage 1; E83.39 Other disorders of phosphorus metabolism; K22.2 Esophageal obstruction; F06.1 Catatonic disorder due to known physiological condition; R62.7 Adult failure to thrive; Z51.5 Encounter for palliative care; Z20.822 Contact with and (suspected) exposure to COVID-19; B96.20 Unspecified Escherichia coli [E. coli] as the cause of diseases classified elsewhere; B96.89 Other specified bacterial agents as the cause of diseases classified elsewhere; D72.810 Lymphocytopenia; E66.9 Obesity, unspecified; Z68.20 Body mass index [BMI] 20.0-20.9, adult; E78.5 Hyperlipidemia, unspecified; E86.0 Dehydration; E86.1 Hypovolemia; E87.6 Hypokalemia; F41.0 Panic disorder [episodic paroxysmal anxiety]; F41.1 Generalized anxiety disorder; G24.9 Dystonia, unspecified; G40.909 Epilepsy, unspecified, not intractable, without status epilepticus; H55.09 Other forms of nystagmus; K21.9 Gastro-esophageal reflux disease without esophagitis; Z79.899 Other long term (current) drug therapy; Z80.0 Family history of malignant neoplasm of digestive organs; Z85.038 Personal history of other malignant neoplasm of large intestine; Z90.49 Acquired absence of other specified parts of digestive tract; Z88.5 Allergy status to narcotic agent; Z98.890 Other specified postprocedural states; Z98.51 Tubal ligation status; Z80.8 Family history of malignant neoplasm of other organs or systems; Z82.0 Family history of epilepsy and other diseases of the nervous system; T43.4X5A Adverse effect of butyrophenone and thiothixene neuroleptics, initial encounter; T36.95XA Adverse effect of unspecified systemic antibiotic, initial encounter
CPT/HCPCS: 36415; 70450; 70551; 71045; 71046; 74177; 78582; 80048; 80053; 80306; 81001; 81003; 82550; 82607; 82747; 82945; 83605; 83615; 83735; 84100; 84132; 84145; 84157; 84443; 84450; 84460; 84484; 85025; 85379; 85610; 85730; 86140; 87040; 87070; 87077; 87086; 87186; 87205; 87324; 87449; 87502; 87529; 87635; 88108; 89050; 93005; 93970; 94640; 94760; 95819; 96361; 96374; 96376; 99285